=== PATIENT | male | born 1950 | race Caucasian/White ===

== ENCOUNTER → 2016-05-20 | Outpatient (CLI) | payer BC ==
[~2016-05-20] MED LIST: ASPI81TA28 PO; ATOR-22 PO; BTP80 PO; COEN10CA4; CYANPOW; DABI150C PO; FINA5TAB PO; FRS/40 PO; GLC/500 PO; GLIM1TAB PO; IMDSR30 PO; INSDGIPEN SC; INSHNI SQ; INSU100I2 SQ; INSUINJ SC; LSN40 PO; MAGN400T6 PO; NVLGIPEN SC; PRT/20 PO; lovaza PO
== END | disposition home or self-care (01) ==
LOC: C.LAB1850 09:56
PROVIDERS: ATTEND Urology
DX: N40.1 Benign prostatic hyperplasia with lower urinary tract symptoms (principal)

== ENCOUNTER → 2017-03-14 | Day surgery (SDC) | payer BC ==
[~2017-03-14] VITALS: Ht 175.3 cm; Wt 120.0 kg
[~2017-03-14] MED LIST changes: +ACETAMINOPHEN 325 MG TAB PO PRN; +ATROPINE SULFATE 0.1 MG/ML 5ML SYR IV PRN; +CARV25TA2 PO; +CHOL1000 PO; +COEN1CAP28 PO; +CYAN10004 PO; +DC ALL ANTICOAGULANTS PRN; +FENTANYL CITRATE INJ 50 MCG/1 ML 2 ML VIAL ONE; +IMDSR/30 PO; +INSU1.2I SQ; +METF-384 PO; +METH-1305 PO; +MIDAZOLAM HCL 1 MG/ML 2ML VIAL ONE; +NTRGSL/4 UT; +NVLGI/PEN SQ; +ONDANSETRON INJ 2 MG/ML 2 ML VIAL IV PRN; +PREG225C PO; +SODIUM CHLORIDE 0.9% 1000ML 1,000 ML IV SCH; +SODIUM CHLORIDE 0.9% 1000ML 250 ML IV PRN
[2017-03-14 07:12] VITALS: BP 149/77; PULSE 57; TEMP 36.6; O2SAT 94; Ht 175.3 cm; Wt 120.0 kg
--- NOTE | 2017-03-14 08:08 | History & Physical Bridge Note ---
H&P Re-Evaluation Bridge Note: I have examined the patient, reviewed the History & Physical and in the interval since the performance of the History & Physical I have noted the following changes of clinical significance: No changes noted
--- NOTE | 2017-03-14 09:36 | Cardiac Catheterization ---
Procedure Note Procedure Date Mar 14, 2017. Pre-Procedure Diagnosis Angina AUC Score 7 Post-Procedure Diagnosis Moderate CAD Procedure(s) Performed Coronary Angiography, Left Heart Cath [place] [employer] Dr. Corey Insole Filler(s) None Estimated Blood Loss None Medication(s) Versed, Lidocaine 1% Summary of Findings See dictated report Hemodynamics Rest Ao: 117/54 Final Ao: 120/55 LV: 118/17 Recommendations Medical therapy and/or Counseling Specimens None Radiation Exposure (mGy) 4505 Contrast (mls) 242 Fluids (cc crystalloids) 120 Disposition Respiratory Supervisor Holding/Recovery ACC Data Cardiac Status Clinical evaluation leading to the procedure CAD Presntation: Stable angina (this patient presented with atypical chest pain ) Anginal Classification: CCS II Heart Failure: No Cardiogenic Shock w/in 24Hrs: No Cardiac Arrest w/in 24Hrs: No Imaging studies past 6 months: Yes Stress studies past 6 months: No Coronary Anatomy Dominant: Right (see dictated report) Diagnostic Physician's Name: Rondey Corey, DO Status: Elective Closure Device Percutaneous Entry Location: Femoral Closure Device: Mynx
--- NOTE | 2017-03-14 09:48 | Procedure Note ---
Cardiac Cath Report Procedure: #1 left heart catheterization #2 coronary angiography History: This is a 66-year-old male patient followed by Dr. Onofre. He has been experiencing atypical chest pain. He's gained some weight recently. He has diabetic neuropathy of the lower extremities. He would not be a good candidate for a treadmill exercise study. Also, his imaging studies would be poor due to his body habitus. He would not be a good candidate for a dobutamine study due to history of atrial fibrillation. It was decided that the best option would be to proceed with cardiac catheterization considering that he has coronary artery disease with a previous stent placed at [facility] several years ago. Procedure summary: The patient was seen and evaluated in the holding area the Java [employer] Developer. After informed consent was obtained he was taken to the cardiac catheterization lab where he was prepped and draped in the usual manner. The patient has a history of a right carotid endarterectomy surgery and also had sluggish flow to the ulnar artery of the right hand so it was determined that he was not a candidate for right transradial approach. Utilizing a right transfemoral approach preformed diagnostic catheters were used for the coronary angiograms. 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 It took extra time and contrast dye to find disorder. The best catheter to cannulate this artery is an AL 1. Following coronary angiography. Pigtail catheter was utilized to measure left heart pressures. No LV gram was performed due to the amount of contrast dye utilized to find coronary anatomy. The patient had the arterial site closed with makes device and then was returned to the holding area the [employer] Developer in stable condition. Coronary angiography: Selective injections of the left coronary artery reveal diffuse mild disease throughout the left coronary tree. There is evidence of a previous stent in the first marginal from the left circumflex artery. The origin and proximal portion of the left circumflex is small in caliber most likely due to diffuse disease. The remainder of the left coronary tree has minor nonobstructive disease. The LAD system has moderate diffuse disease throughout its course. The LAD system gives off 2 diagonal branches which were medium to large in size. They have minor nonobstructive disease. Selective injections of the right coronary artery reveal it to be anomalous from the left coronary cusp. The right coronary artery is dominant. The right coronary artery has diffuse minor nonobstructive disease. Left ventriculogram was not performed. The LVEDP was 17. Summary: The patient has diffuse coronary artery disease which is nonobstructive. The previous coronary stent site in the marginal branch from the left circumflex artery is patent. The origin and proximal portion of the left circumflex artery are diffusely diseased and small in caliber. The remainder of the left circumflex artery as well as the remainder of the coronary anatomy is patent. 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 Recommendations: The patient will receive counseling and medical management for his coronary artery disease.
--- NOTE | 2017-03-14 09:50 | Pre Sedation Assessment ---
Pre Sedation Assessment General Date of Sedation: Mar 14, 2017. 8:34 AM Vital Signs Past 12 Hours Date Time Temp Pulse Resp B/P (MAP) Pulse Ox O2 Delivery O2 Flow Rate FiO2 03/14/17 09:23 54 16 126/81 (96) 97 Mask 3 03/14/17 07:12 36.6 57 16 149/77 (101) 94 Room Air Review Cardiovascular: regular rate, rhythm Lungs: lungs clear Pre-Sedation Airway Assessment Smoking Status: Former Smoker Hx of Sleep Apnea: Yes Hx of difficult intubation: No Short Thick Neck: Yes Thyro-mental Distance: < or =3 Finger Breadths Oral Cavity: Dentures Mallampati Classification: Class II ASA Classification: Class II NPO Status Date of Last Intake of Fluids: Mar 14, 2017 Time of Last Intake of Fluids: 0430 Date of Last Intake of Solids: Mar 13, 2017 Time of Last Intake of Solids: 183 Procedure Planning Contraindications for Sedation: None Current Medications Reviewed: Yes Notes The planned sedation has been discussed with the patient. Informed Consent was obtained. I have identified the patient, determined the appropriateness of sedation and have assessed the patient immediately prior to the procedure. All medicine(s) and interventions are by my order.
--- NOTE | 2017-03-14 09:51 | Post Sedation Assessment ---
Post Sedation Assessment General Date of Sedation Mar 14, 2017. 9:23 AM Vital Signs: Vital Signs Past 12 Hours Date Time Temp Pulse Resp B/P (MAP) Pulse Ox O2 Delivery O2 Flow Rate FiO2 03/14/17 09:23 54 16 126/81 (96) 97 Mask 3 03/14/17 07:12 36.6 57 16 149/77 (101) 94 Room Air Post Procedure Recovery Score Activity: (2) Moves 4 extremities * Respiration: (2) Deep breath/cough Circulation: (2) +/-20% PreAnes Value Consciousness: (2) Fully Awake Oxygen Saturation: (2) > 92% On Room Air Post Anesthesia Score: 10 Discharge Sedation Level of Care: Fast Track Phase II Post Sedation Plan On clinical assessment, the patient appears to have tolerated the sedation without complications. Patient is recovering as anticipated. Patient will continue to be monitored by nursing and may be discharged when sedation discharge criteria are met per below protocol. Upon Completions of procedure and additional 15 minutes continue every 5 minute vital signs and the P.A.R. score; then discharge to a Phase I or Fast Track to Phase II per the following guidelines: * Discharge Patient to appropriate Phase II area if PAR is 8 or greater or return to pre- procedure baseline. The post - procedure orders will be as directed. * If PAR score is less than 8 or not return to pre-procedure baseline then patient will follow Phase I monitoring till PAR is reached for Phase II. The Phase I may be done in procedure room or may call to secure a Phase I area. * If naloxone or flumazenil are used for reversal, hold in Phase I for an additional 60 -120 minutes before discharge to Phase II. Please call the Sedation Physician to re-evaluate and complete post-note for discharge to Phase II area. Do NOT discharge from procedure sedation or Phase 1 until post- sedation evaluation note is complete by procedure /sedation MD Sedation Discharge Instructions to be given to the patient at discharge to home.
--- NOTE | 2017-03-14 10:00 | Discharge Instructions ---
Discharge Instructions Procedure Procedure Date: Mar 14, 2017. Reason for Visit: Chest Pain *. Discharge Discharge Date: Mar 14, 2017. Discharge Diagnosis: Coronary artery disease Last Recorded Wt (Kilograms): 120 Anesthesia Post Anesthesia Instructions: If you have had General Anesthesia or IV Sedation: * Do not drive today. * Resume driving when surgeon permits. * Do not make important decisions or sign legal documents today. * Call surgeon for: 1. Temperature elevations greater than 101 degrees F. 2. Uncontrollable pain. 3. Excessive bleeding. 4. Persistent nausea and vomiting. 5. Medication intolerance (nausea, vomiting or rash). * For nausea and vomiting use only clear liquids such as: tea, soda, bouillon until nausea subsides, then gradually increase diet as tolerated. * If you have any concerns or questions, call your surgeon's office. If physician is unavailable and it is an emergency, call 911 or go to the nearest emergency room. Instructions Activity Recommendations: limitations Recommended Home Diet: resume previous diet Allergies: Coded Allergies: No Known Allergies (Unverified , 05/27/15) Provider Instructions ACTIVITY RECOMMENDATIONS: It is common to feel weak and fatigue for a few days. * Do not drive or operate any motorized equipment for the next three days. * Limit stair usage (2 or 3 trips a day only) for the next three days. * Do not lift anything heavier than 10 pounds for the next three days. * Do not engage in vigorous exercise or any sports for the next five days. * You may shower the day after your procedure, but do not immerse the area for three days. Cleanse the site gently with soap and water. SPECIAL CARE INSTRUCTIONS: * You may replace the pressure dressing or band-aid the morning after the procedure. * After your procedure, it is normal to have a small bruise or small lump at the site. Examine your site daily for any change in the bruise or lump, redness, swelling, drainage or numbness. Notify your doctor if any change. BLEEDING: * If there is a small amount of bleeding at the site, lie down and apply firm pressure with a clean cloth for ten minutes. When the bleeding stops, lie quietly keeping the procedure limb straight for six hours. Notify your doctor as soon as possible. * If the bleeding does not stop after ten minutes or if there is a large amount of bleeding or spurting, call 911 immediately. Continue to lie down and hold firm pressure until help arrives. SKIN IRRITATION: * You may experience some redness and/or swelling in the area where radiation was administered. If any skin irritation occurs, please contact your family physician. FOLLOW UP VISIT: Keep any scheduled doctor appointments. Follow Up Additional Instructions: Hold metformin for the next 2 days. Follow-up with: Follow-up with Dr. Schilling as previously scheduled. Ander Monet Recommendations: Call your doctor if: * Temperature above 101 degrees * Pain not relieved by pain medicine ordered * There is increased drainage or redness from any incision * You have any unanswered questions or concerns. Your Doctors Instructions noted above were prepared by provider Rodney Corey. Patient Signature Section: Patient Instructions Signature Page Po Rubio Patient (or Guardian) Signature/Date: I have read and understand the instructions given to me by my caregivers. Caregiver/RN/Doctor Signature/Date: The above-named patient and/or guardian has received patient instructions on this date. + Original Patient Signature Page (only) stays with chart. Please make copy for patient.
[2017-03-14 12:00] VITALS: BP 114/68; PULSE 65; O2SAT 96
== END | disposition home or self-care (01) ==
LOC: C.CATH 06:02
PROVIDERS: ATTEND Internal Medicine Interventional Cardiology
DX: I20.8 Other forms of angina pectoris (principal); I48.0 Paroxysmal atrial fibrillation; I25.10 Atherosclerotic heart disease of native coronary artery without angina pectoris; I10 Essential (primary) hypertension; R00.2 Palpitations; R00.1 Bradycardia, unspecified; Z82.49 Family history of ischemic heart disease and other diseases of the circulatory system; Z80.1 Family history of malignant neoplasm of trachea, bronchus and lung; Z79.82 Long term (current) use of aspirin; Z87.891 Personal history of nicotine dependence

== ENCOUNTER → 2017-03-16 | Outpatient (CLI) | payer BC ==
[~2017-03-16] MED LIST changes: -ACETAMINOPHEN 325 MG TAB PO PRN; -ATROPINE SULFATE 0.1 MG/ML 5ML SYR IV PRN; -BTP80 PO; -COEN10CA4; -CYANPOW; -DC ALL ANTICOAGULANTS PRN; -FENTANYL CITRATE INJ 50 MCG/1 ML 2 ML VIAL ONE; -GLC/500 PO; -GLIM1TAB PO; -IMDSR30 PO; -INSDGIPEN SC; -INSHNI SQ; -INSU100I2 SQ; -INSUINJ SC; -MIDAZOLAM HCL 1 MG/ML 2ML VIAL ONE; -NVLGIPEN SC; -ONDANSETRON INJ 2 MG/ML 2 ML VIAL IV PRN; -SODIUM CHLORIDE 0.9% 1000ML 1,000 ML IV SCH; -SODIUM CHLORIDE 0.9% 1000ML 250 ML IV PRN
[2017-03-16 10:23] LABS: BLOOD UREA NITROGEN 25 mg/dl (7-18); CARBON DIOXIDE 26 mmol/L (21-32); CREATININE 1.32 mg/dl (0.60-1.40); GLUCOSE 140 mg/dl (70-99); POTASSIUM 4.2 mmol/L (3.5-5.1); SODIUM 143 mmol/L (136-145)
== END | disposition home or self-care (01) ==
LOC: C.LAB1850 08:45
PROVIDERS: ATTEND Internal Medicine Interventional Cardiology
DX: I48.0 Paroxysmal atrial fibrillation (principal); I10 Essential (primary) hypertension; Z98.890 Other specified postprocedural states

== ENCOUNTER → 2017-05-04 | Outpatient (CLI) | payer BC | END | disposition home or self-care (01) | LOC: C.LAB1850 07:00 | PROVIDERS: ATTEND Urology | DX: R33.9 Retention of urine, unspecified (principal); N40.1 Benign prostatic hyperplasia with lower urinary tract symptoms; N31.9 Neuromuscular dysfunction of bladder, unspecified ==

== ENCOUNTER → 2017-08-11 | Outpatient (CLI) | payer BC, OTHER ==
[~2017-08-11] MED LIST changes: -CARV25TA2 PO; +CIPR-304 PO; +CRG125 PO; -FRS/40 PO; +HYDR-4715 PO; +LISI40TA3 PO; -LSN40 PO; +NVLG SC; +TORS10TA14 PO
[2017-08-11 09:43] LABS: BLOOD UREA NITROGEN 37 mg/dl (7-18); CALCIUM 8.8 mg/dl (8.5-10.1); CARBON DIOXIDE 21 mmol/L (21-32); CREATININE 1.83 mg/dl (0.60-1.40); GLUCOSE 219 mg/dl (70-99); POTASSIUM 4.5 mmol/L (3.5-5.1); SODIUM 143 mmol/L (136-145)
== END | disposition home or self-care (01) ==
LOC: C.LAB1850 08:23
PROVIDERS: ATTEND Physician Assistant
DX: N17.0 Acute kidney failure with tubular necrosis (principal)

== ENCOUNTER 2023-04-02 09:32 | Inpatient (IN) ==
--- OUTSIDE RECORDS SUMMARY | 2023-04-02 09:38 | External Medical Summary | Summary of Care ---
Author Name Unknown Organization [facility] Address [address] [place] [address] Phone [phone] Care Team Providers Care Circle Edger Name Role Phone Leonard Eisenberg MD Primary Care Provider [phone] Reason for Visit * Reason Comments NEW PATIENT Encounter Details Date Type Department Care Team (Late st Contact Info) Description 02/08/2023 8:00 AM EST Office Visit Urology, [place] [address], [place] [id number] Chivo Solis PA-C [address], [place] [id number] Neurogenic bladder*; BPH with obstruction/lower urinary tract symptoms Allergies Active Allergy Reactions Criticality Noted Date Comments Sulfamethoxazole-Trimet hoprim Other (Please comment) 09/20/2017 hyperkalmeia Lisinopril 09/15/2022 ?cough Trimethoprim High 11/23/2021 Other reaction(s): acute renal failure documented as of this encounter (statuses as of 02/08/2023) Medications Medication Sig Dispensed Refills Start Date End Date Status NOVOFINE 32G X 6 MM MISC 0 12/19/2014 Active Magnesium 500 MG Capsule Take 1 Tablet by mouth in the morning and 1 Tablet before bedtime. one in morning, one in evening. 0 Active Cyanocobalamin (VITAMIN B-12) 1000 MCG Tablet Take 1 Tablet by mouth in the morning. 0 Active Methenamine Hippurate 1 G TABS Take 1 Tablet by mouth in the morning and 1 Tablet before bedtime. 6 02/26/2016 Active LYRICA 225 MG Capsule Take 1 Capsule by mouth in the morning and 1 Capsule at noon and 1 Capsule in the evening and 1 Capsule before bedtime. 0 02/27/2017 Active Cholecalciferol (VITAMIN D3) 1000 units CAPS Take 1 Capsule by mouth in the morning. 0 Active DULoxetine HCl 60 MG Oral Capsule Delayed Release Particles (CYMBALTA) Take 1 Capsule by mouth in the morning and 1 Capsule before bedtime. 0 12/17/2019 Active Aspirin EC 81 MG Oral Tablet Delayed Release Take by mouth 1 Tablet in the morning. 90 Tablet 3 05/31/2021 Active CPAP every night at bedtime . 0 Active Nitroglycerin 0.4 MG Sublingual Tablet Sublingual (Nitrostat)Indicatio ns:Coronary artery disease involving [place] coronary artery of [place] heart without angina pectoris Place under the tongue 1 Tablet every 5 minutes as needed for Pain, Chest. up to 3 doses in 15 minutes 25 Tablet 1 10/20/2021 Active WePoppipod DASH PDM (Gen 4) Kit Use as directed . Use to control insulin pod 1 Kit 0 11/15/2021 Active WePoppipSensipass DASH Pods (Gen 4) Use as directed . Use 1 pod every 3 days 2 Each 0 01/18/2022 Active Isosorbide Mononitrate ER 60 MG Oral Tablet Extended Release 24 Hour (Imdur)Indications:H TN, goal below 130/80,Coronary artery disease involving [place] coronary artery of [place] heart without angina pectoris,S/P primary angioplasty with coronary stent Take 1 Tablet (60 mg) by mouth in the morning. 90 Tablet 3 01/17/2022 Active FreeStyle Indra 2 Sensor Use as directed . Use 1 sensor every 14 days 6 Each 3 01/21/2022 Active Atorvastatin Calcium 40 MG Oral Tablet (Lipitor)Indications :evening Take 1 Tablet by mouth in the morning. 1 tab daily. 90 Tablet 3 03/21/2022 Active Carvedilol 12.5 MG Oral Tablet (Coreg)Indications:C oronary artery disease involving [place] coronary artery of [place] heart without angina pectoris,Paroxysmal atrial fibrillation (HCC) Take 1 Tablet by mouth in the morning and 1 Tablet before bedtime. 180 Tablet 3 03/21/2022 Active Jppjc-2-kazw Ethyl Esters 1 GM Oral Capsule (Lovaza)Indications: Dyslipidemia Take 1 Capsule by mouth in the morning and 1 Capsule in the evening. 180 Capsule 3 04/19/2022 Active Apixaban 5 MG Oral Tablet (Eliquis)Indications :Paroxysmal atrial fibrillation (HCC) Take 1 Tablet by mouth in the morning and 1 Tablet before bedtime. 180 Tablet 3 07/12/2022 Active metFORMIN HCl 1000 MG Oral Tablet (Glucophage) Take 1 Tablet by mouth 2 times a day with morning and evening meals. 180 Tablet 3 07/14/2022 Active Albuterol Sulfate 108 (90 Base) MCG/ACT Inhalation Aerosol Powder Breath Activated Inhale 2 Puffs by mouth every 4 hours as needed for Cough, Shortness of Breath or Wheezing. 1 Each 5 07/18/2022 Active Pantoprazole Sodium 40 MG Oral Tablet Delayed Release (Protonix) 0 08/02/2022 Active Losartan Potassium 50 MG Oral Tablet (Cozaar) Take 0.5 Tablets by mouth in the morning. 45 Tablet 3 09/27/2022 Active B Complex Plus Oral Tablet Take by mouth. 0 Active Eye Health Oral Capsule Take by mouth. 0 Active Ipratropium [place] HFA 17 MCG/ACT Inhalation Aerosol Solution (Atrovent Hfa) Inhale 2 Puffs by mouth every 6 hours. 12.9 g 5 10/19/2022 Active Torsemide 10 MG Oral Tablet (Demadex)Indications :HTN, goal below 130/80 Take 1 Tablet by mouth in the morning and 1 Tablet before bedtime. 180 Tablet 3 10/25/2022 Active Fluticasone-Salmeter ol 500-50 MCG/ACT Inhalation Aerosol Powder Breath Activated Inhale 1 Puff by mouth in the morning and 1 Puff before bedtime. 180 Each 3 10/25/2022 Active Biotene Dry Mouth Mouth/Throat Lozenge Apply 1 Lozenge to the mouth or throat every evening. 90 Lozenge 3 10/25/2022 Active Omnipod DASH Pods (Gen 4) USE 1 POD EVERY 2 DAYS DIRECTED 5 Each 0 11/25/2022 Active Allopurinol 100 MG Oral Tablet (Zyloprim) Take 1 Tablet by mouth in the morning. 30 Tablet 11 12/12/2022 Active hydrALAZINE HCl 10 MG Oral Tablet (Apresoline) Take 1 Tablet by mouth in the morning. 90 Tablet 3 12/28/2022 Active Insulin Aspart 100 UNIT/ML Injection Solution (NovoLOG) Inject up to 100 units daily via insulin pump 90 mL 1 01/10/2023 Active Hospital, Clinic, or Other Facility Administered Medication Ordered Dose Route Frequency Start Date End Date Status Albuterol Sulfate (Proventil) (2.5 MG/3ML) 0.083% inhalation solution 2.5 mgIndications:KOVACS (dyspnea on exertion),Centrilobular emphysema (HCC),History of tobacco use,Morbid obesity (HCC) 2.5 mg NEBULIZER PRN 07/06/2022 Active documented as of this encounter (statuses as of 02/08/2023) Active Problems Problem Noted Date Diagnosed Date Angina pectoris 02/08/2023 ARF (acute renal failure) 02/08/2023 Jimenez's esophagus 02/08/2023 Carpal tunnel syndrome 02/08/2023 CPAP (continuous positive airway pressure) depen dence 02/08/2023 Diabetic peripheral neuropathy 02/08/2023 KOVACS (dyspnea on exertion) 02/08/2023 Esophageal reflux 02/08/2023 History of tobacco abuse 02/08/2023 Lower back pain 02/08/2023 Spinal stenosis of lumbar region 02/08/2023 Other specified cardiac arrhythmias 02/08/2023 TR (tricuspid regurgitation) 02/08/2023 Gouty arthropathy 12/12/2022 Carotid stenosis, non-symptomatic, bilateral 03/2022 Claudication in peripheral vascular disease 03/2022 BPH with obstruction/lower urinary tract symptom s 09/07/2022 Neurogenic bladder 09/07/2022 Centrilobular emphysema 09/06/2022 Impaired functional mobility and activity tolera nce 04/19/2022 S/P ablation of atrial fibrillation 04/19/2022 Type 2 diabetes mellitus wit h diabetic peripheral angiopathy without gangrene 12/11/2021 Morbid obesity 10/20/2021 Overview: Per Obesity protocol Type 2 diabetes mellitus wit h hemoglobin A1c goal of less than 8.0% 10/17/2021 JORGE A (obstructive sleep apnea) 10/17/2021 Stage 3a chronic kidney disease 10/17/2021 Dyslipidemia 10/16/2021 PAD (peripheral artery disease) 09/21/2020 S/P primary angioplasty with coronary stent 03/16 Paroxysmal atrial fibrillation 02/18/2015 Coronary artery disease invo lving mil[place] coronary artery of [place] heart without angina pectoris 02/18/2015 HTN, goal below 130/80 02/18/2015 S/P carotid endarterectomy 02/18/2015 Dysmetabolic syndrome X 11/18/2013 Postsurgical percutaneous tr ansluminal coronary angioplasty status 11/18/2013 documented as of this encounter (statuses as of 02/08/2023) Resolved Problems Problem Noted Date Diagnosed Date Resolved Date Body mass index (BMI) of 40. 0 to 44.9 in adult 07/25/2022 09/06/2022 Overview: Per Obesity protocol Obesity, Class II, BMI 35-39 .9, isolated (see actual BMI) 10/17/2021 10/25/2022 ASCVD (arteriosclerotic card iovascular disease) 06/05/2017 10/16/2021 Palpitations 02/28/2017 10/16/2021 Hyperlipidemia LDL goal <70 02/18/2015 10/16/2021 documented as of this encounter (statuses as of 02/08/2023) Immunizations Name Administration Dates Next Due COVID-19 mRNA, LNP-s, No Pre serve, 2-Dose Series (Kngine) 11/19/2020,04/24/2020,03/29/2020 Hepatitis B, 20+ yrs 12/07/2016,06/15/2016,03/16 Pneumococcal Conjugate Vacc, 13 Valent (Prevnar) 11/24/2014 Pneumococcal Polysaccharide PPV23 (Pneumovax) 01/13/2016,02/13/2007,12/23/2005 Seasonal Influenza, Quadriva lent Hd (Fluzone Hd) 10/25/2022,10/20/2021 Seasonal Influenza, Split, I IV3, With Preserve, Inj 11/24/2014,11/07/2013 Varicella Zoster Vaccine (Adult) 05/30/2018,02/2013 Zoster Vaccine Recombinant (Shingrix) 08/06/2018 ,05/30/2018 documented as of this encounter Social History Tobacco Use Types Packs/Day Years Used Date Smoking Tobacco: Former Cigarettes 2 35 Q uit: 02/13/2001 Smokeless Tobacco: Never Tobacco Cessation:Counseling Given: Not Answered Alcohol Use Standard Drinks/Week Comments Yes 0 (1 standard drink = 0.6 oz pur e alcohol) Beer occasionally. AUDIT-C Answer Date Recorded Q1: How often do you have a drink containing alc ohol? Never 09/11/2020 Q2: How many drinks containi ng alcohol do you have on a typical day when you are drinking? Not asked 09/11/2020 Q3: How often do you have six or more drinks on one occasion? Never 09/11/2020 PHQ-2 Answer Date Recorded PHQ Adult Total Score 0 01/18/2023 Hunger Vital Sign Answer Date Recorded Within the past 12 months, y ou worried that your food would run out before you got the money to buy more. Never true 01/18/20 Within the past 12 months, t he food you bought just didn't last and you didn't have money to get more. Never true 01/17/2022 Sex and Gender Information Value Date Recorded Sex Assigned at Male 01/17/2022 8:21 AM EST Gender Identity Male 01/17/2022 8:21 AM EST Sexual Orientation Straight 01/17/2022 8: 21 AM EST Job Start Date Occupation Industry Not on file Not on file Not on file documented as of this encounter Last Filed Vital Signs Vital Sign Reading Time Taken Comments Blood Pressure 98/60 02/08/2023 7:47 AM EST Pulse 67 02/08/2023 7:47 AM EST Temperature 36.1 C (97 F) 02/08/2023 7:47 AM EST Respiratory Rate - - Oxygen Saturation - - Inhaled Oxygen Concentration - - Weight - - Height - - Body Mass Index - - documented in this encounter Progress Notes * Chivo Solis PA-C - 02/08/2023 8:04 AM EST . PCP: LEONARD EISENBERG [address] [place] [address] [phone] HPI: Po Rubio MR# [id number] is a 72 year old male presents in self referral for evaluation of bladder issues. Patient reports he has been followed by Dr. Hahn, urologist at [facility] in [place] for many years. Patient is seeking 2nd opinion for care regarding suspected recurring UTIs. Patient has a longstanding history of neurogenic bladder which he has been performing self intermittent catheterization 3 times daily for the past 10 years--generally yielding approximately 1 L of urine with each catheterization. Patient reports no issues with catheterizations. He admits that his urine a lot of times as cloudy despite consuming 64 oz of water and some coffee daily. He denies any other urinary symptoms such as fever, chills, dysuria, gross hematuria, suprapubic pain/pressure,or flank pain/pressure, or urinary incontinence associated with his cloudy urine. Patient does not void between catheterizations. . He reports he has been treated with several antibiotics for his cloudy urine which generally urine clears while he is on the antibiotic but then cloudy urine returns after he is off antibiotics. He has been taking methenamine 1 g at bedtime for severalyears to help prevent infections. BMs are generally once daily and regular. Review of patient's allergies indicates: Allergen Reactions Trimethoprim Other reaction(s): acute renal failure Bactrim [Sulfamethoxazole-Trimethoprim] Other (Please comment) hyperkalmeia Lisinopril ?cough Current Outpatient Medications Medication Sig Dispense Refill NOVOFINE 32G X 6 MM MISC Magnesium 500 MG Capsule Take 1 Tablet by mouth in the morning and 1 Tablet before bedtime. one in morning, one in evening. Cyanocobalamin (VITAMIN B-12) 1000 MCG Tablet Take 1 Tablet by mouth in the morning. Methenamine Hippurate 1 G TABS Take 1 Tablet by mouth in the morning and 1 Tablet before bedtime. 6 LYRICA 225 MG Capsule Take 1 Capsule by mouth in the morning and 1 Capsule at noon and 1 Capsule inthe evening and 1 Capsule before bedtime. Cholecalciferol (VITAMIN D3) 1000 units CAPS Take 1 Capsule by mouth in the morning. DULoxetine HCl 60 MG Oral Capsule Delayed Release Particles (CYMBALTA) Take 1 Capsule by mouth in the morning and 1 Capsule before bedtime. Aspirin EC 81 MG Oral Tablet Delayed Release Take by mouth 1 Tablet in the morning. 90 Tablet 3 CPAP every night at bedtime . Nitroglycerin 0.4 MG Sublingual Tablet Sublingual (Nitrostat) Place under the tongue 1 Tablet every5 minutes as needed for Pain, Chest. up to 3 doses in 15 minutes 25 Tablet 1 Omnipod DASH PDM (Gen 4) Kit Use as directed . Use to control insulin pod 1 Kit 0 Omnipod DASH Pods (Gen 4) Use as directed . Use 1 pod every 3 days 2 Each 0 Isosorbide Mononitrate ER 60 MG Oral Tablet Extended Release 24 Hour (Imdur) Take 1 Tablet (60 mg) by mouth in the morning. 90 Tablet 3 FreeStyle Indra 2 Sensor Use as directed . Use 1 sensor every 14 days 6 Each 3 Atorvastatin Calcium 40 MG Oral Tablet (Lipitor) Take 1 Tablet by mouth in the morning. 1 tab daily. 90 Tablet 3 Carvedilol 12.5 MG Oral Tablet (Coreg) Take 1 Tablet by mouth in the morning and 1 Tablet before bedtime. 180 Tablet 3 Ogldm-2-dvri Ethyl Esters 1 GM Oral Capsule (Lovaza) Take 1 Capsule by mouth in the morning and 1 Capsule in the evening. 180 Capsule 3 Apixaban 5 MG Oral Tablet (Eliquis) Take 1 Tablet by mouth in the morning and 1 Tablet before bedtime. 180 Tablet 3 metFORMIN HCl 1000 MG Oral Tablet (Glucophage) Take 1 Tablet by mouth 2 times a day with morning and evening meals. 180 Tablet 3 Albuterol Sulfate 108 (90 Base) MCG/ACT Inhalation Aerosol Powder Breath Activated Inhale 2 Puffs by mouth every 4 hours as needed for Cough, Shortness of Breath or Wheezing. 1 Each 5 Pantoprazole Sodium 40 MG Oral Tablet Delayed Release (Protonix) Losartan Potassium 50 MG Oral Tablet (Cozaar) Take 0.5 Tablets by mouth in the morning. 45 Tablet 3 B Complex Plus Oral Tablet Take by mouth. Eye Health Oral Capsule Take by mouth. Ipratropium [place] HFA 17 MCG/ACT Inhalation Aerosol Solution (Atrovent Hfa) Inhale 2 Puffs by mouth every 6 hours. 12.9 g 5 Torsemide 10 MG Oral Tablet (Demadex) Take 1 Tablet by mouth in the morning and 1 Tablet before bedtime. 180 Tablet 3 Fluticasone-Salmeterol 500-50 MCG/ACT Inhalation Aerosol Powder Breath Activated Inhale 1 Puff by mouth in the morning and 1 Puff before bedtime. 180 Each 3 Biotene Dry Mouth Mouth/Throat Lozenge Apply 1 Lozenge to the mouth or throat every evening. 90 Lozenge 3 Omnipod DASH Pods (Gen 4) USE 1 POD EVERY 2 DAYS DIRECTED 5 Each 0 Allopurinol 100 MG Oral Tablet (Zyloprim) Take 1 Tablet by mouth in the morning. 30 Tablet 11 hydrALAZINE HCl 10 MG Oral Tablet (Apresoline) Take 1 Tablet by mouth in the morning. 90 Tablet 3 Insulin Aspart 100 UNIT/ML Injection Solution (NovoLOG) Inject up to 100 units daily via insulin pump 90 mL 1 Current Facility-Administered Medications Medication Dose Route Frequency Provider Last Rate Last Admin Albuterol Sulfate (Proventil) (2.5 MG/3ML) 0.083% inhalation solution 2.5 mg 2.5 mg Nebulizer Tata Martinez CRNP 2.5 mg at 07/15/22 0811 Patient Active Problem List Diagnosis Code Paroxysmal atrial fibrillation ([facility]) I48.0 Coronary artery disease involving [place] coronary artery of [place] heart without angina pectoris I25.10 HTN, goal below 130/80 I10 S/P carotid endarterectomy Z98.890 S/P primary angioplasty with coronary stent Z95.5 PAD (peripheral artery disease) ([facility]) I73.9 Dyslipidemia E78.5 Type 2 diabetes mellitus with hemoglobin A1c goal of less than 8.0% ([facility]) E11.9 JORGE A (obstructive sleep apnea) G47.33 Stage 3a chronic kidney disease ([facility]) N18.31 Morbid obesity ([facility]) E66.01 Type 2 diabetes mellitus with diabetic peripheral angiopathy without gangrene ([facility]) E11.51 Impaired functional mobility and activity tolerance Z74.09 S/P ablation of atrial fibrillation Z98.890, Z86.79 Centrilobular emphysema ([facility]) J43.2 BPH with obstruction/lower urinary tract symptoms N40.1, N13.8 Neurogenic bladder N31.9 Carotid stenosis, non-symptomatic, bilateral I65.23 Claudication in peripheral vascular disease ([facility]) I73.9 Gouty arthropathy M10.9 Angina pectoris ([facility]) I20.9 ARF (acute renal failure) ([facility]) N17.9 Jimenez's esophagus K22.70 Carpal tunnel syndrome G56.00 CPAP (continuous positive airway pressure) dependence Z99.89 Diabetic peripheral neuropathy ([facility]) E11.42 KOVACS (dyspnea on exertion) R06.09 Dysmetabolic syndrome X E88.810 Esophageal reflux K21.9 History of tobacco abuse Z87.891 Lower back pain M54.50 Spinal stenosis of lumbar region M48.061 Other specified cardiac arrhythmias I49.8 Postsurgical percutaneous transluminal coronary angioplasty status Z98.61 TR (tricuspid regurgitation) I07.1 Past Medical History: Diagnosis Date BPH with obstruction/lower urinary tract symptoms 09/07/2022 CAD in [place] artery Cypher 2.5 x 28 mm drug eluting stent to the obstuse marginal , [place] Carotid stenosis Centrilobular emphysema (HCC) 09/06/2022 DM2 (diabetes mellitus, type 2) ([facility]) Dyslipidemia, goal LDL below 100 HTN (hypertension) Impaired functional mobility and activity tolerance 04/19/2022 Morbid obesity due to excess calories ([facility]) 10/20/2021 Neurogenic bladder 09/07/2022 Obesity, Class II, BMI 35-39.9, isolated (see actual BMI) 10/17/2021 JORGE A (obstructive sleep apnea) 10/17/2021 Paroxysmal atrial fibrillation ([facility]) 02/18/2015 S/P ablation of atrial fibrillation 04/19/2022 Sleep apnea, obstructive Stage 3a chronic kidney disease ([facility]) 10/17/2021 Type 2 diabetes mellitus with hemoglobin A1c goal of less than 8.0% ([facility]) 10/17/2021 Past Surgical History: Procedure Laterality Date CARDIAC CATH-CARDIOLOGY ONLY 10/27/2008 drug eluting stent to the OM, [place] CARPAL TUNNEL SURGERY Left 06/18/2021 NEUROPLASTY MEDIAN NERVE AT CARPAL TUNNEL performed by Rodney Heaton DO at OR [facility] CARPAL TUNNEL SURGERY Right 07/16/2021 NEUROPLASTY MEDIAN NERVE AT CARPAL TUNNEL performed by Rodney Heaton DO at OR [facility] CORONARY ANGIOGRAPHY W/LEFT HEART CATH Right 04/01/2020 CORONARY ANGIOGRAPHY W/LEFT HEART CATH performed by Momo Gomez MD at [facility] LABS [facility] EGD, FLEXIBLE, DIAGNOSTIC 04/04/2016 inflammation on bx, repeat 5 yrs/ESOPHAGOGASTRODUODENOSCOPY (EGD), FLEXIBLE, TRANSORAL, DIAGNOSTIC performed by Bibi Hale MD at ENDOSCOPY [facility] ELECTROPHYSIOLOGY EVAL, ATRIAL FIB, PULMONARY VEIN ISOL 07/15/2015 ELECTROPHYSIOLOGY EVAL, ATRIAL FIB, PULMONARY VEIN ISOL performed by Dc Fleming MD at CARDIAC LABS [facility] FEM/POP ARTERY REVASC W/ANGIOPLASTY Right 09/21/2020 FEM/POP ARTERY REVASC W/ANGIOPLASTY performed by Gunner Serrano MD at OR [facility] IR ARTERIOGRAM EXTREMITY UNILATERAL Right 09/21/2020 IMAGING SUPERVISION & INTERPRETATION EXTREMITY UNILATERAL performed by Gunner Serrano MD at [facility] REMOVE CATARACT, INSERT LENS PROSTH Left 11/14/2019 LEFT EXTRACAPSULAR CATARACT REMOVAL WITH INTRAOCULAR LENS performed by Elmo Apodaca MD at [facility] REMOVE CATARACT, INSERT LENS PROSTH Right 11/28/2019 RIGHT EXTRACAPSULAR CATARACT REMOVAL WITH INTRAOCULAR LENS performed by Elmo Apodaca MD at OR [facility] SINUS SURGERY PROCEDURE NEC 09/2014 THROMBOENDARECTOMY W/PATCH,NECK INCISION Right 04/2014 Dr Vincenzo [place] TIBIAL/PERONEAL ART. REVASC W/ANGIO, FIRST 09/21/2020 TIBIAL/PERONEAL ART. 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 Drug use: Never Social Determinants of Health Food Insecurity: No Food Insecurity (01/17/2022) Hunger Vital Sign Worried About Running Out of Food in the Last Year: Never true Ran Out of Food in the Last Year: Never true Review of Systems: CONSTITUTIONAL: Denies fatigue, night sweats SKIN: Denies rash, erythema NEURO: Denies headache, dizziness, slurred speech, seizure, stroke EENT: Denies visual changes, epistaxis CARDIAC: Denies recent chest pain, palpitation, murmur, CHF RESPIRATORY: Denies SOB, Asthma, emphysema, wheezing, cough GI: Denies nausea, vomiting, diarrhea, constipation, hematochezia, melena : see hpi ENDOCRINE: Denies thyroid disease. MUSCULOSKELETAL: Denies muscle weakness, swelling HEMATOLOGIC: Denies prior h/o DVT, Anemia, spontaneous bruising PSYCHOLOGICAL: Denies h/o panic attacks, bipolar disorder ALL OTHER SYSTEMS NEGATIVE PHYSICAL EXAM: BP 98/60 (BP Site: Right Arm, BP Position: Sitting, BP Cuff Size: Large) | Pulse 67 | Temp 36.1 C(97 F) (Tympanic) General: alert, no distress,well developed,well nourished,cooperative HEENT: unremarkable, EOMI, mucus membranes moist, sclera anicteric, no hearing impairment, PERRLA Neck: no masses Heart: regular rate & rhythm, no murmur, and no gallops Lungs: chest symmetric with normal AP diameter, no chest deformities noted, no chest wall tenderness, lungs clear to auscultation ABDOMEN: Soft, non-tender. BS normal, No masses, organomegaly BACK: No costo-vertebral angle tenderness Extremities: trace edema bilateral ankles Neuro: alert & oriented x 3 with fluent speech, no focal motor/sensory deficits, gait slow and cautious and walks with a cane for ambulation assistance Impression: Po Rubio is a 72 year old male with: 1. Neurogenic bladder currently performing self-intermittent catheterization 3 times daily with high yield urine volumes with each catheterization Plan: 1. Recommend patient increase frequency of performing self-intermittent catheterization 4 times daily to reduce high yield urine volumes. Catheter supplies 1800-MEDICAL, 16 swedish straight tip hydrophilic coated--reorder number [id number] 2. Recommend increased oral hydration on a daily basis 3. Reduce methenamine 1 g to every other day 4. Needle obtain outside urology records--from [facility]--Dr. Hahn(Urologist) 5. RTC 3 months follow-up I spent a total of 30-39 minutes (exact time 35 mins) on the date of service in preparation, delivery, and documentation of the care provided to Po Rubio excluding any time spent in the performance of separately billed services. Chivo Solis PA-C 8:04 AM 02/08/2023 documented in this encounter Plan of Treatment Upcoming Encounters Date Type Department Care Team (Late st Contact Info) Description 02/15/2023 11:15 AM EST Office Visit Orthopaedics [address] [place] [address] Jamil Hills PA-C [address] [place] [address] 02/21/2023 9:30 AM EST Office Visit Pulmonary Medicine, [place] [address] [place] [address] Tata Walter CRNP [address] [place] [address] 03/02/2023 9:30 AM EST Office Visit Pharmacy, [facility] [address] [facility] [place] [address] [facility] [place] [address] 04/26/2023 7:40 AM EDT Office Visit Family Practice [facility] [address] [facility] [place] [address] eLonard Eisenberg MD [address] [place] [address] 05/01/2023 9:30 AM EDT Office Visit Urology, [place] [address], [place] [id number] Chivo Solis PA-C [address], [place] [id number] 11/02/2023 10:00 AM EDT Office Visit Sleep Disorders Ctr [facility] [address] [facility] [place] [phone] Nichol Caballero DO [address] [place] [address] 01/22/2024 8:00 AM EST Nurse Only Ancillary [facility] [address] [facility] [place] [address] [facility], Nurse Annual Wellness [facility] [address] [place] [address] Scheduled Procedures Name Priority Associated Diagnoses Date/Ti me ESOPHAGOGASTRODUODENOSCOPY ( EGD), FLEXIBLE, TRANSORAL, DIAGNOSTIC Recall Jimenez's esophagus Health Maintenance Due Date Last Done Comments Alpha-1 Antitrypsin 09/24/1967 Hepatitis C Screening 09/24/1967 DTaP,Tdap,and Td Vaccines (1 - Tdap) 1968 Cologuard 1994 Colonoscopy 1994 Colorectal Cancer Screening 1994 Fecal Occult Blood Test 1994 Sigmoidoscopy 1994 COVID-19 Vaccine ( season) 2022 11/19/2020, 04/24/2020, 03/29/2020 GFR 04/07/2023 10/05/2022, 080 05/2022, 06/07/2022, Additional history exists HbA1c 05/20/2023 11/18/2022, 03/0 08/2022, 10/20/2021, Additional history exists Diabetic Eye Exam 08/11/2023 08/10/2022, 12/22/2021 Albumin/Creatinine Ratio 09/17/2023 0804/2 023, 11/19/2018, 04/05/2017 CKD HGB USE SMARTSET 36461 10/20/202310/19, 10/19/2022, 09/16/2022, Additional history exists O2 ASSESSMENT COMPLETED IN PAST YEAR FOR COPD 10/29/2023 10/28/2022 CKD PHOS USE SMARTSET 02570 11/19/2023 10/0 07/2022, 11/12/2021, 04/01/2020 Diabetic Foot Exam 12/30/2023 12/29/2022 Depression Screening 01/19/2024 01/18/2023 Pneumococcal Vaccine: 65+ Years Completed 01/13/2016, 11/24/2014, 02/13/2007, Additional history exists Hepatitis B Completed 12/07/2016, 05/0 04/2016, 03/16/2016 Zoster Vaccines Completed 08/06/2018, 05/14, 05/30/2018, Additional history exists AAA Screening Completed 11/19/2019 Influenza Vaccine (FLU shot) Completed 01/2023, 10/20/2021, 11/24/2014, Additional history exists GARDASIL-HPV IMMUNIZATION SERIES Aged Out No longer eligible based on patient's age to complete this topic MENINGOCOCCAL (MENACTRA/MENVEO) Aged Out No longer eligible based on patient's age to complete this topic documented as of this encounter Medical Devices Implanted Type Area Cash Poster Device Identifier Shelf Expiration Date Model / Serial / Lot Lens Intraoc 16.5 - [id number] - [id number] Implanted:Qty: 1 on 11/14/2019 by Elmo Apodaca MD at OR [facility] Left: Eye [employer] 03/15/2024 [id number] / [id number] / [id number] Lens Intraoc 16.5 - [id number] - [id number] Implanted:Qty: 1 on 11/28/2019 by Elmo Apodaca MD at OR [facility] Right: Eye [employer] LOMB 04/12/2024 [id number] / [id number] / [id number] documented as of this encounter Visit Diagnoses Diagnosis Neurogenic bladder- Primary Neurogenic bladder, NOS BPH with obstruction/lower urinary tract symptoms Hypertrophy of prostate with urinary obstruction and other lower urinary tract symptoms (LUTS) documented in this encounter Advance Directives Latest Code Status on File Code Status Date Activated Date Inactivated Comments Full Code 07/15/2015 2:43 PM 07/16/2015 12:56 PM This o rder reflects the patients wishes and were consensually agreed upon. Care Teams Circle Edger Relationship Specialty Start Date End Date Leonard Eisenberg MD [address] [facility] [place] [address] PCP - General Family Medicine 10/20/21 documented as of this encounter"
--- OUTSIDE RECORDS SUMMARY | 2023-04-02 09:38 | External Medical Summary | Summary of Care ---
Author Name Unknown Organization [facility] Address [address] [facility] [place] [address] Phone [phone] Care Team Providers Care Skiver Blockers Name Role Phone Eliud Eisenberg MD Primary Care Provider [phone] Reason for Visit * Reason Comments Follow Up for knee pain 3 rd E uflexxa injection * Precert (Within 30 days (routine)) - Authorized Specialty Diagnoses / Procedures Referred By Contac t Referred To Contact Orthopedics Diagnoses Unilateral primary osteoarthritis, left knee Procedures EUFLEXXA, INTRA-ARTICULAR INJ, PER DOSE Jamil Hills PA-C [address] [place] [address] Jamil Hills PA-C [address] [place] [address] Referral ID Status Reason Start Date Expiration Date V isits Requested Visits Authorized [id number] Authorized Precert 01/12/2023 02/12/2099 [id number] Encounter Details Date Type Department Care Team (Latest Contact Info) Description 02/15/2023 11:15 AM EST Office Visit Orthopaedics [facility] [address] [place] [address] Jamil Hills PA-C [address] [place] [address] Primary osteoarthritis of left knee* Allergies Active Allergy Reactions Criticality Noted Date Comments Sulfamethoxazole-Trimet hoprim Other (Please comment) 09/20/2017 hyperkalmeia Lisinopril 09/15/2022 ?cough Trimethoprim High 11/23/2021 Other reaction(s): acute renal failure documented as of this encounter (statuses as of 02/15/2023) Medications Medication Sig Dispensed Refills Start Date [...] Tablet Sublingual (Nitrostat)Indicatio ns:Coronary artery disease involving salamatof coronary artery of salamatof heart without angina pectoris Place under the tongue 1 Tablet every 5 minutes as needed for Pain, Chest. up to 3 doses in 15 minutes 25 Tablet 1 10/20/2021 Active Omnipod DASH PDM (Gen 4) Kit Use as directed . Use to control insulin pod 1 Kit 0 11/15/2021 Active Omnipod DASH Pods (Gen 4) Use as directed . Use 1 pod every 3 days 2 Each 0 01/18/2022 Active Isosorbide Mononitrate ER 60 MG Oral Tablet Extended Release 24 Hour (Imdur)Indications:H TN, goal below 130/80,Coronary artery disease involving salamatof coronary artery of salamatof heart without angina pectoris,S/P primary angioplasty with [...] Oral Tablet (Coreg)Indications:C oronary artery disease involving salamatof coronary artery of salamatof heart without angina pectoris,Paroxysmal atrial fibrillation (HCC) Take 1 Tablet by mouth in the morning and 1 Tablet before bedtime. 180 Tablet 3 03/21/2022 Active Tfjth-3-ixop Ethyl Esters 1 GM Oral Capsule (Lovaza)Indications: [...] Capsule Take by mouth. 0 Active Ipratropium Cardwell HFA 17 MCG/ACT Inhalation Aerosol Solution (Atrovent [...] (HCC) 2.5 mg NEBULIZER PRN 07/06/2022 Active Sodium Hyaluronate (Viscosup) (Euflexxa/Hyalgan) 20 MG/2ML inj 20 mgIndications:Primary osteoarthritis of left knee 20 mg IX ONCE 02/15/2023 02/15/2023 Ended documented as of this encounter (statuses as of 02/15/2023) Active Problems Problem Noted Date Diagnosed Date [...] fibrillation 02/18/2015 Coronary artery disease invo lving salamatof coronary artery of salamatof heart without angina pectoris 02/18/2015 HTN, goal below 130/80 02/18/2015 S/P carotid endarterectomy 02/18/2015 Dysmetabolic syndrome X 11/18/2013 Postsurgical percutaneous tr ansluminal coronary angioplasty status 11/18/2013 documented as of this encounter (statuses as of 02/15/2023) Resolved Problems Problem Noted Date Diagnosed Date Resolved Date Body mass index (BMI) of 40. 0 to 44.9 in adult 07/25/2022 09/06/2022 Overview: Per Obesity protocol Obesity, Class II, BMI 35-39 .9, isolated (see actual BMI) 10/17/2021 10/25/2022 ASCVD (arteriosclerotic card iovascular disease) 06/05/2017 10/16/2021 Palpitations 02/28/2017 10/16/2021 Hyperlipidemia LDL goal <70 02/18/2015 10/16/2021 documented as of this encounter (statuses as of 02/15/2023) Immunizations Name Administration Dates Next Due COVID-19 mRNA, LNP-s, No Pre serve, 2-Dose Series (Excelera) 11/19/2020,04/24/2020,03/29/2020 Hepatitis B, 20+ yrs 12/07/2016,06/15/2016,03/16 Pneumococcal [...] 35 Q uit: 02/13/2001 Smokeless Tobacco: Never Alcohol Use Standard Drinks/Week Comments Yes 0 [...] money to buy more. Never true 01/18/20 22 Within the past 12 months, t he [...] on file documented as of this encounter Progress Notes * Jamil Hills PA-C - 02/15/2023 11:44 AM ESTAssociated Order(s): LG Joint Inj/Arthro: L knee Post-Procedure Diagnose(s): Primary osteoarthritis of left knee Here today for 3rd and final injection Euflexxa left knee. Continues to experience gradual relief. Certainly, nothing significant and no reported worsening symptoms. Pleased with results and care thus far. No other questions concerns. Complete review systems negative Exam unchanged, please see prior note Impression: Left knee osteoarthritis Plan: Today 's findings were discussed with the patient. They were educated regarding their diagnosis. Multiple treatment options discussed and agreed upon, including 3rd and final injection Euflexxatoday. Follow-up in 6 months for reconsideration of subsequent injection series. The patient has noother questions or concerns. Pleased with today 's care. Call sooner if needed. LG Joint Inj/Arthro: L knee on 02/15/2023 11:44 AM Indications: pain Details: 22 G needle, anterolateral approach Medications: (Euflexxa) Outcome: tolerated well, no immediate complications Procedure, treatment alternatives, risks and benefits explained, specific risks discussed. Consent was given by the patient. Immediately prior to procedure a time out was called to verify the correctpatient, procedure, equipment, it application support analyst and site/side marked as required. Patient was prepped and draped in the usual sterile fashion. This chart was completed in part utilizing [employer] Speech Voice Recognition Software. Grammatical errors, random word insertions, prounoun errors, and incomplete sentences are an occasional consequence of this system due to software limitations, ambient noise, and hardware issues. Any formal questions or concerns about the content, text, or information contain documented in this encounter Nursing Notes * Nguyen Jacques LPN - 02/15/2023 11:38 AM EST F/U for left knee pain with activity 3 rd Euflexxa injection Patient feels injections are help over all able to do ADL's with out issue. documented in this encounter Plan of Treatment Upcoming Encounters Date Type Department Care Team (Late st Contact Info) Description 02/21/2023 9:30 AM EST Office Visit Pulmonary Medicine, [place] [address] [place] [address] Tata Walter CRNP [address] [place] [address] 03/02/2023 9:30 AM EST Office Visit Pharmacy, [facility] [address] [facility] [place] [address] [facility] [place] [address] 04/26/2023 7:40 AM EDT Office Visit Family Practice [facility] [address] [facility] [place] [address] Eliud Eisenberg MD [address] [place] [address] 05/01/2023 9:30 AM EDT Office Visit Urology, [place] [address] [place] [address] Chivo oSlis PA-C [address] [place] [address] 08/23/2023 8:45 AM EDT Office Visit Orthopaedics [facility] [address] [facility] [place] [address] Jamil Hills PA-C [address] [place] [address] 11/02/2023 10:00 AM EDT Office Visit Sleep Disorders Ctr [facility] [address] [facility] [place] [phone] Nichol Caballero DO [address] [place] [address] 01/22/2024 8:00 AM EST Nurse Only Ancillary Denny Otero Trimble [address] [facility] [place] [address] [place], Nurse Annual Wellness [facility] [address] [place] [address] Scheduled Procedures Name Priority Associated Diagnoses Date/Ti me ESOPHAGOGASTRODUODENOSCOPY ( EGD), FLEXIBLE, TRANSORAL, DIAGNOSTIC Recall Jimenez's esophagus Health Maintenance Due Date Last Done Comments Alpha-1 Antitrypsin 09/24/1967 Hepatitis C Screening 09/24/1967 DTaP,Tdap,and Td Vaccines (1 - Tdap) 1968 Cologuard 1994 Colonoscopy 1994 Colorectal Cancer Screening 1994 Fecal Occult Blood Test 1994 Sigmoidoscopy 1994 Jimenez's Esophagus Surveilance 04/04/2019 04/04/2016, 04/04/2016 COVID-19 Vaccine ( season) 2022 11/19/2020, 04/24/2020, 03/29/2020 GFR 04/07/2023 10/05/2022, 080 05/2022, 06/07/2022, Additional history exists HbA1c 05/20/2023 11/18/2022, 03/0 08/2022, 10/20/2021, Additional history exists Diabetic Eye Exam 08/11/2023 08/10/2022, 12/22/2021 Albumin/Creatinine Ratio 09/17/2023 0804/2 023, 11/19/2018, 04/05/2017 CKD HGB USE SMARTSET 48932 10/20/202310/19, 10/19/2022, 09/16/2022, Additional history exists O2 ASSESSMENT COMPLETED IN PAST YEAR FOR COPD 10/29/2023 10/28/2022 CKD PHOS USE SMARTSET 11967 11/19/2023 10/0 07/2022, 11/12/2021, 04/01/2020 Diabetic Foot Exam 12/30/2023 12/29/2022 Depression Screening 01/19/2024 01/18/2023 Pneumococcal Vaccine: 65+ Years Completed 01/13/2016, 11/24/2014, 02/13/2007, Additional history exists Hepatitis B Completed 12/07/2016, 04/2016, 03/16/2016 Zoster Vaccines Completed 08/06/2018, 05/14, [...] this encounter Medical Devices Implanted Type Area Php Programmer Device Identifier Shelf Expiration Date Model / Serial / Lot Lens Intraoc 16.5 - [id number] - [id number] Implanted:Qty: 1 on 11/14/2019 by Elmo Apodaca MD at OR [facility] Left: Eye BA[employer]CH [employer] LOMB 03/15/2024 [id number] / [id number] / [id number] Lens Intraoc 16.5 - [id number] - [id number] Implanted:Qty: 1 on 11/28/2019 by Elmo Apodaca MD at OR [facility] Right: Eye BAUSCH & LOMB 04/12/2024 [id number] / [id number] / [id number] documented as of this encounter Procedures Procedure Name Priority Date/Time Associated Diagnosis Comments NC ARTHROCENTESIS ASPIR&/INJ MAJOR JT/BURSA W/O US Routine 02/15/2023 11:44 AM EST Primary osteoarthritis of left knee documented in this encounter Results * NC ARTHROCENTESIS ASPIR&/INJ MAJOR JT/BURSA W/O US (02/15/2023 11:44 AM EST) Narrative Jamil Hills PA-C - 02/15/2023 11:44 AM EST Jamil Hills PA-C 02/15/2023 11:56 AM LG Joint Inj/Arthro: L knee on 02/15/2023 11:44 AM Indications: pain Details: 22 G needle, anterolateral approach Medications: (Euflexxa) Outcome: tolerated well, no immediate complications Procedure, treatment alternatives, risks and benefits explained, specific risks discussed. Consent was given by the patient. Immediately prior to procedure a time out was called to verify the correct patient, procedure, equipment, it application support analyst and site/side marked as required. Patient was prepped and draped in the usual sterile fashion. Jamil Hills PA-C PROCDOC FORM documented in this encounter Visit Diagnoses Diagnosis Primary osteoarthritis of left knee- Primary Primary localized osteoarthrosis, lower leg documented in this encounter Administered Medications Inactive Administered Medications - up to 3 most recent administrations Medication Order MAR Action Action Date Dose Rate Site Sodium Hyaluronate (Viscosup) (Euflexxa/Hyalgan) 20 MG/2ML inj 20 mg 20 mg, Intra-Articular, ONCE, On Mon02/15/23 at 1215, For 1 dose Given 02/15/2023 12:14 PM EST 20 mg Knee Left documented in this encounter Advance Directives Latest Code Status on File Code Status Date Activated Date Inactivated Comments Full Code 07/15/2015 2:43 PM 07/16/2015 12:56 PM This o rder reflects the patients wishes and were consensually agreed upon. Care Teams Skiver Blockers Relationship Specialty Start Date End Date Eliud Eisenberg MD [address] [place] [address] PCP - General Family Medicine 10/20/21 documented as of this encounter
--- OUTSIDE RECORDS SUMMARY | 2023-04-02 09:38 | External Medical Summary | Summary of Care ---
Author Name Unknown Organization [facility] Address [address] [facility] [place] [address] Phone [phone] Care Team Providers Care School Childcare Attendant Name Role Phone Eliud Eisenberg MD Primary Care Provider [phone] Reason for Visit * Reason Comments Follow Up L knee * Precert (Within 30 days (routine)) - Authorized Specialty Diagnoses / Procedures Referred By Contac t Referred To Contact Orthopedics Diagnoses Unilateral primary osteoarthritis, left knee Procedures EUFLEXXA, INTRA-ARTICULAR INJ, PER DOSE Jamil Hills PA-C [address] [place] [address] Jamil Hills PA-C [address] [place] [address] Referral ID Status Reason Start Date Expiration Date V isits Requested Visits Authorized [id number] Authorized Precert 01/12/2023 02/12/2099 [id number] Encounter Details Date Type Department Care Team (Latest Contact Info) Description 02/01/2023 11:45 AM EST Office Visit Orthopaedics [facility] [address] [place] [address] Jamil Hills PA-C [address] [place] [address] Primary osteoarthritis of left knee* Allergies Active Allergy Reactions Criticality Noted Date Comments Sulfamethoxazole-Trimet hoprim Other (Please comment) 09/20/2017 hyperkalmeia Lisinopril 09/15/2022 ?cough Trimethoprim High 11/23/2021 Other reaction(s): acute renal failure documented as of this encounter (statuses as of 02/01/2023) Medications Medication Sig Dispensed Refills Start Date [...] Tablet Sublingual (Nitrostat)Indicatio ns:Coronary artery disease involving [place] coronary artery of [place] heart without angina pectoris Place under the [...] [place], goal below 130/80,Coronary artery disease involving [place] coronary artery of [place] heart without angina pectoris,S/P primary angioplasty with [...] Oral Tablet (Coreg)Indications:C oronary artery disease involving [place] coronary artery of [place] heart without angina pectoris,Paroxysmal atrial fibrillation (HCC) Take 1 Tablet by mouth in the morning and 1 Tablet before bedtime. 180 Tablet 3 03/21/2022 Active Wyquz-9-ntbu Ethyl Esters 1 GM Oral Capsule (Lovaza)Indications: [...] Capsule Take by mouth. 0 Active Ipratropium [place] HFA 17 MCG/ACT Inhalation Aerosol Solution (Atrovent [...] of left knee 20 mg IX ONCE 02/01/2023 02/01/2023 Ended documented as of this encounter (statuses as of 02/01/2023) Active Problems Problem Noted Date Diagnosed Date Gouty arthropathy 12/12/2022 Carotid stenosis, non-symptomatic, bilateral [...] fibrillation 02/18/2015 Coronary artery disease invo lving cow creek coronary artery of [place] creek heart without angina pectoris 02/18/2015 HTN, goal below 130/80 02/18/2015 S/P carotid endarterectomy 02/18/2015 documented as of this encounter (statuses as of 02/01/2023) Resolved Problems Problem Noted Date Diagnosed Date Resolved Date Body mass index (BMI) of 40. 0 to 44.9 in adult 07/25/2022 09/06/2022 Overview: Per Obesity protocol Obesity, Class II, BMI 35-39 .9, isolated (see actual BMI) 10/17/2021 10/25/2022 ASCVD (arteriosclerotic card iovascular disease) 06/05/2017 10/16/2021 Palpitations 02/28/2017 10/16/2021 Hyperlipidemia LDL goal <70 02/18/2015 10/16/2021 documented as of this encounter (statuses as of 02/01/2023) Immunizations Name Administration Dates Next Due COVID-19 mRNA, LNP-s, No Pre serve, 2-Dose Series (RhinoCyte) 11/19/2020,04/24/2020,03/29/2020 Hepatitis B, 20+ yrs 12/07/2016,06/15/2016,03/16 Pneumococcal [...] Progress Notes * Jamil Hills PA-C - 02/01/2023 11:36 AM ESTAssociated Order(s): LG Joint Inj/Arthro: L knee Post-Procedure Diagnose(s): Primary osteoarthritis of left knee Second injection Euflexxa left knee. Has experienced subtle relief. Certainly, nothing significant and no reported worsening symptoms. Pleased with results and care thus far. No other questions concerns. Complete review systems negative Exam unchanged, please see prior note Impression: Left knee osteoarthritis Plan: Today 's findings were discussed with the patient. They were educated regarding their diagnosis. Multiple treatment options discussed and agreed upon, including 2nd injection Euflexxa today. Follow-up in 1 week 3rd and final injection series. The patient has no other questions or concerns. Pleased with today 's care. Call sooner if needed. LG Joint Inj/Arthro: L knee on 02/01/2023 11:37 AM Indications: pain Details: 22 G needle, anteromedial approach Medications: (Euflexxa) Outcome: tolerated well, no immediate complications Procedure, treatment alternatives, risks and benefits explained, specific risks discussed. Consent was given by the patient. Immediately prior to procedure a time out was called to verify the correctpatient, procedure, equipment, technical support representative and site/side marked as required. Patient was prepped and draped in the usual sterile fashion. This chart was completed in part utilizing [employer] Voice Recognition Software. Grammatical errors, random word insertions, prounoun errors, and incomplete sentences are an occasional consequence of this system due to software limitations, ambient noise, and hardware issues. Any formal questions or concerns about the content, text, or information contained wit documented in this encounter Nursing Notes * Sherin Whaley ATC - 02/01/2023 11:23 AM EST Patient presents for second of 3 Euflexxa injections. No changes to note at this time. GARY Duff documented in this encounter Plan of Treatment Upcoming Encounters Date Type Department Care Team (Late st Contact Info) Description 02/08/2023 8:00 AM EST Office Visit Urology, [address] [address] Chivo Solis PA-C [facility] [place] [address] 02/15/2023 11:15 AM EST Office Visit Orthopaedics [facility] [address] [facility] [place] [address] Jamil Hills PA-C [address] [place] [address] 02/21/2023 9:30 AM EST Office Visit Pulmonary Medicine, [address] [address] Tata Walter CRNP [address] [place] [address] 03/02/2023 9:30 AM EST Office Visit Pharmacy, [facility] [address] [facility] [place] [address] [facility] [address] [place] [address] 04/26/2023 7:40 AM EDT Office Visit Family Practice [facility] [address] [facility] [place] [address] Eliud Eisenberg MD [address] [facility] [place] [address] 11/02/2023 10:00 AM EDT Office Visit [facility] [address] [facility] [phone] Nichol Caballero DO [address] [place] [address] 01/22/2024 8:00 AM EST Nurse Only Ancillary [address] [place] [address] [facility], Nurse Annual Wellness [address] [place] [address] Scheduled Procedures Name Priority Associated Diagnoses Date/Ti me ESOPHAGOGASTRODUODENOSCOPY ( EGD), FLEXIBLE, TRANSORAL, DIAGNOSTIC Recall Jimenez's esophagus Health Maintenance Due Date Last Done Comments Alpha-1 Antitrypsin 09/24/1967 Hepatitis C Screening 09/24/1967 DTaP,Tdap,and Td Vaccines (1 - Tdap) 1968 Cologuard 1994 Colonoscopy 1994 Colorectal Cancer Screening 1994 Fecal Occult Blood Test 1994 Sigmoidoscopy 1994 COVID-19 Vaccine (4 - 2023-24 season) 2022 11/19/2020, 04/24/2020, 03/29/2020 GFR 04/07/2023 10/05/2022, 080 05/2022, 06/07/2022, Additional history exists HbA1c 05/20/2023 11/18/2022, 03/0 08/2022, 10/20/2021, Additional history exists Diabetic Eye Exam 08/11/2023 08/10/2022, 12/22/2021 Albumin/Creatinine Ratio 09/17/2023 023, 11/19/2018, 04/05/2017 CKD HGB USE SMARTSET 74345 10/20/202310/19, 10/19/2022, 09/16/2022, Additional history exists O2 ASSESSMENT COMPLETED IN PAST YEAR FOR COPD 10/29/2023 10/28/2022 CKD PHOS USE SMARTSET 12863 11/19/2023 100 07/2022, 11/12/2021, 04/01/2020 Diabetic Foot Exam 12/30/2023 [...] this encounter Medical Devices Implanted Type Area Photography Manager Device Identifier Shelf Expiration Date Model / Serial / Lot Lens Intraoc 16.5 - [id number] - [id number] Implanted:Qty: 1 on 11/14/2019 by Elmo Apodaca MD at [facility] Left: Eye [employer] 03/15/2024 [id number] / [id number] / [id number] Lens Intraoc 16.5 - [id number] - [id number] Implanted:Qty: 1 on 11/28/2019 by Elmo Apodaca MD at OR [facility] Right: Eye [employer]OM[employer] 04/12/2024 [id number] / [id number] / [id number] documented as of this encounter Procedures Procedure Name Priority Date/Time Associated Diagnosis Comments MT ARTHROCENTESIS ASPIR&/INJ MAJOR JT/BURSA W/O US Routine 02/01/2023 11:37 AM EST Primary osteoarthritis of left knee documented in this encounter Results * MT ARTHROCENTESIS ASPIR&/INJ MAJOR JT/BURSA W/O US (02/01/2023 11:37 AM EST) Narrative Jamil Hills PA-C - 02/01/2023 11:37 AM EST Jamil Hills PA-C 02/01/2023 11:37 AM LG Joint Inj/Arthro: L knee on 02/01/2023 11:37 AM Indications: pain Details: 22 G needle, anteromedial approach Medications: (Euflexxa) Outcome: tolerated well, no immediate complications Procedure, treatment alternatives, risks and benefits explained, specific risks discussed. Consent was given by the patient. Immediately prior to procedure a time out was called to verify the correct patient, procedure, equipment, technical support representative and site/side marked as required. Patient was [...] 20 mg 20 mg, Intra-Articular, ONCE, On Mon02/01/23 at 1200, For 1 dose Given 02/01/2023 11:47 AM EST 20 mg Knee Left documented in this encounter Advance Directives Latest Code Status on File Code Status Date Activated Date Inactivated Comments Full Code 07/15/2015 2:43 PM 07/16/2015 12:56 PM This o rder reflects the patients wishes and were consensually agreed upon. Care Teams School Childcare Attendant Relationship Specialty Start Date End Date Eliud Eisenberg MD [address] [place] [address] PCP - General Family Medicine 10/20/21 documented as of this encounter
--- OUTSIDE RECORDS SUMMARY | 2023-04-02 09:38 | External Medical Summary | Summary of Care ---
Author Name Unknown Organization [facility] Address [address] [facility] [place] [address] Phone [phone] Care Team Providers Care Cooker Sulfate Name Role Phone Eliud Eisenberg MD Primary Care Provider [phone] Reason for Visit * Reason Onset Date Comments Medication Refill 03/14/2023 Encounter Details Date Type Department Care Team (Late st Contact Info) Description 03/14/2023 Refill Cardiology, [facility] [address] [place] [address] Aaron Schilling, [address] [place] [address] HTN, goal below 130/80; Coronary artery disease involving jackson coronary artery of jackson heart without angina pectoris; S/P primary angioplasty with coronary stent Allergies Active Allergy Reactions Criticality Noted Date Comments Sulfamethoxazole-Trimet hoprim Other (Please comment) 09/20/2017 hyperkalmeia Lisinopril 09/15/2022 ?cough Trimethoprim High 11/23/2021 Other reaction(s): acute renal failure documented as of this encounter (statuses as of 03/15/2023) Medications Medication Sig Dispensed Refills Start Date [...] Active Nitroglycerin 0.4 MG Sublingual Tablet Sublingual (Nitrostat)Indicat ions:Coronary artery disease involving jackson coronary artery of jackson heart without angina pectoris Place under the [...] 3 days 2 Each 0 01/18/2022 Active FreeStyle Indra 2 Sensor Use as directed . Use 1 sensor every 14 days 6 Each 3 01/21/2022 Active Atorvastatin Calcium 40 MG Oral Tablet (Lipitor)Indicatio ns:evening Take 1 Tablet by mouth in the morning. 1 tab daily. 90 Tablet 3 03/21/2022 Active Carvedilol 12.5 MG Oral Tablet (Coreg)Indications :Coronary artery disease involving jackson coronary artery of jackson heart without angina pectoris,Paroxysma l atrial fibrillation (HCC) Take 1 Tablet by mouth in the morning and 1 Tablet before bedtime. 180 Tablet 3 03/21/2022 Active Corlx-4-utpv Ethyl Esters 1 GM Oral Capsule (Lovaza)Indication s:Dyslipidemia Take 1 Capsule by mouth in the morning and 1 Capsule in the evening. 180 Capsule 3 04/19/2022 Active Apixaban 5 MG Oral Tablet (Eliquis)Indicatio ns:Paroxysmal atrial fibrillation (HCC) Take 1 Tablet by [...] Capsule Take by mouth. 0 Active Ipratropium [place] HFA 17 MCG/ACT Inhalation Aerosol Solution (Atrovent Hfa) Inhale 2 Puffs by mouth every 6 hours. 12.9 g 5 10/19/2022 Active Torsemide 10 MG Oral Tablet (Demadex)Indicatio ns:HTN, goal below 130/80 Take 1 Tablet by mouth in the morning and 1 Tablet before bedtime. 180 Tablet 3 10/25/2022 Active Fluticasone-Salmet isabelle 500-50 MCG/ACT Inhalation Aerosol Powder Breath Activated [...] insulin pump 90 mL 1 01/10/2023 Active Isosorbide Mononitrate ER 60 MG Oral Tablet Extended Release 24 Hour (Imdur)Indications :HTN, goal below 130/80,Coronary artery disease involving jackson coronary artery of jackson heart without angina pectoris,S/P primary angioplasty with coronary stent Take 1 Tablet by mouth in the morning. 90 Tablet 3 03/15/2023 Active Isosorbide Mononitrate ER 60 MG Oral Tablet Extended Release 24 Hour (Imdur)Indications :HTN, goal below 130/80,Coronary artery disease involving jackson coronary artery of jackson heart without angina pectoris,S/P primary angioplasty with coronary stent Take 1 Tablet (60 mg) by mouth in the morning. 90 Tablet 3 01/17/2022 Discontinue d(Refill) Hospital, Clinic, or Other Facility Administered Medication Ordered Dose Route Frequency Start Date End Date Status Albuterol Sulfate (Proventil) (2.5 MG/3ML) 0.083% inhalation solution 2.5 mgIndications:KOVACS (dyspnea on exertion),Centrilobular emphysema (HCC),History of tobacco use,Morbid obesity (HCC) 2.5 mg NEBULIZER PRN 07/06/2022 Active documented as of this encounter (statuses as of 03/15/2023) Active Problems Problem Noted Date Diagnosed Date [...] fibrillation 02/18/2015 Coronary artery disease invo lving jackson coronary artery of jackson heart without angina pectoris 02/18/2015 HTN, goal below 130/80 02/18/2015 S/P carotid endarterectomy 02/18/2015 Dysmetabolic syndrome X 11/18/2013 Postsurgical percutaneous tr ansluminal coronary angioplasty status 11/18/2013 documented as of this encounter (statuses as of 03/15/2023) Resolved Problems Problem Noted Date Diagnosed Date Resolved Date Body mass index (BMI) of 40. 0 to 44.9 in adult 07/25/2022 09/06/2022 Overview: Per Obesity protocol Obesity, Class II, BMI 35-39 .9, isolated (see actual BMI) 10/17/2021 10/25/2022 ASCVD (arteriosclerotic card iovascular disease) 06/05/2017 10/16/2021 Palpitations 02/28/2017 10/16/2021 Hyperlipidemia LDL goal <70 02/18/2015 10/16/2021 documented as of this encounter (statuses as of 03/15/2023) Immunizations Name Administration Dates Next Due COVID-19 mRNA, LNP-s, No Pre serve, 2-Dose Series ([email or web address]) 11/19/2020,04/24/2020,03/29/2020 Hepatitis B, 20+ yrs 12/07/2016,06/15/2016,03/16 Pneumococcal [...] on file documented as of this encounter Miscellaneous Notes * Telephone Encounter - Mark Mi CRNP - 03/15/2023 10:38 AM EST Signed Prescriptions: Disp Refills Isosorbide Mononitrate ER 60 MG Oral Table*90 Tab*3 Sig: Take 1 Tablet by mouth in the morning. Authorizing Provider: MARK MI * Telephone Encounter - Rocio Sanchez COT - 03/15/2023 10:32 AM ESTPending Prescriptions: Disp Refills Isosorbide Mononitrate ER 60 MG Oral Table*90 Tab*3 Sig: Take 1 Tablet by mouth in the morning. * Telephone Encounter - Ann Plata, dietitian teacher - 03/14/2023 5:07 PM EST Did you pend patient's preferred pharmacy and medication before forwarding?yes Pharmacy: [facility] [facility] [place] Pending Prescriptions: Disp Refills Isosorbide Mononitrate ER 60 MG Oral Tabl*90 Tab*3 Sig: Take 1 Tablet by mouth in the morning. Last Visit: 09/15/2022 (in office), Visit date not found (telemedicine) Next Visit: Visit date not found If no future appointments scheduled, and last appointment is greater than a year ago, please schedule patient for a follow-up appointment Last date the medication was ordered: 01/17/2022 Is this request for a controlled substance?No Urine Drug Screen:No results found for this or any previous visit. Patient Phone Numbers Labs: Lab Results Component Value Date/Time CREAT 1.3 (H) 10/05/2022 08:31 AM CREAT 1.33 (A) 06/07/2022 12:00 AM CREAT 1.5 (H) 02/17/2020 07:31 AM POTASSIUM 4.9 10/05/2022 08:31 AM POTASSIUM 4.8 06/07/2022 12:00 AM POTASSIUM 4.3 02/17/2020 07:31 AM LDLCALC 45 04/01/2020 08:29 AM LDLCALC 52 09/27/2019 12:00 AM LDLDIRECT 5.0 04/05/2017 12:00 AM ALT 20 10/20/2021 12:12 PM ALT 16 02/28/2017 09:24 AM HGBA1C 8.6 (H) 11/18/2022 07:52 AM HGBA1C 6.9 (A) 09/27/2019 12:00 AM documented in this encounter Plan of Treatment Upcoming Encounters Date Type Department Care Team (Late st Contact Info) Description 04/05/2023 8:30 AM EST Office Visit Pulmonary Medicine, [place] [address] [place] [address] Tata Walter CRNP [address] [place] [address] 04/26/2023 7:40 AM EDT Office Visit Family Practice [facility] [address] [place] [address] Eliud Eisenberg MD [address] [place] [address] 04/26/2023 8:30 AM EDT Pharmacy Pharmacy, [facility] [address] [facility] [place] [address] [facility] [address] [facility] [place] [address] 05/01/2023 9:30 AM EDT Office Visit Urology, [place] [address] [place] [address] Chivo Solis PA-C [address] [facility] [place] [address] 08/23/2023 8:45 AM EDT Office Visit Orthopaedics [facility] [address] [facility] [place] [address] Jamil Hills PA-C [address] [facility] [place] [address] 11/02/2023 10:00 AM EDT [facility] [address] [facility] [place] [phone] Nichol Caballero, [address] [place] [address] 01/22/2024 8:00 AM EST Nurse Only Ancillary [facility] [address] [facility] [place] [address] [facility], Nurse Annual Wellness [facility] [place] [address] Scheduled Procedures Name Priority Associated Diagnoses Date/Ti me ESOPHAGOGASTRODUODENOSCOPY ( EGD), FLEXIBLE, TRANSORAL, DIAGNOSTIC Recall Jimenez's esophagus Health Maintenance Due Date Last Done Comments Alpha-1 Antitrypsin 09/24/1968 Hepatitis C Screening 09/24/1967 DTaP,Tdap,and Td Vaccines (1 - Tdap) 1968 Cologuard 1994 Colonoscopy 1994 Colorectal Cancer Screening 1994 Fecal Occult Blood Test 1994 Sigmoidoscopy 1994 Jimenez's Esophagus Surveilance 04/04/2019 04/04/2016, 04/04/2016 COVID-19 Vaccine (2022- season) 2022 11/19/2020, 04/24/2020, 03/29/2020 GFR 04/07/2023 10/05/2022, 05/2022, 06/07/2022, Additional history exists HbA1c 05/20/2023 11/18/2022, 030 08/2022, 10/20/2021, Additional history exists Diabetic Eye Exam 08/11/2023 08/10/2022, 12/22/2021 Albumin/Creatinine Ratio 09/17/2023 023, 11/19/2018, 04/05/2017 CKD HGB USE SMARTSET 95379 10/20/202310/19, 10/19/2022, 09/16/2022, Additional history exists O2 ASSESSMENT COMPLETED IN PAST YEAR FOR COPD 10/29/2023 10/28/2022 CKD PHOS USE SMARTSET 92530 11/19/202307/2022, 11/12/2021, 04/01/2020 Diabetic Foot Exam 12/30/2023 12/29/2022 [...] this encounter Medical Devices Implanted Type Area Destination Specialist Device Identifier Shelf Expiration Date Model / Serial / Lot Lens Intraoc 16.5 - [id number] - [id number] Implanted:Qty: 1 on 11/14/2019 by Elmo Apodaca MD at OR [facility] Left: Eye [employer]OMB 03/15/2024 [id number] / [id number] / [id number] Lens Intraoc 16.5 - [id number] - [id number] Implanted:Qty: 1 on 11/28/2019 by Elmo Apodaca MD at OR [facility] Right: Eye [employer]CH [employer] LOMB 04/12/2024 [id number] / [id number] / [id number] documented as of this encounter Visit Diagnoses Diagnosis HTN, goal below 130/80 Unspecified essential hypertension Coronary artery disease involving jackson coronary artery of jackson heart without angina pectoris S/P primary angioplasty with coronary stent Postsurgical percutaneous transluminal coronary angioplasty status documented in this encounter Advance Directives Latest Code Status on File Code Status Date Activated Date Inactivated Comments Full Code 07/15/2015 2:43 PM 07/16/2015 12:56 PM This o rder reflects the patients wishes and were consensually agreed upon. Care Teams Cooker Sulfate Relationship Specialty Start Date End Date Eliud Eisenberg MD [address] [facility] [place] [address] PCP - General Family Medicine 10/20/21 documented as of this encounter
--- OUTSIDE RECORDS SUMMARY | 2023-04-02 09:38 | External Medical Summary | Summary of Care ---
Author Name Unknown Organization [facility] Address [address] [facility] [place] [address] Phone [phone] Care Team Providers Care Air Conditioning Equipment Mechanic Name Role Phone Eliud Eisenberg MD Primary Care Provider [phone] Reason for Visit * Reason Comments Follow Up L knee * Precert (Within 30 days (routine)) - Authorized Specialty Diagnoses / Procedures Referred By Contac t Referred To Contact Orthopedics Diagnoses Unilateral primary osteoarthritis, left knee Procedures EUFLEXXA, INTRA-ARTICULAR INJ, PER DOSE Jamil Hills PA-C [address] [place] [address] Jamil Hills PA-C [address] [place] [address] Referral ID Status Reason Start Date Expiration Date V isits Requested Visits Authorized [id number] Authorized Precert 01/12/2023 02/12/2099 [id number] Encounter Details Date Type Department Care Team (Latest Contact Info) Description 02/01/2023 11:45 AM EST Office Visit Orthopaedics [facility] [address] [place] [address] Jamil Hills PA-C [address] [place] [address] Primary osteoarthritis of left knee* Allergies Active [...] Tablet Sublingual (Nitrostat)Indicatio ns:Coronary artery disease involving [place] coronary artery of [place] heart without angina pectoris Place under the [...] [place], goal below 130/80,Coronary artery disease involving [place] coronary artery of [place] heart without angina pectoris,S/P primary angioplasty with [...] Oral Tablet (Coreg)Indications:C oronary artery disease involving [place] coronary artery of [place] heart without angina pectoris,Paroxysmal atrial fibrillation (HCC) Take 1 Tablet by mouth in the morning and 1 Tablet before bedtime. 180 Tablet 3 03/21/2022 Active Tlmjy-5-ebpd Ethyl Esters 1 GM Oral Capsule (Lovaza)Indications: [...] Capsule Take by mouth. 0 Active Ipratropium [place] HFA 17 MCG/ACT Inhalation Aerosol Solution (Atrovent [...] knee 20 mg IX ONCE 02/01/2023 02/01/2023 Active documented as of this encounter (statuses [...] fibrillation 02/18/2015 Coronary artery disease invo lving [place] coronary artery of [place] heart without angina pectoris 02/18/2015 HTN, goal [...] mRNA, LNP-s, No Pre serve, 2-Dose Series ([employer]) 11/19/2020,04/24/2020,03/29/2020 Hepatitis B, 20+ yrs 12/07/2016,06/15/2016,03/16 Pneumococcal [...] called to verify the correctpatient, procedure, equipment, legal support specialist and site/side marked as required. Patient was prepped and draped in the usual sterile fashion. This chart was completed in part utilizing [employer] Voice Recognition Software. Grammatical errors, random word [...] 02/08/2023 8:00 AM EST Office Visit Urology, [address] [address] Chivo Solis PA-C [facility] [place] [address] 02/15/2023 11:15 AM EST Office Visit Orthopaedics [facility] 132 [facility] [place] [address] Jamil Hills PA-C [address] [place] [address] 02/21/2023 9:30 AM EST Office Visit Pulmonary Medicine, [address] [address] Tata Walter CRNP [address] [place] [address] 03/02/2023 9:30 AM EST Office Visit Pharmacy, [facility] 132 [facility] [place] [address] [facility] [address] [facility] [place] [address] 04/26/2023 7:40 AM EDT Office Visit Family Practice [facility] [address] [facility] [place] [address] Eliud Eisenberg MD [address] [facility] [place] [address] 11/02/2023 10:00 AM EDT Office Visit [facility] [address] [facility] [phone] Nichol Caballero DO [address] [place] [address] 01/22/2024 8:00 AM EST Nurse Only Ancillary [address] [place] [address] [facility], Nurse Annual Wellness [address] [place] [address] Scheduled Procedures Name Priority Associated Diagnoses Date/Ti [...] 023, 11/19/2018, 04/05/2017 CKD HGB USE SMARTSET 10367 10/20/202310/19, 10/19/2022, 09/16/2022, Additional history exists O2 ASSESSMENT COMPLETED IN PAST YEAR FOR COPD 10/29/2023 10/28/2022 CKD PHOS USE SMARTSET 15984 11/19/2023 100 07/2022, 11/12/2021, 04/01/2020 Diabetic Foot [...] this encounter Medical Devices Implanted Type Area Aids Social Worker Device Identifier Shelf Expiration Date Model / Serial / Lot Lens Intraoc 16.5 - [id number] - [id number] Implanted:Qty: 1 on 11/14/2019 by Elmo Apodaca MD at OR [facility] Left: Eye BAUSCH & LOMB 03/15/2024 [id number] / [id number] / [id number] Lens Intraoc 16.5 - [id number] - [id number] Implanted:Qty: 1 on 11/28/2019 by Elmo Apodaca MD at OR [facility] Right: Eye BAUSCH & LOMB 04/12/2024 [id number] / [id number] / [id number] documented as of this encounter Procedures Procedure Name Priority Date/Time Associated Diagnosis Comments [place] ARTHROCENTESIS ASPIR&/INJ MAJOR JT/BURSA W/O US Routine 02/01/2023 11:37 AM EST Primary osteoarthritis of left knee documented in this encounter Results * [place] ARTHROCENTESIS ASPIR&/INJ MAJOR JT/BURSA W/O US (02/01/2023 [...] to verify the correct patient, procedure, equipment, legal support specialist and site/side marked as required. Patient was prepped and draped in the usual sterile fashion. Jamil Hills PA-C PROCDOC FORM documented in this encounter Visit Diagnoses Diagnosis Primary osteoarthritis of left knee- Primary Primary localized osteoarthrosis, lower leg documented in this encounter Advance Directives Latest Code Status on File Code Status Date Activated Date Inactivated Comments Full Code 07/15/2015 2:43 PM 07/16/2015 12:56 PM This o rder reflects the patients wishes and were consensually agreed upon. Care Teams Air Conditioning Equipment Mechanic Relationship Specialty Start Date End Date Eliud Eisenberg MD 132 [facility] [place] [address] PCP - General Family Medicine 10/20/21 documented as of this encounter
--- OUTSIDE RECORDS SUMMARY | 2023-04-02 09:38 | External Medical Summary | Summary of Care ---
Author Name Unknown Organization [facility] Address [address] [facility] [place] [address] Phone [phone] Care Team Providers Care Arcade Game Technician Name Role Phone Eliud Eisenberg MD Primary Care Provider [phone] Reason for Visit * Reason Comments Follow Up for knee pain 3 rd E uflexxa injection * Precert (Within 30 days (routine)) - Authorized Specialty Diagnoses / Procedures Referred By Contac t Referred To Contact Orthopedics Diagnoses Unilateral primary osteoarthritis, left knee Procedures EUFLEXXA, INTRA-ARTICULAR INJ, PER DOSE Jamil Hills PA-C [address] [place] [address] Jamil Hills PA-C [address] [place] [address] Referral ID Status Reason Start Date Expiration Date V isits Requested Visits Authorized [id number] Authorized Precert 01/12/2023 02/12/2099 [id number] Encounter Details Date Type Department Care Team (Latest Contact Info) Description 02/15/2023 11:15 AM EST Office Visit Orthopaedics [facility] [address] [place] [address] Jamil Hills PA-C [address] [place] [address] Primary osteoarthritis of left knee* Allergies Active [...] Tablet Sublingual (Nitrostat)Indicatio ns:Coronary artery disease involving [place] coronary artery of [place] heart without angina pectoris Place under the [...] [place], goal below 130/80,Coronary artery disease involving [place] coronary artery of [place] heart without angina pectoris,S/P primary angioplasty with [...] Oral Tablet (Coreg)Indications:C oronary artery disease involving [place] coronary artery of [place] heart without angina pectoris,Paroxysmal atrial fibrillation (HCC) Take 1 Tablet by mouth in the morning and 1 Tablet before bedtime. 180 Tablet 3 03/21/2022 Active Luaye-1-vwjs Ethyl Esters 1 GM Oral Capsule (Lovaza)Indications: [...] Capsule Take by mouth. 0 Active Ipratropium [place] HFA 17 MCG/ACT Inhalation Aerosol Solution (Atrovent [...] fibrillation 02/18/2015 Coronary artery disease invo lving [place] coronary artery of [place] heart without angina pectoris 02/18/2015 HTN, goal [...] mRNA, LNP-s, No Pre serve, 2-Dose Series ([employer]) 11/19/2020,04/24/2020,03/29/2020 Hepatitis B, 20+ yrs 12/07/2016,06/15/2016,03/16 Pneumococcal [...] called to verify the correctpatient, procedure, equipment, production support manager and site/side marked as required. Patient was prepped and draped in the usual sterile fashion. This chart was completed in part utilizing [employer] Voice Recognition Software. Grammatical errors, random [...] 9:30 AM EST Office Visit Pulmonary Medicine, [place] [address] [place] [address] Tata Walter CRNP [address] [place] [address] 03/02/2023 9:30 AM EST Office Visit Pharmacy, [facility] 132 [facility] [place] [address] [facility] [place] [address] 04/26/2023 7:40 AM EDT Office Visit Family Practice [facility] [address] [facility] [place] [address] Eliud Eisenberg MD [address] [place] [address] 05/01/2023 9:30 AM EDT Office Visit Urology, [place] [address] [place] [address] Chivo Solis PA-C [address] [place] [address] 08/23/2023 8:45 AM EDT Office Visit Orthopaedics [facility] [address] [facility] [place] [address] Jamil Hills PA-C [address] [place] [address] 11/02/2023 10:00 AM EDT Office Visit Sleep Disorders Ctr [facility] [address] [facility] [place] [phone] Nichol Caballero DO [address] [place] [address] 01/22/2024 8:00 AM EST Nurse Only Ancillary D[facility] 132 [facility] [place] [address] [place], Nurse Annual Wellness [facility] 132 [place] [address] Scheduled Procedures Name Priority Associated Diagnoses Date/Ti [...] 023, 11/19/2018, 04/05/2017 CKD HGB USE SMARTSET 21605 10/20/202310/19, 10/19/2022, 09/16/2022, Additional history exists O2 ASSESSMENT COMPLETED IN PAST YEAR FOR COPD 10/29/2023 10/28/2022 CKD PHOS USE SMARTSET 20062 11/19/2023 10/0 07/2022, 11/12/2021, 04/01/2020 Diabetic Foot [...] this encounter Medical Devices Implanted Type Area Tool Grinding Machine Operator Device Identifier Shelf Expiration Date Model / Serial / Lot Lens Intraoc 16.5 - [id number] - [id number] Implanted:Qty: 1 on 11/14/2019 by Elmo Apodaca MD at OR [facility] Left: Eye BAUSCH & LOMB 03/15/2024 [id number] / [id number] / [id number] Lens Intraoc 16.5 - [id number] - [id number] Implanted:Qty: 1 on 11/28/2019 by Elmo Apodaca MD at OR [facility] Right: Eye BAUSCH & LOMB 04/12/2024 [id number] / [id number] / [id number] documented as of this encounter Procedures Procedure Name Priority Date/Time Associated Diagnosis Comments CT ARTHROCENTESIS ASPIR&/INJ MAJOR JT/BURSA W/O US Routine 02/15/2023 11:44 AM EST Primary osteoarthritis of left knee documented in this encounter Results * CT ARTHROCENTESIS ASPIR&/INJ MAJOR JT/BURSA W/O US (02/15/2023 [...] to verify the correct patient, procedure, equipment, production support manager and site/side marked as required. Patient was [...] and were consensually agreed upon. Care Teams Arcade Game Technician Relationship Specialty Start Date End Date Eliud Eisenberg MD [address] [place] [address] PCP - General Family Medicine 10/20/21 documented as of this encounter
--- OUTSIDE RECORDS SUMMARY | 2023-04-02 09:38 | External Medical Summary | Summary of Care ---
Author Name Unknown Organization [facility] Address [address] [facility] [place] [address] Phone [phone] Care Team Providers Care Insurance Special Agent Name Role Phone Eliud Eisenberg MD Primary Care Provider [phone] Reason for Visit * Reason Comments Follow Up for knee pain 3 rd E uflexxa injection * Precert (Within 30 days (routine)) - Authorized Specialty Diagnoses / Procedures Referred By Contac t Referred To Contact Orthopedics Diagnoses Unilateral primary osteoarthritis, left knee Procedures EUFLEXXA, INTRA-ARTICULAR INJ, PER DOSE Jamil Hills PA-C [address] [place] [address] Jamil Hills PA-C [address] [place] [address] Referral ID Status Reason Start Date Expiration Date V isits Requested Visits Authorized [id number] Authorized Precert 01/12/2023 02/12/2099 [id number] Encounter Details Date Type Department Care Team (Latest Contact Info) Description 02/15/2023 11:15 AM EST Office Visit Orthopaedics [facility] [address] [place] [address] Jamil Hills PA-C [address] [place] [address] Primary osteoarthritis of left knee* Allergies Active [...] Tablet Sublingual (Nitrostat)Indicatio ns:Coronary artery disease involving [place] coronary artery of [place] heart without angina pectoris Place under the [...] [place], goal below 130/80,Coronary artery disease involving [place] coronary artery of [place] heart without angina pectoris,S/P primary angioplasty with [...] Oral Tablet (Coreg)Indications:C oronary artery disease involving [place] coronary artery of [place] heart without angina pectoris,Paroxysmal atrial fibrillation (HCC) Take 1 Tablet by mouth in the morning and 1 Tablet before bedtime. 180 Tablet 3 03/21/2022 Active Rajaz-9-jxns Ethyl Esters 1 GM Oral Capsule (Lovaza)Indications: [...] Capsule Take by mouth. 0 Active Ipratropium [place] HFA 17 MCG/ACT Inhalation Aerosol Solution (Atrovent [...] left knee 20 mg IX ONCE 02/15/2023 02/16/2023 Active documented as of this encounter (statuses [...] fibrillation 02/18/2015 Coronary artery disease invo lving [place] coronary artery of [place] heart without angina pectoris 02/18/2015 HTN, goal [...] mRNA, LNP-s, No Pre serve, 2-Dose Series ([employer]) 11/19/2020,04/24/2020,03/29/2020 Hepatitis B, 20+ yrs 12/07/2016,06/15/2016,03/16 Pneumococcal [...] called to verify the correctpatient, procedure, equipment, field support representative and site/side marked as required. Patient was prepped and draped in the usual sterile fashion. This chart was completed in part utilizing [employer] Voice Recognition Software. Grammatical errors, random [...] 9:30 AM EST Office Visit Pulmonary Medicine, [place] [address] [place] [address] Tata Walter CRNP [address] [place] [address] 03/02/2023 9:30 AM EST Office Visit Pharmacy, [facility] 132 [facility] [place] [address] [facility] [place] [address] 04/26/2023 7:40 AM EDT Office Visit Family Practice [facility] [place] [address] Eliud Eisenberg MD [address] [place] [address] 05/01/2023 9:30 AM EDT Office Visit Urology, [place] [address] [place] [address] Chivo Solis PA-C [address] [place] [address] 08/23/2023 8:45 AM EDT Office Visit Orthopaedics [facility] [place] [address] Jamil Hills PA-C [address] [place] [address] 11/02/2023 10:00 AM EDT Office Visit Sleep Disorders Ctr [facility] [place] [phone] Nichol Caballero DO [address] [place] [address] 01/22/2024 8:00 AM EST Nurse Only Ancillary Denny [facility] 132 [facility] [place] [address] [place], Nurse Annual Wellness [facility] 132 [place] [address] Scheduled Procedures Name Priority Associated Diagnoses Date/Ti [...] 023, 11/19/2018, 04/05/2017 CKD HGB USE SMARTSET 74419 10/20/202310/19, 10/19/2022, 09/16/2022, Additional history exists O2 ASSESSMENT COMPLETED IN PAST YEAR FOR COPD 10/29/2023 10/28/2022 CKD PHOS USE SMARTSET 06516 11/19/2023 10/0 07/2022, 11/12/2021, 04/01/2020 Diabetic Foot [...] this encounter Medical Devices Implanted Type Area Art Installer Device Identifier Shelf Expiration Date Model / Serial / Lot Lens Intraoc 16.5 - [id number] - [id number] Implanted:Qty: 1 on 11/14/2019 by Elmo Apodaca MD at OR [facility] Left: Eye BAUSCH & LOMB 03/15/2024 [id number] / [id number] / [id number] Lens Intraoc 16.5 - [id number] - [id number] Implanted:Qty: 1 on 11/28/2019 by Elmo Apodaca MD at OR [facility] Right: Eye BAUSCH & LOMB 04/12/2024 [id number] / [id number] / [id number] documented as of this encounter Procedures Procedure Name Priority Date/Time Associated Diagnosis Comments [place] ARTHROCENTESIS ASPIR&/INJ MAJOR JT/BURSA W/O US Routine 02/15/2023 11:44 AM EST Primary osteoarthritis of left knee documented in this encounter Results * [place] ARTHROCENTESIS ASPIR&/INJ MAJOR JT/BURSA W/O US (02/15/2023 [...] to verify the correct patient, procedure, equipment, field support representative and site/side marked as required. [...] and were consensually agreed upon. Care Teams Insurance Special Agent Relationship Specialty Start Date End Date Eliud Eisenberg MD 132 [facility] [place] [address] PCP - General Family Medicine 10/20/21 documented as of this encounter
--- OUTSIDE RECORDS SUMMARY | 2023-04-02 09:38 | External Medical Summary | Summary of Care ---
Author Name Unknown Organization [facility] Address [address] [facility] [place] [address] Phone [phone] Care Team Providers Care Home Appliance Washing Machine Mechanic Name Role Phone Eliud Eisenberg MD Primary Care Provider [phone] Reason for Visit * Reason Comments Follow Up L knee * Precert (Within 30 days (routine)) - Authorized Specialty Diagnoses / Procedures Referred By Contac t Referred To Contact Orthopedics Diagnoses Unilateral primary osteoarthritis, left knee Procedures EUFLEXXA, INTRA-ARTICULAR INJ, PER DOSE Jamil Hills PA-C [address] [place] [address] Jamil Hills PA-C [address] [place] [address] Referral ID Status Reason Start Date Expiration Date V isits Requested Visits Authorized [id number] Authorized Precert 01/12/2023 02/12/2099 [id number] Encounter Details Date Type Department Care Team (Latest Contact Info) Description 02/01/2023 11:45 AM EST Office Visit Orthopaedics [facility] [address] [place] [address] Jamil Hills PA-C [address] [place] [address] Primary osteoarthritis of left knee* Allergies Active [...] Tablet Sublingual (Nitrostat)Indicatio ns:Coronary artery disease involving [place] coronary artery of [place] heart without angina pectoris Place under the [...] [place], goal below 130/80,Coronary artery disease involving [place] coronary artery of [place] heart without angina pectoris,S/P primary angioplasty with [...] Oral Tablet (Coreg)Indications:C oronary artery disease involving [place] coronary artery of [place] heart without angina pectoris,Paroxysmal atrial fibrillation (HCC) Take 1 Tablet by mouth in the morning and 1 Tablet before bedtime. 180 Tablet 3 03/21/2022 Active Vnfif-1-rmvc Ethyl Esters 1 GM Oral Capsule (Lovaza)Indications: [...] Capsule Take by mouth. 0 Active Ipratropium [place] HFA 17 MCG/ACT Inhalation Aerosol Solution (Atrovent [...] fibrillation 02/18/2015 Coronary artery disease invo lving [place] coronary artery of [place] heart without angina pectoris 02/18/2015 HTN, goal [...] mRNA, LNP-s, No Pre serve, 2-Dose Series (National Institutes of Health (NIH)) 11/19/2020,04/24/2020,03/29/2020 Hepatitis B, 20+ yrs 12/07/2016,06/15/2016,03/16 Pneumococcal [...] called to verify the correctpatient, procedure, equipment, lab support tech and site/side marked as required. Patient was prepped and draped in the usual sterile fashion. This chart was completed in part utilizing [employer] Voice Recognition Software. Grammatical errors, random word [...] 02/08/2023 8:00 AM EST Office Visit Urology, [address] [address] Chivo Solis PA-C [facility] [place] [address] 02/15/2023 11:15 AM EST Office Visit Orthopaedics [facility] 132 [facility] [place] [address] Jamil Hills PA-C [address] [place] [address] 02/21/2023 9:30 AM EST Office Visit Pulmonary Medicine, [address] [address] Tata Walter CRNP [address] [place] [address] 03/02/2023 9:30 AM EST Office Visit Pharmacy, [facility] 132 [facility] [place] [address] [facility] [address] [place] [address] 04/26/2023 7:40 AM EDT Office Visit Family Practice [facility] [address] [facility] [place] [address] Eliud Eisenberg MD [address] [facility] [place] [address] 11/02/2023 10:00 AM EDT Office Visit Sleep Disorders Ctr [facility] [address] [facility] [phone] Nichol Caballero DO [address] [place] [address] 01/22/2024 8:00 AM EST Nurse Only Ancillary [address] [place] [address] [facility], Nurse Annual Wellness [address] [place] [address] Scheduled Procedures Name Priority Associated Diagnoses Date/Ti [...] 023, 11/19/2018, 04/05/2017 CKD HGB USE SMARTSET 98048 10/20/202310/19, 10/19/2022, 09/16/2022, Additional history exists O2 ASSESSMENT COMPLETED IN PAST YEAR FOR COPD 10/29/2023 10/28/2022 CKD PHOS USE SMARTSET 71901 11/19/2023 100 07/2022, 11/12/2021, 04/01/2020 Diabetic Foot [...] this encounter Medical Devices Implanted Type Area Baggage Porter Head Device Identifier Shelf Expiration Date Model / Serial / Lot Lens Intraoc 16.5 - [id number] - [id number] Implanted:Qty: 1 on 11/14/2019 by Elmo Apodaca MD at OR [facility] Left: Eye BAUSCH & LOMB 03/15/2024 [id number] / [id number] / [id number] Lens Intraoc 16.5 - [id number] - [id number] Implanted:Qty: 1 on 11/28/2019 by Elmo Apodaca MD at OR [facility] Right: Eye BAUSCH & LOMB 04/12/2024 [id number] / [id number] / [id number] documented as of this encounter Procedures Procedure Name Priority Date/Time Associated Diagnosis Comments [place] ARTHROCENTESIS ASPIR&/INJ MAJOR JT/BURSA W/O US Routine 02/01/2023 11:37 AM EST Primary osteoarthritis of left knee documented in this encounter Results * [place] ARTHROCENTESIS ASPIR&/INJ MAJOR JT/BURSA W/O US (02/01/2023 [...] to verify the correct patient, procedure, equipment, lab support tech and site/side marked as required. Patient was [...] and were consensually agreed upon. Care Teams Home Appliance Washing Machine Mechanic Relationship Specialty Start Date End Date Eliud Eisenberg MD [address] [place] [address] PCP - General Family Medicine 10/20/21 documented as of this encounter
--- OUTSIDE RECORDS SUMMARY | 2023-04-02 09:38 | External Medical Summary | Summary of Care ---
Author Name Unknown Organization [facility] Address [address] [address] Phone [phone] Care Team Providers Care Trade Promotion Analyst Name Role Phone Eliud Eisenberg MD Primary Care Provider [phone] Reason for Visit * Reason Comments Dosage Adjustment In Person (Anticoag Cl inic) Diabetes Follow-Up Encounter Details Date Type Department Care Team (Late st Contact Info) Description 03/02/2023 9:30 AM EST Office Visit Pharmacy, [facility] [address] [facility] [place] [address] [facility] [address] [facility] [place] [address] Type 2 diabetes mellitus with hemoglobin A1c goal of less than 8.0% ([facility])* Allergies Active Allergy Reactions Criticality Noted Date Comments Sulfamethoxazole-Trimet hoprim Other (Please comment) 09/20/2017 hyperkalmeia Lisinopril 09/15/2022 ?cough Trimethoprim High 11/23/2021 Other reaction(s): acute renal failure documented as of this encounter (statuses as of 03/02/2023) Medications Medication Sig Dispensed Refills Start Date [...] Tablet Sublingual (Nitrostat)Indicatio ns:Coronary artery disease involving craig coronary artery of craig heart without angina pectoris Place under the tongue 1 Tablet every 5 minutes as needed for Pain, Chest. up to 3 doses in 15 minutes 25 Tablet 1 10/20/2021 Active Codeshipipod DASH PDM (Gen 4) Kit Use as directed . Use to control insulin pod 1 Kit 0 11/15/2021 Active Omnipod DASH Pods (Gen 4) Use as directed . Use 1 pod every 3 days 2 Each 0 01/18/2022 Active Isosorbide Mononitrate ER 60 MG Oral Tablet Extended Release 24 Hour (Imdur)Indications:H [place], goal below 130/80,Coronary artery disease involving craig coronary artery of craig heart without angina pectoris,S/P primary angioplasty with [...] Oral Tablet (Coreg)Indications:C oronary artery disease involving craig coronary artery of craig heart without angina pectoris,Paroxysmal atrial fibrillation (HCC) Take 1 Tablet by mouth in the morning and 1 Tablet before bedtime. 180 Tablet 3 03/21/2022 Active Fcrvn-6-anmj Ethyl Esters 1 GM Oral Capsule (Lovaza)Indications: [...] Capsule Take by mouth. 0 Active Ipratropium [place] HFA 17 MCG/ACT Inhalation Aerosol Solution (Atrovent [...] as of this encounter (statuses as of 03/02/2023) Active Problems Problem Noted Date Diagnosed Date [...] fibrillation 02/18/2015 Coronary artery disease invo lving craig coronary artery of craig heart without angina pectoris 02/18/2015 HTN, goal below 130/80 02/18/2015 S/P carotid endarterectomy 02/18/2015 Dysmetabolic syndrome X 11/18/2013 Postsurgical percutaneous tr ansluminal coronary angioplasty status 11/18/2013 documented as of this encounter (statuses as of 03/02/2023) Resolved Problems Problem Noted Date Diagnosed Date Resolved Date Body mass index (BMI) of 40. 0 to 44.9 in adult 07/25/2022 09/06/2022 Overview: Per Obesity protocol Obesity, Class II, BMI 35-39 .9, isolated (see actual BMI) 10/17/2021 10/25/2022 ASCVD (arteriosclerotic card iovascular disease) 06/05/2017 10/16/2021 Palpitations 02/28/2017 10/16/2021 Hyperlipidemia LDL goal <70 02/18/2015 10/16/2021 documented as of this encounter (statuses as of 03/02/2023) Immunizations Name Administration Dates Next Due COVID-19 mRNA, LNP-s, No Pre serve, 2-Dose Series ([employer]) 11/19/2020,04/24/2020,03/29/2020 Hepatitis B, 20+ yrs 12/07/2016,06/15/2016,03/16 Pneumococcal [...] as of this encounter Progress Notes * Milady Bunch, [facility] - 03/02/2023 9:11 AM EST Images from the original note were not included. Medication Therapy Disease Management - CSII Follow-up Interval History: Po Rubio is an 72 year old year old male returning to the [facility] for a diabetes insulin pump follow-up visit. Blood glucose control since last visit: stable Medication intolerance: no Medication compliance: yes Hospitalization or ED Utilization since last visit: no Hypoglycemia requiring assistance since last visit: no Current Diabetes Medications: Omnipod Insulin Pump Insulin: Novolog INC: Basal Rate: 3.0 units/hour INC: Bolus: 65 carbs with meals Bolus Calculator: on and using ICR: 4 ISF: 15 Blood Glucose Goal Limits: 70-140 Bolus Calculator: Target B Correct above: 130 Minimum B Active Insulin Time: 3.5 hours Glooko Blood Glucose Review: s (mg/dL) Hypoglycemia Assessment: 1. Do you know what the symptoms of hypoglycemia are? Yes 2. How often can you tell by your symptoms if your blood sugar is low? Always 3. In a typical week, how many times will your blood sugar go below 70 mg/dL? Never Patient Active Problem List Diagnosis Code Paroxysmal atrial fibrillation ([facility]) I48.0 Coronary artery disease involving craig coronary artery of craig heart without angina pectoris I25.10 HTN, goal below 130/80 I10 S/P carotid endarterectomy Z98.890 S/P primary angioplasty with coronary stent Z95.5 PAD (peripheral artery disease) ([facility]) I73.9 Dyslipidemia E78.5 Type 2 diabetes mellitus with hemoglobin A1c goal of less than 8.0% ([facility]) E11.9 JORGE A (obstructive sleep apnea) G47.33 Stage 3a chronic kidney disease ([facility]) N18.31 Morbid obesity ([facility]) E66.01 Type 2 diabetes mellitus with diabetic peripheral angiopathy without gangrene ([facility]) E11.51 Impaired functional mobility and activity tolerance Z74.09 S/P ablation of atrial fibrillation Z98.890, Z86.79 Centrilobular emphysema ([facility]) J43.2 BPH with obstruction/lower urinary tract symptoms N40.1, N13.8 Neurogenic bladder N31.9 Carotid stenosis, non-symptomatic, bilateral I65.23 Claudication in peripheral vascular disease ([facility]) I73.9 Gouty arthropathy M10.9 Angina pectoris ([facility]) I20.9 ARF (acute renal failure) ([facility]) N17.9 Jimenez's esophagus K22.70 Carpal tunnel syndrome G56.00 CPAP (continuous positive airway pressure) dependence Z99.89 Diabetic peripheral neuropathy ([facility]) E11.42 KOVACS (dyspnea on exertion) R06.09 Dysmetabolic syndrome X E88.810 Esophageal reflux K21.9 History of tobacco abuse Z87.891 Lower back pain M54.50 Spinal stenosis of lumbar region M48.061 Other specified cardiac arrhythmias I49.8 Postsurgical percutaneous transluminal coronary angioplasty status Z98.61 TR (tricuspid regurgitation) I07.1 Review of patient's allergies indicates: Allergen Reactions [...] 1 Tablet before bedtime. 180 Tablet 3 Melwo-6-jljc Ethyl Esters 1 GM Oral Capsule (Lovaza) [...] Health Oral Capsule Take by mouth. Ipratropium [place] HFA 17 MCG/ACT Inhalation Aerosol Solution (Atrovent [...] Martinez CRNP 2.5 mg at 07/15/22 0811 Objective: The ASCVD Risk score (Meredith DK, et al., 2019) failed to calculate for the following reasons: The patient has a prior UT or stroke diagnosis Estimated body mass index is 43.08 kg/m as calculated from the following: Height as of 01/18/23: 1.74 m (5' 8.5"). Weight as of 01/18/23: 130.4 kg (287 lb 8 oz). BP Readings from Last 3 Encounters: 02/08/23 98/60 01/18/23 120/64 10/28/22 128/74 No components found for: "[id number]" Lab Results Component Value Date/Time MICROALBUMIN RATIO-OUTSIDE LAB 2.3 11/19/2018 12:00 AM MICROALBUMIN RATIO-OUTSIDE LAB 20.8 04/05/2017 12:00 AM Lab Results Component Value Date/Time LDL (CALCULATED)-OUTSIDE LAB 52 09/27/2019 12:00 AM LDL (DIRECT MEASURE)-OUTSIDE LAB 5.0 04/05/2017 12:00 AM LDL CHOLESTEROL (CALCULATED) - [facility] 45 04/01/2020 08:29 AM Lab Results Component Value Date/Time ALT - [facility] 20 10/20/2021 12:12 PM ALT - [facility] 16 02/28/2017 09:24 AM Assessment & Plan: Glycemic control is stable but not at goal Patient agreeable to adjust medications as noted below. Basal settings increased as glucose is rising overnight and between meals. ICR/fixed dose strengthened as glucose is rising postprandially. ISF continued as glucose is correcting to goal range. Patient to SMBG at least 4 times daily, before each meal and at bedtime. Patient aware to contact clinic if any hypoglycemia before next visit. Reviewed rule of 15s. Reviewed appropriate management of hyperglycemia as noted in pump start documentation. Diabetes Medications: Omnipod Insulin Pump Insulin: Novolog INC: Basal Rate: 3.25 units/hour INC: Bolus: 70 carbs with meals Bolus Calculator: on and using ICR: 4 ISF: 15 Blood Glucose Goal Limits: 70-140 Bolus Calculator: Target B Correct above: 130 Minimum B Active Insulin Time: 3 hours Diabetes Health Maintenance: up-to-date Return to Clinic: 8 week(s) 04/26/2023 Milady Bunch RPh Clinical Pharmacist Medication Therapy Disease Management 03/02/2023, 9:11 AM documented in this encounter Plan of Treatment Upcoming Encounters Date Type Department Care Team (Late st Contact Info) Description 04/05/2023 8:30 AM EST Office Visit Pulmonary Medicine, [place] [address] [place] [address] Tata Walter CRNP [address] [place] [address] 04/26/2023 7:40 AM EDT Office Visit Family Practice [facility] [address] [place] [address] Eliud Eisenberg MD [address] [place] [address] 04/26/2023 8:30 AM EDT Pharmacy Pharmacy, [facility] [address] [facility] [place] [address] [facility] [place] [address] 05/01/2023 9:30 AM EDT Office Visit Urology, [place] [address] [place] [address] Chivo Solis PA-C [address] [place], [place] [id number] 08/23/2023 8:45 AM EDT Office Visit Orthopaedics [facility] [address] [facility] [place] [address] Jamil Hills PA-C [address] [place] [address] 11/02/2023 10:00 AM EDT Office Visit Sleep Disorders Ctr [facility] [address] [facility] [address] [place] [phone] Nichol Caballero DO [address] [place] [address] 01/22/2024 8:00 AM EST Nurse Only Ancillary [facility] [address] [facility] [address] [place] [address] [place], Nurse [facility] [address] [facility] [place] [address] Scheduled Procedures Name Priority Associated Diagnoses Date/Ti [...] Eye Exam 08/11/2023 08/10/2022, 12/22/2021 Albumin/Creatinine Ratio 09/17/20232 023, 11/19/2018, 04/05/2017 CKD HGB USE SMARTSET 57528 10/20/202310/19, 10/19/2022, 09/16/2022, Additional history exists O2 ASSESSMENT COMPLETED IN PAST YEAR FOR COPD 10/29/2023 10/28/2022 CKD PHOS USE SMARTSET 51029 11/19/2023 100 07/2022, 11/12/2021, 04/01/2020 Diabetic Foot [...] this encounter Medical Devices Implanted Type Area Structural Welder Device Identifier Shelf Expiration Date Model / Serial / Lot Lens Intraoc 16.5 - [id number] - [id number] Implanted:Qty: 1 on 11/14/2019 by Elmo Apodaca MD at OR [facility] Left: Eye [employer]OM[employer] 03/15/2024 [id number] / [id number] / [id number] Lens Intraoc 16.5 - [id number] - [id number] Implanted:Qty: 1 on 11/28/2019 by Elmo Apodaca MD at OR [facility] Right: Eye [employer]OMB 04/12/2024 [id number] / [id number] / [id number] documented as of this encounter Visit Diagnoses Diagnosis Type 2 diabetes mellitus with hemoglobin A1c goal of less than 8.0% ([facility])- Primary documented in this encounter Advance Directives Latest Code Status on File Code Status Date Activated Date Inactivated Comments Full Code 07/15/2015 2:43 PM 07/16/2015 12:56 PM This o rder reflects the patients wishes and were consensually agreed upon. Care Teams Trade Promotion Analyst Relationship Specialty Start Date End Date Eliud Eisenberg MD [address] [facility] [place] [address] PCP - General Family Medicine 10/20/21 documented as of this encounter
--- OUTSIDE RECORDS SUMMARY | 2023-04-02 09:39 | External Medical Summary | Summary of Care ---
Author Name Unknown Organization [facility] Address [address] [address] Phone [phone] Care Team Providers Care Certified Athletic Trainer Name Role Phone Eliud Eisenberg MD Primary Care Provider [phone] Reason for Visit * Reason Onset Date Comments Pre Cert/Prior Auth 01/12/2023 Eulfexa Encounter Details Date Type Department Care Team (Late st Contact Info) Description 01/12/2023 Telephone Orthopaedics [facility] [address] [place] [address] [place] PA-C [address] [place] [address] Pre Cert/Prior Auth (Eulfexa ) Allergies Active Allergy Reactions Criticality Noted Date Comments Sulfamethoxazole-Trimet hoprim Other (Please comment) 09/20/2017 hyperkalmeia Lisinopril 09/15/2022 ?cough Trimethoprim High 11/23/2021 Other reaction(s): acute renal failure documented as of this encounter (statuses as of 01/12/2023) Medications Medication Sig Dispensed Refills Start Date [...] Tablet Sublingual (Nitrostat)Indicatio ns:Coronary artery disease involving [place] coronary artery of [place] heart without angina pectoris Place under the [...] TN, goal below 130/80,Coronary artery disease involving [place] coronary artery of [place] heart without angina pectoris,S/P primary angioplasty with [...] Oral Tablet (Coreg)Indications:C oronary artery disease involving [place] coronary artery of [place] heart without angina pectoris,Paroxysmal atrial fibrillation (HCC) Take 1 Tablet by mouth in the morning and 1 Tablet before bedtime. 180 Tablet 3 03/21/2022 Active Gztfb-8-nrlm Ethyl Esters 1 GM Oral Capsule (Lovaza)Indications: [...] Capsule Take by mouth. 0 Active Ipratropium [place] HFA 17 MCG/ACT Inhalation Aerosol Solution (Atrovent [...] DAYS DIRECTED 5 Each 0 11/25/2022 Active predniSONE 20 MG Oral Tablet (Deltasone) Take 4 tabs daily for 2 days, 3 tabs daily for 2 days, 2 tabs daily for 2 days, 1 tab daily for 2 days 20 Tablet 0 12/12/2022 Active Allopurinol 100 MG Oral Tablet (Zyloprim) [...] as of this encounter (statuses as of 01/12/2023) Active Problems Problem Noted Date Diagnosed Date [...] fibrillation 02/18/2015 Coronary artery disease invo lving [place] coronary artery of [place] heart without angina pectoris 02/18/2015 HTN, goal below 130/80 02/18/2015 S/P carotid endarterectomy 02/18/2015 documented as of this encounter (statuses as of 01/12/2023) Resolved Problems Problem Noted Date Diagnosed Date Resolved Date Body mass index (BMI) of 40. 0 to 44.9 in adult 07/25/2022 09/06/2022 Overview: Per Obesity protocol Obesity, Class II, BMI 35-39 .9, isolated (see actual BMI) 10/17/2021 10/25/2022 ASCVD (arteriosclerotic card iovascular disease) 06/05/2017 10/16/2021 Palpitations 02/28/2017 10/16/2021 Hyperlipidemia LDL goal <70 02/18/2015 10/16/2021 documented as of this encounter (statuses as of 01/12/2023) Immunizations Name Administration Dates Next Due COVID-19 mRNA, LNP-s, No Pre serve, 2-Dose Series ([employer]) 11/19/2020,04/24/2020,03/29/2020 Hepatitis B, 20+ yrs 12/07/2016,06/15/2016,03/16 Pneumococcal [...] Date Recorded PHQ Adult Total Score 0 01/17/2022 Hunger Vital Sign Answer Date Recorded Within [...] 8:21 AM EST Sexual Orientation Straight 01/17/2022 8 :21 AM EST Job Start Date Occupation Industry Not on file Not on file Not on file documented as of this encounter Miscellaneous Notes * Telephone Encounter - Mona Mcgill MED ASSIST - 01/12/2023 10:33 AM EST Orthopaedics Pre-Cert Request Medication/Disease State Information: Medication: Hyaluronate- Euflexxa (J7323): inject 20 mg (2 mL) once weekly for 3 weeks (total of 3 injections). Route to [id number] Is there radiological proof(x-ray, cat scan, mri of osteoarthritis? yesIf yes, date of scan: Has the patient tried physical therapy?yes Has the patient tried tylenol or NSAIDs?yes Has the patient failed corticosteroid injections of the knee?yes Has the patient tried weight loss?no Has the patient tried knee bracing?yes Has the patient tried a home exercise program?no Diagnosis (including ICD-10): Unilateral primary osteoarthritis, left knee- M17.12 Medication(s) Tried/Failed/Contraindicated: See corresponding visit note(s) for additional supporting clinical information. Office Information: Prescriber: [place] documented in this encounter Plan of Treatment Upcoming Encounters Date Type Department Care Team (Late st Contact Info) Description 01/18/2023 8:00 AM EST Nurse Only Ancillary Denny Otero [place] [address] [facility] [place] [address] [place], Nurse [facility] [address] [facility] [place] [address] 02/08/2023 8:00 AM EST Office Visit Urology, [place] [address] [place] [address] Chivo Solis PA-C [address] [place] [address] 02/21/2023 9:30 AM EST Office Visit Pulmonary Medicine, [place] [address] [place] [address] Tata Walter CRNP [address] [place] [address] 03/02/2023 9:30 AM EST Office Visit Pharmacy, [facility] [address] [facility] [place] [address] [facility] [address] [facility] [place] [address] 04/26/2023 7:40 AM EDT Office Visit Family Practice [facility] [address] [facility] [place] [address] Eliud Eisenberg MD [facility] [place] [address] 11/02/2023 10:00 AM EDT Office Visit Sleep Disorders Ctr [facility] [address] [facility] [place] [phone] Nichol Caballero DO [facility] [place] [address] Scheduled Procedures Name Priority Associated Diagnoses Date/Ti me ESOPHAGOGASTRODUODENOSCOPY ( EGD), FLEXIBLE, TRANSORAL, DIAGNOSTIC Recall Jimenez's esophagus Health Maintenance Due Date Last Done Comments Alpha-1 Antitrypsin 09/24/1968 COLONOSCOPY-EVERY 5 YRS AGES 18-100 09/24/1967 Hepatitis C Screening 09/24/1967 DTaP,Tdap,and Td Vaccines (1 - Tdap) 1968 COVID-19 Vaccine ( season) 2022 11/19/2020, 04/24/2020, 03/29/2020 Depression Screening 01/17/2023 01/17/2022 GFR 04/07/2023 10/05/2022, 080 05/2022, 06/07/2022, Additional history exists HbA1c 05/20/2023 11/18/2022, 030 08/2022, 10/20/2021, Additional history exists Diabetic Eye Exam 08/11/2023 08/10/2022, 12/22/2021 Albumin/Creatinine Ratio 09/17/2023 08 023, 11/19/2018, 04/05/2017 CKD HGB USE SMARTSET 76552 10/20/202310/19, 10/19/2022, 09/16/2022, Additional history exists O2 ASSESSMENT COMPLETED IN PAST YEAR FOR COPD 10/29/2023 10/28/2022 CKD PHOS USE SMARTSET 18018 11/19/[address] 07/2022, 11/12/2021, 04/01/2020 Diabetic Foot Exam 12/30/2023 12/29/2022 Pneumococcal Vaccine: 65+ Years Completed 01/13/2016, 11/24/2014, 02/13/2007, Additional history exists Hepatitis B Completed 12/07/2016, 050 04/2016, 03/16/2016 Zoster Vaccines Completed 08/06/2018, 05/14, [...] this encounter Medical Devices Implanted Type Area Hot Braider Device Identifier Shelf Expiration Date Model / Serial / Lot Lens Intraoc 16.5 - [id number] - [id number] Implanted:Qty: 1 on 11/14/2019 by Elmo Apodaca MD at OR [facility] Left: Eye [employer] 03/15/2024 [id number] / [id number] / [id number] Lens Intraoc 16.5 - [id number] - [id number] Implanted:Qty: 1 on 11/28/2019 by Elmo Apodaca MD at OR [facility] Right: Eye [employer]CH [employer]OMB 04/12/2024 [id number] / [id number] / [id number] documented as of this encounter Advance Directives Latest Code Status on File Code Status Date Activated Date Inactivated Comments Full Code 07/15/2015 2:43 PM 07/16/2015 12:56 PM This o rder reflects the patients wishes and were consensually agreed upon. Care Teams Certified Athletic Trainer Relationship Specialty Start Date End Date Eliud Eisenberg MD [address] [facility] [place] [address] PCP - General Family Medicine 10/20/21 documented as of this encounter
--- OUTSIDE RECORDS SUMMARY | 2023-04-02 09:39 | External Medical Summary | Summary of Care ---
Author Name Unknown Organization [facility] Address [address] [facility] [place] [address] Phone [phone] Care Team Providers Care Automotive Generator Repairer Name Role Phone Leonard Eisenberg MD Primary Care Provider [phone] Reason for Visit * Reason Onset Date Comments Medication Refill 01/09/2023 Encounter Details Date Type Department Care Team (Late st Contact Info) Description 01/09/2023 Refill [facility] [address] [place] [address] Leonard Eisenberg MD [address] [place] [address] Encounter for long-term (current) use of medications* Allergies Active Allergy Reactions Criticality Noted Date Comments Sulfamethoxazole-Trimet hoprim Other (Please comment) 09/20/2017 hyperkalmeia Lisinopril 09/15/2022 ?cough Trimethoprim High 11/23/2021 Other reaction(s): acute renal failure documented as of this encounter (statuses as of 01/10/2023) Medications Medication Sig Dispensed Refills Start Date [...] Tablet Sublingual (Nitrostat)Indicat ions:Coronary artery disease involving chitina coronary artery of chitina heart without angina pectoris Place under the tongue 1 Tablet every 5 minutes as needed for Pain, Chest. up to 3 doses in 15 minutes 25 Tablet 1 10/20/2021 Active HiPer TechnologyipBuyItRideIt DASH PDM (Gen 4) Kit Use as directed . Use to control insulin pod 1 Kit 0 11/15/2021 Active OmnipBuyItRideIt DASH Pods (Gen 4) Use as directed . Use 1 pod every 3 days 2 Each 0 01/18/2022 Active Isosorbide Mononitrate ER 60 MG Oral Tablet Extended Release 24 Hour (Imdur)Indications :HTN, goal below 130/80,Coronary artery disease involving chitina coronary artery of chitina heart without angina pectoris,S/P primary angioplasty with coronary stent Take 1 Tablet (60 mg) by mouth in the morning. 90 Tablet 3 01/17/2022 Active FreeStyle Indar 2 Sensor Use as directed . Use 1 sensor every 14 days 6 Each 3 01/21/2022 Active Atorvastatin Calcium 40 MG Oral Tablet (Lipitor)Indicatio ns:evening Take 1 Tablet by mouth in the morning. 1 tab daily. 90 Tablet 3 03/21/2022 Active Carvedilol 12.5 MG Oral Tablet (Coreg)Indications :Coronary artery disease involving chitina coronary artery of chitina heart without angina pectoris,Paroxysma l atrial fibrillation (HCC) Take 1 Tablet by mouth in the morning and 1 Tablet before bedtime. 180 Tablet 3 03/21/2022 Active Cmdla-7-[id number] Ethyl Esters 1 GM Oral Capsule (Lovaza)Indication [...] Capsule Take by mouth. 0 Active Ipratropium [place] HFA 17 MCG/ACT Inhalation Aerosol Solution (Atrovent [...] insulin pump 90 mL 1 01/10/2023 Active Insulin Aspart 100 UNIT/ML Injection Solution (NovoLOG) Inject up to 100 units daily via insulin pump 90 mL 3 11/22/2021 3 Discontinue d(Refill) Hospital, Clinic, or Other Facility Administered Medication Ordered Dose Route Frequency Start Date End Date Status Albuterol Sulfate (Proventil) (2.5 MG/3ML) 0.083% inhalation solution 2.5 mgIndications:KOVACS (dyspnea on exertion),Centrilobular emphysema (HCC),History of tobacco use,Morbid obesity (HCC) 2.5 mg NEBULIZER PRN 07/06/2022 Active documented as of this encounter (statuses as of 01/10/2023) Active Problems Problem Noted Date Diagnosed Date [...] fibrillation 02/18/2015 Coronary artery disease invo lving chitina coronary artery of chitina heart without angina pectoris 02/18/2015 HTN, goal below 130/80 02/18/2015 S/P carotid endarterectomy 02/18/2015 documented as of this encounter (statuses as of 01/10/2023) Resolved Problems Problem Noted Date Diagnosed Date Resolved Date Body mass index (BMI) of 40. 0 to 44.9 in adult 07/25/2022 09/06/2022 Overview: Per Obesity protocol Obesity, Class II, BMI 35-39 .9, isolated (see actual BMI) 10/17/2021 10/25/2022 ASCVD (arteriosclerotic card iovascular disease) 06/05/2017 10/16/2021 Palpitations 02/28/2017 10/16/2021 Hyperlipidemia LDL goal <70 02/18/2015 10/16/2021 documented as of this encounter (statuses as of 01/10/2023) Immunizations Name Administration Dates Next Due COVID-19 mRNA, LNP-s, No Pre serve, 2-Dose Series (Netlog) 11/19/2020,04/24/2020,03/29/2020 Hepatitis B, 20+ yrs 12/07/2016,06/15/2016,03/16 Pneumococcal [...] encounter Miscellaneous Notes * Telephone Encounter - Andrea Kirkpatrick [facility] - 01/10/2023 8:27 AM ESTSigned Prescriptions: Disp Refills Insulin Aspart 100 UNIT/ML Injection Solut*90 mL 1 Sig: Inject up to 100 units daily via insulin pumpAuthorizing Provider: LEONARD EISENBERG User: ANDREA KIRKPATRICK * Telephone Encounter - Andrea Kirkpatrick [facility] - 01/10/2023 8:26 AM EST Provided 90 days supply with 1 refill(s) until next routine labs will approximately be drawn. Per refill protocol patient should have Lipid panel on file within past year. Reviewed AMP report, Care Gaps/Health Maintenance, medications list, and for any routine labs typically ordered for this patient. Lab orders placed. Patient can complete labs with next routine lab work. Thank You, Andrea Kirkpatrick [facility] Clinical Pharmacist [facility] ([email or web address]) [phone] 01/10/2023, 8:26 AM * Telephone Encounter - Narcisa Jean CPhT - 01/09/2023 9:54 AM EST Did you pend patient's preferred pharmacy and medication before forwarding?yes Pharmacy: [facility] [facility] [place] Pending Prescriptions: Disp Refills Insulin Aspart 100 UNIT/ML Injection Solu*90 mL 3 Sig: Inject up to 100 units daily via insulin pump Last Visit: 10/25/2022 (in office), Visit date not found (telemedicine) Next Visit: 04/26/2023 If no future appointments scheduled, and last appointment is greater than a year ago, please schedule patient for a follow-up appointment Last date the medication was ordered: 11/22/2021 Is this request for a controlled substance?No [...] Team (Late st Contact Info) Description 01/12/2023 10:30 AM EST Office Visit Orthopaedics [facility] [address] [facility] [place] [address] Jamil Hills PA-C [address] [place] [address] 01/18/2023 8:00 AM EST Nurse Only Ancillary [facility] [address] [facility] [place] [address] [facility], Nurse Annual Wellness [facility] [address] [facility] [place] [address] 02/08/2023 8:00 AM EST Office Visit Urology, [place] [address] [place] [address] Chivo Solis PA-C [address] [place] [address] 02/21/2023 9:30 AM EST Office Visit Pulmonary Medicine, [place] [address] [place] [address] Tata Walter CRNP [address] [place] [address] 03/02/2023 9:30 AM EST Office Visit Pharmacy, [facility] [address] [facility] [place] [address] [place], [facility] [address] [facility] [place] [address] 04/26/2023 7:40 AM EDT Office Visit Family Practice [facility] [address] [facility] [place] [address] Leonard Eisenberg MD [address] [facility] [place] [address] 11/02/2023 10:00 AM EDT Office Visit [facility] Disorders [facility] [address] [place] [address] Nichol Caballero, [address] [place] [address] Scheduled Orders Name Type Priority Associated Diagnoses Orde r Schedule LIPID PANEL WITH DIRECT LDL IF TG IS HIGH Lab Routine Encounter for long-term (current) use of medications Expected: 01/10/2023 (Approximate), Expires: 01/11/2024 Scheduled Procedures Name Priority Associated Diagnoses Date/Ti me ESOPHAGOGASTRODUODENOSCOPY ( EGD), FLEXIBLE, TRANSORAL, DIAGNOSTIC Recall Jimenez's esophagus Health Maintenance Due Date Last Done Comments Alpha-1 Antitrypsin 09/24/1967 COLONOSCOPY-EVERY 5 YRS AGES 18-100 09/24/1967 Hepatitis C Screening 09/24/1967 DTaP,Tdap,and Td Vaccines (1 - Tdap) 1968 COVID-19 Vaccine (4 - 2022- season) 2022 11/19/2020, 04/24/2020, 03/29/2020 Depression Screening 01/17/2023 01/17/2022 GFR 04/07/2023 10/05/2022, 0805/2022, 06/07/2022, Additional history exists HbA1c 05/20/2023 11/18/2022, 03/0 08/2022, 10/20/2021, Additional history exists Diabetic Eye Exam 08/11/2023 08/10/2022, 12/22/2021 Albumin/Creatinine Ratio 09/17/2023 08042 023, 11/19/2018, 04/05/2017 CKD HGB USE SMARTSET 54285 10/20/202310/19, 10/19/2022, 09/16/2022, Additional history exists O2 ASSESSMENT COMPLETED IN PAST YEAR FOR COPD 10/29/2023 10/28/2022 CKD PHOS USE SMARTSET 08527 11/19/2023 10/0 07/2022, 11/12/2021, 04/01/2020 Diabetic Foot [...] this encounter Medical Devices Implanted Type Area Rn Imcu Device Identifier Shelf Expiration Date Model / Serial / Lot Lens Intraoc 16.5 - [id number] - [id number] Implanted:Qty: 1 on 11/14/2019 by Elmo Apodaca MD at OR [facility] Left: Eye [employer] 03/15/2024 [id number] / [id number] / [id number] Lens Intraoc 16.5 - [id number] - [id number] Implanted:Qty: 1 on 11/28/2019 by Elmo Apodaca MD at OR [facility] Right: Eye [employer] 04/12/2024 [id number] / [id number] / [id number] documented as of this encounter Visit Diagnoses Diagnosis Encounter for long-term (current) use of medications- Primary Encounter for long-term (current) use of other medications documented in this encounter Advance Directives Latest Code Status on File Code Status Date Activated Date Inactivated Comments Full Code 07/15/2015 2:43 PM 07/16/2015 12:56 PM This o rder reflects the patients wishes and were consensually agreed upon. Care Teams Automotive Generator Repairer Relationship Specialty Start Date End Date Leonard Eisenberg MD [address] [facility] [place] [address] PCP - General Family Medicine 10/20/21 documented as of this encounter
--- OUTSIDE RECORDS SUMMARY | 2023-04-02 09:39 | External Medical Summary | Summary of Care ---
Author Name Unknown Organization [facility] Address [address] [place] [address] Phone [phone] Care Team Providers Care Branch Manager Trainee Name Role Phone Eliud Eisenberg MD Primary Care Provider [phone] Reason for Visit * Reason Onset Date Comments Adult Annual Wellness Visit, Subsequent Visit Encounter Details Date Type Department Care Team (Late st Contact Info) Description 01/18/2023 8:00 AM EST Nurse Only [facility] [address] [id number] [address] [facility] [place] [address] Adult Annual Wellness Visit, Subsequent Visit Allergies Active Allergy Reactions Criticality Noted Date Comments Sulfamethoxazole-Trimet hoprim Other (Please comment) 09/20/2017 hyperkalmeia Lisinopril 09/15/2022 ?cough Trimethoprim High 11/23/2021 Other reaction(s): acute renal failure documented as of this encounter (statuses as of 01/18/2023) Medications Medication Sig Dispensed Refills Start Date [...] Tablet Sublingual (Nitrostat)Indicat ions:Coronary artery disease involving [place] coronary artery of [place] heart without angina pectoris Place under the tongue 1 Tablet every 5 minutes as needed for Pain, Chest. up to 3 doses in 15 minutes 25 Tablet 1 10/20/2021 Active Torax Medicalipod DASH PDM (Gen 4) Kit Use as directed . Use to control insulin pod 1 Kit 0 11/15/2021 Active Omnipod DASH Pods (Gen 4) Use as directed . Use 1 pod every 3 days 2 Each 0 01/18/2022 Active Isosorbide Mononitrate ER 60 MG Oral Tablet Extended Release 24 Hour (Imdur)Indications :HTN, goal below 130/80,Coronary artery disease involving [place] coronary artery of [place] heart without angina pectoris,S/P primary angioplasty with [...] Oral Tablet (Coreg)Indications :Coronary artery disease involving [place] coronary artery of [place] heart without angina pectoris,Paroxysma l atrial fibrillation (HCC) Take 1 Tablet by mouth in the morning and 1 Tablet before bedtime. 180 Tablet 3 03/21/2022 Active Apawx-0-zerl Ethyl Esters 1 GM Oral Capsule (Lovaza)Indication [...] Capsule Take by mouth. 0 Active Ipratropium Molino HFA 17 MCG/ACT Inhalation Aerosol Solution (Atrovent [...] insulin pump 90 mL 1 01/10/2023 Active predniSONE 20 MG Oral Tablet (Deltasone) Take 4 tabs daily for 2 days, 3 tabs daily for 2 days, 2 tabs daily for 2 days, 1 tab daily for 2 days 20 Tablet 0 12/12/2022 3 Discontinue d(Medicatio n List Clean Up) Hospital, Clinic, or Other Facility Administered Medication Ordered Dose Route Frequency Start Date End Date Status Albuterol Sulfate (Proventil) (2.5 MG/3ML) 0.083% inhalation solution 2.5 mgIndications:KOVACS (dyspnea on exertion),Centrilobular emphysema (HCC),History of tobacco use,Morbid obesity (HCC) 2.5 mg NEBULIZER PRN 07/06/2022 Active documented as of this encounter (statuses as of 01/18/2023) Active Problems Problem Noted Date Diagnosed Date [...] fibrillation 02/18/2015 Coronary artery disease invo lving chevak coronary artery of chev[place] heart without angina pectoris 02/18/2015 HTN, goal below 130/80 02/18/2015 S/P carotid endarterectomy 02/18/2015 documented as of this encounter (statuses as of 01/18/2023) Resolved Problems Problem Noted Date Diagnosed Date Resolved Date Body mass index (BMI) of 40. 0 to 44.9 in adult 07/25/2022 09/06/2022 Overview: Per Obesity protocol Obesity, Class II, BMI 35-39 .9, isolated (see actual BMI) 10/17/2021 10/25/2022 ASCVD (arteriosclerotic card iovascular disease) 06/05/2017 10/16/2021 Palpitations 02/28/2017 10/16/2021 Hyperlipidemia LDL goal <70 02/18/2015 10/16/2021 documented as of this encounter (statuses as of 01/18/2023) Immunizations Name Administration Dates Next Due COVID-19 mRNA, LNP-s, No Pre serve, 2-Dose Series (Novast) 11/19/2020,04/24/2020,03/29/2020 Hepatitis B, 20+ yrs 12/07/2016,06/15/2016,03/16 Pneumococcal [...] Sign Reading Time Taken Comments Blood Pressure 120/64 01/18/2023 8:07 AM EST Pulse 76 01/18/2023 8:07 AM EST Temperature 36.2 C (97.2 F) 01/18/2023 8:07 AM ES T Respiratory Rate - - Oxygen Saturation - - Inhaled Oxygen Concentration - - Weight 130.4 kg (287 lb 8 oz) 01/18/2023 8:07 AM EST Height 174 cm (5' 8.5") 01/18/2023 8:07 AM EST Body Mass Index 43.08 01/18/2023 8:07 AM EST documented in this encounter Patient Instructions * Patient Instructions* Emily Avendaño RN - 01/18/2023 8:01 AM EST Hi Mr. Rubio, As your primary care physician, I know that regular visits with my patients who have several chronic conditions can go a long way in helping you stay healthy. Many times, the clinic team and I are in touch with you and/or other care team members between office visits to adjust medications, discuss any changes in your health, and review our care plan to make sure it is still meeting your needs. I am dedicated to helping you take a more active role in your overall care. It is important that there are resources available to you, so I created a personalized plan of care with a Health Calendar for you, which is included on the next page of this letter. Below is a list that summarizes your electronic health record: Health Maintenance Due: Health Maintenance Due Topic Date Due COLONOSCOPY-EVERY 5 YRS AGES 18-100 Never done Alpha-1 Antitrypsin Never done Hepatitis C Screening Never done DTaP,Tdap,and Td Vaccines (1 - Tdap) Never done COVID-19 Vaccine (2022-24 season) 2022 Depression Screening 01/17/2023 Current Medication List: (as of Visit date not found (in office), Visit date not found (telemedicine) ) Current Outpatient Medications Medication Sig Dispense Refill NOVOFINE 32G X 6 MM MISC Magnesium 500 MG Capsule Take 1 Tablet by mouth in the morning and 1 Tablet before bedtime. onein morning, one in evening. Cyanocobalamin (VITAMIN B-12) [...] the evening and 1 Capsule before bedtime. Cholecalciferol [...] (Nitrostat) Place under the tongue 1 Tablet every [...] 1 Tablet before bedtime. 180 Tablet 3 Mbtvb-6-louc Ethyl Esters 1 GM Oral Capsule (Lovaza) Take 1 Capsule by mouth in the morning and1 Capsule in the evening. 180 Capsule 3 [...] Health Oral Capsule Take by mouth. Ipratropium Molino HFA 17 MCG/ACT Inhalation Aerosol Solution (Atrovent Hfa) Inhale 2 Puffs bymouth every 6 hours. 12.9 g 5 Torsemide 10 MG Oral Tablet (Demadex) Take 1 Tablet by mouth in the morning and 1 Tablet beforebedtime. 180 Tablet 3 Fluticasone-Salmeterol 500-50 MCG/ACT Inhalation Aerosol Powder Breath Activated Inhale 1 Puff by mouth in the morning and 1 Puff before bedtime. 180 Each 3 Biotene Dry Mouth Mouth/Throat Lozenge Apply 1 Lozenge to the mouth or throat every evening. 90Lozenge 3 Omnipod DASH Pods (Gen 4) USE 1 POD EVERY 2 DAYS DIRECTED 5 Each 0 predniSONE 20 MG Oral Tablet (Deltasone) Take 4 tabs daily for 2 days, 3 tabs daily for 2 days,2 tabs daily for 2 days, 1 tab daily for 2 days 20 Tablet 0 Allopurinol 100 MG Oral Tablet (Zyloprim) Take 1 Tablet by mouth in the morning. 30 Tablet 11 hydrALAZINE HCl 10 MG Oral Tablet (Apresoline) Take 1 Tablet by mouth in the morning. 90 Tablet3 Insulin Aspart 100 UNIT/ML Injection Solution (NovoLOG) Inject up to 100 units daily via insulin pump 90 mL 1 Current Facility-Administered Medications Medication Dose Route Frequency Provider Last Rate Last Admin Albuterol Sulfate (Proventil) (2.5 MG/3ML) 0.083% inhalation solution 2.5 mg 2.5 mg Nebulizer KATELYNN Tata Walter CRNP 2.5 mg at 07/15/22 0811 Current List of Allergies: (as of Visit date not found (in office), Visit date not found (telemedicine) ) Review of patient's allergies indicates: Allergen Reactions Trimethoprim Other reaction(s): acute renal failure Bactrim [Sulfamethoxazole-Trimethoprim] Other (Please comment) hyperkalmeia Lisinopril ?cough Most Recent Lab Results: Results for orders placed or performed in visit on 11/18/22 HEMOGLOBIN A1C Result Value Ref Range Hemoglobin A1C 8.6 (H) 4.0 - 5.6 % Estimated Average Glucose 200 (H) <126 mg/dL PHOSPHORUS Result Value Ref Range Phosphorus 3.6 2.5 - 4.8 mg/dL Sincerely, Eliud Eisenberg MD 01/18/2023 [email or web address] Calendar (as of Visit date not found (in office), Visit date not found (telemedicine) ) Care needs Care needs Last completed Due next Colonoscopy - every 5 years --- Never done Alpha-1 Antitrypsin --- Never done Hepatitis C screening --- Never done Diphtheria, tetanus & pertussis vaccines ( - Tdap) --- Never done COVID-19 Vaccine ( season) 2020 10/14/2022 Kidney Function Test 10/05/2022 04/07/2023 A1C blood sugar test 11/18/2022 05/20/2023 Diabetic Eye Exam 08/10/2022 08/11/2023 Urine albumin/creatinine test 09/16/2022 09/17/2023 Yearly COPD oxygen test 10/28/2022 10/29/2023 Diabetic Foot Exam 12/29/2022 12/30/2023 As you look over the recommended services, be sure to check with your insurance company to determine what's covered. [employer] is a great tool that helps you review your medical record online, including test results, doctor notes and your health summary. You can also schedule appointments with me and other members of your care team, request prescription refills and ask for advice related to your medical conditions at [email or web address]. Patient Instructions - Fall Prevention (This education is for all patients over 65 regardless of symptoms) Remember to take your current medications as prescribed. In order to prevent falls, you are encouraged to: Exercise Utilize assistive/adaptive devices Avoid multifocal lenses when walking Avoid hazards in home Maintain a regular toileting schedule Any questions please contact our office. Preventing Falls in the Home (This education is for all patients over 65 regardless of symptoms) As you get older, falls are more likely. Thats because your reaction time slows. Your muscles and joints may also get stiffer, making them less flexible. Illness, medications, and vision changes can also affect your balance. A fall could leave you unable to live on your own. To make your home safer, follow these tips: Floors Put nonskid pads under area rugs Remove throw rugs Replace worn floor coverings Tack carpets firmly to each step on carpeted stairs. Put nonskid strips on the edges of uncarpeted stairs Keep floors and stairs free of clutter and cords Arrange furniture so there are clear pathways Clean up any spills right away Bathrooms Install grab bars in the tub or shower Apply nonskid strips or put a nonskid rubber mat in the tub or shower Sit on a bath chair to bathe Use bathmats with nonskid backing Lighting Keep a flashlight in each room Put a nightlight along the pathway between the bedroom and the bathroom [employer] Patient Education Copyright 2008 - 2010 [employer] except where otherwise noted documented in this encounter Progress Notes * Emily Avendaño RN - 01/18/2023 8:01 AM EST Adult Annual Wellness Visit: Po Rubio is a 72 year old male who presents for an Adult Annual Wellness Visit. Depression Screening: Did the patient complete the screening questionnaire for Depression? Yes Is the patient's total score for Depression 15 or greater? No, no further intervention needed, unless requested by patient. Did the patient answer positively to the suicide question? No, no further intervention needed, unless requested by patient. In general, compared to other people your age, what would you say that your health is? Good Ht Readings from Last 1 Encounters: 01/18/23 1.74 m (5' 8.5") Wt Readings from Last 1 Encounters: 01/18/23 130.4 kg (287 lb 8 oz) Body Mass Index: BMI Greater than 30 Body mass index is 43.08 kg/m. BP Readings from Last 1 Encounters: 01/18/23 120/64 Medical/Surgical/Family History Reviewed: Yes Past Medical History: Diagnosis Date BPH with obstruction/lower urinary tract symptoms 09/07/2022 CAD in chev[place] artery [place] 2.5 x 28 mm drug eluting stent to the obstuse marginal , [place] Carotid stenosis Centrilobular emphysema (HCC) 09/06/2022 DM2 (diabetes mellitus, type 2) (HCC) Dyslipidemia, goal LDL below 100 HTN (hypertension) Impaired functional mobility and activity tolerance 04/19/2022 Morbid obesity due to excess calories (HCC) 10/20/2021 Neurogenic bladder 09/07/2022 Obesity, Class II, BMI 35-39.9, isolated (see actual BMI) 10/17/2021 JORGE A (obstructive sleep apnea) 10/17/2021 Paroxysmal atrial fibrillation (HCC) 02/18/2015 S/P ablation of atrial fibrillation 04/19/2022 Sleep apnea, obstructive Stage 3a chronic kidney disease (HCC) 10/17/2021 Type 2 diabetes mellitus with hemoglobin A1c goal of less than 8.0% ([facility]) 10/17/2021 Past Surgical History: Procedure Laterality Date CARDIAC CATH-CARDIOLOGY ONLY 10/27/2008 drug eluting stent to the OM, [place] CARPAL TUNNEL SURGERY Left 06/18/2021 NEUROPLASTY MEDIAN NERVE AT CARPAL TUNNEL performed by Rodney Heaton DO at OR [facility] CARPAL TUNNEL SURGERY Right 07/16/2021 NEUROPLASTY MEDIAN NERVE AT CARPAL TUNNEL performed by Rodney Heaton DO at OR [facility] CORONARY ANGIOGRAPHY W/LEFT HEART CATH Right 04/01/2020 CORONARY ANGIOGRAPHY W/LEFT HEART CATH performed by Momo Gomez MD at CARD[facility]AC LABS [facility] EGD, FLEXIBLE, DIAGNOSTIC 04/04/2016 inflammation on bx, repeat 5 yrs/ESOPHAGOGASTRODUODENOSCOPY (EGD), FLEXIBLE, TRANSORAL, DIAGNOSTIC performed by Bibi Hale MD at ENDOSCOPY [facility] ELECTROPHYSIOLOGY EVAL, ATRIAL FIB, PULMONARY VEIN ISOL 07/15/2015 ELECTROPHYSIOLOGY EVAL, ATRIAL FIB, PULMONARY VEIN ISOL performed by Dc Fleming MD at CARDIAC LABS [facility] FEM/POP ARTERY REVASC W/ANGIOPLASTY Right 09/21/2020 FEM/POP ARTERY REVASC W/ANGIOPLASTY performed by Gunner Serrano MD at OR [facility] IR ARTERIOGRAM EXTREMITY UNILATERAL Right 09/21/2020 IMAGING SUPERVISION & INTERPRETATION EXTREMITY UNILATERAL performed by Gunner Serrano MD at OR [facility] REMOVE CATARACT, INSERT LENS PROSTH Left 11/14/2019 LEFT EXTRACAPSULAR CATARACT REMOVAL WITH INTRAOCULAR LENS performed by Elmo Apodaca MD at OR [facility] REMOVE CATARACT, INSERT LENS PROSTH Right 11/28/2019 RIGHT EXTRACAPSULAR CATARACT REMOVAL WITH INTRAOCULAR LENS performed by Elmo Apodaca MD at [facility] SINUS SURGERY PROCEDURE NEC 09/2014 THROMBOENDARECTOMY W/PATCH,NECK INCISION Right 04/2014 Dr Vincenzo Latham TIBIAL/PERONEAL ART. REVASC W/ANGIO, FIRST 09/21/2020 TIBIAL/PERONEAL ART. REVASC W/ANGIO, FIRST performed by Gunner Serrano MD at OR [facility] Family History Problem Relation Age of Onset Cancer Mother of cancer at 72, details unknown, no heart disease Other (lung cancer) Father of lung carcinomia age 67 Stroke Brother stroke at age 63 Has patient ever had cancer? No Social History Tobacco Use Smoking status: Former Packs/day: 2.00 Years: 35.00 Additional pack years: 0.00 Total pack years: 70.00 Types: Cigarettes Quit date: 02/13/2001 Years since quittin.9 Smokeless tobacco: Never Substance Use Topics Alcohol use: Yes Comment: Beer occasionally. Vaping/E-Cigarette Use Vaping/E-Cigarette Use Never User Vaping/E-Cigarette Substances Vaping/E-Cigarette Devices Tobacco/Alcohol screening completed today? Yes Hospital Care: Admissions (within the last year): Not Applicable ER within 30 days: No Does the patient have an Advance Directives/Living Will? Yes Last Physical Exam: Last physical exam: 04/2022 Does patient see primary provider regularly? Yes Does patient see other providers? Yes, Specialist Patient Care Team updated? Yes Review of patient's allergies indicates: Allergen Reactions Trimethoprim Other reaction(s): acute renal failure Bactrim [Sulfamethoxazole-Trimethoprim] Other (Please comment) hyperkalmeia Lisinopril ?cough Immunization History Administered Date(s) Administered COVID-19 mRNA, LNP-s, No Preserve, 2-Dose Series (Novast) 03/29/2020, 04/24/2020, 11/19/2020 Hepatitis B, 20+ yrs 03/16/2016, 06/15/2016, 12/07/2016 Pneumococcal Conjugate Vacc, 13 Valent (Prevnar) 11/24/2014 Pneumococcal Polysaccharide PPV23 (Pneumovax) 12/23/2005, 02/13/2007, 01/13/2016 Seasonal Influenza, Quadrivalent Hd (Fluzone Hd) 10/20/2021, 10/25/2022 Seasonal Influenza, Split, IIV3, With Preserve, Inj 11/07/2013, 11/24/2014 Varicella Zoster Vaccine (Adult) 10/14/2013, 05/30/2018 Zoster Vaccine Recombinant (Shingrix) 05/30/2018, 08/06/2018 Current Outpatient Medications Medication Sig Dispense Refill Magnesium 500 MG Capsule Take 1 Tablet [...] Tablet in the morning. 90 Tablet 3 Nitroglycerin 0.4 MG Sublingual Tablet Sublingual (Nitrostat) Place under the tongue 1 Tablet every5 minutes as needed for Pain, Chest. up to 3 doses in 15 minutes 25 Tablet 1 Isosorbide Mononitrate ER 60 MG Oral Tablet Extended Release 24 Hour (Imdur) Take 1 Tablet (60 mg) by mouth in the morning. 90 Tablet 3 Atorvastatin Calcium 40 MG Oral Tablet (Lipitor) Take 1 Tablet by mouth in the morning. 1 tab daily. 90 Tablet 3 Carvedilol 12.5 MG Oral Tablet (Coreg) Take 1 Tablet by mouth in the morning and 1 Tablet before bedtime. 180 Tablet 3 Eiwoo-3-mmgd Ethyl Esters 1 GM Oral Capsule (Lovaza) [...] Health Oral Capsule Take by mouth. Ipratropium Molino HFA 17 MCG/ACT Inhalation Aerosol Solution (Atrovent [...] 1 Puff before bedtime. 180 Each 3 Allopurinol 100 MG Oral Tablet (Zyloprim) Take 1 Tablet by mouth in the morning. 30 Tablet 11 hydrALAZINE HCl 10 MG Oral Tablet (Apresoline) Take 1 Tablet by mouth in the morning. 90 Tablet 3 Insulin Aspart 100 UNIT/ML Injection Solution (NovoLOG) Inject up to 100 units daily via insulin pump 90 mL 1 NOVOFINE 32G X 6 MM MISC CPAP every night at bedtime . Omnipod DASH PDM (Gen 4) Kit Use as directed . Use to control insulin pod 1 Kit 0 Omnipod DASH Pods (Gen 4) Use as directed . Use 1 pod every 3 days 2 Each 0 FreeStyle Indra 2 Sensor Use as directed . Use 1 sensor every 14 days 6 Each 3 Biotene Dry Mouth Mouth/Throat Lozenge Apply 1 Lozenge to the mouth or throat every evening. 90 Lozenge 3 Omnipod DASH Pods (Gen 4) USE 1 POD EVERY 2 DAYS DIRECTED 5 Each 0 Current Facility-Administered Medications Medication Dose Route Frequency Provider Last Rate Last Admin Albuterol Sulfate (Proventil) (2.5 MG/3ML) 0.083% inhalation solution 2.5 mg 2.5 mg Nebulizer Tata Martinez CRNP 2.5 mg at 07/15/22 0811 Patient Active Problem List Diagnosis Code Paroxysmal atrial fibrillation ([facility]) I48.0 Coronary artery disease involving [place] coronary artery of [place] heart without angina pectoris I25.10 HTN, goal below 130/80 I10 S/P carotid endarterectomy Z98.890 S/P primary angioplasty with coronary stent Z95.5 PAD (peripheral artery disease) ([facility]) I73.9 Dyslipidemia E78.5 Type 2 diabetes mellitus with hemoglobin A1c goal of less than 8.0% ([facility]) E11.9 JORGE A (obstructive sleep apnea) G47.33 Stage 3a chronic kidney disease ([facility]) N18.31 Morbid obesity ([facility]) E66.01 Type 2 diabetes mellitus with diabetic peripheral angiopathy without gangrene ([facility]) E11.51 Impaired functional mobility and activity tolerance Z74.09 S/P ablation of atrial fibrillation Z98.890, Z86.79 Centrilobular emphysema ([facility]) J43.2 BPH with obstruction/lower urinary tract symptoms N40.1, N13.8 Neurogenic bladder N31.9 Carotid stenosis, non-symptomatic, bilateral I65.23 Claudication in peripheral vascular disease ([facility]) I73.9 Gouty arthropathy M10.9 Medication Compliance: Patient is able to obtain all of his medications? Yes Patient takes medications as prescribed? Yes Patient manages own medications: Yes Patient uses a pill box? Yes, refill(s) completed by self Dental Exam: Not Applicable Eye Screening: Yes: Every year Are you having trouble with hearing? No Do you use an assistive device to help your hearing? No Exercise Screening: daily excercise Nutrition Assessment: Eats a balanced diet and Eats three meals a day Pain Screening: Are you having any pain? No Sleep Screening Tool 'STOP': Do you snore? No Do you feel fatigued during the day? No Do you wake up feeling like you haven't slept? No Have you been told you stop breathing at night? No Do you gasp for air or choke while sleeping? No Have you been told you have Sleep Apnea? Yes Do you have high blood pressure or are on medication(s) to control high blood pressure? Yes SCORE: If you check YES to two or more questions, make a referral for Obstructive Sleep Apnea Pt has a dx of JORGE A and wears CPAP at night Patient and Caregiver Support System: Patient lives with a spouse Means of Transportation: Drives. Not a concern. Patient lives in Two Story - How many stairs: 10 to both the 2nd floor and basement with railings Community Resources: Not Applicable Functional Status and ADL Skills: Has patient ever had an amputation? No Functional Assessment: 90- Able to carry on normal activity, minor symptoms of disease Ambulation: Patient ambulates with assistive device. Cane Dressing: Gets clothes and dresses without any assistance: Independent Able to move freely in chair or bed including turning over: Independent Repositioning (bed or chair): Not applicable Transfers: Independent Toileting: Goes to bathroom, uses toilet, arranges clothes and returns without any assistance: Independent Toileting: continent of bowel and caths himself Feeding: Self Bathing: Self; walk in shower with grab bars and a seat Requires none assistance with ADLs. Instrumental ADL's: Shopping: Independent Housekeeping: Independent Handling Finances: Independent DME Vendor Name: Not Applicable Fall Risk Assessment: Can the patient demonstrate that he can stand from a sitting position? Yes Has the patient had a fall within the last 6 months? No Does the patient have a problem with his gait or balance? Yes Does the patient take 4 or more prescription medicines? Yes Does the patient use sedatives or narcotics? No Fall Risk Factors Present: Uses more than 4 medications Uses assistive devices Balance or gait disturbances Older than age 70 Jqk-Yo-ggc-Go Test: Time began at 0800. Patient stood from sitting position and walked approximately 10 feet, returned and sat down. Total time for gfv-qv-mfm-go test was 10 seconds. Fqc-Cq-wap-Go Test completed? Yes Gender Specific Preventative Plan: Health Maintenance Topic Date Due Alpha-1 Antitrypsin Never done Hepatitis C Screening Never done DTaP,Tdap,and Td Vaccines (1 - Tdap) Never done Colorectal Cancer Screening Never done COVID-19 Vaccine (4 - season) 2022 GFR 04/07/2023 HbA1c 05/20/2023 Diabetic Eye Exam 08/11/2023 Albumin/Creatinine Ratio 09/17/2023 CKD HGB USE SMARTSET 21530 10/20/2023 O2 ASSESSMENT COMPLETED IN PAST YEAR FOR COPD 10/29/2023 CKD PHOS USE SMARTSET 31721 11/19/2023 Diabetic Foot Exam 12/30/2023 Depression Screening 01/19/2024 Hepatitis B Completed Influenza Vaccine (FLU shot) Completed AAA Screening Completed Zoster Vaccines Completed Pneumococcal Vaccine: 65+ Years Completed MENINGOCOCCAL (MENACTRA/MENVEO) Aged Out GARDASIL-HPV IMMUNIZATION SERIES Aged Out Follow Up/ Referrals/Handouts: No further action needed Routine general medical examination at a health care facility (Primary) Risk and functional assessment AWV completed today Type 2 diabetes mellitus with hemoglobin A1c goal of less than 8.0% (HCC) - Med reconciliation completed and compliance discussed. - pt to continue present medications. Hemoglobin AIC Results: Lab Results Component Value Date/Time HEMOGLOBIN A1C - [facility] 8.6 (H) 11/18/2022 07:52 AM HEMOGLOBIN A1C - [facility] 7.7 (H) 04/19/2022 08:15 AM HEMOGLOBIN A1C - [facility] 7.6 (H) 10/20/2021 12:12 PM Stage 3a chronic kidney disease (HCC) - Med reconciliation completed and compliance discussed. - pt to continue present medications. Creatinine Results: Lab Results Component Value Date/Time CREATININE - [facility] 1.3 (H) 10/05/2022 08:31 AM CREATININE - [facility] 1.6 (H) 09/16/2022 08:28 AM CREATININE - [facility] 1.3 (H) 04/19/2022 08:15 AM CREATININE - [facility] 1.5 (H) 02/17/2020 07:31 AM CREATININE - [facility] 1.3 (H) 04/12/2017 08:08 AM CREATININE - [facility] 1.3 (H) 02/28/2017 09:24 AM CREATININE ISTAT 1.3 11/19/2019 07:47 AM CREATININE, RANDOM URINE - [facility] 186 09/16/2022 08:28 AM CREATININE-OUTSIDE LAB 1.33 (A) 06/07/2022 12:00 AM CREATININE-OUTSIDE LAB 1.4 (A) 11/19/2018 12:00 AM CREATININE-OUTSIDE LAB 1.5 (A) 04/05/2017 12:00 AM Paroxysmal atrial fibrillation (HCC) - Med reconciliation completed and compliance discussed. - pt to continue present medications. PAD (peripheral artery disease) (HCC) - Med reconciliation completed and compliance discussed. - pt to continue present medications. JORGE A (obstructive sleep apnea) -continue wearing cpap -continue following with sleep medicine Neurogenic bladder -continue CIC -continue following with Urology Morbid obesity (HCC) -continue working to eat healthy BMI Readings from Last 3 Encounters: 01/18/23 43.08 kg/m 10/28/22 40.46 kg/m 10/25/22 40.46 kg/m Impaired functional mobility and activity tolerance -continue using cane HTN, goal below 130/80 - Med reconciliation completed and compliance discussed. - pt to continue present medications. BP Readings from Last 3 Encounters: 01/18/23 120/64 10/28/22 128/74 10/25/22 122/62 Gouty arthropathy - Med reconciliation completed and compliance discussed. - pt to continue present medications. Dyslipidemia - Med reconciliation completed and compliance discussed. - pt to continue present medications. Lipid Panel Results: Results for orders placed or performed during the hospital encounter of 04/01/20 LIPID PANEL WITH DIRECT LDL IF TG IS HIGH Result Value Ref Range Triglycerides 96 <=174 mg/dL Cholesterol 94 <200 mg/dL HDL Cholesterol 30 (L) >39 mg/dL Non-HDL Cholesterol 64 <=159 mg/dL LDL Cholesterol 45 <=129 mg/dL Coronary artery disease involving che[place] coronary artery of che[place] heart without angina pectoris - Med reconciliation completed and compliance discussed. - pt to continue present medications. Claudication in peripheral vascular disease (HCC) - Med reconciliation completed and compliance discussed. - pt to continue present medications. Centrilobular emphysema (HCC) - Med reconciliation completed and compliance discussed. - pt to continue present medications. BPH with obstruction/lower urinary tract symptoms - Med reconciliation completed and compliance discussed. - pt to continue present medications. Follow Up: Return in 1 year (on 01/19/2024) for 12 month Subsequent Adult Wellness Visit. | For: 12 month Subsequent Adult Wellness Visit | Check-out note: 12 month Subsequent Adult Wellness Visit Would patient like to schedule next AWV visit? Yes Emily Avendaño RN AD8 Dementia Screening Interview Person answering questions: patient Remember, "Yes, a change" indicates that there has been a change in the last several years caused by cognitive (thinking and memory) problems 1. Problems with judgement (eg: problems making decisions, bad financial decisions, problems with thinking). No (0) 2. Less interest in hobbies/activities. No (0) 3. Repeats the same things over and over (questions, stories, or statements). No (0) 4. Trouble learning how to use a tool, appliance, or gadget (eg: VCR, computer, microwave, remote control). No (0) 5. Forgets correct month or year. No (0) 6. Trouble handling complicated financial affairs (eg: balancing checkbook, income taxes, paying bills). No (0) 7. Trouble remembering appointments. No (0) 8. Daily problems with thinking and/or memory. No (0) TOTAL AD8: 0 - AD8 Dementia Screening Score The final score is a sum of the number items marked "Yes, A Change". 0 - 1: Normal cognition; 2 or greater: Cognitive impairments is likely to be present - further testing required documented in this encounter Miscellaneous Notes * Pt Handout (on AVS) - Emily Avendaño RN - 01/18/2023 8:22 AM EST 10289 Preventing Falls: How to Prepare and What to Do Falling is not something you want to think about. But it can make a big difference to plan ahead. If you're prepared, you'll know how to get help. And you'll be less likely to panic if you fall. Thismeans you'll be able to do what's needed to get help right away. How to prepare Have someone check on you daily, either in person or by phone. Keep a list of emergency numbers near the phone. Always have a way to call for help. Keep a cell phone with you at all times. Or talk with your healthcare provider about how to set up a home monitoring service. This involves wearing a small device around your neck or wrist. If you fall, you can press the button on the device. This alerts emergency responders. Talk with your healthcare provider about an exercise program that's right for you. Regular exercise may reduce the risk of falling and the risk for injury related to a fall. Have good lighting in your home. Don't use throw rugs, because they can raise your risk of tripping and falling. Add grab bars in the bathroom to help reduce the risk of falling. Small changes canmake your home safer. Talk with your healthcare provider about making your home safer. What to do if you fall Above all, try to stay calm: If you start to fall, try to relax your body. This will reduce the impact of the fall. After you fall, press your monitor button, or use your phone to call for help. Don't velazquez to get up. First, make sure you're not hurt. Roll onto your side, then crawl to a chair. Pull yourself up onto the chair slowly. Get checked if you struck your head, lost consciousness, were confused afterward, or have any other concerns for injury. Tell your healthcare provider that you fell. They can check you for injuries as needed, try to determine what made you fall, and help prevent you from falling again. A note to family and friends If you're with a loved one when they start to fall, don't try to stop the fall. Ease the person to the floor carefully, so neither of you gets hurt. Don't leave the person alone. And don't try to move them, especially if they may have hurt their head or neck. Check for injuries. If help is needed right away, call 911. Last Reviewed Date: 01/13/202219992661-3528 [employer]. All rights reserved. This information is not intended as a substitute for professional medical care. Always follow your healthcare professional's instructions. * Pt Handout (on AVS) - Emily Avendaño RN - 01/18/2023 8:21 AM EST Images from the original note were not included. 94116 Exercises to Prevent Falls Certain types of exercises may help make you less likely to fall. Try the ones below or do other exercises that your healthcare provider suggests. Depending on your health, you may need to start slowly. Don't let that stop you. Even small amountsof exercise can help you. Talk with your healthcare provider before starting any exercise program. Improve balance Many types of exercise can help improve balance. Yara chi and yoga are good examples. Here's anotherone to try. You can do it anytime and almost anywhere. Stand next to a counter or solid support. Push yourself up onto your tiptoes. Hold for 5 seconds. If you start to lose your balance, hold on to the counter. Rest and repeat 5 times. Work up to holding for 20 to 30 seconds, if you can. Increase flexibility Being more flexible makes it easier for you to move around safely. Try exercises like the seatedhamstring stretch. o Sit in a chair and put one foot on a stool. o Straighten your leg and reach with both hands down either side of your leg. Reach as far down your leg as you can. o Hold for about 20 seconds. o Go back to the starting position. Then repeat 5 times. Switch legs. o o Build strength o Resistance exercises help build strength. You can do them without equipment. Or you can use weights, elastic bands, or special machines. One such exercise is called the biceps curl. You can hold a 1-pound weight or even a can of soup. Do this exercise at least 3 times a week. Strive for every day. Sit up straight in a chair. Keep your elbow close to your body and your wrist straight. Bend your arm, moving your hand up to your shoulder. Then slowly lower your arm. Repeat 5 times. Switch to the other arm. Build your staying power Aerobic exercises make your heart and lungs stronger so you can keep moving longer. Walking and swimming are 2 of the best types of exercises you can do. Using a stationary bike is great, too. Find an aerobic exercise that you enjoy. Start slowly and build up. Even 5 minutes is helpful. Aim for a goal of 30 minutes, at least 3 times a week. You don't have to do 30 minutes in 1 session. Break it up and walk a little throughout the day. Starting out safely and slowly Start easy. Slowly work up to doing more. Talk with your healthcare provider about the best exercises for you. Call senior centers or health clubs about exercise programs. If needed, have a family member watch you walk every so often to check your stability. Exercise with a friend. Choose an activity you both enjoy. Be sure to gently warm up and cool down. Drink fluids, such as water, to stay hydrated. If your provider recommended that you limit fluids, ask them how much is OK to drink while exercising. Consider yara chi or yoga to strengthen your balance. Try exercises that you can do anytime, anywhere. Here are 2 examples. Have someone with you whenyou first try these: o Practice walking by placing one foot right in front of the other. o Stand up and sit down 10 times. Repeat this throughout the day. Last Reviewed Date: 12/14/202119997797-8465 [employer]. All rights reserved. This information is not intended as a substitute for professional medical care. Always follow your healthcare professional's instructions. documented in this encounter Plan of Treatment Upcoming Encounters Date Type Department Care Team (Late st Contact Info) Description 01/25/2023 1:30 PM EST Office Visit Orthopaedics [facility] [address] [address] Jamil Hills PA-C [address] [address] 02/01/2023 11:45 AM EST Office Visit Orthopaedics [facility] [address] [address] Jamil Hills PA-C [address] [address] 02/08/2023 8:00 AM EST Office Visit Urology, [place] [address] [place] [address] Chivo Solis PA-C [address] [place] [address] 02/15/2023 11:15 AM EST Office Visit Orthopaedics [facility] [address] [place] [address] Jamil Hills PA-C [address] [place] [address] 02/21/2023 9:30 AM EST Office Visit Pulmonary Medicine, [place] [address] [place] [address] Tata Walter CRNP [address] [place] [address] 03/02/2023 9:30 AM EST Office Visit Pharmacy, [facility] [address] [place] [address] [facility] [address] [place] [address] 04/26/2023 7:40 AM EDT Office Visit Family Practice [facility] [address] [place] [address] Eliud Eisenberg MD [address] [place] [address] 11/02/2023 10:00 AM EDT Office Visit Sleep Disorders Ctr [facility] [address] [place] [phone] Nichol Caballero DO [address] [place] [address] 01/22/2024 8:00 AM EST Nurse Only Ancillary [facility] [address] [place] [address] Branden, Nurse Annual Wellness [facility] [address] [address] Scheduled Procedures Name Priority Associated Diagnoses Date/Ti [...] Eye Exam 08/11/2023 08/10/2022, 12/22/2021 Albumin/Creatinine Ratio 09/17/202309/16/2 023, 11/19/2018, 04/05/2017 CKD HGB USE SMARTSET 23698 10/20/202310/19, 10/19/2022, 09/16/2022, Additional history exists O2 ASSESSMENT COMPLETED IN PAST YEAR FOR COPD 10/29/2023 10/28/2022 CKD PHOS USE SMARTSET 68082 11/19/2023 100 07/2022, 11/12/2021, 04/01/2020 Diabetic Foot [...] this encounter Medical Devices Implanted Type Area Office Communication Professor Device Identifier Shelf Expiration Date Model / Serial / Lot Lens Intraoc 16.5 - [id number] - [id number] Implanted:Qty: 1 on 11/14/2019 by Elmo Apodaca MD at OR [facility] Left: Eye [employer] 03/15/2024 [id number] / [id number] / [id number] Lens Intraoc 16.5 - [id number] - [id number] Implanted:Qty: 1 on 11/28/2019 by Elmo Apodaca MD at OR [facility] Right: Eye [employer] 04/12/2024 [id number] / [id number] / [id number] documented as of this encounter Visit Diagnoses Diagnosis Routine general medical examination at a health care facility- Primary Risk and functional assessment Screening for unspecified condition Type 2 diabetes mellitus with hemoglobin A1c goal of less than 8.0% (HCC) Stage 3a chronic kidney disease (HCC) Paroxysmal atrial fibrillation (HCC) Atrial fibrillation PAD (peripheral artery disease) (HCC) Peripheral vascular disease, unspecified JORGE A (obstructive sleep apnea) Obstructive sleep apnea (adult) (pediatric) Neurogenic bladder Neurogenic bladder, NOS Morbid obesity (HCC) Morbid obesity Impaired functional mobility and activity tolerance HTN, goal below 130/80 Unspecified essential hypertension Gouty arthropathy Gouty arthropathy, unspecified Dyslipidemia Other and unspecified hyperlipidemia Coronary artery disease involving [place] coronary artery of [place] heart without angina pectoris Claudication in peripheral vascular disease (HCC) Peripheral vascular disease, unspecified Centrilobular emphysema (HCC) Other emphysema BPH with obstruction/lower urinary tract symptoms Hypertrophy of prostate with urinary obstruction and other lower urinary tract symptoms (LUTS) documented in this encounter Advance Directives Latest Code Status on File Code Status Date Activated Date Inactivated Comments Full Code 07/15/2015 2:43 PM 07/16/2015 12:56 PM This o rder reflects the patients wishes and were consensually agreed upon. Care Teams Branch Manager Trainee Relationship Specialty Start Date End Date Eliud Eisenberg MD [address] [address] PCP - General Family Medicine 10/20/21 documented as of this encounter
--- OUTSIDE RECORDS SUMMARY | 2023-04-02 09:39 | External Medical Summary | Summary of Care ---
Author Name Unknown Organization [facility] Address [address] [address] Phone [phone] Care Team Providers Care Bar Examiner Name Role Phone Eliud Eisenberg MD Primary Care Provider [phone] Reason for Visit * Reason Comments Dosage Adjustment In Person (Anticoag Cl inic) Diabetes Follow-Up Encounter Details Date Type Department Care Team (Late st Contact Info) Description 12/29/2022 9:40 AM EST Office Visit Pharmacy, [facility] 132 [facility] [place] [address] [facility] [address] 132 [facility] [place] [address] Type 2 diabetes mellitus with hemoglobin A1c goal of less than 8.0% ([facility])*; Type 2 diabetes mellitus with hemoglobin A1c goal of less than 7.0% (HCC) Allergies Active Allergy Reactions Criticality Noted Date Comments Sulfamethoxazole-Trimet hoprim Other (Please comment) 09/20/2017 hyperkalmeia Lisinopril 09/15/2022 ?cough Trimethoprim High 11/23/2021 Other reaction(s): acute renal failure documented as of this encounter (statuses as of 12/29/2022) Medications Medication Sig Dispensed Refills Start Date [...] Tablet Sublingual (Nitrostat)Indicatio ns:Coronary artery disease involving ey[place] coronary artery of eyak heart without angina pectoris Place under the tongue 1 Tablet every 5 minutes as needed for Pain, Chest. up to 3 doses in 15 minutes 25 Tablet 1 10/20/2021 Active Omnipod DASH PDM (Gen 4) Kit Use as directed . Use to control insulin pod 1 Kit 0 11/15/2021 Active Insulin Aspart 100 UNIT/ML Injection Solution (NovoLOG) Inject up to 100 units daily via insulin pump 90 mL 3 11/22/2021 Active Omnipod DASH Pods (Gen 4) Use as directed . Use 1 pod every 3 days 2 Each 0 01/18/2022 Active Isosorbide Mononitrate ER 60 MG Oral Tablet Extended Release 24 Hour (Imdur)Indications:H [place], goal below 130/80,Coronary artery disease involving [place] coronary artery of eyak heart without angina pectoris,S/P primary angioplasty with [...] Oral Tablet (Coreg)Indications:C oronary artery disease involving [place] coronary artery of eyak heart without angina pectoris,Paroxysmal atrial fibrillation (HCC) Take 1 Tablet by mouth in the morning and 1 Tablet before bedtime. 180 Tablet 3 03/21/2022 Active Zdrkn-4-ooow Ethyl Esters 1 GM Oral Capsule (Lovaza)Indications: [...] Capsule Take by mouth. 0 Active Ipratropium [place] HFA 17 MCG/ACT Inhalation Aerosol Solution (Atrovent [...] the morning. 90 Tablet 3 12/28/2022 Active Hospital, Clinic, or Other Facility Administered Medication Ordered Dose Route Frequency Start Date End Date Status Albuterol Sulfate (Proventil) (2.5 MG/3ML) 0.083% inhalation solution 2.5 mgIndications:KOVACS (dyspnea on exertion),Centrilobular emphysema (HCC),History of tobacco use,Morbid obesity (HCC) 2.5 mg NEBULIZER PRN 07/06/2022 Active documented as of this encounter (statuses as of 12/29/2022) Active Problems Problem Noted Date Diagnosed Date [...] fibrillation 02/18/2015 Coronary artery disease invo lving eyak coronary artery of eyak heart without angina pectoris 02/18/2015 HTN, goal below 130/80 02/18/2015 S/P carotid endarterectomy 02/18/2015 documented as of this encounter (statuses as of 12/29/2022) Resolved Problems Problem Noted Date Diagnosed Date Resolved Date Body mass index (BMI) of 40. 0 to 44.9 in adult 07/25/2022 09/06/2022 Overview: Per Obesity protocol Obesity, Class II, BMI 35-39 .9, isolated (see actual BMI) 10/17/2021 10/25/2022 ASCVD (arteriosclerotic card iovascular disease) 06/05/2017 10/16/2021 Palpitations 02/28/2017 10/16/2021 Hyperlipidemia LDL goal <70 02/18/2015 10/16/2021 documented as of this encounter (statuses as of 12/29/2022) Immunizations Name Administration Dates Next Due COVID-19 mRNA, LNP-s, No Pre serve, 2-Dose Series (Crowdvance) 11/19/2020,04/24/2020,03/29/2020 Hepatitis B, 20+ yrs 12/07/2016,06/15/2016,03/16 Pneumococcal [...] this encounter Progress Notes * Milady Bunch, [facility] - 12/29/2022 8:50 AM EST Images from the original note [...] Insulin Pump Insulin: Novolog INC: Basal Rate: 2.6 units/hour INC: Bolus: 60 carbs with meals Bolus Calculator: on and [...] symptoms if your blood sugar is low? Never 3. In a typical week, how many times will your blood sugar go below 70 mg/dL? Never Patient Active Problem List Diagnosis Code Paroxysmal atrial fibrillation (HCC) I48.0 Coronary artery disease involving ey[place] coronary artery of eyak heart without angina pectoris I25.10 HTN, goal below 130/80 I10 S/P carotid endarterectomy Z98.890 S/P primary angioplasty with coronary stent Z95.5 PAD (peripheral artery disease) ([facility]) I73.9 Dyslipidemia E78.5 Type 2 diabetes mellitus with hemoglobin A1c goal of less than 8.0% ([facility]) E11.9 JORGE A (obstructive sleep apnea) G47.33 Stage 3a chronic kidney disease ([facility]) N18.31 Morbid obesity ([facility]) E66.01 Type 2 diabetes mellitus with diabetic peripheral angiopathy without gangrene ([facility]) E11.51 Impaired functional mobility and activity tolerance Z74.09 S/P ablation of atrial fibrillation Z98.890, Z86.79 Centrilobular emphysema ([facility]) J43.2 BPH with obstruction/lower urinary tract symptoms N40.1, N13.8 Neurogenic bladder N31.9 Carotid stenosis, non-symptomatic, bilateral I65.23 Claudication in peripheral vascular disease ([facility]) I73.9 Gouty arthropathy M10.9 Review of patient's allergies indicates: Allergen Reactions [...] doses in 15 minutes 25 Tablet 1 TutorDudesipod DASH PDM (Gen 4) Kit Use as directed . Use to control insulin pod 1 Kit 0 Insulin Aspart 100 UNIT/ML Injection Solution (NovoLOG) Inject up to 100 units daily via insulin pump 90 mL 3 Omnipod DASH Pods (Gen 4) Use as [...] 1 Tablet before bedtime. 180 Tablet 3 Vdvgy-3-pnfx Ethyl Esters 1 GM Oral Capsule (Lovaza) [...] Health Oral Capsule Take by mouth. Ipratropium [place] HFA 17 MCG/ACT Inhalation Aerosol Solution (Atrovent [...] mouth in the morning. 90 Tablet 3 Current Facility-Administered Medications Medication Dose Route Frequency Provider Last Rate Last Admin Albuterol Sulfate (Proventil) (2.5 MG/3ML) 0.083% inhalation solution 2.5 mg 2.5 mg Nebulizer PRN Tata Walter CRNP 2.5 mg at 07/15/22 0811 Objective: The ASCVD Risk score (Meredith ALBRECHT, et al., 2019) failed to calculate for the following reasons: The patient has a prior ME or stroke diagnosis Estimated body mass index is 40.46 kg/m as calculated from the following: Height as of 10/28/22: 1.74 m (5' 8.5"). Weight as of 10/28/22: 122.5 kg (270 lb). BP Readings from Last 3 Encounters: 10/28/22 128/74 10/25/22 122/62 10/19/22 142/67 No components found for: "[id number]" Lab Results Component Value Date/Time MICROALBUMIN RATIO-OUTSIDE [...] below. Basal settings increased as glucose is stable overnight and between meals. ICR/fixed dose strengthened [...] Minimum B Active Insulin Time: 3.5 hours Diabetes Health Maintenance: up-to-date Return to Clinic: 8 week(s) 03/02/2023 Milady Bunch RP Clinical Pharmacist Medication Therapy Disease Management 12/29/2022, 8:50 AM Socks and Shoes Removed for Annual Diabetic Foot Screening RIGHT FOOT: No Reddened, Cracking, Or Open Areas Noted. RIGHT Dorsalis Pedis Pulse: Palpable RIGHT Posterior Tibial Pulse: Palpable RIGHT Monofilament:Patient reports feeling monofilament pressure on plantar surface of foot LEFT FOOT: No Reddened, Cracking or Open Areas Noted. LEFT Dorsalis Pedis Pulse: Palpable LEFT Posterior Tibial Pulse: Palpable LEFT Monofilament:Patient reports difficulty feeling monofilament at Great toe- plantar surface Do you need diabetic shoes: No documented in this encounter Plan of Treatment Upcoming Encounters Date Type Department Care Team (Late st Contact Info) Description 01/12/2023 10:30 AM EST Office [facility] [place] [address] [place]il [place] PA-C [address] [place] [address] 01/18/2023 8:00 AM EST Nurse Only Ancillary [facility] 132 [facility] [place] [address] [facility], Nurse Annual Wellness [facility] 132 [facility] [place] [address] 02/21/2023 9:30 AM EST Office Visit Pulmonary Medicine, [place] [address] [place] [address] Tata Walter [facility] [address] [place] [address] 03/02/2023 9:30 AM EST Office Visit Pharmacy, [facility] 132 [facility] [place] [address] [facility] 132 [facility] [place] [address] 04/26/2023 7:40 AM EDT Office Visit Family Practice [facility] 132 [facility] [place] [address] Eliud Eisenberg MD [address] [place] [address] 11/02/2023 10:00 AM EDT Office Visit [facility] Disorders C[facility] [place] [phone] Nichol Caballero DO [address] [place] [address] Scheduled Procedures Name Priority Associated Diagnoses Date/Ti [...] 023, 11/19/2018, 04/05/2017 CKD HGB USE SMARTSET 34932 10/20/202310/19, 10/19/2022, 09/16/2022, Additional history exists O2 ASSESSMENT COMPLETED IN PAST YEAR FOR COPD 10/29/2023 10/28/2022 CKD PHOS USE SMARTSET 09312 11/19/2023 100 07/2022, 11/12/2021, 04/01/2020 Diabetic Foot [...] this encounter Medical Devices Implanted Type Area Can Slider Device Identifier Shelf Expiration Date Model / Serial / Lot Lens Intraoc 16.5 - [id number] - [id number] Implanted:Qty: 1 on 11/14/2019 by Elmo Apodaca MD at OR [facility] Left: Eye BAUSCH [employer] LOMB 03/15/2024 [id number] / [id number] / [id number] Lens Intraoc 16.5 - [id number] - [id number] Implanted:Qty: 1 on 11/28/2019 by Elmo Apodaca MD at OR [facility] Right: Eye BAUSCH & LOMB 04/12/2024 [id number] / [id number] / [id number] documented as of this encounter Visit Diagnoses Diagnosis Type 2 diabetes mellitus with hemoglobin A1c goal of less than 8.0% (HCC)- Primary Type 2 diabetes mellitus with hemoglobin A1c goal of less than 7.0% (HCC) documented in this encounter Advance Directives Latest Code Status on File Code Status Date Activated Date Inactivated Comments Full Code 07/15/2015 2:43 PM 07/16/2015 12:56 PM This o rder reflects the patients wishes and were consensually agreed upon. Care Teams Bar Examiner Relationship Specialty Start Date End Date Eliud Eisenberg MD [address] [place] [address] PCP - General Family Medicine 10/20/21 documented as of this encounter
--- OUTSIDE RECORDS SUMMARY | 2023-04-02 09:39 | External Medical Summary | Summary of Care ---
Author Name Unknown Organization [facility] Address [address] [address] Phone [phone] Care Team Providers Care Energy Conservation Specialist Name Role Phone Eliud Eisenberg MD Primary Care Provider [phone] Reason for Visit * Reason Onset Date Comments Precert Not Needed 01/12/2023 Eulfexxa Encounter Details Date Type Department Care Team (Late st Contact Info) Description 01/12/2023 Telephone Orthopaedics [facility] [address] [place] [address] [place] PA-C [address] [place] [address] Precert Not Needed (Eulfexxa ) Allergies Active Allergy Reactions Criticality Noted [...] Tablet Sublingual (Nitrostat)Indicatio ns:Coronary artery disease involving [place] coronary artery of [place] heart without angina pectoris Place under the [...] [place], goal below 130/80,Coronary artery disease involving [place] coronary artery of [place] heart without angina pectoris,S/P primary angioplasty with [...] Oral Tablet (Coreg)Indications:C oronary artery disease involving [place] coronary artery of [place] heart without angina pectoris,Paroxysmal atrial fibrillation (HCC) Take 1 Tablet by mouth in the morning and 1 Tablet before bedtime. 180 Tablet 3 03/21/2022 Active Rnpjh-5-uptx Ethyl Esters 1 GM Oral Capsule (Lovaza)Indications: [...] Capsule Take by mouth. 0 Active Ipratropium [place] HFA 17 MCG/ACT Inhalation Aerosol Solution (Atrovent [...] fibrillation 02/18/2015 Coronary artery disease invo lving [place] coronary artery of [place] heart without angina pectoris 02/18/2015 HTN, goal [...] mRNA, LNP-s, No Pre serve, 2-Dose Series (Azaleos) 11/19/2020,04/24/2020,03/29/2020 Hepatitis B, 20+ yrs 12/07/2016,06/15/2016,03/16 Pneumococcal [...] encounter Miscellaneous Notes * Telephone Encounter - Leanne Willett OSA - 01/12/2023 11:23 AM EST SEE REFERRAL MESSAGE * Telephone Encounter - Mona Mcgill MED ASSIST - 01/12/2023 10:33 AM EST Orthopaedics Pre-Cert Request Medication/Disease State Information: Medication: Hyaluronate- Euflexxa (J7323): inject 20 mg (2 mL) once weekly for 3 weeks (total of 3 injections). Route to [id number] Is there radiological proof(x-ray, cat scan, mri [...] 01/18/2023 8:00 AM EST Nurse Only Ancillary [facility] [address] [place] [address] [facility], [facility] Wellness [facility] [address] [place] [address] 02/08/2023 8:00 AM EST Office Visit Urology, [place] [address] [place] [address] Chivo Solis PA-C [address] [place] [address] 02/21/2023 9:30 AM EST Office Visit Pulmonary Medicine, [place] [address] [place], [place] [phone] Tata Walter CRNP [address] [place] [address] 03/02/2023 9:30 AM EST Office Visit Pharmacy, [facility] [address] [place] [address] [facility] [place] [address] 04/26/2023 7:40 AM EDT Office Visit Family Practice [facility] [address] [place] [address] Eliud Eisenberg MD [address] [place] [address] 11/02/2023 10:00 AM EDT Office Visit Sleep Disorders Ctr [facility] [address] [place] [phone] Nichol Caballero DO [address] [place] [address] Scheduled Procedures Name Priority Associated Diagnoses Date/Ti [...] 023, 11/19/2018, 04/05/2017 CKD HGB USE SMARTSET 59663 10/20/202310/19, 10/19/2022, 09/16/2022, Additional history exists O2 ASSESSMENT COMPLETED IN PAST YEAR FOR COPD 10/29/2023 10/28/2022 CKD PHOS USE SMARTSET 98007 11/19/2023 100 07/2022, 11/12/2021, 04/01/2020 Diabetic Foot [...] this encounter Medical Devices Implanted Type Area Tetryl Boiling Tub Operator Device Identifier Shelf Expiration Date Model / Serial / Lot Lens Intraoc 16.5 - [id number] - [id number] Implanted:Qty: 1 on 11/14/2019 by Elmo Apodaca MD at OR [facility] Left: Eye [employer]USCH [employer]OMB 03/15/2024 [id number] / [id number] / [id number] Lens Intraoc 16.5 - [id number] - [id number] Implanted:Qty: 1 on 11/28/2019 by Elmo Apodaca MD at OR [facility] Right: Eye BAUSCH [employer] LOMB 04/12/2024 [id number] / [id number] / [id number] documented as of this encounter Advance Directives Latest Code Status on File Code Status Date Activated Date Inactivated Comments Full Code 07/15/2015 2:43 PM 07/16/2015 12:56 PM This o rder reflects the patients wishes and were consensually agreed upon. Care Teams Energy Conservation Specialist Relationship Specialty Start Date End Date Eliud Eisenberg MD [address] [place] [address] PCP - General Family Medicine 10/20/21 documented as of this encounter
--- OUTSIDE RECORDS SUMMARY | 2023-04-02 09:39 | External Medical Summary | Summary of Care ---
Author Name Unknown Organization [facility] Address [address] [address] Phone [phone] Care Team Providers Care Rat Poisoner Name Role Phone Eliud Eisenberg MD Primary Care Provider [phone] Reason for Visit * Reason Onset Date Comments Pre Cert/Prior Auth 01/12/2023 Eulfexxa Encounter Details Date Type Department Care Team (Late st Contact Info) Description 01/12/2023 Telephone Orthopaedics [facility] [address] [place] [address] Jamil [place] PA-C [address] [place] [address] Pre Cert/Prior Auth (Eulfexxa ) Allergies Active Allergy Reactions Criticality [...] Tablet Sublingual (Nitrostat)Indicatio ns:Coronary artery disease involving [place] coronary artery of [place] heart without angina pectoris Place under the [...] [place], goal below 130/80,Coronary artery disease involving [place] coronary artery of [place] heart without angina pectoris,S/P primary angioplasty with [...] Oral Tablet (Coreg)Indications:C oronary artery disease involving [place] coronary artery of [place] heart without angina pectoris,Paroxysmal atrial fibrillation (HCC) Take 1 Tablet by mouth in the morning and 1 Tablet before bedtime. 180 Tablet 3 03/21/2022 Active Fmdaz-2-ibqb Ethyl Esters 1 GM Oral Capsule (Lovaza)Indications: [...] Capsule Take by mouth. 0 Active Ipratropium [place] HFA 17 MCG/ACT Inhalation Aerosol Solution (Atrovent [...] fibrillation 02/18/2015 Coronary artery disease invo lving [place] coronary artery of [place] heart without angina pectoris 02/18/2015 HTN, goal [...] mRNA, LNP-s, No Pre serve, 2-Dose Series (Content Ramen) 11/19/2020,04/24/2020,03/29/2020 Hepatitis B, 20+ yrs 12/07/2016,06/15/2016,03/16 Pneumococcal [...] weeks (total of 3 injections). Route to [id number] Is there radiological proof(x-ray, cat scan, mri [...] additional supporting clinical information. Office Information: Prescriber: jamil hills documented in this encounter Plan of Treatment Upcoming Encounters Date Type Department Care Team (Late st Contact Info) Description 01/18/2023 8:00 AM EST Nurse Only Ancillary Denny Otero [place] 132 [facility] [place] [address] [place], Nurse [facility] Wellness [facility] 132 [facility] [place] [address] 02/08/2023 8:00 AM EST Office Visit Urology, [place] [address] [place] [address] Chivo Solis PA-C [address] [place] [address] 02/21/2023 9:30 AM EST Office Visit Pulmonary Medicine, [place] [address] [place] [address] Tata Walter, [place] [address] [place] [address] 03/02/2023 9:30 AM EST Office Visit Pharmacy, [facility] [place] [address] [facility] [place] [address] 04/26/2023 7:40 AM EDT Office Visit Family Practice [facility] [place] [address] Eliud Eisenberg MD [address] [facility] [place] [address] 11/02/2023 10:00 AM EDT Office Visit Sleep Disorders Ctr [facility] 132 [facility] [place] [phone] Nichol Caballero DO [address] [place] [address] Scheduled Procedures Name Priority Associated Diagnoses Date/Ti [...] 023, 11/19/2018, 04/05/2017 CKD HGB USE SMARTSET 78053 10/20/202310/19, 10/19/2022, 09/16/2022, Additional history exists O2 ASSESSMENT COMPLETED IN PAST YEAR FOR COPD 10/29/2023 10/28/2022 CKD PHOS USE SMARTSET 69333 11/19/2023 100 07/2022, 11/12/2021, 04/01/2020 Diabetic Foot [...] this encounter Medical Devices Implanted Type Area Firer Kiln Device Identifier Shelf Expiration Date Model / Serial / Lot Lens Intraoc 16.5 - [id number] - [id number] Implanted:Qty: 1 on 11/14/2019 by Elmo Apodaca MD at OR [facility] Left: Eye [employer]CH [employer] LOMB 03/15/2024 [id number] / [id number] / [id number] Lens Intraoc 16.5 - [id number] - [id number] Implanted:Qty: 1 on 11/28/2019 by Elmo Apodaca MD at OR [facility] Right: Eye BAUSCH [employer] LOMB 04/12/2024 [id number] / [id number] / [id number] documented as of this encounter Advance Directives Latest Code Status on File Code Status Date Activated Date Inactivated Comments Full Code 07/15/2015 2:43 PM 07/16/2015 12:56 PM This o rder reflects the patients wishes and were consensually agreed upon. Care Teams Rat Poisoner Relationship Specialty Start Date End Date Eliud Eisenberg MD 132 [facility] [place] [address] PCP - General Family Medicine 10/20/21 documented as of this encounter
--- OUTSIDE RECORDS SUMMARY | 2023-04-02 09:39 | External Medical Summary | Summary of Care ---
Author Name Unknown Organization [facility] Address [address] [facility] [place] [address] Phone [phone] Care Team Providers Care Flue Cleaner Name Role Phone Eliud Eisenberg MD Primary Care Provider [phone] Reason for Referral * Evaluate & Treat - Unlimited Visits (Within 10 days (routine)) - Pending Review Specialty Diagnoses / Procedures Referred By Contsonia diamond Referred To Contact Physical Therapy / Physical Medicine And Rehab Diagnoses Primary osteoarthritis of left knee Jamil Hills PA-C [address] [place] [address] Referral ID Status Reason Start Date Expiration Date Visits Requested Visits Authorized [id number] Pending Review Specialty Services Required 3 [phone] Question Answer Referral Priority Within 10 days (routine) Where should this appointment be scheduled? [facility] Encounter Details Date Type Department Care Team (Latest Contact Info) Description 01/12/2023 10:30 AM EST Office Visit Orthopaedics [facility] [address] [place] [address] Jamil Hills PA-C [address] [place] [address] Primary osteoarthritis of left knee* Allergies Active [...] Tablet Sublingual (Nitrostat)Indicatio ns:Coronary artery disease involving lime coronary artery of lime heart without angina pectoris Place under the [...] [place], goal below 130/80,Coronary artery disease involving lime coronary artery of lime heart without angina pectoris,S/P primary angioplasty with [...] Oral Tablet (Coreg)Indications:C oronary artery disease involving lime coronary artery of lime heart without angina pectoris,Paroxysmal atrial fibrillation (HCC) Take 1 Tablet by mouth in the morning and 1 Tablet before bedtime. 180 Tablet 3 03/21/2022 Active Lqvlt-9-dnfi Ethyl Esters 1 GM Oral Capsule (Lovaza)Indications: [...] Capsule Take by mouth. 0 Active Ipratropium [place] HFA 17 MCG/ACT Inhalation Aerosol Solution (Atrovent [...] fibrillation 02/18/2015 Coronary artery disease invo lving lime coronary artery of lime heart without angina pectoris 02/18/2015 HTN, goal [...] mRNA, LNP-s, No Pre serve, 2-Dose Series ([employer]) 11/19/2020,04/24/2020,03/29/2020 Hepatitis B, 20+ yrs 12/07/2016,06/15/2016,03/16 Pneumococcal [...] Progress Notes * Jamil Hills PA-C - 01/12/2023 10:20 AM EST Subjective Po Rubio is a 72 year old male. No chief complaint on file. HPI: Established patient presents today with a new complaint of left knee pain that is chronic in nature. Denies any injury or fall. Points towards the medial joint line. He is a cane to walk. He does have a history of right knee arthritis that responds well to MIRANDA injections and failed steroid in the past. The patient is unable to utilize steroid injections at this point as his diabetes and A1c ar e currently at 8.6. Has pain with lengthy weight-bearing activity and intermittently rest. Denies any mechanical symptoms or instability. No swelling or redness. Will get x-rays today of the left knee. PMH: Patient Active Problem List Diagnosis Code Paroxysmal atrial fibrillation (HCC) I48.0 Coronary artery disease involving lime coronary artery of lime heart without angina pectoris I25.10 HTN, goal below 130/80 I10 S/P carotid endarterectomy Z98.890 S/P primary angioplasty with coronary stent Z95.5 PAD (peripheral artery disease) ([facility]) I73.9 Dyslipidemia E78.5 Type 2 diabetes mellitus with hemoglobin A1c goal of less than 8.0% ([facility]) E11.9 JORGE A (obstructive sleep apnea) G47.33 Stage 3a chronic kidney disease ([facility]) N18.31 Morbid obesity ([facility]) E66.01 Type 2 diabetes mellitus with diabetic peripheral angiopathy without gangrene ([facility]) E11.51 Impaired functional mobility and activity tolerance Z74.09 S/P ablation of atrial fibrillation Z98.890, Z86.79 Centrilobular emphysema ([facility]) J43.2 BPH with obstruction/lower urinary tract symptoms N40.1, N13.8 Neurogenic bladder N31.9 Carotid stenosis, non-symptomatic, bilateral I65.23 Claudication in peripheral vascular disease ([facility]) I73.9 Gouty arthropathy M10.9 Current Outpatient Medications Medication Sig Dispense Refill [...] doses in 15 minutes 25 Tablet 1 Am[employer] DASH PDM (Gen 4) Kit Use as [...] 1 Tablet before bedtime. 180 Tablet 3 Mteuz-0-pupg Ethyl Esters 1 GM Oral Capsule (Lovaza) [...] Health Oral Capsule Take by mouth. Ipratropium [place] HFA 17 MCG/ACT Inhalation Aerosol Solution (Atrovent [...] Martinez CRNP 2.5 mg at 07/15/22 0811 Past Medical History: Diagnosis Date BPH with obstruction/lower urinary tract symptoms 09/07/2022 CAD in lime artery Cypher 2.5 x 28 mm drug eluting stent to the obstuse marginal , [place] Carotid stenosis Centrilobular emphysema (HCC) 09/06/2022 DM2 (diabetes mellitus, type 2) ([facility]) Dyslipidemia, goal LDL below 100 HTN (hypertension) Impaired functional mobility and activity tolerance 04/19/2022 Morbid obesity due to excess calories ([facility]) 10/20/2021 Neurogenic bladder 09/07/2022 Obesity, Class II, BMI 35-39.9, isolated (see actual BMI) 10/17/2021 JORGE A (obstructive sleep apnea) 10/17/2021 Paroxysmal atrial fibrillation (HCC) 02/18/2015 S/P ablation of atrial fibrillation 04/19/2022 Sleep apnea, obstructive Stage 3a chronic kidney disease (HCC) 10/17/2021 Type 2 diabetes mellitus with hemoglobin A1c goal of less than 8.0% ([facility]) 10/17/2021 Past Surgical History: Procedure Laterality Date CARDIAC CATH-CARDIOLOGY ONLY 10/27/2008 drug eluting stent to the OM, [place] CARPAL TUNNEL SURGERY Left 06/18/2021 NEUROPLASTY MEDIAN NERVE AT CARPAL TUNNEL performed by Rodney Heaton DO at OR [facility] CARPAL TUNNEL SURGERY Right 07/16/2021 NEUROPLASTY MEDIAN NERVE AT CARPAL TUNNEL performed by Rodney Heaton DO at OR [facility] CORONARY ANGIOGRAPHY W/LEFT HEART CATH Right 04/01/2020 CORONARY ANGIOGRAPHY W/LEFT HEART CATH performed by Momo Gomez MD at CARDIAC LABS [facility] EGD, FLEXIBLE, DIAGNOSTIC 04/04/2016 inflammation on bx, repeat 5 yrs/ESOPHAGOGASTRODUODENOSCOPY (EGD), FLEXIBLE, TRANSORAL, DIAGNOSTIC performed by Bibi Hale MD at ENDOSCOPY [facility] ELECTROPHYSIOLOGY EVAL, ATRIAL FIB, PULMONARY VEIN ISOL 07/15/2015 ELECTROPHYSIOLOGY EVAL, ATRIAL FIB, PULMONARY VEIN ISOL performed by Dc Fleming MD at CARDIAC LABS [facility] FEM/POP ARTERY REVASC W/ANGIOPLASTY Right 09/21/2020 FEM/POP ARTERY REVASC W/ANGIOPLASTY performed by Gunner Serrano MD at OR [facility] IR ARTERIOGRAM EXTREMITY UNILATERAL Right 09/21/2020 IMAGING SUPERVISION & INTERPRETATION EXTREMITY UNILATERAL performed by Gunner Serrano MD at OR [facility] REMOVE CATARACT, INSERT LENS PROSTH Left 11/14/2019 LEFT EXTRACAPSULAR CATARACT REMOVAL WITH INTRAOCULAR LENS performed by Elmo Apodaca MD at OR [facility] REMOVE CATARACT, INSERT LENS PROSTH Right 11/28/2019 RIGHT EXTRACAPSULAR CATARACT REMOVAL WITH INTRAOCULAR LENS performed by Elmo Aopdaca MD at OR [facility] SINUS SURGERY PROCEDURE NEC 09/2014 THROMBOENDARECTOMY W/PATCH,NECK INCISION Right 04/2014 Dr Vincenzo Latham TIBIAL/PERONEAL ART. REVASC W/ANGIO, FIRST 09/21/2020 TIBIAL/PERONEAL ART. REVASC W/ANGIO, FIRST performed by Gunner Serrano MD at OR [facility] Review of patient's allergies indicates: Allergen Reactions Trimethoprim Other reaction(s): acute renal failure Bactrim [Sulfamethoxazole-Trimethoprim] Other (Please comment) hyperkalmeia Lisinopril ?cough Family History Problem Relation Age of Onset Cancer Mother of cancer at 72, details unknown, no heart disease Other (lung cancer) Father of lung carcinomia age 67 Stroke Brother stroke at age 63 Family Status Relation Status Mo Fa Bro (Not Specified) Social History Socioeconomic History Marital status: Spouse name: Not on file Number of children: Not on file Years of education: Not on file Highest education level: Not on file Occupational History 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 Drug use: Never Sexual activity: Not on file Other Topics Concern Not on file Social History Narrative Not on file Social Determinants of Health Financial Resource Strain: Not on file Food Insecurity: No Food Insecurity (01/17/2022) Hunger Vital Sign Worried About Running Out of Food in the Last Year: Never true Ran Out of Food in the Last Year: Never true Transportation Needs: Not on file Physical Activity: Not on file Stress: Not on file Social Connections: Not on file Intimate Partner Violence: Not on file Housing Stability: Not on file Objective There were no vitals taken for this visit. complete review of systems negative General: alert and oriented x3 male, no acute distress, appears currently stated age, pleasant, well nourished Skin: Left knee does not reveal any erythema, effusion, ecchymosis, abrasion, laceration, skin breakdown otherwise Neurovascular: Left lower extremity is neurovascularly intact with good sensation strength throughout, calf supple nontender, toes were mobile, +5 strength dorsi and plantar flexion of the foot Musculoskeletal: Left knee ROM 0-120, jointline tenderness, advanced crepitation noted in PFJ, femoral condyles are tender as well. Ligamentously stable regarding cruciate and collateral ligaments. Extensor mechanism intact. No obvious cystic change or masses the popliteal fossa. Pes anserine bursaand patellar tendon nontender. Hip and ankle atraumatic X-rays of the left knee reveal iiht-rp-cfeuruvr degenerative changes most prominent along medial joint line. There is blunting of joint space edges and throughout the patellofemoral joint indicative of osteoarthritis. Correlates clinically. Certainly not end-stage but I do appreciate it. No acute findings such as fracture dislocation or subluxation. Unable to identify any type of obvious cystic changes or masses in the bone. Official radiology report to follow accordingly and we listed in the patient's chart under imaging. Personal interpretation and documentation regarding today's plain film radiographs performed by myself. ASSESSMENT/PLAN: Left knee pain (Primary) - XR KNEE 4 OR MORE VIEWS Primary osteoarthritis of left knee Impression: Left knee osteoarthritis Plan: Today 's findings were discussed with the patient. They were educated regarding their diagnosis. Multiple treatment options discussed and agreed upon, including treating the patient for early osteoarthritis left knee. Ideally, I would typically proceed with physical therapy, bracing and discuss topical agents and even an intra-articular steroid injection. Unfortunately, the patient is unable to utilize steroids due to his increased diabetic A1c level at 8.6. A prior authorization was attempted today to begin an MIRANDA injection series. Unfortunately, we are unable to reach the patient's insurance company to determine if this can be approved to begin today. We will reschedule 3 injection for left knee when prior authorization is obtained. Patient is understandable and willing to proceed accordingly. In the meantime, the patient can use thermal modalities, topical agents such as Voltaren gel, bracing, behavior modification and rest. Also physical therapy beneficial and order placed. The patient has no other questions or concerns. They will follow up in . Pleased with today 's care. Call sooner if needed. This chart was completed in part utilizing [employer] Speech Voice Recognition Software. Grammatical errors, random word insertions, prounoun errors, and incomplete sentences are an occasional consequence of this system due to software limitations, ambient noise, and hardware issues. Any formal questions or concerns about the content, text, or information contained within the body of this dictation should be directly addressed to the provider for clarification. Jamil Hills PA-C documented in this encounter Nursing Notes * Tiffany Barr ATC - 01/12/2023 10:05 AM EST Left knee pain. States that pain is 7/10. Reports that he had injections in 2019 and they were helpful. Would like an injection today if possible. States that PT was not helpful for treatment of pain. documented in this encounter Plan of Treatment Upcoming Encounters Date Type Department Care Team (Late st Contact Info) Description 01/18/2023 8:00 AM EST Nurse Only Ancillary [address] [place] [address] Branden, Nurse [facility] [address] [place] [address] 02/08/2023 8:00 AM EST Office Visit Urology, [place] [address] [place] [address] Chivo Solis PA-C [address], [place] [id number] 02/21/2023 9:30 AM EST Office Visit Pulmonary Medicine, [place] [address], [place] [id number] Tata Walter CRNP [address], [place] [id number] 03/02/2023 9:30 AM EST Office Visit Pharmacy, [facility] [address] [place] [address] [facility] [place] [address] 04/26/2023 7:40 AM EDT Office Visit Family Practice [facility] [address] [place] [address] Eliud Eisenberg MD [address] [facility] [place] [address] 11/02/2023 10:00 AM EDT Office Visit Sleep Disorders Ctr [facility] [address] [place] [phone] Nichol Caballero DO [address] [place] [address] Pending Results Name Type Priority Associated Diagnoses Date /Time XR KNEE 4 OR MORE VIEWS Medical Imaging Routine 01/12/2023 10:12 AM EST Scheduled Procedures Name Priority Associated Diagnoses Date/Ti me ESOPHAGOGASTRODUODENOSCOPY ( EGD), FLEXIBLE, TRANSORAL, DIAGNOSTIC Recall Jimenez's esophagus Scheduled Referrals Name Type Priority Associated Diagnoses Orde r Schedule PHYSICAL THERAPY REFERRAL OP Referral Within 10 days (routine) Primary osteoarthritis of left knee Ordered: 01/12/2023 Health Maintenance Due Date Last Done Comments Alpha-1 Antitrypsin 09/24/1968 COLONOSCOPY-EVERY 5 YRS AGES 18-100 09[birth year]24/1968 Hepatitis C Screening 09/24/1968 DTaP,Tdap,and Td Vaccines (1 - Tdap) 1968 COVID-19 Vaccine (4 - 2022- season) 2022 11/19/2020, 04/24/2020, 03/29/2020 Depression Screening 01/17/2023 01/17/2022 GFR 04/07/2023 10/05/2022, 05/2022, 06/07/2022, Additional history exists HbA1c 05/20/2023 11/18/2022, 030 08/2022, 10/20/2021, Additional history exists Diabetic Eye Exam 08/11/2023 08/10/2022, 12/22/2021 Albumin/Creatinine Ratio 09/17/2023 0804/2 023, 11/19/2018, 04/05/2017 CKD HGB USE SMARTSET 58268 10/20/202310/19, 10/19/2022, 09/16/2022, Additional history exists O2 ASSESSMENT COMPLETED IN PAST YEAR FOR COPD 10/29/2023 10/28/2022 CKD PHOS USE SMARTSET 70047 11/19/2023 100 07/2022, 11/12/2021, 04/01/2020 Diabetic Foot [...] this encounter Medical Devices Implanted Type Area Operations Manager Station Device Identifier Shelf Expiration Date Model / Serial / Lot Lens Intraoc 16.5 - [id number] - [id number] Implanted:Qty: 1 on 11/14/2019 by Elmo Apodaca MD at OR [facility] Left: Eye BAUSCH & LOMB 03/15/2024 [id number] / [id number] / [id number] Lens Intraoc 16.5 - [id number] - [id number] Implanted:Qty: 1 on 11/28/2019 by Elmo Apodaca MD at OR [facility] Right: Eye BAUSCH & LOMB 04/12/2024 [id number] / [id number] / [id number] documented as of this encounter Visit Diagnoses Diagnosis Primary osteoarthritis of left knee- Primary Primary localized osteoarthrosis, lower leg documented in this encounter Advance Directives Latest Code Status on File Code Status Date Activated Date Inactivated Comments Full Code 07/15/2015 2:43 PM 07/16/2015 12:56 PM This order reflects the patients wishes and were consensually agreed upon. Care Teams Flue Cleaner Relationship Specialty Start Date End Date Eliud Eisenberg MD [address] [facility] [place] [address] PCP - General Family Medicine 10/20/21 documented as of this encounter
--- OUTSIDE RECORDS SUMMARY | 2023-04-02 09:39 | External Medical Summary | Summary of Care ---
Author Name Unknown Organization [facility] Address [address] [place] [address] Phone [phone] Care Team Providers Care Compliance Advisor Name Role Phone Eliud Eisenberg MD Primary Care Provider [phone] Reason for Visit * Reason Onset Date Comments Pre Cert/Prior Auth 01/12/2023 Eulfexa Encounter Details Date Type Department Care Team (Late st Contact Info) Description 01/12/2023 Telephone Orthopaedics [facility] [address] [place] [address] [place] PA-C [address] [place] [address] Pre Cert/Prior Auth (Eulfexa ) Allergies Active [...] Tablet Sublingual (Nitrostat)Indicatio ns:Coronary artery disease involving point lay ira coronary artery of point [place] ir[place] heart without angina pectoris Place under the [...] [place], goal below 130/80,Coronary artery disease involving point lay ira coronary artery of point [place] heart without angina pectoris,S/P primary angioplasty with [...] Oral Tablet (Coreg)Indications:C oronary artery disease involving point lay ira coronary artery of point [place] heart without angina pectoris,Paroxysmal atrial fibrillation (HCC) Take 1 Tablet by mouth in the morning and 1 Tablet before bedtime. 180 Tablet 3 03/21/2022 Active Lehdn-8-yadf Ethyl Esters 1 GM Oral Capsule (Lovaza)Indications: [...] Capsule Take by mouth. 0 Active Ipratropium [place] HFA 17 MCG/ACT Inhalation Aerosol Solution (Atrovent [...] fibrillation 02/18/2015 Coronary artery disease invo lving point lay ir[place] coronary artery of point lay ir[place] heart without angina pectoris 02/18/2015 HTN, goal [...] mRNA, LNP-s, No Pre serve, 2-Dose Series ([employer]) 11/19/2020,04/24/2020,03/29/2020 Hepatitis B, 20+ yrs 12/07/2016,06/15/2016,03/16 Pneumococcal [...] weeks (total of 3 injections). Route to [id number] Is there radiological proof(x-ray, cat scan, mri [...] AM EST Nurse Only Ancillary Denny Otero [place] [address] [facility] [place] [address] Otero, Nurse [facility] Wellness [facility] [address] [facility] [place] [address] 02/08/2023 8:00 AM EST Office Visit Urology, [place] [address] [place] [address] Chivo Solis PA-C [address] [place] [address] 02/21/2023 9:30 AM EST Office Visit Pulmonary Medicine, [place] [address] [place] [address] Tata Walter CRNP [address] [place] [address] 03/02/2023 9:30 AM EST Office Visit Pharmacy, [facility] [address] [facility] [place] [address] [facility] [address] [facility] [place] [address] 04/26/2023 7:40 AM EDT Office Visit Family Practice [facility] [address] [facility] [place] [address] Eliud Eisenberg MD [facility] [place] [address] 11/02/2023 10:00 AM EDT Office Visit Sleep Disorders Ctr [facility] [address] [facility] [place] [phone] Nichol Caballero DO [facility] [place] [address] Scheduled Procedures Name Priority Associated Diagnoses Date/Ti [...] 023, 11/19/2018, 04/05/2017 CKD HGB USE SMARTSET 62900 10/20/202310/19, 10/19/2022, 09/16/2022, Additional history exists O2 ASSESSMENT COMPLETED IN PAST YEAR FOR COPD 10/29/2023 10/28/2022 CKD PHOS USE SMARTSET 60035 11/19/20230 07/2022, 11/12/2021, 04/01/2020 Diabetic Foot Exam [...] this encounter Medical Devices Implanted Type Area Director Of Retail Device Identifier Shelf Expiration Date Model / Serial / Lot Lens Intraoc 16.5 - [id number] - [id number] Implanted:Qty: 1 on 11/14/2019 by Elmo Apodaca MD at OR [facility] Left: Eye BAUSCH [employer] LOMB 03/15/2024 [id number] / [id number] / [id number] Lens Intraoc 16.5 - [id number] - [id number] Implanted:Qty: 1 on 11/28/2019 by Elmo Apodaca MD at OR [facility] Right: Eye BAUSCH & LOMB 04/12/2024 [id number] / [id number] / [id number] documented as of this encounter Advance Directives Latest Code Status on File Code Status Date Activated Date Inactivated Comments Full Code 07/15/2015 2:43 PM 07/16/2015 12:56 PM This o rder reflects the patients wishes and were consensually agreed upon. Care Teams Compliance Advisor Relationship Specialty Start Date End Date Eliud Eisenberg MD [address] [facility] [place] [address] PCP - General Family Medicine 10/20/21 documented as of this encounter
--- OUTSIDE RECORDS SUMMARY | 2023-04-02 09:39 | External Medical Summary | Summary of Care ---
Author Name Unknown Organization [facility] Address [address] [facility] [place] [address] Phone [phone] Care Team Providers Care Lead Customer Service Representative Name Role Phone Eliud Eisenberg MD Primary Care Provider [phone] Reason for Visit * Reason Comments Follow Up Left knee * Precert (Within 30 days (routine)) - Authorized Specialty Diagnoses / Procedures Referred By Contac t Referred To Contact Orthopedics Diagnoses Unilateral primary osteoarthritis, left knee Procedures EUFLEXXA, INTRA-ARTICULAR INJ, PER DOSE Jamil Hills PA-C [address] [place] [address] Jamil Hills PA-C [address] [place] [address] Referral ID Status Reason Start Date Expiration Date V isits Requested Visits Authorized [id number] Authorized Precert 01/12/2023 02/12/2099 [id number] Encounter Details Date Type Department Care Team (Latest Contact Info) Description 01/26/2023 1:30 PM EST Office Visit Orthopaedics [facility] [address] [place] [address] Jamil Hills PA-C [address] [place] [address] Primary osteoarthritis of left knee* Allergies Active Allergy Reactions Criticality Noted Date Comments Sulfamethoxazole-Trimet hoprim Other (Please comment) 09/20/2017 hyperkalmeia Lisinopril 09/15/2022 ?cough Trimethoprim High 11/23/2021 Other reaction(s): acute renal failure documented as of this encounter (statuses as of 01/26/2023) Medications Medication Sig Dispensed Refills Start Date [...] Tablet Sublingual (Nitrostat)Indicatio ns:Coronary artery disease involving [place] coronary artery of [place] heart without angina pectoris Place under the [...] [place], goal below 130/80,Coronary artery disease involving [place] coronary artery of [place] heart without angina pectoris,S/P primary angioplasty with [...] Oral Tablet (Coreg)Indications:C oronary artery disease involving [place] coronary artery of [place] heart without angina pectoris,Paroxysmal atrial fibrillation (HCC) Take 1 Tablet by mouth in the morning and 1 Tablet before bedtime. 180 Tablet 3 03/21/2022 Active Wxcnq-7-snfw Ethyl Esters 1 GM Oral Capsule (Lovaza)Indications: [...] Capsule Take by mouth. 0 Active Ipratropium [place] HFA 17 MCG/ACT Inhalation Aerosol Solution (Atrovent [...] of left knee 20 mg IX ONCE 01/26/2023 01/26/2023 Ended documented as of this encounter (statuses as of 01/26/2023) Active Problems Problem Noted Date Diagnosed Date [...] fibrillation 02/18/2015 Coronary artery disease invo lving [place] coronary artery of [place] heart without angina pectoris 02/18/2015 HTN, goal below 130/80 02/18/2015 S/P carotid endarterectomy 02/18/2015 documented as of this encounter (statuses as of 01/26/2023) Resolved Problems Problem Noted Date Diagnosed Date Resolved Date Body mass index (BMI) of 40. 0 to 44.9 in adult 07/25/2022 09/06/2022 Overview: Per Obesity protocol Obesity, Class II, BMI 35-39 .9, isolated (see actual BMI) 10/17/2021 10/25/2022 ASCVD (arteriosclerotic card iovascular disease) 06/05/2017 10/16/2021 Palpitations 02/28/2017 10/16/2021 Hyperlipidemia LDL goal <70 02/18/2015 10/16/2021 documented as of this encounter (statuses as of 01/26/2023) Immunizations Name Administration Dates Next Due COVID-19 mRNA, LNP-s, No Pre serve, 2-Dose Series ([employer]) 11/19/2020,04/24/2020,03/29/2020 Hepatitis B, 20+ yrs 12/07/2016,06/15/2016,03/16 Pneumococcal [...] Progress Notes * Jamil Hills PA-C - 01/26/2023 1:32 PM ESTAssociated Order(s): LG Joint Inj/Arthro: L knee Post-Procedure Diagnose(s): Primary osteoarthritis of left knee Established patient presents today with a new complaint of left knee pain that is chronic in nature. Denies any injury or fall. Points towards the medial joint line. He uses a cane to walk. He does have a history of right knee arthritis that responds well to MIRANDA injections and failed steroid in thepast. The patient is unable to utilize steroid injections at this point as his diabetes and A1c arecurrently at 8.6. Has pain with lengthy weight-bearing activity and intermittently rest. Denies anymechanical symptoms or instability. No swelling or redness. Updated of the left knee. Objective There were no vitals taken for [...] atraumatic X-rays of the left knee reveal tpli-jn-qjquubqn degenerative changes most prominent along medial joint [...] today's plain film radiographs performed by myself. Impression: Left knee osteoarthritis Plan: Today 's findings were discussed with the patient. They were educated regarding their diagnosis. Multiple treatment options discussed and agreed upon, including beginning a new MIRANDA injection series Euflexxa for the left knee. Patient is in agreement and updated consent time-out performed. Prior authorization obtained. Will follow up in 1 week for 2nd injection of the series. Continued physical therapy and Voltaren gel as well as thermal modalities. The patient has no other questions or concerns. Pleased with today 's care. Call sooner if needed. LG Joint Inj/Arthro: L knee on 01/26/2023 1:35 PM Indications: pain Details: 22 G needle, anterolateral approach Medications: (Euflexxa) Outcome: tolerated well, no immediate complications Procedure, treatment alternatives, risks and benefits explained, specific risks discussed. Consent was given by the patient. Immediately prior to procedure a time out was called to verify the correctpatient, procedure, equipment, support services specialist and site/side marked as required. Patient was prepped and draped in the usual sterile fashion. This chart was completed in part utilizing [employer] Speech Voice Recognition Software. Grammatical errors, random word insertions, prounoun errors, and incomplete sentences are an occasional consequence of this system due to software limitations, ambient noise, and hardware issues. Any formal questions or concerns about the content, text, or information contained within the body of this dictation should be directly addressed to the provider for clarification. documented in this encounter Nursing Notes * Mona Mcgill MED ASSIST - 01/26/2023 1:22 PM EST Patient presents today for left knee 1st Euflexxa documented in this encounter Plan of Treatment Upcoming Encounters Date Type Department Care Team (Late st Contact Info) Description 02/01/2023 11:45 AM EST Office Visit Orthopaedics [facility] [address] [place] [address] Jamil Hills PA-C [address] [place] [address] 02/08/2023 8:00 AM EST Office Visit Urology, [address] [address] Chivo Solis PA-C [facility] [place] [address] 02/15/2023 11:15 AM EST Office Visit Orthopaedics [facility] [address] [place] [address] Jamil Hills PA-C [address] [place] [address] 02/21/2023 9:30 AM EST Office Visit Pulmonary Medicine, [address] [address] Tata Walter CRNP [address] [place] [address] 03/02/2023 9:30 AM EST Office Visit Pharmacy, [facility] [address] [facility] [place] [address] [facility] [address] [facility] [place] [address] 04/26/2023 7:40 AM EDT Office Visit Family Practice [facility] [address] [facility] [place] [address] Eliud Eisenberg MD [address] [facility] [place] [address] 11/02/2023 10:00 AM EDT Office Visit Sleep Disorders Ctr [facility] [address] [facility] [place] [phone] Nichol Caballero DO [address] [place] [address] 01/22/2024 8:00 AM EST Nurse Only Ancillary [facility] [address] [facility] [place] [address] [facility], Nurse Annual Wellness [facility] [address] [facility] [address] Scheduled Procedures Name Priority Associated Diagnoses Date/Ti [...] 023, 11/19/2018, 04/05/2017 CKD HGB USE SMARTSET 90575 10/20/202310/19, 10/19/2022, 09/16/2022, Additional history exists O2 ASSESSMENT COMPLETED IN PAST YEAR FOR COPD 10/29/2023 10/28/2022 CKD PHOS USE SMARTSET 01675 11/19/2023 100 07/2022, 11/12/2021, 04/01/2020 Diabetic Foot [...] this encounter Medical Devices Implanted Type Area Wine Pasteurizer Device Identifier Shelf Expiration Date Model / Serial / Lot Lens Intraoc 16.5 - [id number] - [id number] Implanted:Qty: 1 on 11/14/2019 by Elmo Apodaca MD at [facility] Left: Eye [employer]OM[employer] 03/15/2024 [id number] / [id number] / [id number] Lens Intraoc 16.5 - [id number] - [id number] Implanted:Qty: 1 on 11/28/2019 by Elmo Apodaca MD at OR [facility] Right: Eye BA[employer]CH [employer] LOMB 04/12/2024 [id number] / [id number] / [id number] documented as of this encounter Procedures Procedure Name Priority Date/Time Associated Diagnosis Comments FL ARTHROCENTESIS ASPIR&/INJ MAJOR JT/BURSA W/O US Routine 01/26/2023 1:35 PM EST Primary osteoarthritis of left knee documented in this encounter Results * FL ARTHROCENTESIS ASPIR&/INJ MAJOR JT/BURSA W/O US (01/26/2023 1:35 PM EST) Narrative Jamil Hills PA-C - 01/26/2023 1:35 PM EST Jamil Hills PA-C 01/26/2023 1:35 PM LG Joint Inj/Arthro: L knee on 01/26/2023 1:35 PM Indications: pain Details: 22 G needle, anterolateral approach Medications: (Euflexxa) Outcome: tolerated well, no immediate complications Procedure, treatment alternatives, risks and benefits explained, specific risks discussed. Consent was given by the patient. Immediately prior to procedure a time out was called to verify the correct patient, procedure, equipment, support services specialist and site/side marked as required. Patient [...] 20 mg 20 mg, Intra-Articular, ONCE, On [place] 01/26/23 at 1415, For 1 dose Given 01/26/2023 1:44 PM EST 20 mg Knee Left documented in this encounter Advance Directives Latest Code Status on File Code Status Date Activated Date Inactivated Comments Full Code 07/15/2015 2:43 PM 07/16/2015 12:56 PM This o rder reflects the patients wishes and were consensually agreed upon. Care Teams Lead Customer Service Representative Relationship Specialty Start Date End Date Eliud Eisenberg MD [address] [place] [address] PCP - General Family Medicine 10/20/21 documented as of this encounter
--- OUTSIDE RECORDS SUMMARY | 2023-04-02 09:39 | External Medical Summary | Summary of Care ---
Author Name Unknown Organization [facility] Address [address] [facility] [place] [address] Phone [phone] Care Team Providers Care Trashman Name Role Phone Eliud Eisenberg MD Primary Care Provider [phone] Reason for Visit * Reason Comments Follow Up Left knee * Precert (Within 30 days (routine)) - Authorized Specialty Diagnoses / Procedures Referred By Contac t Referred To Contact Orthopedics Diagnoses Unilateral primary osteoarthritis, left knee Procedures EUFLEXXA, INTRA-ARTICULAR INJ, PER DOSE Jamil Hills PA-C [address] [place] [address] Jamil Hills PA-C [address] [place] [address] Referral ID Status Reason Start Date Expiration Date V isits Requested Visits Authorized [id number] Authorized Precert 01/12/2023 02/12/2099 [id number] Encounter Details Date Type Department Care Team (Latest Contact Info) Description 01/26/2023 1:30 PM EST Office Visit Orthopaedics [facility] [address] [place] [address] Jamil Hills PA-C [address] [place] [address] Primary osteoarthritis of left knee* Allergies Active [...] Sublingual (Nitrostat)Indicatio ns:Coronary artery disease involving [place] coronary artery of [place] heart without angina pectoris Place under the [...] goal below 130/80,Coronary artery disease involving [place] coronary artery of [place] heart without angina pectoris,S/P primary angioplasty with [...] Tablet (Coreg)Indications:C oronary artery disease involving [place] coronary artery of [place] heart without angina pectoris,Paroxysmal atrial fibrillation (HCC) Take 1 Tablet by mouth in the morning and 1 Tablet before bedtime. 180 Tablet 3 03/21/2022 Active Fuaqj-5-sqbj Ethyl Esters 1 GM Oral Capsule (Lovaza)Indications: [...] Capsule Take by mouth. 0 Active Ipratropium [place] HFA 17 MCG/ACT Inhalation Aerosol Solution (Atrovent [...] 02/18/2015 Coronary artery disease invo lving [place] coronary artery of [place] heart without angina pectoris 02/18/2015 HTN, goal [...] mRNA, LNP-s, No Pre serve, 2-Dose Series ([employer]) 11/19/2020,04/24/2020,03/29/2020 Hepatitis B, 20+ yrs 12/07/2016,06/15/2016,03/16 Pneumococcal [...] this point as his diabetes and A1c are currently at 8.6. Has pain with lengthy [...] atraumatic X-rays of the left knee reveal vzsm-ze-nnptttyy degenerative changes most prominent along medial joint [...] called to verify the correctpatient, procedure, equipment, program support clerk and site/side marked as required. Patient was prepped and draped in the usual sterile fashion. This chart was completed in part utilizing [employer] Speech Voice Recognition Software. Grammatical errors, random [...] 02/01/2023 11:45 AM EST Office Visit Orthopaedics [facility] [address] [facility] [address] Jamil Hills PA-C [address] [facility] [place] [address] 02/08/2023 8:00 AM EST Office Visit Urology, [address] [address] Chivo Solis PA-C [facility] [place] [address] 02/15/2023 11:15 AM EST Office Visit Orthopaedics [facility] [address] [facility] [place] [place] [address] Jamil Hills PA-C [address] [facility] [place] [address] 02/21/2023 9:30 AM EST Office Visit Pulmonary Medicine, [address] [address] Tata Walter CRNP [address] [place] [address] 03/02/2023 9:30 AM EST Office Visit Pharmacy, [facility] [address] [facility] [place] [place] [address] [facility] [address] [facility] [place] [address] 04/26/2023 7:40 AM EDT Office Visit Family Practice [facility] [address] [facility] [place] [place] [address] Eliud Eisenberg MD [address] [facility] [place] [address] 11/02/2023 10:00 AM EDT Office Visit Sleep Disorders Ctr [facility] [address] [facility] [place] [phone] iNchol Caballero DO [address] [place] [address] 01/22/2024 8:00 AM EST Nurse Only Ancillary [facility] 132 [facility] [place] [address] [facility], Nurse Annual Wellness [facility] 132 [facility] [place] [address] Scheduled Procedures Name Priority Associated Diagnoses Date/Ti [...] 023, 11/19/2018, 04/05/2017 CKD HGB USE SMARTSET 55232 10/20/202310/19, 10/19/2022, 09/16/2022, Additional history exists O2 ASSESSMENT COMPLETED IN PAST YEAR FOR COPD 10/29/2023 10/28/2022 CKD PHOS USE SMARTSET 33966 11/19/20230 07/2022, 11/12/2021, 04/01/2020 Diabetic Foot Exam [...] this encounter Medical Devices Implanted Type Area Medical Physics Teacher Device Identifier Shelf Expiration Date Model / Serial / Lot Lens Intraoc 16.5 - [id number] - [id number] Implanted:Qty: 1 on 11/14/2019 by Elmo Apodaca MD at OR [facility] Left: Eye [employer] 03/15/2024 [id number] / [id number] / [id number] Lens Intraoc 16.5 - [id number] - [id number] Implanted:Qty: 1 on 11/28/2019 by Elmo Apodaca MD at [facility] Right: Eye [employer]OMB 04/12/2024 [id number] / [id number] / [id number] documented as of this encounter Procedures Procedure Name Priority Date/Time Associated Diagnosis Comments CT ARTHROCENTESIS ASPIR&/INJ MAJOR JT/BURSA W/O US Routine 01/26/2023 1:35 PM EST Primary osteoarthritis of left knee documented in this encounter Results * CT ARTHROCENTESIS ASPIR&/INJ MAJOR JT/BURSA W/O US (01/26/2023 [...] to verify the correct patient, procedure, equipment, program support clerk and site/side marked as required. Patient was [...] and were consensually agreed upon. Care Teams Trashman Relationship Specialty Start Date End Date Eliud Eisenberg MD [address] [place] [address] PCP - General Family Medicine 10/20/21 documented as of this encounter
--- NOTE | 2023-04-02 10:18 | Emergency Department Note ---
Impression & Plan Hypoxia, COPD exacerbation, SOB (shortness of breath), COVID-19, Hypomagnesemia ED Provider Note NAME: TIFFANIE OROZCO AGE: 72 SEX: M : 1950 ARRIVES VIA: Walk-In INFORMANT: [Patient] ED PROVIDER(S): [Isidro Damon MD] CHIEF COMPLAINT: Short of breath HISTORY OF PRESENT ILLNESS: The patient is a 72-year-old male with some COPD. He has a history of A-fib and is on Eliquis. He has had 2 days of bodyaches, stuffy nose and some shortness of breath. He took an at home COVID test and it was positive. The patient felt even more short of breath this morning, he presents for evaluation. He does have inhalers and a nebulizer machine at home but has not used either. There has been no vomiting, no diarrhea. No chest pain. PMHx/PSHx/Social Hx: See Below PHYSICAL EXAM: GENERAL: Patient is in no acute distress. HEENT: No acute trauma, normocephalic atraumatic, mucous membranes moist, no nasal congestion. NECK: No stridor, no adenopathy, no meningismus, trachea is midline. LUNGS: Breath sounds are diminished bilaterally with some occasional crackles at the left base. There is no wheezing or respiratory distress. HEART: Without murmurs gallops or rubs, regular rate and rhythm. Heart tones are distant. ABDOMEN: Soft, nontender, no peritonitis. EXTREMITIES: No cyanosis, full range of motion of all the joints without pain or difficulty. Very mild bilateral pedal edema. NEUROLOGIC: Oriented x 3, no acute motor or sensory deficits, no focal weakness. SKIN: No jaundice, no diaphoresis. DIFFERENTIAL DIAGNOSIS: COVID-19, bronchitis, pneumonia, CHF, anemia, cardiac ischemia, COPD flare, among others. EMERGENCY DEPARTMENT PROCEDURES: MEDICAL DECISION MAKING: There is no leukocytosis or concerning anemia. There is a normal platelet count. No coagulopathy. Creatinine is somewhat elevated although, this is baseline looking back at previous testing. Magnesium is low at 1.4. No concerning liver enzyme elevation. ECG shows a sinus rhythm, no obvious acute ischemia. Cardiac enzyme testing x 1 is not consistent with acute cardiac injury. COVID test was positive, influenza and RSV test were negative. Chest x-ray did not show pneumonia or CHF. On exam, the patient did have diminished breath sounds. The patient complained of being dyspneic. The patient was given a DuoNeb, a second DuoNeb was administered and he was given IV magnesium and IV Solu-Medrol. The patient was noted to be hypoxic here in the ED, he required nasal cannula O2. Given his history of COPD, given the COVID-19 infection, given his hypoxia and dyspnea, I do think a hospital stay is warranted. I spoke with the patient and case management, the on-call hospitalist was consulted. Prior/Outside records/notes reviewed: None. ECG per my interpretation: Indication was shortness of breath. The ECG shows a sinus rhythm with a first-degree AV block. The rate is 68. There is a potential old inferior infarct and some poor R wave progression. There is no ST elevation, no PVCs. The QTc is 395. Continuous Cardiac Monitoring per my interpretation: An order was placed for continuous cardiac monitoring. The monitor shows a rate of 72 with sinus rhythm with a first-degree block. Imaging/x-ray results per my interpretation: Chest x-ray does not show mediastinal widening, pneumonia or pneumothorax. Chronic Medical/Social conditions affecting care: Advanced age, history of COPD. Care/Management discussed with: Advanced age, history of COPD Level of care consideration(s): After review of the information above and other included data: --I believe the patient requires escalation of care to admission Critical Care Note: I have personally spent 39 minutes of critical care time in the direct management of this patient. This includes bedside care, interpretation of diagnostic studies, and testing, discussion with consultants, patient, and family members, and other required patient management activities. This 39 minutes is in excess of all separately billable procedures. DISPOSITION: Admission Past Med/Surg History Medical History CAD (coronary artery disease) "2009 - MAR to obtuse marginal " T2DM (type 2 diabetes mellitus) Benign localized hyperplasia of prostate with urinary obstruction Dyslipidemia HTN (hypertension) Paroxysmal a-fib Chronic anticoagulation therapy with Eliquis Spinal stenosis of lumbar region Lumbar facet joint syndrome Surgical History S/P sinus surgery S/P colonoscopy S/P cardiac catheterization S/P coronary artery stent placement Family History Mother Hypertension Diabetes Cancer Father Hypertension Cancer Social History Smoking Status: Former smoker Hx Alcohol Use: No Hx Substance Use: No Preferred Language: Lebanese Visual Impairment: No Limitations Hearing Ability: Normal Beliefs That Will Affect Care: None marital status: Current Living Situation: Spouse current occupational status: retired Feels Safe at Home: Yes Allergies Allergies Allergy/AdvReac Type Severity Reaction Status Date / Time Bactrim AdvReac Severe acute Unverified 08/09/17 12:18 renal failure sulfamethoxazole [Bactrim] AdvReac Severe acute Verified 04/02/23 13:21 renal failure trimethoprim [Bactrim] AdvReac Severe acute Verified 04/02/23 13:21 renal failure Home Meds Home Medications Medication Instructions Recorded Confirmed atorvastatin 20 mg tablet 40 mg PO QPM 09/26/18 04/02/23 carvedilol 12.5 mg tablet 12.5 mg PO BID 09/26/18 04/02/23 cholecalciferol (vitamin D3) 25 1,000 units PO DAILY 09/26/18 04/02/23 mcg (1,000 unit) capsule cyanocobalamin (vitamin B-12) 1,000 mcg PO DAILY 09/26/18 04/02/23 1,000 mcg tablet magnesium oxide 500 mg PO BID 09/26/18 04/02/23 metformin 1,000 mg tablet 1,000 mg PO BID 09/26/18 04/02/23 nitroglycerin 0.4 mg sublingual 0.4 mg sublingual Q5M 09/26/18 04/02/23 tablet omega-3 acid ethyl esters 1 gram 1 cap PO BID 09/26/18 04/02/23 capsule torsemide 10 mg tablet 10 mg PO DAILY 09/26/18 04/02/23 pantoprazole 40 mg tablet,delayed 40 mg PO DAILY 10/05/18 04/02/23 release (Protonix) hydralazine 10 mg tablet 10 mg PO BID 12/20/18 04/02/23 isosorbide mononitrate 60 mg 60 mg PO DAILY 02/25/20 04/02/23 tablet,extended release 24 hr aspirin 81 mg tablet,delayed 81 mg PO DAILY 06/22/21 04/02/23 release lisinopril 20 mg tablet 20 mg PO DAILY 01/04/22 04/02/23 insulin aspart U-100 100 unit/mL 1 sliding scale dose subcut 03/24/22 04/02/23 subcutaneous cartridge (Novolog USEASDIRECTD PenFill U-100 Insulin aspart) insulin pump cart,cont inf,BT #5 ea 05/25/22 07/28/22 (Omnipod Dash Pods (Gen 4) subcutaneous cartridge) allopurinol 100 mg tablet 100 mg PO QAM 04/02/23 04/02/23 apixaban 5 mg tablet (Eliquis) 5 mg PO BID 04/02/23 04/02/23 Previous Rx's Medication Instructions Recorded methenamine hippurate 1 gram tablet 1 g PO DAILY #90 tabs 08/17/22 pregabalin 225 mg capsule (Lyrica) 225 mg PO QID 90 days #360 caps 11/22/22 duloxetine 60 mg capsule,delayed 60 mg PO BID 90 days #180 caps 02/22/23 release Results & Data (ED) Vital Signs Vital Signs - 24 hr 04/02/23 09:36 04/02/23 10:46 04/02/23 10:48 Temperature 36.4 C L Temperature Source Temporal Artery Scan Pulse Rate 72 65 64 Pulse Rate from SpO2 Sensor 65 Respiratory Rate 19 13 13 Blood Pressure 115/61 Blood Pressure Mean 79 Pulse Oximetry 94 97 97 Oxygen Delivery Method Room Air Room Air Oxygen Flow Rate Sepsis Recent Fever Within 48 Hours No Sepsis New/Unexplained Change in Mental Status N/A Sepsis Action Taken by Nursing No Action Required Oxygen Flow Rate - Titration Pulse Oximetry Post Tiitration 04/02/23 11:00 04/02/23 11:08 04/02/23 11:30 Temperature Temperature Source Pulse Rate 66 Pulse Rate from SpO2 Sensor 67 68 Respiratory Rate 21 Blood Pressure Blood Pressure Mean Pulse Oximetry 87 L 87 L 95 Oxygen Delivery Method Nasal Cannula Nasal Cannula Oxygen Flow Rate 2 Sepsis Recent Fever Within 48 Hours Sepsis New/Unexplained Change in Mental Status Sepsis Action Taken by Nursing Oxygen Flow Rate - Titration 4 Pulse Oximetry Post Tiitration 91 04/02/23 12:00 04/02/23 12:03 04/02/23 12:30 Temperature Temperature Source Pulse Rate 78 68 68 Pulse Rate from SpO2 Sensor 68 Respiratory Rate 19 16 Blood Pressure Blood Pressure Mean Pulse Oximetry 92 Oxygen Delivery Method Oxygen Flow Rate Sepsis Recent Fever Within 48 Hours Sepsis New/Unexplained Change in Mental Status Sepsis Action Taken by Nursing Oxygen Flow Rate - Titration Pulse Oximetry Post Tiitration 04/02/23 13:00 04/02/23 13:30 04/02/23 14:00 Temperature Temperature Source Pulse Rate 69 73 67 Pulse Rate from SpO2 Sensor 70 71 67 Respiratory Rate 18 16 21 Blood Pressure Blood Pressure Mean Pulse Oximetry 90 90 91 Oxygen Delivery Method Oxygen Flow Rate Sepsis Recent Fever Within 48 Hours Sepsis New/Unexplained Change in Mental Status Sepsis Action Taken by Nursing Oxygen Flow Rate - Titration Pulse Oximetry Post Tiitration 04/02/23 14:30 Temperature Temperature Source Pulse Rate 67 Pulse Rate from SpO2 Sensor 67 Respiratory Rate 15 Blood Pressure Blood Pressure Mean Pulse Oximetry 94 Oxygen Delivery Method Nasal Cannula Oxygen Flow Rate 4 Sepsis Recent Fever Within 48 Hours Sepsis New/Unexplained Change in Mental Status Sepsis Action Taken by Nursing Oxygen Flow Rate - Titration Pulse Oximetry Post Tiitration Home Medications Current Medication List: was personally reviewed by me Laboratory Data Attestation: I reviewed the patient's lab results. 04/02/23 10:38 04/02/23 10:38 Lab Results 04/02/23 04/02/23 Range/Units 10:38 12:15 WBC 5.42 (4.8-10.8) K/ul RBC 4.92 (4.70-6.10) M/uL Hgb 14.2 (14.0-18.0) g/dl Hct 43.4 (42.0-52.0) % MCV 88.2 (80.0-100.0) fL MCH 28.9 (25.0-34.0) pg MCHC 32.7 (32.0-36.0) g/dL RDW Std Deviation 48.1 H (36.4-46.3) fL RDW Coeff of Angelita 15.0 H (11.5-14.5) % Plt Count 190 (130-400) K/uL MPV 11.2 (9.4-12.4) fL Immature Gran % (Auto) 0.2 % Neut % (Auto) 62.1 % Lymph % (Auto) 22.7 % [place] % (Auto) 12.9 % Eos % (Auto) 1.5 % Baso % (Auto) 0.6 % Neut # (Auto) 3.37 (1.40-6.50) K/uL Lymph # (Auto) 1.23 (1.20-3.40) K/uL [place] # (Auto) 0.70 H (0.11-0.59) K/uL Eos # (Auto) 0.08 (0.00-0.50) K/uL Baso # (Auto) 0.03 (0.00-0.20) K/uL Immature Gran # (Auto) 0.01 (0.01-0.20) K/uL PT 11.6 (9.0-12.0) Seconds INR 1.1 (0.9-1.1) APTT 32 H (21-31) Seconds PTT Ratio 1.1 Sodium 138 (136-145) mmol/L Potassium 4.2 (3.5-5.1) mmol/L Chloride 103 (98-107) mmol/L Carbon Dioxide 27 (21-32) mmol/L Anion Gap 8 (3-11) BUN 21 (6-23) mg/dl Creatinine 1.53 H (0.6-1.4) mg/dl Est Cr Clr Drug Dosing 55.4 ml/min Est GFR ( Amer) 51.5 ml/min Est GFR (Non-Af Amer) 44.5 ml/min BUN/Creatinine Ratio 13.7 (10-20) Glucose 281 H (70-99(Fasting)) mg/dl Calcium 9.1 (8.6-10.3) mg/dl Magnesium 1.4 L (1.7-2.4) mg/dl Total Bilirubin 0.8 (0.2-1.0) mg/dl AST 66 H (13-39) U/L ALT 52 (7-52) U/L Alkaline Phosphatase 65 (34-104) U/L Troponin I High Sens 5.2 (0-20) pg/ml Total Protein 6.9 (6.0-8.3) gm/dl Albumin 4.0 (3.4-5.0) gm/dl Globulin 2.9 (2.5-4.0) gm/dl Albumin/Globulin Ratio 1.4 (0.9-2) SARS-CoV-2 (PCR) POSITIVE (Negative) Influenza Type A (PCR) Negative (Neg) Influenza Type B (PCR) Negative (Neg) RSV (RT-PCR) Negative (Neg) Administered Medications Discontinued Medications Albuterol (Albut/Ipratrop 3mg/0.5mg Neb 3 Ml Vial) 3 ml NEB NOW STA; Protocol Stop: 04/02/23 10:12 Last Admin: 04/02/23 10:40 Dose: 3 ml Documented By: CRISTIAN Albuterol (Albut/Ipratrop 3mg/0.5mg Neb 3 Ml Vial) 3 ml NEB NOW STA; Protocol Stop: 04/02/23 12:14 Last Admin: 04/02/23 12:44 Dose: 3 ml Documented By: AM Magnesium Sulfate/Dextrose (Magnesium Sulfate / D5w) 1 gm in 100 mls @ 100 mls/hr IV Q1H OSCAR Stop: 04/02/23 13:29 Last Infusion: 04/02/23 13:45 Dose: Infused Documented By: Admin: 04/02/23 12:43 Dose: 100 mls/hr Documented By: Infusion: 04/02/23 12:43 Dose: Infused Documented By: Admin: 04/02/23 11:43 Dose: 100 mls/hr Documented By: LISA Methylprednisolone (Methylprednisolone 125 Mg/2 Ml Vial) 60 mg IV NOW STA Stop: 04/02/23 10:12 Last Admin: 04/02/23 10:41 Dose: 60 mg Documented By: CRISTIAN Imaging Data Radiologist's Impression: Chest X-Ray 04/02/23 10:11 XR chest 1V portable CLINICAL HISTORY: Dyspnea. COMPARISON STUDY: Chest radiograph August 07, 2017. FINDINGS: Lung volumes are normal. Lungs are clear. Right apical density similar to CTA of August 30, 2018. This favors scarring. There is no pneumothorax or pleural effusion. Cardiac size is normal. Mediastinal contours are normal. There is no evidence for pulmonary edema. IMPRESSION: No acute cardiopulmonary findings. ACT 112: Negative or not required by law. Electronically signed by: Jas Jernigan M.D. 04/02/2023 11:12 AM Discharge Plan Visit Data Chief Complaint: Illness Stated Complaint: COVID POSITIVE, TROUBLE BREATHING ED Provider: Isidro Damon Discharge Problem: Hypoxia, COPD exacerbation, SOB (shortness of breath), COVID-19, Hypomagnesemia Patient Disposition: Admitted As Inpatient Condition: Fair Prescriptions Prescriptions: No Action aspirin 81 mg tablet,delayed release (DR/EC) 81 mg PO DAILY lisinopril 20 mg tablet 20 mg PO DAILY insulin aspart U-100 [Novolog PenFill U-100 Insulin] 100 unit/mL cartridge 1 sliding scale dose subcut USEASDIRECTD Rx Instructions: Pt is on the POD only uses this if something is wrong with POD or unable to get refill methenamine hippurate 1 gram tablet 1 g PO DAILY Qty: 90 1RF pregabalin [Lyrica] 225 mg capsule 225 mg PO QID 90 Days Qty: 360 1RF duloxetine 60 mg capsule,delayed release(DR/EC) 60 mg PO BID 90 Days Qty: 180 6RF atorvastatin 20 mg tablet 40 mg PO QPM carvedilol 12.5 mg tablet 12.5 mg PO BID cholecalciferol (vitamin D3) 1,000 unit capsule 1,000 units PO DAILY cyanocobalamin (vitamin B-12) 1,000 mcg tablet 1,000 mcg PO DAILY magnesium oxide 500 mg tablet 500 mg PO BID metformin 1,000 mg tablet 1,000 mg PO BID nitroglycerin 0.4 mg tablet, sublingual 0.4 mg SL Q5M torsemide 10 mg tablet 10 mg PO DAILY omega-3 acid ethyl esters 1 gram capsule 1 cap PO BID pantoprazole [Protonix] 40 mg tablet,delayed release (DR/EC) 40 mg PO DAILY hydralazine 10 mg tablet 10 mg PO BID isosorbide mononitrate 60 mg tablet extended release 24 hr 60 mg PO DAILY (DME) Omnipod Dash Pods (Gen 4) Cartridge See Rx Instructions .ROUTE .MEDSUPPLY Qty: 5 Rx Instructions: As directed allopurinol 100 mg tablet 100 mg PO QAM Eliquis 5 mg tablet 5 mg PO BID
[2023-04-02] MEDS: ALBUT/IPRATROP 3MG/0.5MG NEB 3 ML VIAL NEB STA ×2 (10:40→12:44)
[2023-04-02] MEDS: methylPREDNISolone 125 MG/2 ML VIAL IV STA (10:41)
[2023-04-02 10:56] LABS: Basophils # (auto) 0.03 K/uL (0.00-0.20); Basophils % (auto) 0.6 %; Eosinophils # (auto) 0.08 K/uL (0.00-0.50); Eosinophils % (auto) 1.5 %; Hematocrit (blood only) 43.4 % (42.0-52.0); Hemoglobin 14.2 g/dl (14.0-18.0); Immature Granulocytes # (auto) 0.01 K/uL (0.01-0.20); Immature Granulocytes % (auto) 0.2 %; Lymphocytes # (auto) 1.23 K/uL (1.20-3.40); Lymphocytes % (auto) 22.7 %; Mean Corpuscular Hemoglobin 28.9 pg (25.0-34.0); Mean Corpuscular Hgb Conc 32.7 g/dL (32.0-36.0); Mean Corpuscular Volume 88.2 fL (80.0-100.0); Mean Platelet Volume 11.2 fL (9.4-12.4); Monocytes % (auto) 12.9 %; Neutrophils # (auto) 3.37 K/uL (1.40-6.50); Neutrophils % (auto) 62.1 %; Platelet Count 190 K/uL (130-400); RDW Standard Deviation 48.1 fL (36.4-46.3); Red Blood Count 4.92 M/uL (4.70-6.10); White Blood Count 5.42 K/ul (4.8-10.8)
--- NOTE | 2023-04-02 11:14 | XRay Report ---
XR chest 1V portable CLINICAL HISTORY: Dyspnea. COMPARISON STUDY: Chest radiograph August 07, 2017. FINDINGS: Lung volumes are normal. Lungs are clear. Right apical density similar to CTA of August 30 019. This favors scarring. There is no pneumothorax or pleural effusion. Cardiac size is normal. Medi astinal contours are normal. There is no evidence for pulmonary edema. IMPRESSION: No acute cardiopulmonary findings. ACT 112: Negative or not required by law. Electronically signed by: Jas Jernigan M.D. 04/02/2023 11:12 AM
[2023-04-02 11:17] LABS: Albumin Globulin Ratio 1.4 (0.9-2); BUN Creatinine Ratio 13.7 (10-20); Bilirubin,Total 0.8 mg/dl (0.2-1.0); Calcium 9.1 mg/dl (8.6-10.3); Creatinine Clr Calc Pharmacy 55.4 ml/min; Est GFR (African American) 51.5 ml/min; Est GFR (Non-African American) 44.5 ml/min; Globulin 2.9 gm/dl (2.5-4.0); Magnesium 1.4 mg/dl (1.7-2.4); Potassium 4.2 mmol/L (3.5-5.1); Total Protein 6.9 gm/dl (6.0-8.3)
[2023-04-02 11:24] LABS: Troponin I High Sensitivity 5.2 pg/ml (0-20)
[2023-04-02 11:26] LABS: INR 1.1 (0.9-1.1); Partial Thromboplastin Ratio 1.1; Partial Thromboplastin Time 32 Seconds (21-31); Prothrombin Time 11.6 Seconds (9.0-12.0)
[2023-04-02] MEDS: MAGNESIUM SULFATE / D5W 1 GM/100 ML BAG IV SCH (11:43)
[2023-04-02 13:04] LABS: Influenza A virus by PCR Negative (Neg); Influenza B virus by PCR Negative (Neg); RSV by PCR Negative (Neg); SARS CoV2 RNA(COVID-19) Ceph POSITIVE (Negative)
--- NOTE | 2023-04-02 14:32 | History & Physical Report ---
Date of Service April 02, 2023 Assessment & Plan (1) Hypoxia: (2) COPD exacerbation: (3) SARS-CoV-2 positive: (4) Hypomagnesemia: (5) CAD (coronary artery disease): (6) T2DM (type 2 diabetes mellitus): Plan This is a 72-year-old male who has a significant past medical history of T2DM, diabetic peripheral neuropathy, COPD, JORGE A on CPAP, PAF, CAD, HTN, CKD stage III, BPH, gouty arthropathy, history of tobacco abuse who presents to ED secondary to shortness of breath x 2 days. Hypoxia COPD exacerbation SARS-CoV-2 admit to med tele Continue supplemental oxygen to keep O2 saturations greater than 90%, at baseline he is not on home oxygen IV Solu-Medrol 40 mg every 8 hours Pulmonary toilet with incentive spirometry, nebulizer DuoNeb 4 times daily At this time will not administer remdesivir Continue CPAP at bedtime Levaquin 500mg x 7 days Hypomagnesemia Replace to keep greater than 2 in setting of history of A-fib Insulin-dependent T2DM Last A1c 8.6 on 11/18/2022, repeat in a.m. Hold metformin Lantus/NovoLog per protocol Patient utilizes insulin pump at home but did not bring it with him. Encouraged him to have bring it in so we understand his baseline insulin requirements. Consult was made pharmacy for assistance in setting of IV Solu-Medrol CKD-3 baseline cr 1.5 avoid nephrotoxic agents monitor CAD hx of MAR/HTN: Chronic, stable, continue aspirin, statin, carvedilol, hydralazine, Imdur, lisinopril, torsemide PAF: Rate and rhythm controlled on Coreg. On Eliquis for anticoagulation JORGE A: Cpap at HS BPH/Hx of uti: continue methenamine DVT ppx: Eliquis FULL CODE PCP: Faina Dispo: admit to med tele Pt was seen and examined in collaboration with Dr. Carr, please see addendum A total of 76 minutes was spent coordinating, documenting, and providing care for this patient excluding time spent in the performance of separately billed services. This included personally viewing all current laboratories and imaging studies, medication reconciliation, outpatient chart review, and discussion with specialists. History of Present Illness Chief Complaint: SOB x 2 days. Primary Care Provider: Eliud Eisenberg MD This is a 72-year-old male who has a significant past medical history of T2DM, diabetic peripheral neuropathy, COPD, JORGE A on CPAP, PAF, CAD, HTN, CKD stage III, BPH, gouty arthropathy, history of tobacco abuse who presents to ED secondary to shortness of breath x 2 days. He was diagnosed with COVID-19 in the outpatient setting 2 days ago. His who was at home also was symptomatic but recovering. He complains of sinus congestion, cough, fatigue and increasing shortness of breath over the last 2 days. His shortness of breath worsened this morning which prompted him to present to the ED. In ED he was found to be hypoxic requiring supplemental oxygen via nasal cannula. He also received IV Solu-Medrol and hour-long nebulizer treatment. This did improve his shortness of breath significantly. He has prior history of tobacco use and longstanding history of COPD. He denies taking any inhalers on a regular basis. He is compliant with CPAP at bedtime. He has been compliant with medications. In ED he remained hemodynamically stable. His lab work was significant for CKD with creatinine 1.53 and stable, hyperglycemia with glucose of 281, low magnesium at 1.4 and his SARS-CoV-2 was positive. His chest x-ray was negative for any acute cardiopulmonary abnormality. Allergies Allergy/AdvReac Type Severity Reaction Status Date / Time Bactrim AdvReac Severe acute Unverified 08/09/17 12:18 renal failure sulfamethoxazole [Bactrim] AdvReac Severe acute Verified 04/02/23 13:21 renal failure trimethoprim [Bactrim] AdvReac Severe acute Verified 04/02/23 13:21 renal failure Home Medications Medication Instructions Recorded Confirmed Type atorvastatin 20 mg tablet 40 mg PO QPM 09/26/18 04/02/23 History carvedilol 12.5 mg tablet 12.5 mg PO BID 09/26/18 04/02/23 History cholecalciferol (vitamin D3) 25 1,000 units PO DAILY 09/26/18 04/02/23 History mcg (1,000 unit) capsule cyanocobalamin (vitamin B-12) 1,000 mcg PO DAILY 09/26/18 04/02/23 History 1,000 mcg tablet magnesium oxide 500 mg PO BID 09/26/18 04/02/23 History metformin 1,000 mg tablet 1,000 mg PO BID 09/26/18 04/02/23 History nitroglycerin 0.4 mg sublingual 0.4 mg sublingual Q5M 09/26/18 04/02/23 History tablet omega-3 acid ethyl esters 1 gram 1 cap PO BID 09/26/18 04/02/23 History capsule torsemide 10 mg tablet 10 mg PO DAILY 09/26/18 04/02/23 History pantoprazole 40 mg tablet,delayed 40 mg PO DAILY 10/05/18 04/02/23 History release (Protonix) hydralazine 10 mg tablet 10 mg PO BID 12/20/18 04/02/23 History isosorbide mononitrate 60 mg 60 mg PO DAILY 02/25/20 04/02/23 History tablet,extended release 24 hr aspirin 81 mg tablet,delayed 81 mg PO DAILY 06/22/21 04/02/23 History release lisinopril 20 mg tablet 20 mg PO DAILY 01/04/22 04/02/23 History insulin aspart U-100 100 unit/mL 1 sliding scale dose subcut 03/24/22 04/02/23 History subcutaneous cartridge (Novolog USEASDIRECTD PenFill U-100 Insulin aspart) insulin pump cart,cont inf,BT #5 ea 05/25/22 07/28/22 History (Omnipod Dash Pods (Gen 4) subcutaneous cartridge) methenamine hippurate 1 gram tablet 1 g PO DAILY #90 tabs 08/17/22 04/02/23 Rx pregabalin 225 mg capsule (Lyrica) 225 mg PO QID 90 days #360 caps 11/22/22 04/02/23 Rx duloxetine 60 mg capsule,delayed 60 mg PO BID 90 days #180 caps 02/22/23 04/02/23 Rx release allopurinol 100 mg tablet 100 mg PO QAM 04/02/23 04/02/23 History apixaban 5 mg tablet (Eliquis) 5 mg PO BID 04/02/23 04/02/23 History Past Med/Surg History Medical History CAD (coronary artery disease) "2008 - MAR to obtuse marginal " T2DM (type 2 diabetes mellitus) Benign localized hyperplasia of prostate with urinary obstruction Dyslipidemia HTN (hypertension) Paroxysmal a-fib Chronic anticoagulation therapy with Eliquis Spinal stenosis of lumbar region Lumbar facet joint syndrome Surgical History S/P sinus surgery S/P colonoscopy S/P cardiac catheterization S/P coronary artery stent placement Family History Mother Hypertension Diabetes Cancer Father Hypertension Cancer Social History Smoking Status: Former smoker Hx Alcohol Use: No Hx Substance Use: No Preferred Language: Kinyarwanda Visual Impairment: No Limitations Hearing Ability: Normal Beliefs That Will Affect Care: None marital status: Current Living Situation: Spouse current occupational status: retired Feels Safe at Home: Yes Review of Systems Review of Systems: All systems reviewed & are unremarkable except as noted in HPI & below Physical Exam Physical Exam: Constitutional: WD/WN, M, vitals as above, NAD, sitting up at bedside, pleasant, conversing easily Head: Normocephalic, Atraumatic Eyes: PERRL, conjunctivae normal, anicteric sclerae ENMT: external ear and nose normal, oropharynx normal Neck: trachea midline, no thyromegaly normal visual inspection Respiratory: normal respiratory effort, lungs clear to auscultation, with decreased BS at bases, no wheeze, rales, rhonchi. Normal insp/exp effort, no accessory muscle use Cardiovascular: RRR, no murmur, trace lower ext edema Vessels: no JVD or carotid bruit Chest: normal inspection of chest Abdomen: normal bowel sounds, soft, nontender, no hepatosplenomegaly Musculoskeletal: no cyanosis or clubbing, extremities motor strength 5/5 Skin: no rashes, warm and dry normal turgor Neurologic: PERRL, EOMI, accommodation nl, no face palsy, no dysarthria CN's II-XI intact bilaterally and moves all extremities Psychiatric: A+Ox3, euthymic affect Lymphatic: no cervical or axillary lymphadenopathy : deferred Results & Data Results & Data Vital Signs (Past 12 Hours) Vital Signs Temp Pulse Resp BP Pulse Ox O2 Del Method O2 Flow Rate 04/02/23 12:03 68 04/02/23 11:30 95 Nasal Cannula 2 04/02/23 11:08 87 L Nasal Cannula 04/02/23 11:00 66 21 87 L 04/02/23 10:48 64 13 97 Room Air 04/02/23 10:46 65 13 97 04/02/23 09:36 36.4 C L 72 19 115/61 94 Room Air Diagnostic Findings Chest X-Ray 04/02/23 10:11 XR chest 1V portable CLINICAL HISTORY: Dyspnea. COMPARISON STUDY: Chest radiograph August 07, 2017. FINDINGS: Lung volumes are normal. Lungs are clear. Right apical density similar to CTA of August 30, 2018. This favors scarring. There is no pneumothorax or pleural effusion. Cardiac size is normal. Mediastinal contours are normal. There is no evidence for pulmonary edema. IMPRESSION: No acute cardiopulmonary findings. ACT 112: Negative or not required by law. Electronically signed by: Jas Jernigan M.D. 04/02/2023 11:12 AM Medications Administered Medication List Discontinued Medications Albuterol (Albut/Ipratrop 3mg/0.5mg Neb 3 Ml Vial) 3 ml NEB NOW STA; Protocol Stop: 04/02/23 10:12 Last Admin: 04/02/23 10:40 Dose: 3 ml Documented By: CRISTIAN Albuterol (Albut/Ipratrop 3mg/0.5mg Neb 3 Ml Vial) 3 ml NEB NOW STA; Protocol Stop: 04/02/23 12:14 Last Admin: 04/02/23 12:44 Dose: 3 ml Documented By: AM Magnesium Sulfate/Dextrose (Magnesium Sulfate / D5w) 1 gm in 100 mls @ 100 mls/hr IV Q1H [facility] Stop: 04/02/23 13:29 Last Infusion: 04/02/23 13:45 Dose: Infused Documented By: Admin: 04/02/23 12:43 Dose: 100 mls/hr Documented By: Infusion: 04/02/23 12:43 Dose: Infused Documented By: Admin: 04/02/23 11:43 Dose: 100 mls/hr Documented By: AM Methylprednisolone (Methylprednisolone 125 Mg/2 Ml Vial) 60 mg IV NOW STA Stop: 04/02/23 10:12 Last Admin: 04/02/23 10:41 Dose: 60 mg Documented By: CRISTIAN ECG Rate (beats per minute): 68 Additional Comments: SR, 1 degree AV block, qtc 395ms COVID-19 Results Results COVID-19 Adm Lab Results: RBC 4.92 M/uL (4.70-6.10) 04/02/23 WBC 5.42 K/ul (4.8-10.8) 04/02/23 Hgb 14.2 g/dl (14.0-18.0) 04/02/23 Hct 43.4 % (42.0-52.0) 04/02/23 Plt Count 190 K/uL (130-400) 04/02/23 Neutrophils (%) (Auto) 62.1 % 04/02/23 Lymphocytes (%) (Auto) 22.7 % 04/02/23 Monocytes # (Auto) 0.70 K/uL (0.11-0.59) H 04/02/23 Eosinophils # (Auto) 0.08 K/uL (0.00-0.50) 04/02/23 Immature Granulocyte % (Auto) 0.2 % 04/02/23 Neutrophils # (Auto) 3.37 K/uL (1.40-6.50) 04/02/23 Lymphocytes # (Auto) 1.23 K/uL (1.20-3.40) 04/02/23 Monocytes # (Auto) 0.70 K/uL (0.11-0.59) H 04/02/23 Eosinophils # (Auto) 0.08 K/uL (0.00-0.50) 04/02/23 Basophils # (Auto) 0.03 K/uL (0.00-0.20) 04/02/23 Immature Granulocyte # (Auto) 0.01 K/uL (0.01-0.20) 4 Na 138 mmol/L (136-145) 04/02/23 K 4.2 mmol/L (3.5-5.1) 04/02/23 Cl 103 mmol/L (98-107) 04/02/23 CO2 27 mmol/L (21-32) 04/02/23 Anion Gap 8 (3-11) 04/02/23 BUN 21 mg/dl (6-23) 04/02/23 Creatinine 1.53 mg/dl (0.6-1.4) H 04/02/23 BUN/Creatinine Ratio 13.7 (10-20) 04/02/23 Glucose Level 281 mg/dl (70-99(Fasting)) H 04/02/23 Ca 9.1 mg/dl (8.6-10.3) 04/02/23 Total Bilirubin 0.8 mg/dl (0.2-1.0) 04/02/23 AST/SGOT 66 U/L (13-39) H 04/02/23 ALT/SGPT 52 U/L (7-52) 04/02/23 Alkaline Phosphatase 65 U/L (34-104) 04/02/23 Total Protein 6.9 gm/dl (6.0-8.3) 04/02/23 Albumin 4.0 gm/dl (3.4-5.0) 04/02/23 Globulin 2.9 gm/dl (2.5-4.0) 04/02/23 Albumin/Globulin Ratio 1.4 (0.9-2) 04/02/23 PTT 32 Seconds (21-31) H 04/02/23 INR 1.1 (0.9-1.1) 04/02/23 COVID-19 PCR POSITIVE (Negative) 04/02/23 Influenza Virus Type A (PCR) Negative (Neg) 04/02/23 Influenza Virus Type B (PCR) Negative (Neg) 04/02/23 Chest X-Ray 04/02/23 Code Status & VTE Plan Code Status FULL CODE VTE Prophylaxis Plan VTE Prophylaxis will be ordered: Yes Supervising Physician Co-Signing Physician Notes I have seen and examined the patient and have discussed the case with the provider above. I have reviewed the advanced practitioner's documentation, and I agree with, and take responsibility for that plan of care. 72-year-old man whose was recently infected with COVID came down with influenza-like symptoms testing positive for novel coronavirus on a home test Monday. In the last two days, he reports worsening shortness of breath and coughing this morning and presented with hypoxia. He reports feeling much better after init ial treatment in the ER including the breathing treatment. He has been started on steroids. Glucose is elevated and he was administered intravenous insulin with plans to continue basal bolus insulin while he is admitted. He otherwise denies any chest pain fevers chills or other GI symptoms. is at bedside and assist with history. On exam he is obese and in no acute distress. He is oxygenating 94% on 4 L/min via nasal cannula. He has no increased work of breathing. Lungs are clear to auscultation throughout and posterior and anterior lung ott. CV exam reveals S1-S2 heard with regular rate and rhythm and no evidence of murmurs. He has no peripheral edema. Abdomen is soft nontender nondistended. He is able to sit up independently and has no gross focal neuromuscular deficits. Workup today includes a chest x-ray with no acute cardiopulmonary findings. He has a normal CBC and BMP within normal limits with a creatinine of 1.53 which is his baseline. Magnesium is 1.4 and replacement was given in the ER. AST mildly elevated at 66 with an ALT of 52 and a normal total bilirubin of 0.8. Highly sensitive troponin was negative. Nasal swab ruled out influenza or RSV as coinfection's. Continue plan as noted above for COPD exacerbation in the setting of COVID-19 infection with hypoxia. DO Bruno
[2023-04-02] MEDS ORDERED: INSULIN HUMAN REGULAR PER UNIT 5 UNITS in SYRINGE 0 ML IV STA (16:04)
[2023-04-02] MEDS ORDERED: MAGNESIUM HYDROXIDE SUSP 30 ML UDC PO PRN (16:05)
[2023-04-02] MEDS ORDERED: ONDANSETRON INJ 2 MG/ML 2 ML VIAL IV PRN (16:05)
[2023-04-02] MEDS ORDERED: DEXTROSE 50% 50 ML SYRINGE IV PRN (16:05)
[2023-04-02] MEDS ORDERED: GLUCAGON FOR INJ 1 MG VIAL SQ PRN (16:05)
[2023-04-02] MEDS ORDERED: GLUCOSE 10 TAB/TUBE PO PRN (16:05)
[2023-04-02] MEDS ORDERED: POLYETHYLENE (MIRALAX) 17 GM PACK PO PRN (16:05)
[2023-04-02] MEDS ORDERED: PHARMACY GLYCEMIC MGMT CONSULT PRN (16:05)
[2023-04-02] MEDS ORDERED: CARBOHYDRATES FOR HYPOGLYCEMIA PO PRN (16:05)
[2023-04-02] MEDS ORDERED: ACETAMINOPHEN 325 MG TAB PO PRN (16:05)
[2023-04-02] MEDS ORDERED: GLUCOSE 40% GEL 15 GM TUBE PO PRN (16:05)
[2023-04-02] MEDS ORDERED: ALUMINUM/MAGNESIUM SUSP 30 ML UDC PO PRN (16:05)
[2023-04-02] MEDS: PREGABALIN 75 MG CAP PO SCH (17:52)
[2023-04-02] MEDS: levoFLOXacin 750 MG TAB PO SCH (17:53)
[2023-04-02] MEDS: carvediloL 12.5 MG TAB PO SCH (17:53)
[2023-04-02] MEDS: methylPREDNISolone 40 MG in SYRINGE 0 ML IV SCH (17:54)
[2023-04-02] MEDS: NovoLIN-N (NPH) PER UNIT CHARGE SQ ONE (17:55)
[2023-04-02] MEDS: ALBUT/IPRATROP 3MG/0.5MG NEB 3 ML VIAL NEB SCH (17:58)
[2023-04-02] MEDS: MAGNESIUM SULFATE / D5W 1 GM/100 ML BAG IV ONE (18:33)
[2023-04-02] MEDS: INSULIN ASPART PER UNIT CHARGE SC SCH (19:36)
[2023-04-02] MEDS: hydrALAZINE 10 MG TAB PO SCH (20:58)
[2023-04-02] MEDS: MAGNESIUM OXIDE 400 MG TAB PO SCH (20:58)
[2023-04-02] MEDS: APIXABAN 5 MG TABLET PO SCH (20:59)
[2023-04-02] MEDS: DULoxetine HCL 60 MG CAP PO SCH (20:59)
[2023-04-02] MEDS: ATORVASTATIN 40 MG TAB PO SCH (20:59)
[2023-04-02] MEDS ORDERED: LANTUS PER UNIT CHARGE SQ ONE (21:00)
[2023-04-03] MEDS: INSULIN ASPART PER UNIT CHARGE SC SCH (00:21)
[2023-04-03 04:41] LABS: Hemoglobin 14.3 g/dl (14.0-18.0); Immature Granulocytes # (auto) 0.02 K/uL (0.01-0.20); Immature Granulocytes % (auto) 0.3 %; Lymphocytes # (auto) 0.85 K/uL (1.20-3.40); Lymphocytes % (auto) 11.4 %; Mean Corpuscular Hemoglobin 29.4 pg (25.0-34.0); Mean Corpuscular Volume 86.2 fL (80.0-100.0); Monocytes # (auto) 0.35 K/uL (0.11-0.59); Monocytes % (auto) 4.7 %; Neutrophils # (auto) 6.24 K/uL (1.40-6.50); Neutrophils % (auto) 83.6 %; Platelet Count 180 K/uL (130-400); RDW Coefficient of Variation 14.6 % (11.5-14.5); RDW Standard Deviation 46.2 fL (36.4-46.3); Red Blood Count 4.87 M/uL (4.70-6.10); White Blood Count 7.46 K/ul (4.8-10.8)
[2023-04-03 05:37] LABS: Albumin Globulin Ratio 1.4 (0.9-2); BUN Creatinine Ratio 16.7 (10-20); Bilirubin,Total 0.5 mg/dl (0.2-1.0); Creatinine Clr Calc Pharmacy 45.6 ml/min; Est GFR (African American) 40.7 ml/min; Est GFR (Non-African American) 35.1 ml/min; Globulin 2.9 gm/dl (2.5-4.0); Magnesium 2.4 mg/dl (1.7-2.4); Potassium 4.8 mmol/L (3.5-5.1); Total Protein 6.9 gm/dl (6.0-8.3)
--- NOTE | 2023-04-03 06:54 | Electrocardiogram Report ---
Test Reason : Blood Pressure : / mmHG Vent. Rate : 068 BPM Atrial Rate : 068 BPM P-R Int : 228 ms QRS Dur : 082 ms QT Int : 372 ms P-R-T Axes : 071 -27 029 degrees QTc Int : 395 ms Sinus rhythm with 1st degree A-V block Inferior infarct , age undetermined Abnormal ECG When compared with ECG of 07-AUG-2017 11:46, Premature ventricular complexes are no longer Present Premature atrial complexes are no longer Present VA interval has increased QRS axis Shifted left Inferior infarct is now Present Nonspecific T wave abnormality no longer evident in Inferior leads Confirmed by Jas Duarte ([id number]) on 04/03/2023 6:54:01 AM Referred By: Confirmed By:Jas Duarte
[2023-04-03] MEDS ORDERED: LANTUS PER UNIT CHARGE SC ONE (07:30)
[2023-04-03] MEDS: allopurinoL 100 MG TAB PO SCH (08:00)
[2023-04-03] MEDS: CYANOCOBALAMIN (B-12) 500 MCG TABLET PO SCH (08:00)
[2023-04-03] MEDS: lisinopril 20 MG TAB PO SCH (08:02)
[2023-04-03] MEDS: ISOSORBIDE MONO EXTENDED REL 60 MG TABCR PO SCH (08:02)
[2023-04-03] MEDS: TORSEMIDE 10 MG TAB PO SCH (08:03)
[2023-04-03] MEDS: PANTOprazole 40 MG TAB PO SCH (08:03)
[2023-04-03 08:24] LABS: Estimated Average Glucose 220 mg/dl; Hemoglobin A1C 9.3 % (4.5-5.6)
--- NOTE | 2023-04-03 11:07 | Pharmacy Report ---
Pharmacy Glycemic Short Note 2 - Date of Service April 03, 2023 - Glycemic Short BSG Results (Last 24 hours): 04/02/23 04/02/23 04/02/23 10:38 17:57 19:26 Glucose 281 H POC Glucose 503 H* 466 H* 04/03/23 04/03/23 04/03/23 00:06 04:13 04:25 Glucose 325 H* POC Glucose 370 H* 301 H* 04/03/23 04/03/23 04:26 07:31 Glucose POC Glucose 313 H* 294 H OUTPATIENT ANTIDIABETIC REGIMEN: * Omnipod insulin pump, metformin * Follows [facility] clinic for DM management - last visit 03/02/23 - basal rate had been increased to 3.25 units/hr (~78 units/day), CR 4, CF 15 ASSESSMENT: * 72 year old admitted with COPD exacerbation, started on steroids. Type 2 diabetic managed on insulin omnipod at home. Patient does not have omnipod with him to review settings. * Patient received only 68 units of insulin yesterday, of which 35 units were NPH - insulin home requirements were not able to be assessed on admission therefore weight based dosing utilized. * RN discussed with patient today and he confirms basal rate of pump as confirmed with outpatient records. Insulin given late this AM as patient moving rooms, will increase basal to closer to home dose and tighten CF/CR with lunch time check. * AM insulin not given until ~1100 this AM, BSG checked 1 hour after was high ~400 as patient recently eating/insulin just given. Had nurse recheck closer to 2 hours after last insulin dose and still elevated 373 mg/dL - entered in IV insulin bolus x 1 * Will have nurse recheck BSG in another 2 hours to ensure trending down. May need to start insulin drip if still elevated with next check PLAN FOR INPATIENT GLYCEMIC CONTROL: * Hold outpatient oral diabetes medications * Basal insulin * Lantus 50 + 35 units this AM (85 units total) * Bolus insulin * NovoLog per scale ACHS or Q6hrs while NPO * Goal Range: Low 110 mg/dL - High 140 mg/dL * Correction Factor: 10 mg/dL/unit * Nutritional / Prandial insulin per carb ratio of 1 unit per 3 grams CHO consumed
[2023-04-03] MEDS: LANTUS PER UNIT CHARGE SC SCH (11:12)
[2023-04-03] MEDS: ASPIRIN 81 MG ECTAB PO SCH (11:52)
[2023-04-03] MEDS: CHOLECALCIFEROL 25 MCG (1000 UNITS) TAB PO SCH (11:53)
[2023-04-03] MEDS: AZITHROMYCIN 250 MG TAB PO SCH (11:53)
[2023-04-03] MEDS: METHENAMINE HIPPURATE 1 GM TAB PO SCH (11:53)
[2023-04-03] MEDS: LANTUS PER UNIT CHARGE SC ONE (13:56)
[2023-04-03] MEDS: NovoLIN-R INSULIN PER UNIT CHARGE IV ONE (13:56)
--- NOTE | 2023-04-03 15:17 | Hospitalist Progress Note ---
Date of Service April 03, 2023 Assessment & Plan (1) Hypoxia: (2) COPD exacerbation: (3) SARS-CoV-2 positive: (4) Hypomagnesemia: (5) CAD (coronary artery disease): (6) T2DM (type 2 diabetes mellitus): Plan 72-year-old male who has a significant past medical history of T2DM, diabetic peripheral neuropathy, COPD, JORGE A on CPAP, PAF, CAD, HTN, CKD stage III, BPH, gouty arthropathy, history of tobacco abuse who presents to ED secondary to shortness of breath x 2 days. Hypoxia COPD exacerbation SARS-CoV-2 Currently on room air Clinically improved Continue nebs Changed IV solumedrol to po prednisone Change antibiotics to azithromycin Hypomagnesemia Mg was 1.4 on admission Repleted. 2.4 today Insulin-dependent T2DM Last A1c 8.6 on 11/18/2022, repeat in a.m. Hold metformin Lantus/NovoLog per protocol Patient utilizes insulin pump at home but did not bring it with him. Discussed with glycemic Pharm regarding adjustments to optimize glycemic control CKD-3 Cr trends 1.3 to 1.6 Cr is 1.86 (was 1.53) MISTI on CKD3 Will give some IVF today and monitor CAD hx of MAR/HTN: Chronic, stable, continue aspirin, statin, carvedilol, hydralazine, Imdur, lisinopril, torsemide PAF: Rate and rhythm controlled on Coreg. On Eliquis for anticoagulation JORGE A: Cpap at HS BPH/Hx of uti: continue methenamine DVT ppx: Eliquis FULL CODE PCP: Faina Edwards spent a total of 50 minutes coordinating, documenting and providing care for this patient excluding time spent in performance of separately billed services Admission and Anticipated Discharge Date Admission Date: April 02, 2023 Subjective Patient seen and examined. Reports mild cough. Reports shortness of breath significantly improved. Denies chest pain. Reports upper respiratory symptoms as improved. Denies nausea, vomiting, abdominal pain, diarrhea chills, dysuria, frequency or Physical Exam Constitutional: + well hydrated and + obese; no acute di stress Eyes: PERRL, conjunctivae normal, anicteric sclerae ENMT: external ear and nose normal, oropharynx normal Respiratory: normal respiratory effort; no respiratory distress Auscultation: lungs clear to auscultation bilaterally Cardiovascular: Rate/Rhythm: regular rate and regular rhythm S1-S2 Gastrointestinal (Abdomen): normal bowel sounds, soft, nontender, no hepatosplenomegaly Musculoskeletal: no cyanosis or clubbing, extremities motor strength 5/5 Neurologic: PERRL, EOMI, accommodation nl, no face palsy, no dysarthria Psychiatric: A+Ox3, euthymic affect Results & Data Results & Data Vital Signs (Past 12 Hours) Vital Signs Temp Pulse Pulse Resp BP Pulse Ox O2 Del Method 04/03/23 12:07 54 L 13 94 Room Air 04/03/23 10:52 66 18 142/70 H 91 Room Air 04/03/23 08:00 36.8 C 67 22 138/69 92 Room Air 04/03/23 07:26 72 04/03/23 07:04 15 93 Room Air 04/03/23 04:10 61 19 95 O2 Flow Rate 04/03/23 12:07 04/03/23 10:52 04/03/23 08:00 04/03/23 07:26 04/03/23 07:04 04/03/23 04:10 4 Laboratory Results Abnormal lab results 04/02/23 04/02/23 04/03/23 Range/Units 17:57 19:26 00:06 RDW Coeff of Angelita (11.5-14.5) % Lymph # (Auto) (1.20-3.40) K/uL BUN (6-23) mg/dl Creatinine (0.6-1.4) mg/dl Glucose (70-99(Fasting)) mg/dl POC Glucose 503 H* 466 H* 370 H* (70-99) mg/dl Hemoglobin A1c (4.5-5.6) % 04/03/23 04/03/23 04/03/23 Range/Units 04:13 04:25 04:26 RDW Coeff of Angelita 14.6 H (11.5-14.5) % Lymph # (Auto) 0.85 L (1.20-3.40) K/uL BUN 31 H (6-23) mg/dl Creatinine 1.86 H D (0.6-1.4) mg/dl Glucose 325 H* (70-99(Fasting)) mg/dl POC Glucose 301 H* 313 H* (70-99) mg/dl Hemoglobin A1c 9.3 H (4.5-5.6) % 04/03/23 04/03/23 04/03/23 Range/Units 07:31 11:57 12:51 RDW Coeff of Angelita (11.5-14.5) % Lymph # (Auto) (1.20-3.40) K/uL BUN (6-23) mg/dl Creatinine (0.6-1.4) mg/dl Glucose (70-99(Fasting)) mg/dl POC Glucose 294 H 404 H* 373 H* (70-99) mg/dl Hemoglobin A1c (4.5-5.6) % 04/03/23 Range/Units 15:26 RDW Coeff of Angelita (11.5-14.5) % Lymph # (Auto) (1.20-3.40) K/uL BUN (6-23) mg/dl Creatinine (0.6-1.4) mg/dl Glucose (70-99(Fasting)) mg/dl POC Glucose 317 H* (70-99) mg/dl Hemoglobin A1c (4.5-5.6) %
[2023-04-03] MEDS: SODIUM CHLORIDE 0.9% 1,000 ML IV SCH (17:36)
[2023-04-04] MEDS: INSULIN ASPART PER UNIT CHARGE SC SCH (00:21)
[2023-04-04 04:01] LABS: Hematocrit (blood only) 42.4 % (42.0-52.0); Mean Corpuscular Hemoglobin 28.8 pg (25.0-34.0); Mean Corpuscular Volume 87.2 fL (80.0-100.0); Mean Platelet Volume 11.2 fL (9.4-12.4); Platelet Count 197 K/uL (130-400); RDW Coefficient of Variation 14.7 % (11.5-14.5); Red Blood Count 4.86 M/uL (4.70-6.10); White Blood Count 12.73 K/ul (4.8-10.8)
[2023-04-04 04:39] LABS: BUN Creatinine Ratio 25.5 (10-20); Calcium 8.6 mg/dl (8.6-10.3); Creatinine Clr Calc Pharmacy 51.4 ml/min; Est GFR (Non-African American) 40.6 ml/min; Magnesium 2.2 mg/dl (1.7-2.4); Phosphorus 3.4 mg/dl (2.5-4.9); Potassium 4.4 mmol/L (3.5-5.1)
[2023-04-04] MEDS ORDERED: LANTUS PER UNIT CHARGE SC SCH (07:30)
[2023-04-04] MEDS: NovoLIN-N (NPH) PER UNIT CHARGE SQ SCH (10:03)
[2023-04-04] MEDS: LANTUS PER UNIT CHARGE SC SCH (10:03)
[2023-04-04] MEDS ORDERED: ALBUT/IPRATROP 3MG/0.5MG NEB 3 ML VIAL NEB PRN (10:06)
[2023-04-04] MEDS: predniSONE 20 MG TAB PO SCH (10:06)
--- NOTE | 2023-04-04 13:21 | Discharge Summary ---
Date of Service April 04, 2023 Admission HPI Per Admitting Provider This is a 72-year-old male who has a significant past medical history of T2DM, diabetic peripheral neuropathy, COPD, JORGE A on CPAP, PAF, CAD, HTN, CKD stage III, BPH, gouty arthropathy, history of tobacco abuse who presents to ED secondary to shortness of breath x 2 days. He was diagnosed with COVID-19 in the outpatient setting 2 days ago. His who was at home also was symptomatic but recovering. He complains of sinus congestion, cough, fatigue and increasing shortness of breath over the last 2 days. His shortness of breath worsened this morning which prompted him to present to the ED. In ED he was found to be hypoxic requiring supplemental oxygen via nasal cannula. He also received IV Solu-Medrol and hour-long nebulizer treatment. This did improve his shortness of breath significantly. He has prior history of tobacco use and longstanding history of COPD. He denies taking any inhalers on a regular basis. He is compliant with CPAP at bedtime. He has been compliant with medications. In ED he remained hemodynamically stable. His lab work was significant for CKD with creatinine 1.53 and stable, hyperglycemia with glucose of 281, low magnesium at 1.4 and his SARS-CoV-2 was positive. His chest x-ray was negative for any acute cardiopulmonary abnormality. Admission Exam Per Admitting Provider Constitutional: WD/WN, M, vitals as above, NAD, sitting up at bedside, pleasant, conversing easily Head: Normocephalic, Atraumatic Eyes: PERRL, conjunctivae normal, anicteric sclerae ENMT: external ear and nose normal, oropharynx normal Neck: trachea midline, no thyromegaly normal visual inspection Respiratory: normal respiratory effort, lungs clear to auscultation, with decreased BS at bases, no wheeze, rales, rhonchi. Normal insp/exp effort, no accessory muscle use Cardiovascular: RRR, no murmur, trace lower ext edema Vessels: no JVD or carotid bruit Chest: normal inspection of chest Abdomen: normal bowel sounds, soft, nontender, no hepatosplenomegaly Musculoskeletal: no cyanosis or clubbing, extremities motor strength 5/5 Skin: no rashes, warm and dry normal turgor Neurologic: PERRL, EOMI, accommodation nl, no face palsy, no dysarthria CN's II-XI intact bilaterally and moves all extremities Psychiatric: A+Ox3, euthymic affect Lymphatic: no cervical or axillary lymphadenopathy : deferred Principal Diagnosis COPD exacerbation COVID 19 infection Discharge Exam Constitutional + well hydrated and + obese; no acute distress Eyes PERRL, conjunctivae normal, anicteric sclerae ENMT external ear and nose normal, oropharynx normal Respiratory normal respiratory effort; no respiratory distress Auscultation: lungs clear to auscultation bilaterally Cardiovascular Rate/Rhythm: regular rate and regular rhythm S1 S2 Gastrointestinal (Abdomen) normal bowel sounds, soft, nontender, no hepatosplenomegaly Musculoskeletal no cyanosis or clubbing, extremities motor strength 5/5 Neurologic PERRL, EOMI, accommodation nl, no face palsy, no dysarthria Psychiatric A+Ox3, euthymic affect Discharge Data Allergies Allergy/AdvReac Type Severity Reaction Status Date / Time Bactrim AdvReac Severe acute Unverified 08/09/17 12:18 renal failure sulfamethoxazole [Bactrim] AdvReac Severe acute Verified 04/02/23 13:21 renal failure trimethoprim [Bactrim] AdvReac Severe acute Verified 04/02/23 13:21 renal failure Consultations 04/02/23 12:41 ED Decision to Admit Stat Diabetes Follow up Diabetes Follow-up Needed for HgbA1c >9% Hospital Course (1) Hypoxia: (2) COPD exacerbation: (3) SARS-CoV-2 positive: (4) Hypomagnesemia: (5) CAD (coronary artery disease): (6) T2DM (type 2 diabetes mellitus): Plan 72-year-old male who has a significant past medical history of T2DM, diabetic peripheral neuropathy, COPD, JORGE A on CPAP, PAF, CAD, HTN, CKD stage III, BPH, gouty arthropathy, history of tobacco abuse who presents to ED secondary to shortness of breath x 2 days. Hypoxia COPD exacerbation COVID 19 infection Oxygen sats was noted to be 87% on admission and required oxygen only briefly Has been on room air since CXR did not show any acute abnormalities Was managed with nebs and steroids Shortness of breath has resolved Discharged on po prednisone for 2 more days to complete treatment Hypomagnesemia Mg was 1.4 on admission Repleted and normalized Insulin-dependent T2DM HbA1c 9.3 Was managed with insulin while inpatient Discussed with glycemic pharm Patient advised to increased basal rate from 3.25 to 3.5 while on prednisone and back to his usual dose after completion of prednisone CKD-3 Cr trends 1.3 to 1.6 Cr trended up to 1.86 yesterday MISTI on CKD3 Got some IVF Cr is down to 1.65 today CAD hx of MAR/HTN: Chronic, stable, continue aspirin, statin, carvedilol, hydralazine, Imdur, lisinopril, torsemide PAF: Rate and rhythm controlled on Coreg. On Eliquis for anticoagulation JORGE A: Cpap at HS BPH/Hx of uti: continue methenamine Total Time Total Time Spent Total Time Spent (In Minutes): 35 Total Time Includes: Examination of the Patient, Discharge Planning and Medication Reconciliation Discharge Plan Discharge Items Patient Disposition: Home - Self-Care Reason For Visit: COPD EXAC Discharge Diagnosis: COPD exacerbation COVID 19 infection Condition on Discharge: Fair Activity: Resume your previous activity Non-emergency contact: Primary Care Provider Call non-emergency contact if: you have any medication questions and your symptoms worsen Follow-up/Referrals: Eliud Eisenberg MD [Primary Care Provider] - (Date & Time 04/07/2023 11:00 AM Provider Eliud Eisenberg MD Department Family Practice [facility] ) Tata Walter, C.R.N.P. [Outside Practitioners] - (Date & Time 04/11/2023 10:00 AM Provider [facility] Diet: Carb Consistent or DM2 and Heart Healthy Addtl Attending Provider Instructions: Mr Rubio You came to the hospital with shortness of breath. You were evaluated and found to have COPD exacerbation due to COVID 19 infection. You were managed and symptoms improved. Please take prednisone 20mg daily for next 2 days. Please use an increased basal rate of 3.5 on your insulin pod starting tonight while on prednisone as we discussed. You can reduce back to your usual 3.25 once you complete prednisone Please ensure follow up with your Primary Doctor and [facility]. It was a pleasure taking care of you. Pending Studies at Discharge: No Stand-Alone Forms: My appssavvy, Smoking Cessation Medications and DC Order Prescriptions: New prednisone 20 mg Tablet 20 mg PO DAILY Qty: 2 0RF Continued aspirin 81 mg tablet,delayed release (DR/EC) 81 mg PO DAILY lisinopril 20 mg tablet 20 mg PO DAILY insulin aspart U-100 [Novolog PenFill U-100 Insulin] 100 unit/mL cartridge 1 sliding scale dose subcut USEASDIRECTD Rx Instructions: Pt is on the POD only uses this if something is wrong with POD or unable to get refill methenamine hippurate 1 gram tablet 1 g PO DAILY Qty: 90 1RF pregabalin [Lyrica] 225 mg capsule 225 mg PO QID 90 Days Qty: 360 1RF duloxetine 60 mg capsule,delayed release(DR/EC) 60 mg PO BID 90 Days Qty: 180 6RF atorvastatin 20 mg tablet 40 mg PO QPM carvedilol 12.5 mg tablet 12.5 mg PO BID cholecalciferol (vitamin D3) 1,000 unit capsule 1,000 units PO DAILY cyanocobalamin (vitamin B-12) 1,000 mcg tablet 1,000 mcg PO DAILY magnesium oxide 500 mg tablet 500 mg PO BID metformin 1,000 mg tablet 1,000 mg PO BID nitroglycerin 0.4 mg tablet, sublingual 0.4 mg SL Q5M torsemide 10 mg tablet 10 mg PO DAILY omega-3 acid ethyl esters 1 gram capsule 1 cap PO BID pantoprazole [Protonix] 40 mg tablet,delayed release (DR/EC) 40 mg PO DAILY hydralazine 10 mg tablet 10 mg PO BID isosorbide mononitrate 60 mg tablet extended release 24 hr 60 mg PO DAILY (DME) Omnipod Dash Pods (Gen 4) Cartridge See Rx Instructions .ROUTE .MEDSUPPLY Qty: 5 Rx Instructions: As directed allopurinol 100 mg tablet 100 mg PO QAM Eliquis 5 mg tablet 5 mg PO BID Discharge Orders: Discharge Order (Routine); Ordered 04/04/23 Ordered By: Ana Rosa Bautista/Other Patient Handouts: High Blood Sugar (Hyperglycemia), Managing Type 2 Diabetes, Hypomagnesemia Dc Admission Data Admit Date/Time: 04/02/23 13:52 Attending Provider: Ana Rosa Olivas I. Admit Provider: Angeline Carr Primary Care Provider: Eliud Eisenberg Other Providers: Angeline Carr Other Interventions: Discharge Summary Assessment (RN) Last Done: 04/04/23 14:14
== END 2023-04-04 14:26 | disposition home or self-care (01) | DRG 178 ==
LOC: ED 09:32 → EDINP 13:52 → SUATTDRO 13:52 → EDINP 16:05
DX: E11.42 Type 2 diabetes mellitus with diabetic polyneuropathy; Z88.2 Allergy status to sulfonamides; N18.30 Chronic kidney disease, stage 3 unspecified; E83.42 Hypomagnesemia; J44.1 Chronic obstructive pulmonary disease with (acute) exacerbation; Z79.4 Long term (current) use of insulin; Z87.891 Personal history of nicotine dependence; Z79.84 Long term (current) use of oral hypoglycemic drugs; Z79.82 Long term (current) use of aspirin; N17.9 Acute kidney failure, unspecified; U07.1 COVID-19

== ENCOUNTER 2023-05-10 08:50 | Inpatient (IN) ==
--- NOTE | 2023-05-10 09:13 | Emergency Department Note ---
Impression & Plan Sepsis, Lightheadedness, Syncope and collapse, Acute kidney injury superimposed on chronic kidney disease, Transaminitis, Elevated lactic acid level, Leukocytosis, Non-ST elevation [place] (NSTEMI) ED Provider Note HISTORY OF PRESENT ILLNESS: Patient is a 72-year-old male presenting with lightheadedness and a syncopal episode. Patient reports he was standing at the counter at around 8 AM when he suddenly felt lightheaded and fell backwards, passing out and striking the back of his head on the ground. witnessed the incident and states that the patient came to immediately after hitting the ground. He reportedly felt lightheaded yesterday when he was getting up out of his recliner and had to sit back down. He has been feeling generally unwell for the last few days. He is on Eliquis for history of A-fib. Not wear any supplemental oxygen at baseline. She is resting comfortably in the bed on examination and reports that she feels his normal self at this time. He denies any headache or changes in vision. Denies any numbness or tingling or weakness in extremities. He denies any chest pain or shortness of breath prior to the syncopal episode. He denies any recent fevers. Denies any recent vomiting or diarrhea. ROS: as above PHYSICAL EXAM: Constitutional: Patient appears in no acute distress. HENT: Head: Normocephalic and atraumatic. Eyes: EOMI, PERRL Mouth/Throat: Mucous membranes moist. Neck: Trachea midline. Neck supple. Cardiovascular: RRR, No murmurs, rubs or gallops. Intact distal pulses. Pulmonary/Chest: No respiratory distress. Breath sounds clear and equal bilaterally. No wheezes or rales. Abdominal: Abdomen soft, no tenderness, rebound or guarding. Musculoskeletal: No edema, tenderness or deformity noted. Skin: Warm and dry. No rash, erythema, pallor or cyanosis Psychiatric: Appropriate mood and affect for situation. Neurological: Alert and keenly responsive. Facies symmetric. Able to raise eyebrows, close eyes, smile, puff mouth, stick out tongue, move tongue left and right and raise palate symmetrically. Able to shrug shoulders. PERRLA. SILT to forehead below eye and at jawline. Can hear soft noise bilaterally. Strength 5/5 in bilateral upper and lower extremities. SILT throughout bilateral upper and lower extremities. MDM: - Vitals signs showed hypotension and hypoxia. - History obtained via patient. History as above. - Chronic conditions affecting care: CAD (s/p PCI); DM-2; HTN; HLD; AFib - Differential diagnoses include, but are not limited to: ACS; dysrhythmia; electrolyte abnormality; UTI; pneumonia; sepsis; PE; intracranial hemorrhage; CVA - Order placed for continuous cardiac monitoring. At this time, monitor showed rate of 60 bpm with normal sinus rhythm, per my interpretation. - External medical records reviewed. Discharge summary dated 04/04/2023 was reviewed. Patient was admitted at that time for a COPD exacerbation secondary to COVID-19 infection. - EKG interpreted by myself showed normal sinus rhythm. Rate 69 bpm. QT 382. No acute ischemic changes. - Laboratory workup interpreted by myself showed leukocytosis (WBC 14.00) with left shift; stable electrolytes; MISTI on CKD (Cr 2.37); elevated lactate (2.6); transaminitis (AST 51; ALT 56); elevated troponin (52.9); normal procalcitonin; normal TSH - CXR negative for pneumonia, per my interpretation - CT head wo contrast negative for acute intracranial pathology - CT cervical spine negative for acute pathology. - VBG within normal limits - COVID/flu/RSV negative - Blood cultures obtained. - Patient given 3L NS with improvement in BPs. Sepsis fluid volume based on ideal body weight 2181.6 mL. Empirically started on IV zosyn. - UA ordered, but not yet obtained prior to antibiotic dosing. - Patient's syncopal episode likely secondary to his profound hypotension. - Patient meets sepsis criteria. - Discussion was had with bilingual case manager about patient's case and need for admission - Hospitalist consulted for admission - Patient admitted to [facility] for further evaluation and management. ASSESSMENT AND PLAN: Diagnosis: MISTI on CKD; hypotension; lightheadedness; NSTEMI; elevated lactic acid level; transaminitis; leukocytosis; syncope and collapse Plan: admit Past Med/Surg History Medical History (Updated 05/10/23 @ 11:52 by Floresita Hahn MD) T2DM (type 2 diabetes mellitus) HTN (hypertension) CAD (coronary artery disease) "2008 - MAR to obtuse marginal " Benign localized hyperplasia of prostate with urinary obstruction Dyslipidemia Paroxysmal a-fib Chronic anticoagulation therapy with Eliquis Spinal stenosis of lumbar region Lumbar facet joint syndrome Surgical History (Updated 05/05/23 @ 00:10 by Aubrie Hernandez) S/P sinus surgery S/P colonoscopy S/P cardiac catheterization S/P coronary artery stent placement Family History Mother Hypertension Diabetes Cancer Father Hypertension Cancer Social History Smoking Status: Never smoker Hx Alcohol Use: No Hx Substance Use: No Preferred Language: Bruneian Communication Ability: Effective Visual Impairment: No Limitations Hearing Ability: Normal Employee Benefits Attorney Required: No Beliefs That Will Affect Care: None marital status: Current Living Situation: Spouse current occupational status: retired Feels Safe at Home: Yes Assistive Devices: Glasses Allergies Allergies Allergy/AdvReac Type Severity Reaction Status Date / Time Bactrim AdvReac Severe acute Unverified 08/09/17 12:18 renal failure sulfamethoxazole [Bactrim] AdvReac Severe acute Verified 04/02/23 13:21 renal failure trimethoprim [Bactrim] AdvReac Severe acute Verified 04/02/23 13:21 renal failure Home Meds Home Medications Medication Instructions Recorded Confirmed atorvastatin 20 mg tablet 40 mg PO QPM 09/26/18 05/10/23 carvedilol 12.5 mg tablet 12.5 mg PO BID 09/26/18 05/10/23 cholecalciferol (vitamin D3) 25 1,000 units PO DAILY 09/26/18 05/10/23 mcg (1,000 unit) capsule cyanocobalamin (vitamin B-12) 1,000 mcg PO DAILY 09/26/18 05/10/23 1,000 mcg tablet magnesium oxide 500 mg PO BID 09/26/18 05/10/23 metformin 1,000 mg tablet 1,000 mg PO BID 09/26/18 05/10/23 nitroglycerin 0.4 mg sublingual 0.4 mg sublingual Q5M 09/26/18 05/10/23 tablet omega-3 acid ethyl esters 1 gram 1 cap PO BID 09/26/18 05/10/23 capsule torsemide 10 mg tablet 10 mg PO DAILY 09/26/18 05/10/23 pantoprazole 40 mg tablet,delayed 40 mg PO DAILY 10/05/18 05/10/23 release (Protonix) hydralazine 10 mg tablet 10 mg PO BID 12/20/18 05/10/23 isosorbide mononitrate 60 mg 60 mg PO DAILY 02/25/20 05/10/23 tablet,extended release 24 hr aspirin 81 mg tablet,delayed 81 mg PO DAILY 06/22/21 05/10/23 release lisinopril 20 mg tablet 20 mg PO DAILY 01/04/22 05/10/23 insulin aspart U-100 100 unit/mL 1 sliding scale dose subcut 03/24/22 05/10/23 subcutaneous cartridge (Novolog USEASDIRECTD PenFill U-100 Insulin aspart) insulin pump cart,cont inf,BT #5 ea 05/25/22 07/28/22 (Omnipod Dash Pods (Gen 4) subcutaneous cartridge) allopurinol 100 mg tablet 100 mg PO QAM 04/02/23 05/10/23 apixaban 5 mg tablet (Eliquis) 5 mg PO BID 04/02/23 05/10/23 clarithromycin 500 mg tablet 500 mg PO BID 05/10/23 05/10/23 prednisone 20 mg tablet 20 mg PO UD 05/10/23 05/10/23 Previous Rx's Medication Instructions Recorded methenamine hippurate 1 gram tablet 1 g PO DAILY #90 tabs 08/17/22 pregabalin 225 mg capsule (Lyrica) 225 mg PO QID 90 days #360 caps 11/22/22 duloxetine 60 mg capsule,delayed 60 mg PO BID 90 days #180 caps 02/22/23 release Results & Data (ED) Vital Signs Vital Signs - 24 hr 05/10/23 08:51 05/10/23 08:53 05/10/23 09:10 Temperature 36.9 C Temperature Source Temporal Artery Scan Pulse Rate 76 Pulse Rate [Right Finger] 65 Pulse Rate from SpO2 Sensor Pulse Rhythm Pulse Rhythm [Right Finger] Regular Respiratory Rate 20 20 Respiratory Effort / Characteristics Non-Labored Non-Labored Spontaneous Respiratory Depth Normal Normal Respiratory Pattern Regular Blood Pressure 67/47 L Blood Pressure [Left Arm] 86/55 L Blood Pressure Mean 53 Blood Pressure Mean [Left Arm] 65 Blood Pressure Position [Left Arm] Semi-fowlers Pulse Oximetry 89 L 89 L 92 Oxygen Delivery Method Nasal Cannula Room Air Nasal Cannula Oxygen Flow Rate 2 2 Sepsis Recent Fever Within 48 Hours No Sepsis New/Unexplained Change in Mental Status No Sepsis Action Taken by Nursing No Action Required Oxygen Flow Rate - Titration 2 Pulse Oximetry Post Tiitration 94 05/10/23 09:15 05/10/23 09:17 05/10/23 09:27 Temperature Temperature Source Pulse Rate 67 64 65 Pulse Rate [Right Finger] Pulse Rate from SpO2 Sensor Pulse Rhythm Regular Pulse Rhythm [Right Finger] Respiratory Rate 20 20 Respiratory Effort / Characteristics Respiratory Depth Respiratory Pattern Blood Pressure 86/55 L Blood Pressure [Left Arm] Blood Pressure Mean 65 Blood Pressure Mean [Left Arm] Blood Pressure Position [Left Arm] Pulse Oximetry 92 92 Oxygen Delivery Method Nasal Cannula Nasal Cannula Oxygen Flow Rate 2 2 Sepsis Recent Fever Within 48 Hours Sepsis New/Unexplained Change in Mental Status Sepsis Action Taken by Nursing Oxygen Flow Rate - Titration Pulse Oximetry Post Tiitration 05/10/23 09:41 05/10/23 09:45 05/10/23 09:55 Temperature Temperature Source Pulse Rate 61 62 Pulse Rate [Right Finger] 57 L Pulse Rate from SpO2 Sensor Pulse Rhythm Pulse Rhythm [Right Finger] Respiratory Rate 19 18 16 Respiratory Effort / Characteristics Non-Labored Spontaneous Respiratory Depth Normal Respiratory Pattern Regular Blood Pressure 77/51 L 78/55 L Blood Pressure [Left Arm] 78/55 L Blood Pressure Mean 59 62 Blood Pressure Mean [Left Arm] 62 Blood Pressure Position [Left Arm] Semi-fowlers Pulse Oximetry 94 93 94 Oxygen Delivery Method Nasal Cannula Nasal Cannula Nasal Cannula Oxygen Flow Rate 2 2 2 Sepsis Recent Fever Within 48 Hours Sepsis New/Unexplained Change in Mental Status Sepsis Action Taken by Nursing Oxygen Flow Rate - Titration Pulse Oximetry Post Tiitration 05/10/23 10:00 05/10/23 10:15 05/10/23 10:30 Temperature Temperature Source Pulse Rate 55 L 54 L Pulse Rate [Right Finger] 58 L Pulse Rate from SpO2 Sensor Pulse Rhythm Pulse Rhythm [Right Finger] Respiratory Rate 19 17 14 Respiratory Effort / Characteristics Non-Labored Spontaneous Respiratory Depth Normal Respiratory Pattern Regular Blood Pressure 105/55 L 114/61 Blood Pressure [Left Arm] 99/55 L Blood Pressure Mean 71 78 Blood Pressure Mean [Left Arm] 69 Blood Pressure Position [Left Arm] Semi-fowlers Pulse Oximetry 94 95 97 Oxygen Delivery Method Nasal Cannula Nasal Cannula Nasal Cannula Oxygen Flow Rate 2 2 2 Sepsis Recent Fever Within 48 Hours Sepsis New/Unexplained Change in Mental Status Sepsis Action Taken by Nursing Oxygen Flow Rate - Titration Pulse Oximetry Post Tiitration 05/10/23 10:45 05/10/23 10:45 05/10/23 11:00 Temperature Temperature Source Pulse Rate 53 L 54 L 53 L Pulse Rate [Right Finger] Pulse Rate from SpO2 Sensor Pulse Rhythm Pulse Rhythm [Right Finger] Respiratory Rate 19 10 L 17 Respiratory Effort / Characteristics Respiratory Depth Respiratory Pattern Blood Pressure 126/62 118/80 113/65 Blood Pressure [Left Arm] Blood Pressure Mean 93 92 81 Blood Pressure Mean [Left Arm] Blood Pressure Position [Left Arm] Pulse Oximetry 96 96 95 Oxygen Delivery Method Nasal Cannula Nasal Cannula Nasal Cannula Oxygen Flow Rate 2 2 2 Sepsis Recent Fever Within 48 Hours Sepsis New/Unexplained Change in Mental Status Sepsis Action Taken by Nursing Oxygen Flow Rate - Titration Pulse Oximetry Post Tiitration 05/10/23 11:10 05/10/23 11:15 05/10/23 11:30 Temperature Temperature Source Pulse Rate 53 L 54 L 59 L Pulse Rate [Right Finger] Pulse Rate from SpO2 Sensor 53 L Pulse Rhythm Pulse Rhythm [Right Finger] Respiratory Rate 16 17 20 Respiratory Effort / Characteristics Respiratory Depth Respiratory Pattern Blood Pressure 116/62 87/43 L Blood Pressure [Left Arm] Blood Pressure Mean 80 57 Blood Pressure Mean [Left Arm] Blood Pressure Position [Left Arm] Pulse Oximetry 95 91 90 Oxygen Delivery Method Nasal Cannula Nasal Cannula Oxygen Flow Rate 2 2 Sepsis Recent Fever Within 48 Hours Sepsis New/Unexplained Change in Mental Status Sepsis Action Taken by Nursing Oxygen Flow Rate - Titration Pulse Oximetry Post Tiitration Laboratory Data 05/10/23 09:05 05/10/23 09:05 Lab Results 05/10/23 05/10/23 05/10/23 Range/Units 09:05 09:13 11:18 WBC 14.00 H (4.8-10.8) K/ul RBC 5.30 (4.70-6.10) M/uL Hgb 15.6 (14.0-18.0) g/dl Hct 45.3 (42.0-52.0) % MCV 85.5 (80.0-100.0) fL MCH 29.4 (25.0-34.0) pg MCHC 34.4 (32.0-36.0) g/dL RDW Std Deviation 45.9 (36.4-46.3) fL RDW Coeff of Angelita 14.9 H (11.5-14.5) % Plt Count 249 (130-400) K/uL MPV 11.3 (9.4-12.4) fL Immature Gran % (Auto) 1.3 % Neut % (Auto) 77.4 % Lymph % (Auto) 14.2 % [place] % (Auto) 6.3 % Eos % (Auto) 0.6 % Baso % (Auto) 0.2 % Neut # (Auto) 10.84 H (1.40-6.50) K/uL Lymph # (Auto) 1.99 (1.20-3.40) K/uL [place] # (Auto) 0.88 H (0.11-0.59) K/uL Eos # (Auto) 0.08 (0.00-0.50) K/uL Baso # (Auto) 0.03 (0.00-0.20) K/uL Immature Gran # (Auto) 0.18 (0.01-0.20) K/uL PT 11.7 (9.0-12.0) Seconds INR 1.1 (0.9-1.1) VBG pH 7.40 (7.36-7.41) VBG pCO2 48 (38-50) mmHg VBG pO2 52 mmHg VBG HCO3 30 mmol/L VBG O2 Saturation 80.8 % VBG Base Excess 3.9 mEq/L Sodium 137 (136-145) mmol/L Potassium 3.9 (3.5-5.1) mmol/L Chloride 99 (98-107) mmol/L Carbon Dioxide 30 (21-32) mmol/L Anion Gap 8 (3-11) BUN 62 H (6-23) mg/dl Creatinine 2.37 H (0.6-1.4) mg/dl Est Cr Clr Drug Dosing 36.5 ml/min Est GFR ( Amer) 30.4 ml/min Est GFR (Non-Af Amer) 26.2 ml/min BUN/Creatinine Ratio 26.2 H (10-20) Glucose 197 H (70-99(Fasting)) mg/dl Lactate 2.6 H* 1.5 (0.4-2.0) mmol/L Calcium 9.2 (8.6-10.3) mg/dl Magnesium 1.9 (1.7-2.4) mg/dl Total Bilirubin 1.1 H (0.2-1.0) mg/dl AST 51 H (13-39) U/L ALT 56 H (7-52) U/L Alkaline Phosphatase 58 (34-104) U/L Troponin I High Sens 52.9 H* (0-20) pg/ml Total Protein 6.3 (6.0-8.3) gm/dl Albumin 3.6 (3.4-5.0) gm/dl Globulin 2.7 (2.5-4.0) gm/dl Albumin/Globulin Ratio 1.3 (0.9-2) Lipase 68 (11-82) U/L Procalcitonin 0.26 (0-0.5) ng/ml TSH 2.903 (0.300-4.500) uIu/ml SARS-CoV-2 (PCR) NEGATIVE (Negative) Influenza Type A (PCR) Negative (Neg) Influenza Type B (PCR) Negative (Neg) RSV (RT-PCR) Negative (Neg) Administered Medications Discontinued Medications Sodium Chloride (Nss) 1,000 mls @ 999 mls/hr IV .Q1H1M OSCAR Stop: 05/10/23 11:15 Last Infusion: 05/10/23 11:32 Dose: Infused Documented By: Admin: 05/10/23 10:21 Dose: 999 mls/hr Documented By: Infusion: 05/10/23 10:19 Dose: Infused Documented By: Infusion: 05/10/23 09:28 Dose: 999 mls/hr Documented By: Admin: 05/10/23 09:18 Dose: 999 mls/hr Documented By: CHARY Piperacillin Sod/Tazobactam Sod (Zosyn) 4.5 gm in 100 mls @ 200 mls/hr IV NOW ONE Stop: 05/10/23 09:58 Last Infusion: 05/10/23 10:32 Dose: Infused Documented By: Admin: 05/10/23 09:57 Dose: 200 mls/hr Documented By: DANNY Sodium Chloride (Nss) 1,000 mls @ 999 mls/hr IV .Q1H1M ONE Stop: 05/10/23 10:56 Last Admin: 05/10/23 10:49 Dose: 999 mls/hr Documented By: [facility] Imaging Data Radiologist's Impression: Chest X-Ray 05/10/23 08:56 XR chest 1V portable CLINICAL HISTORY: Syncope. COMPARISON STUDY: Chest radiograph April 02, 2023. FINDINGS: Lung volumes are normal. Lungs are clear. There is no pneumothorax or pleural effusion. Cardiac size is normal. Mediastinal contours are normal. There is no evidence for pulmonary edema. IMPRESSION: No acute cardiopulmonary findings. ACT 112: Negative or not required by law. Electronically signed by: Jas Jernigan M.D. 05/10/2023 10:[address] 05/10/23 09:10 CT OF THE CERVICAL SPINE WITHOUT CONTRAST CLINICAL HISTORY: syncope; struck head; on eliquis COMPARISON STUDY: CTA of the neck August 30, 2018. TECHNIQUE: Helical axial images of the cervical spine were obtained without IV contrast. Sagittal and coronal reconstructions were viewed. Automated exposure control was utilized for the study. A dose lowering technique was utilized adhering to the principles of ALARA. FINDINGS: Alignment of the cervical spine is anatomic. Vertebral body heights are maintained. No acute cervical spine fracture or subluxation is present. There is no prevertebral edema. Facet joints are intact. There is mild multilevel disc space narrowing and osteophytosis. There is moderate multilevel facet arthrosis. Trace fluid within the bilateral mastoid air cells. Sphenoid sinus mucosal thickening is incidentally noted. IMPRESSION: No acute cervical spine fracture or subluxation. ACT 112: Negative or not required by law. Electronically signed by: Jas Jernigan M.D. 05/10/2023 9:[address] 05/10/23 09:10 CT SCAN OF THE BRAIN WITHOUT IV CONTRAST CLINICAL HISTORY: Syncope COMPARISON STUDY: CT of the brain dated 08/30/2018. TECHNIQUE: Unenhanced axial CT scan of the brain is performed from the vertex to the skull base. A dose lowering technique was utilized adhering to the principles of ALARA. FINDINGS: Brain parenchyma: A focus of right parietal encephalomalacia is consistent with a remote insult. There is age-related involutional change noting mild subcortical and periventricular microangiopathic disease. There is no hemorrhage, mass effect, or evidence of acute territorial ischemia by CT criteria. Ramsey-white matter differentiation is preserved. No extra-axial fluid collection is seen. Ventricles, sulci, cisterns: Prominent secondary to involutional change. Intracranial vasculature: There is atherosclerotic calcification of the cavernous carotid and vertebral arteries. Calvarium: Unremarkable. Sinuses and mastoids: There is evidence of previous paranasal sinus surgery. There is trace because of thickening within the maxillary antra. A 1.9 cm retention cyst is seen on the right. Moderate mucosal thickening is seen in the sphenoid sinuses. There is mild mucosal thickening in the ethmoid resection cavity. There are trace mastoid effusions. Orbits: The bony orbits are grossly intact. There are bilateral ocular lens implants. IMPRESSION: There is no hemorrhage, mass effect, or evidence of acute territorial ischemia by CT criteria. ACT 112: Negative or not required by law. Electronically signed by: Isidro Stuart M.D. 05/10/2023 9:50 AM Discharge Plan Visit Data Chief Complaint: Syncope Stated Complaint: PASSING OUT ON AND OFF ED Provider: Floresita Hahn Discharge Problem: Sepsis, Lightheadedness, Syncope and collapse, Acute kidney injury superimposed on chronic kidney disease, Transaminitis, Elevated lactic acid level, Leukocytosis, Non-ST elevation [place] (NSTEMI) Forms Stand Alone Forms: My [facility] TV2 Holding Prescriptions Prescriptions: No Action aspirin 81 mg tablet,delayed release (DR/EC) 81 mg PO DAILY lisinopril 20 mg tablet 20 mg PO DAILY insulin aspart U-100 [Novolog PenFill U-100 Insulin] 100 unit/mL cartridge 1 sliding scale dose subcut USEASDIRECTD Rx Instructions: Pt is on the POD only uses this if something is wrong with POD or unable to get refill methenamine hippurate 1 gram tablet 1 g PO DAILY Qty: 90 1RF pregabalin [Lyrica] 225 mg capsule 225 mg PO QID 90 Days Qty: 360 1RF duloxetine 60 mg capsule,delayed release(DR/EC) 60 mg PO BID 90 Days Qty: 180 6RF atorvastatin 20 mg tablet 40 mg PO QPM carvedilol 12.5 mg tablet 12.5 mg PO BID cholecalciferol (vitamin D3) 1,000 unit capsule 1,000 units PO DAILY cyanocobalamin (vitamin B-12) 1,000 mcg tablet 1,000 mcg PO DAILY magnesium oxide 500 mg tablet 500 mg PO BID metformin 1,000 mg tablet 1,000 mg PO BID nitroglycerin 0.4 mg tablet, sublingual 0.4 mg SL Q5M torsemide 10 mg tablet 10 mg PO DAILY omega-3 acid ethyl esters 1 gram capsule 1 cap PO BID pantoprazole [Protonix] 40 mg tablet,delayed release (DR/EC) 40 mg PO DAILY hydralazine 10 mg tablet 10 mg PO BID isosorbide mononitrate 60 mg tablet extended release 24 hr 60 mg PO DAILY (DME) Omnipod Dash Pods (Gen 4) Cartridge See Rx Instructions .ROUTE .MEDSUPPLY Qty: 5 Rx Instructions: As directed allopurinol 100 mg tablet 100 mg PO QAM Eliquis 5 mg tablet 5 mg PO BID clarithromycin 500 mg tablet 500 mg PO BID prednisone 20 mg tablet 20 mg PO UD Rx Instructions: Take 4 tabs daily for 2 days, 3 tabs daily for 2 days, 2 tabs daily for 2 days, 1 tab daily for 2 days Referrals Referrals: Eliud Eisenberg MD [Primary Care Provider] -
[2023-05-10] MEDS: SODIUM CHLORIDE 0.9% 1,000 ML IV SCH ×3 (09:18→20:48)
[2023-05-10 09:25] LABS: Base Excess VBG 3.9 mEq/L; HCO3 VBG 30 mmol/L; Oxygen Saturation VBG 80.8 %; PCO2 VBG 48 mmHg (38-50); PO2 VBG 52 mmHg
[2023-05-10 09:26] LABS: Basophils # (auto) 0.03 K/uL (0.00-0.20); Basophils % (auto) 0.2 %; Eosinophils # (auto) 0.08 K/uL (0.00-0.50); Eosinophils % (auto) 0.6 %; Hematocrit (blood only) 45.3 % (42.0-52.0); Hemoglobin 15.6 g/dl (14.0-18.0); Immature Granulocytes # (auto) 0.18 K/uL (0.01-0.20); Immature Granulocytes % (auto) 1.3 %; Lymphocytes # (auto) 1.99 K/uL (1.20-3.40); Lymphocytes % (auto) 14.2 %; Mean Corpuscular Hemoglobin 29.4 pg (25.0-34.0); Mean Corpuscular Hgb Conc 34.4 g/dL (32.0-36.0); Mean Corpuscular Volume 85.5 fL (80.0-100.0); Mean Platelet Volume 11.3 fL (9.4-12.4); Monocytes # (auto) 0.88 K/uL (0.11-0.59); Monocytes % (auto) 6.3 %; Neutrophils # (auto) 10.84 K/uL (1.40-6.50); Neutrophils % (auto) 77.4 %; Platelet Count 249 K/uL (130-400); RDW Coefficient of Variation 14.9 % (11.5-14.5); RDW Standard Deviation 45.9 fL (36.4-46.3)
[2023-05-10 09:42] LABS: Albumin Globulin Ratio 1.3 (0.9-2); Albumin Level 3.6 gm/dl (3.4-5.0); BUN Creatinine Ratio 26.2 (10-20); Bilirubin,Total 1.1 mg/dl (0.2-1.0); Calcium 9.2 mg/dl (8.6-10.3); Creatinine Clr Calc Pharmacy 36.5 ml/min; Est GFR (African American) 30.4 ml/min; Est GFR (Non-African American) 26.2 ml/min; Globulin 2.7 gm/dl (2.5-4.0); Magnesium 1.9 mg/dl (1.7-2.4); Potassium 3.9 mmol/L (3.5-5.1); Total Protein 6.3 gm/dl (6.0-8.3)
--- NOTE | 2023-05-10 09:48 | CT Scan Report ---
CT OF THE CERVICAL SPINE WITHOUT CONTRAST CLINICAL HISTORY: syncope; struck head; on eliquis COMPARISON STUDY: CTA of the neck August 30, 2018. TECHNIQUE: Helical axial images of the cervical spine were obtained without IV contrast. Sagittal a nd coronal reconstructions were viewed. Automated exposure control was utilized for the study. A do se lowering technique was utilized adhering to the principles of ALARA. FINDINGS: Alignment of the cervical spine is anatomic. Vertebral body heights are maintained. No acut e cervical spine fracture or subluxation is present. There is no prevertebral edema. Facet joints are intact. There is mild multilevel disc space narrowing and osteophytosis. There is moderate multilev el facet arthrosis. Trace fluid within the bilateral mastoid air cells. Sphenoid sinus mucosal thicke saad is incidentally noted. IMPRESSION: No acute cervical spine fracture or subluxation. ACT 112: Negative or not required by law. Electronically signed by: Jas Jernigan M.D. 05/10/2023 9:47 AM
[2023-05-10 09:51] LABS: INR 1.1 (0.9-1.1); Prothrombin Time 11.7 Seconds (9.0-12.0)
--- NOTE | 2023-05-10 09:52 | CT Scan Report ---
CT SCAN OF THE BRAIN WITHOUT IV CONTRAST CLINICAL HISTORY: Syncope COMPARISON STUDY: CT of the brain dated 08/30/2018. TECHNIQUE: Unenhanced axial CT scan of the brain is performed from the vertex to the skull base. A do se lowering technique was utilized adhering to the principles of ALARA. FINDINGS: Brain parenchyma: A focus of right parietal encephalomalacia is consistent with a remote insult. Ther e is age-related involutional change noting mild subcortical and periventricular microangiopathic dis ease. There is no hemorrhage, mass effect, or evidence of acute territorial ischemia by CT criteria. Ramsey-white matter differentiation is preserved. No extra-axial fluid collection is seen. Ventricles, sulci, cisterns: Prominent secondary to involutional change. Intracranial vasculature: There is atherosclerotic calcification of the cavernous carotid and vertebr al arteries. Calvarium: Unremarkable. Sinuses and mastoids: There is evidence of previous paranasal sinus surgery. There is trace because o f thickening within the maxillary antra. A 1.9 cm retention cyst is seen on the right. Moderate mucos al thickening is seen in the sphenoid sinuses. There is mild mucosal thickening in the ethmoid resect ion cavity. There are trace mastoid effusions. Orbits: The bony orbits are grossly intact. There are bilateral ocular lens implants. IMPRESSION: There is no hemorrhage, mass effect, or evidence of acute territorial ischemia by CT zackary garcia. ACT 112: Negative or not required by law. Electronically signed by: Isidro Stuart M.D. 05/10/2023 9:50 AM
[2023-05-10 09:57] LABS: Thyroid Stimulating Hormone 2.903 uIu/ml (0.300-4.500)
[2023-05-10] MEDS: PIPERACILLIN/TAZOBACTAM 4.5 GM/100 ML BAG IV ONE (09:57)
[2023-05-10 10:03] LABS: Troponin I High Sensitivity 52.9 pg/ml (0-20)
--- NOTE | 2023-05-10 10:06 | XRay Report ---
XR chest 1V portable CLINICAL HISTORY: Syncope. COMPARISON STUDY: Chest radiograph April 02, 2023. FINDINGS: Lung volumes are normal. Lungs are clear. There is no pneumothorax or pleural effusion. Car diac size is normal. Mediastinal contours are normal. There is no evidence for pulmonary edema. IMPRESSION: No acute cardiopulmonary findings. ACT 112: Negative or not required by law. Electronically signed by: Jas Jernigan M.D. 05/10/2023 10:05 AM
[2023-05-10] MEDS: SODIUM CHLORIDE 0.9% 1,000 ML IV ONE (10:49)
--- NOTE | 2023-05-10 11:22 | History & Physical Report ---
Date of Service May 10, 2023 Assessment & Plan (1) Syncope: (2) Hypoxia: (3) Paroxysmal a-fib: (4) Dyslipidemia: (5) CAD (coronary artery disease): (6) T2DM (type 2 diabetes mellitus): (7) Sepsis: Plan: Syncopal Episode CAD hx of MAR/HTN Sepsis with MISTI, hypotension, concern for UTI -Admit to tele - Troponin bumped at 52.9, EKG reviewed showing NSR, previous inferior infarct. Will obtain a complete echo today - Chronic, stable, continue aspirin, statin - Holding BP meds for now including carvedilol, hydralazine, Imdur, lisinopril, torsemide - S/p 3 L NSS with bp 60/40 113/65, will monitor and possibly need ICU for p ressor support if not able to maintain MAP of 65 - CXR is negative, will check CT chest w/o contrast - Bar catheter with MISTI and no urine sample obtained yet --patient reports that he straight caths 4 times per day and has for many years with history of enlarged prostate, denies history of neurogenic bladder, states that he thinks he may have a urinary tract infection due to seeing cloudy urine recently - Follow blood cultures x 2, started on Zosyn IV empirically, continue for now - Check MRSA nasal swab with recent hospitalization update persistent hypotension despite 3.5 L in, will check random cortisol and give solucortef 100 mg IV now after discussion with ICU. Appears his last admission was treated with steroids and prednisone, last dose may be on 04/07/23? Pt may require ICU if unable to maintain pressure. Gait disturbance Garbled speech -CT of the head reveals a small chronic infarct which may be contributing to his garbled speech and gait. There is no acute bleed noted (on eliquis) -Check MRI brain - PT/OT evals PAF Rate and rhythm controlled on Coreg. On Eliquis for anticoagulation Hypoxia COPD exacerbation COVID 19 infection - O2 sats was noted to be 89% on admission and required oxygen 2 L which is new, does not need at baseline -- he is 94% on RA during my eval -CXR did not show any acute abnormalities -CT chest as above DM II, Insulin-dependent -HbA1c 9.3 -ISS with accuchecks achs -Home regimen of: MISTI on CKD-3 -Baseline Cr trends 1.3 to 1.6, today elevated at 2.37 -IVF s/p 3 L -Hold nephrotoxins and renally reduce medications JORGE A -Cpap at HS BPH/Hx of uti -continue methenamine - As above DVT ppx: teds, scds Lines: 2 PIV FEN/GI: HH/DM diet CODE: Full code Dispo: From home, likely to remain in the hospital x 1-2 days A total of 80 minutes were spent with greater than 50% of that time face to face with the patient, personally reviewing all current laboratories, imaging studies, past medication reconciliation, outpatient chart review, and discussion with specialists to collaborate care for the patient with attending. Please see attending documentation for corrections and/or additions. History of Present Illness Chief Complaint: Syncopal episode Primary Care Provider: Eliud Eisenberg MD 72-year-old male who has a significant past medical history of T2DM, diabetic peripheral neuropathy, COPD, JORGE A on CPAP, PAF, CAD, HTN, CKD stage III, BPH, gouty arthropathy, history of tobacco abuse who presents to ED secondary to syncopal episode. Patient states that he has not been feeling quite himself for the past month. It has worsened where he feels lightheaded and dizzy in the past 2 to 3 days, significantly more so today. He had a near syncopal event yesterday whenever he went from sitting to standing position. Today he was in his normal state of health, had a cup of coffee and took his morning medications including his blood pressure meds, and was standing at his kitchen sink when he became lightheaded dizzy and fell backwards hitting his head. His witnessed this event and is present at bedside and supports the history. He denies any headache, no changes in vision, no focal neurological deficits that he can say. Patient does note that he feels like his speech is somewhat garbled since the last 3 weeks, and that his gait is not exactly as it was prior to having COVID. He feels sometimes like he has brain fog. Pt denies any acute focal neurological deficits other than these mentioned. He overall says he feels ok, denies any acute illness like symptoms. He is concerned that his urine has been cloudier than normal the last few days with his history of straight cathing 4 times daily. Patient has been straight cathing for many years due to enlarged prostate. He has 1 UTI previously which was Pt with recent hospitalization about one month ago, from 04/02 to 04/04 for COVID infection, COPD and hypoxia. Social Hx: Patient admits to drinking 3-5 beers 2 nights per week, last evening he had 2 beers with dinner. Denies any tobacco use, no marijuana no illicit drug use. Allergies Allergy/AdvReac Type Severity Reaction Status Date / Time Bactrim AdvReac Severe acute Unverified 08/09/17 12:18 renal failure sulfamethoxazole [Bactrim] AdvReac Severe acute Verified 04/02/23 13:21 renal failure trimethoprim [Bactrim] AdvReac Severe acute Verified 04/02/23 13:21 renal failure Home Medications Medication Instructions Recorded Confirmed Type atorvastatin 20 mg tablet 40 mg PO QPM 09/26/18 05/10/23 History carvedilol 12.5 mg tablet 12.5 mg PO BID 09/26/18 05/10/23 History cholecalciferol (vitamin D3) 25 1,000 units PO DAILY 09/26/18 05/10/23 History mcg (1,000 unit) capsule cyanocobalamin (vitamin B-12) 1,000 mcg PO DAILY 09/26/18 05/10/23 History 1,000 mcg tablet magnesium oxide 500 mg PO BID 09/26/18 05/10/23 History metformin 1,000 mg tablet 1,000 mg PO BID 09/26/18 05/10/23 History nitroglycerin 0.4 mg sublingual 0.4 mg sublingual Q5M 09/26/18 05/10/23 History tablet omega-3 acid ethyl esters 1 gram 1 cap PO BID 09/26/18 05/10/23 History capsule torsemide 10 mg tablet 10 mg PO DAILY 09/26/18 05/10/23 History pantoprazole 40 mg tablet,delayed 40 mg PO DAILY 10/05/18 05/10/23 History release (Protonix) hydralazine 10 mg tablet 10 mg PO BID 12/20/18 05/10/23 History isosorbide mononitrate 60 mg 60 mg PO DAILY 02/25/20 05/10/23 History tablet,extended release 24 hr aspirin 81 mg tablet,delayed 81 mg PO DAILY 06/22/21 05/10/23 History release lisinopril 20 mg tablet 20 mg PO DAILY 01/04/22 05/10/23 History insulin aspart U-100 100 unit/mL 1 sliding scale dose subcut 03/24/22 05/10/23 History subcutaneous cartridge (Novolog USEASDIRECTD PenFill U-100 Insulin aspart) insulin pump cart,cont inf,BT #5 ea 05/25/22 07/28/22 History (Omnipod Dash Pods (Gen 4) subcutaneous cartridge) methenamine hippurate 1 gram tablet 1 g PO DAILY #90 tabs 08/17/22 05/10/23 Rx pregabalin 225 mg capsule (Lyrica) 225 mg PO QID 90 days #360 caps 11/22/22 05/10/23 Rx duloxetine 60 mg capsule,delayed 60 mg PO BID 90 days #180 caps 02/22/23 05/10/23 Rx release allopurinol 100 mg tablet 100 mg PO QAM 04/02/23 05/10/23 History apixaban 5 mg tablet (Eliquis) 5 mg PO BID 04/02/23 05/10/23 History clarithromycin 500 mg tablet 500 mg PO BID 05/10/23 05/10/23 History prednisone 20 mg tablet 20 mg PO UD 05/10/23 05/10/23 History Past Med/Surg History Medical History (Updated 05/10/23 @ 11:52 by Floresita Hahn MD) T2DM (type 2 diabetes mellitus) HTN (hypertension) CAD (coronary artery disease) "2008 - MAR to obtuse marginal " Benign localized hyperplasia of prostate with urinary obstruction Dyslipidemia Paroxysmal a-fib Chronic anticoagulation therapy with Eliquis Spinal stenosis of lumbar region Lumbar facet joint syndrome Surgical History (Updated 05/05/23 @ 00:10 by Background David) S/P sinus surgery S/P colonoscopy S/P cardiac catheterization S/P coronary artery stent placement Family History Mother Hypertension Diabetes Cancer Father Hypertension Cancer Social History Smoking Status: Never smoker Hx Alcohol Use: No Hx Substance Use: No Preferred Language: Monegasque Communication Ability: Effective Visual Impairment: No Limitations Hearing Ability: Normal 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: No Beliefs That Will Affect Care: None marital status: Current Living Situation: Spouse current occupational status: retired Other Information That Helps Us Care for You: No Feels Safe at Home: Yes Safety Concerns: Feels Safe At This Time Assistive Devices: Denture - Upper, Denture - Lower and Glasses Review of Systems Review of Systems: Constitutional: No fever, sweats or chills, + lightheadedness and dizziness Eyes: No diplopia, no worsening or blurred vision ENT: normal hearing, no trouble swallowing Respiratory: No cough, sputum, dyspnea at rest or on exertion Cardiovascular: No chest pain, tightness or palpitations Abdomen: No pain, nausea, vomiting, diarrhea or constipation Musculoskeletal: No joint pain, calf pain, swelling Neurologic: No weakness, numbness/tingling, + balance problems with gait and sometimes with garbled speech Psychiatric: No anxiety or depression Skin: No rash or itch Physical Exam Physical Exam: General: awake, alert, no apparent distress, obese white male with BMI of 41.2 Head: Normocephalic, atraumatic ENT: PERRL, EOMI, no pharyngeal exudate, mucous membranes moist Chest: Clear to auscultation, on room air with O2 sats at 94% during my eval, no adventitious breath sounds Cardiac: Regular rate and rhythm, no murmur, no JVD, normal peripheral pulses, good capillary refill Abdominal: NABS x 4 quadrants, soft, + protuberant, nondistended, nontender to palpation, no rebound or guarding Extremities: Normal inspection, no peripheral edema or erythema, calfs nontender to palpation Psych: Normal mood and affect Neuro: AAO x 3, strength intact bilaterally and rated 5/5, no motor deficits, speech is somewhat garbled, no slurring, gait is not assessed due to lightheadedness, low blood pressure, he has difficulty completed rapid alternating movements very quickly, patient strength testing is equal bilaterally without any discrepancies, he is able to follow all commands, can perform [id number] testing, no peripheral sensory deficits Results & Data Results & Data Vital Signs (Past 12 Hours) Vital Signs Temp Pulse Pulse Resp BP BP Pulse Ox 05/10/23 10:45 53 L 19 126/62 96 05/10/23 10:30 54 L 14 114/61 97 05/10/23 10:15 55 L 17 105/55 L 95 05/10/23 10:00 58 L 19 99/55 L 94 05/10/23 09:55 57 L 16 78/55 L 94 05/10/23 09:45 62 18 78/55 L 93 05/10/23 09:41 61 19 77/51 L 94 05/10/23 09:27 65 20 92 05/10/23 09:17 64 20 86/55 L 92 05/10/23 09:15 67 05/10/23 09:10 65 20 86/55 L 92 05/10/23 08:53 36.9 C 76 20 67/47 L 89 L 05/10/23 08:51 89 L O2 Del Method O2 Flow Rate 05/10/23 10:45 Nasal Cannula 2 05/10/23 10:30 Nasal Cannula 2 05/10/23 10:15 Nasal Cannula 2 05/10/23 10:00 Nasal Cannula 2 05/10/23 09:55 Nasal Cannula 2 05/10/23 09:45 Nasal Cannula 2 05/10/23 09:41 Nasal Cannula 2 05/10/23 09:27 Nasal Cannula 2 05/10/23 09:17 Nasal Cannula 2 05/10/23 09:15 05/10/23 09:10 Nasal Cannula 2 05/10/23 08:53 Room Air 05/10/23 08:51 Nasal Cannula 2 Laboratory Results 05/10/23 09:13 Aerobic Blood Culture - Pending Blood Anaerobic Blood Culture - Pending 05/10/23 09:05 Aerobic Blood Culture - Pending Blood Anaerobic Blood Culture - Pending 05/10/23 05/10/23 05/10/23 11:18 09:13 09:05 WBC 14.00 H RBC 5.30 Hgb 15.6 Hct 45.3 MCV 85.5 MCH 29.4 MCHC 34.4 RDW Std Deviation 45.9 RDW Coeff of Angelita 14.9 H Plt Count 249 MPV 11.3 Immature Gran % (Auto) 1.3 Neut % (Auto) 77.4 Lymph % (Auto) 14.2 [place] % (Auto) 6.3 Eos % (Auto) 0.6 Baso % (Auto) 0.2 Neut # (Auto) 10.84 H Lymph # (Auto) 1.99 [place] # (Auto) 0.88 H Eos # (Auto) 0.08 Baso # (Auto) 0.03 Immature Gran # (Auto) 0.18 PT 11.7 INR 1.1 VBG pH 7.40 VBG pCO2 48 VBG pO2 52 VBG HCO3 30 VBG O2 Saturation 80.8 VBG Base Excess 3.9 Sodium 137 Potassium 3.9 Chloride 99 Carbon Dioxide 30 Anion Gap 8 BUN 62 H Creatinine 2.37 H Est Cr Clr Drug Dosing 36.5 Est GFR ( Amer) 30.4 Est GFR (Non-Af Amer) 26.2 BUN/Creatinine Ratio 26.2 H Glucose 197 H Lactate 1.5 2.6 H* Calcium 9.2 Magnesium 1.9 Total Bilirubin 1.1 H AST 51 H ALT 56 H Alkaline Phosphatase 58 Troponin I High Sens 55.2 H* 52.9 H* Total Protein 6.3 Albumin 3.6 Globulin 2.7 Albumin/Globulin Ratio 1.3 Lipase 68 Procalcitonin 0.26 TSH 2.903 SARS-CoV-2 (PCR) NEGATIVE Influenza Type A (PCR) Negative Influenza Type B (PCR) Negative RSV (RT-PCR) Negative Diagnostic Findings Chest X-Ray 05/10/23 08:56 XR chest 1V portable CLINICAL HISTORY: Syncope. COMPARISON STUDY: Chest radiograph April 02, 2023. FINDINGS: Lung volumes are normal. Lungs are clear. There is no pneumothorax or pleural effusion. Cardiac size is normal. Mediastinal contours are normal. There is no evidence for pulmonary edema. IMPRESSION: No acute cardiopulmonary findings. ACT 112: Negative or not required by law. Electronically signed by: Jas Jernigan M.D. 05/10/2023 10:[address] 05/10/23 09:10 CT OF THE CERVICAL SPINE WITHOUT CONTRAST CLINICAL HISTORY: syncope; struck head; on eliquis COMPARISON STUDY: CTA of the neck August 30, 2018. TECHNIQUE: Helical axial images of the cervical spine were obtained without IV contrast. Sagittal and coronal reconstructions were viewed. Automated exposure control was utilized for the study. A dose lowering technique was utilized adhering to the principles of ALARA. FINDINGS: Alignment of the cervical spine is anatomic. Vertebral body heights are maintained. No acute cervical spine fracture or subluxation is present. There is no prevertebral edema. Facet joints are intact. There is mild multilevel disc space narrowing and osteophytosis. There is moderate multilevel facet arthrosis. Trace fluid within the bilateral mastoid air cells. Sphenoid sinus mucosal thickening is incidentally noted. IMPRESSION: No acute cervical spine fracture or subluxation. ACT 112: Negative or not required by law. Electronically signed by: Jas Jernigan M.D. 05/10/2023 9:[address] 05/10/23 09:10 CT SCAN OF THE BRAIN WITHOUT IV CONTRAST CLINICAL HISTORY: Syncope COMPARISON STUDY: CT of the brain dated 08/30/2018. TECHNIQUE: Unenhanced axial CT scan of the brain is performed from the vertex to the skull base. A dose lowering technique was utilized adhering to the principles of ALARA. FINDINGS: Brain parenchyma: A focus of right parietal encephalomalacia is consistent with a remote insult. There is age-related involutional change noting mild subcortical and periventricular microangiopathic disease. There is no hemorrhage, mass effect, or evidence of acute territorial ischemia by CT criteria. Ramsey-white matter differentiation is preserved. No extra-axial fluid collection is seen. Ventricles, sulci, cisterns: Prominent secondary to involutional change. Intracranial vasculature: There is atherosclerotic calcification of the cavernous carotid and vertebral arteries. Calvarium: Unremarkable. Sinuses and mastoids: There is evidence of previous paranasal sinus surgery. There is trace because of thickening within the maxillary antra. A 1.9 cm retention cyst is seen on the right. Moderate mucosal thickening is seen in the sphenoid sinuses. There is mild mucosal thickening in the ethmoid resection cavity. There are trace mastoid effusions. Orbits: The bony orbits are grossly intact. There are bilateral ocular lens implants. IMPRESSION: There is no hemorrhage, mass effect, or evidence of acute territorial ischemia by CT criteria. ACT 112: Negative or not required by law. Electronically signed by: Isidro Stuart M.D. 05/10/2023 9:50 AM ECG Additional Comments: Reviewed showing NSR Code Status & VTE Plan Code Status Full code-discussed with the patient at bedside Supervising Physician Co-Signing Physician Notes Pt was seen and examined by myself, Essie Yanez MD on the day of service. Care was coordinated with Shirley Hernández PA-C. 72yoM with PMHx significant for DMII, neurogenic bladder requiring self catheterization, PAF who presents after a syncopal episode at home. On exam, multiple times, pt in no acute distress. RRR, breath sounds decreased bilaterally. No noted swelling in extremities. Severe sepsis: Pt with hypotension, leukocytosis, elevated lactate on admission, source likely urinary. Infectious workup with [facility] (no covid currently), UA, chest XR/CT chest, consider stool studies and CT abd/pelvis. Blood Cx x [address] noting chronic severe sinusitis. No known skin wounds per pt. 3.5L of fluids given by bolus in the ED, BP with systolic of 112. BP does respond to fluids and maintains temporarily. Discussed with nurse after CARA while this provider physically present in room. Pt stable. Advised use of continuous fluids before initiating Solumedrol in setting of uncontrolled diabetic, pt received 1 dose of solumedrol before steroids placed on hold. Continue with IV Zosyn, run fluids continuously at 125 at this time. Echo reviewed, no concerns for CHF. In setting of hypotension, hold home antihypert ensives that pt took this AM, hold home lasix at this time. Resume as able. Syncope: Likely in setting of above, Head CT with no acute bleed, pt on Eliquis. Echo. Acute on chronic kidney injury- cr elevated at 2.37 above baseline of 1.6-1.8. Likely acute injury pre-renal. Continuous IV hydration as above. Possible UTI- UA suggestive of infection, pt self caths at home, urine Cx pending. In terms of the urine culture, important to note that a dose of abx was given to the pt in the ED before the urine sample was obtained on admission. Reportedly blood cultures were obtained before abx initiation. Continue with IV Zosyn at this time. Elevated liver enzymes- US liver ordered and pending. Demand Ischemia, bradycardia- Trop elevation likely in setting of demand ischemia from septic picture, Pt with noted bradycardia. Did take all his cardiac meds this AM (holding). Echo noting no systolic or diastolic dysfunction, continue with IV hydration above. Monitor on tele Hx of stroke- appears pt unaware. Nonurgent MRI for followup, PT/OT/speech eval for residual effects DMII- diabetes currently uncontrolled/above goal. Last hgba1c from 04/08 with noted hgba1c of 9.3. Glucose currently 197. Basal/bolus regimen while hosp italized. Consider glycemic consult if persistently elevated, please note pt did receive IV Steroid dose in this setting. PAF- Home coreg held in setting of hypotension with severe sepsis, please resume as soon as able/BP maintaining. On Eliquis for anticoagulation. JORGE A- on cpap qhs DVT prophylaxis- Home Eliquis. Otherwise as above. I spent a total [id number] coordinating, documenting, and providing care for this patient excluding time spent in the performance of separately billed services
[2023-05-10 11:24] LABS: Influenza A virus by PCR Negative (Neg); Influenza B virus by PCR Negative (Neg); RSV by PCR Negative (Neg); SARS CoV2 RNA(COVID-19) Ceph NEGATIVE (Negative)
[2023-05-10] MEDS: DEXTROSE 50% 50 ML SYRINGE IV ONE (12:40)
[2023-05-10] MEDS: SODIUM CHLORIDE 0.9% 500 ML IV ONE (13:00)
[2023-05-10] MEDS: HYDROCORTISONE SOD SUCCINATE 100 MG/2 ML VIAL IV STA (13:11)
[2023-05-10 13:23] LABS: Appearance Urine Cloudy (Clear); Bacteria Urine Automated Negative (Negative); Bilirubin Urine Negative (Negative); Blood Urine 1+ (Negative); Color Urine Dark Yellow; Epithelial Cell Urine Auto 20-30 /lpf (0-5); Glucose Urine UA Negative (Negative); Ketones Urine Negative (Negative); Leukocyte Esterase Urine 2+ (Negative); Nitrite Urine Negative (Negative); Protein Urine Negative (Negative); Specific Gravity Urine 1.013 (1.000-1.030); Urobilinogen Urine Negative (Negative); WBC Urine Automated >30 /hpf (0-5)
--- NOTE | 2023-05-10 15:03 | CT Scan Report ---
CT chest diagnostic wo con CLINICAL HISTORY: new O2 requirement TECHNIQUE: Multidetector row helical CT of the chest was performed. Coronal and sagittal reformations were obtained. Automated dose lowering techniques and/or adjustment according to patient size were u tilized for this exam. CT DOSE: 955.93 mGy.cm Comparison: Comparison is made to chest radiograph 05/10/2023 FINDINGS: Lungs and pleura: Emphysema is seen. Dependent atelectasis is seen. No suspicious pulmonary nodules. Heart and pericardium: Heart size is normal. No pericardial effusion. Vessels: Pulmonary trunk measures 34 mm in diameter. Severe atherosclerotic disease is seen. Mediastinum and avtar: Subcentimeter lymph nodes are seen. Chest wall and lower neck: Unremarkable. Abdomen: Hepatic steatosis is noted. Bones: Degenerative changes in the thoracic spine. IMPRESSION: No evidence of pneumonia or aspiration. Atelectasis and emphysema are seen with possible scarring. ACT 112: Negative or not required by law. Electronically signed by: Octavio Reddy M.D. 05/10/2023 3:00 PM
--- NOTE | 2023-05-10 16:13 | Electrocardiogram Report ---
Test Reason : Blood Pressure : / mmHG Vent. Rate : 069 BPM Atrial Rate : 069 BPM P-R Int : 186 ms QRS Dur : 082 ms QT Int : 382 ms P-R-T Axes : 093 -22 025 degrees QTc Int : 409 ms Normal sinus rhythm Nonspecific T wave abnormality Abnormal ECG When compared with ECG of 02-APR-2023 10:23, CA interval has decreased Confirmed by Romel Rajan ([id number]) on 05/10/2023 4:12:57 PM Referred By: Eliud Eisenberg Confirmed By:Romel Rajan
[2023-05-10] MEDS ORDERED: GLUCOSE 40% GEL 15 GM TUBE PO PRN (16:25)
[2023-05-10] MEDS ORDERED: GLUCAGON FOR INJ 1 MG VIAL SQ PRN (16:25)
[2023-05-10] MEDS ORDERED: GLUCOSE 10 TAB/TUBE PO PRN (16:25)
[2023-05-10] MEDS ORDERED: ACETAMINOPHEN 325 MG TAB PO PRN (16:25)
[2023-05-10] MEDS ORDERED: CARBOHYDRATES FOR HYPOGLYCEMIA PO PRN (16:25)
[2023-05-10] MEDS ORDERED: DEXTROSE 50% 50 ML SYRINGE IV PRN (16:25)
[2023-05-10] MEDS ORDERED: ONDANSETRON INJ 2 MG/ML 2 ML VIAL IV PRN (16:25)
[2023-05-10] MEDS: PIPERACILLIN/TAZOBACTAM 4.5 GM in DEXTROSE 5% MINI-B 100 ML IV SCH (17:16)
[2023-05-10] MEDS: INSULIN ASPART PER UNIT CHARGE SC SCH (17:22)
[2023-05-10] MEDS: PREGABALIN 100 MG CAP PO SCH (17:22)
[2023-05-10] MEDS ORDERED: HYDROCORTISONE SOD 50 MG in SYRINGE 0 ML IV SCH (18:00)
--- OUTSIDE RECORDS SUMMARY | 2023-05-10 18:22 | External Medical Summary | Summary of Care ---
Author Name Unknown Organization [facility] Address [address] [facility] [place] [address] Phone [phone] Care Team Providers Care Water Rights Specialist Name Role Phone Eliud Eisenberg MD Primary Care Provider [phone] Reason for Visit * Reason Comments Sore Throat Short of Breath Cold Symptoms Encounter Details Date Type Department Care Team (Late st Contact Info) Description 05/03/2023 12:40 PM EDT Office Visit Family Practice [facility] [address] [place] [id number] Eliud Eisenberg MD [address] [place] [id number] Subacute pansinusitis* Allergies Active Allergy Reactions Criticality Noted Date Comments Sulfamethoxazole-Trimet hoprim Other (Please comment) 09/20/2017 hyperkalmeia Lisinopril 09/15/2022 ?cough Trimethoprim High 11/23/2021 Other reaction(s): acute renal failure documented as of this encounter (statuses as of 05/05/2023) Medications Medication Sig Dispensed Refills Start Date [...] Active Nitroglycerin 0.4 MG Sublingual Tablet Sublingual (Nitrostat)Indicati ons:Coronary artery disease involving curyung coronary artery of curyung heart without angina pectoris Place under the tongue 1 Tablet every 5 minutes as needed for Pain, Chest. up to 3 doses in 15 minutes 25 Tablet 1 10/20/2021 Active Omnipod DASH PDM (Gen 4) Kit Use as directed . Use to control insulin pod 1 Kit 0 11/15/2021 Active FreeStyle Indra 2 Sensor Use as directed . Use 1 sensor every 14 days 6 Each 3 01/21/2022 Active Yoxkl-9-kjfr Ethyl Esters 1 GM Oral Capsule (Lovaza)Indications :Dyslipidemia Take 1 Capsule by mouth in the morning and 1 Capsule in the evening. 180 Capsule 3 04/19/2022 Active Apixaban 5 MG Oral Tablet (Eliquis)Indication s:Paroxysmal atrial fibrillation (HCC) Take 1 Tablet by [...] Capsule Take by mouth. 0 Active Ipratropium [place] HFA 17 MCG/ACT Inhalation Aerosol Solution (Atrovent Hfa) Inhale 2 Puffs by mouth every 6 hours. 12.9 g 5 10/19/2022 Active Torsemide 10 MG Oral Tablet (Demadex)Indication s:HTN, goal below 130/80 Take 1 Tablet by mouth in the morning and 1 Tablet before bedtime. 180 Tablet 3 10/25/2022 Active Biotene Dry Mouth Mouth/Throat [...] MG Oral Tablet Extended Release 24 Hour (Imdur)Indications: HTN, goal below 130/80,Coronary artery disease involving curyung coronary artery of curyung heart without angina pectoris,S/P primary angioplasty with coronary stent Take 1 Tablet by mouth in the morning. 90 Tablet 3 03/15/2023 Active Fluticasone-Salmete rol 500-50 MCG/ACT Inhalation Aerosol Powder Breath Activated (Advair Diskus) Inhale 1 Puff by mouth in the morning and 1 Puff before bedtime. 180 Each 3 04/11/2023 Active Carvedilol 12.5 MG Oral Tablet (Coreg)Indications: Coronary artery disease involving curyung coronary artery of curyung heart without angina pectoris,Paroxysmal atrial fibrillation (HCC) Take 1 Tablet by mouth in the morning and 1 Tablet before bedtime. 180 Tablet 3 04/13/2023 Active Omnipod DASH Pods (Gen 4) Use as directed. Use 1 pod every 2 days 30 Each 1 04/24/2023 Active Atorvastatin Calcium 40 MG Oral Tablet (Lipitor)Indication s:evening Take 1 Tablet by mouth in the morning. 90 Tablet 3 04/24/2023 Active Clarithromycin 500 MG Oral Tablet (Biaxin) Take 1 Tablet by mouth in the morning and 1 Tablet before bedtime. Do all this for 10 days. 20 Tablet 0 05/03/2023 05/13/2023 Active predniSONE 20 MG Oral Tablet (Deltasone) Take 4 tabs daily for 2 days, 3 tabs daily for 2 days, 2 tabs daily for 2 days, 1 tab daily for 2 days 20 Tablet 0 05/03/2023 Active Hospital, Clinic, or Other Facility Administered Medication Ordered Dose Route Frequency Start Date End Date Status Albuterol Sulfate (Proventil) (2.5 MG/3ML) 0.083% inhalation solution 2.5 mgIndications:KOVACS (dyspnea on exertion),Centrilobular emphysema (HCC),History of tobacco use,Morbid obesity (HCC) 2.5 mg NEBULIZER PRN 07/06/2022 Active documented as of this encounter (statuses as of 05/05/2023) Active Problems Problem Noted Date Diagnosed Date Jimenez's esophagus 02/08/2023 Diabetic peripheral neuropathy 02/08/2023 Spinal stenosis of lumbar region 02/08/2023 TR (tricuspid regurgitation) 02/08/2023 Gouty arthropathy [...] fibrillation 02/18/2015 Coronary artery disease invo lving curyung coronary artery of curyung heart without angina pectoris 02/18/2015 HTN, goal below 130/80 02/18/2015 S/P carotid endarterectomy 02/18/2015 documented as of this encounter (statuses as of 05/05/2023) Resolved Problems Problem Noted Date Diagnosed Date Resolved Date Angina pectoris 02/08/2023 04/06/2023 ARF (acute renal failure) 02/08/2023 Carpal tunnel syndrome 02/08/202304/07 CPAP (continuous positive ai rway pressure) dependence 02/08/2023 04/06/2023 KOVACS (dyspnea on exertion) 02/08/2023 Esophageal reflux 02/08/2023 04/06/2023 History of tobacco abuse 02/08/2023 Lower back pain 02/08/2023 04/07/2023 Other specified cardiac arrhythmias 02/08/2023 04/06/2023 Body mass index (BMI) of 40. 0 to 44.9 in adult 07/25/2022 09/06/2022 Overview: Per Obesity protocol Obesity, Class II, BMI 35-39 .9, isolated (see actual BMI) 10/17/2021 10/25/2022 ASCVD (arteriosclerotic card iovascular disease) 06/05/2017 10/16/2021 Palpitations 02/28/2017 10/16/2021 Hyperlipidemia LDL goal <70 02/18/2015 10/16/2021 Dysmetabolic syndrome X 11/18/201303/17 Postsurgical percutaneous tr ansluminal coronary angioplasty status 11/18/2013 04/07/2023 documented as of this encounter (statuses as of 05/05/2023) Immunizations Name Administration Dates Next Due COVID-19 mRNA, LNP-s, No Pre serve, 2-Dose Series ([email or web address]) 11/19/2020,04/24/2020,03/29/2020 Hepatitis B, 20+ yrs 12/07/2016,06/15/2016,03/16 Pneumococcal Conjugate Vacc, 13 Valent (Prevnar) 11/24/2014 Pneumococcal Polysaccharide PPV23 (Pneumovax) 01/13/2016,02/13/2007,12/23/2005 RSV Vac., Bivalent, Perfusio n F, Pf,0.5 Ml (Abrysvo) 04/26/2023 Seasonal Influenza, Quadriva lent Hd (Fluzone Hd) 10/25/2022,10/20/2021 Seasonal Influenza, Split, I IV3, With Preserve, Inj 11/24/2014,11/07/2013 Varicella Zoster Vaccine (Adult) 05/30/2018,02/2013 Zoster Vaccine Recombinant (Shingrix) 08/06/2018 ,05/30/2018 documented as of this encounter Social History Tobacco Use Types Packs/Day Years Used Date Smoking Tobacco: Former Cigarettes 2 35 0 02/13/1966 - 02/13/2001 Smokeless Tobacco: Never Alcohol Use Standard [...] Sign Reading Time Taken Comments Blood Pressure 118/52 05/03/2023 12:32 PM EDT Pulse 66 05/03/2023 12:32 PM EDT Temperature 36.6 C (97.8 F) 05/03/2023 12:32 PM E DT Respiratory Rate 18 05/03/2023 12:32 PM EDT Oxygen Saturation 93% 05/03/2023 12:32 PM EDT Inhaled Oxygen Concentration - - Weight - - Height - - Body Mass Index - - documented in this encounter Progress Notes * Eliud Eisenberg MD - 05/05/2023 8:21 AM EDT SUBJECTIVE: Po Rubio is a 72 year old male. Chief Complaint Patient presents with Sore Throat Short of Breath Cold Symptoms HPI: Sore throat for a few days. He says he is "gun shy" about not coming in when feeling this way due to his recent hospitalization. He denies fevers/chills/night sweats. Patient Active Problem List Diagnosis Code Paroxysmal atrial fibrillation ([facility]) I48.0 Coronary artery disease involving curyung coronary artery of curyung heart without angina pectoris I25.10 HTN, goal below 130/80 I10 S/P carotid endarterectomy Z98.890 S/P primary angioplasty with coronary stent Z95.5 PAD (peripheral artery disease) ([facility]) I73.9 Dyslipidemia E78.5 Type 2 diabetes mellitus with hemoglobin A1c goal of less than 8.0% ([facility]) E11.9 JORGE A (obstructive sleep apnea) G47.33 Stage 3a chronic kidney disease ([facility]) N18.31 Morbid obesity ([facility]) E66.01 Type 2 diabetes mellitus with diabetic peripheral angiopathy without gangrene ([facility]) E11.51 Impaired functional mobility and activity tolerance Z74.09 S/P ablation of atrial fibrillation Z98.890, Z86.79 Centrilobular emphysema ([facility]) J43.2 BPH with obstruction/lower urinary tract symptoms N40.1, N13.8 Neurogenic bladder N31.9 Carotid stenosis, non-symptomatic, bilateral I65.23 Claudication in peripheral vascular disease ([facility]) I73.9 Gouty arthropathy M10.9 Jimenez's esophagus K22.70 Diabetic peripheral neuropathy ([facility]) E11.42 Spinal stenosis of lumbar region M48.061 TR (tricuspid regurgitation) I07.1 Current Outpatient Medications Medication Sig Dispense Refill Clarithromycin 500 MG Oral Tablet (Biaxin) Take 1 Tablet by mouth in the morning and 1 Tablet before bedtime. Do all this for 10 days. 20 Tablet 0 predniSONE 20 MG Oral Tablet (Deltasone) Take 4 tabs daily for 2 days, 3 tabs daily for 2 days, 2 tabs daily for 2 days, 1 tab daily for 2 days 20 Tablet 0 NOVOFINE 32G X 6 MM MISC Magnesium [...] to control insulin pod 1 Kit 0 FreeStyle Indra 2 Sensor Use as directed . Use 1 sensor every 14 days 6 Each 3 Evymz-1-zwlc Ethyl Esters 1 GM Oral Capsule (Lovaza) [...] Health Oral Capsule Take by mouth. Ipratropium [place] HFA 17 MCG/ACT Inhalation Aerosol Solution (Atrovent Hfa) Inhale 2 Puffs by mouth every 6 hours. 12.9 g 5 Torsemide 10 MG Oral Tablet (Demadex) Take 1 Tablet by mouth in the morning and 1 Tablet before bedtime. 180 Tablet 3 Biotene Dry Mouth Mouth/Throat Lozenge Apply [...] daily via insulin pump 90 mL 1 Isosorbide Mononitrate ER 60 MG Oral Tablet Extended Release 24 Hour (Imdur) Take 1 Tablet by mouthin the morning. 90 Tablet 3 Fluticasone-Salmeterol 500-50 MCG/ACT Inhalation Aerosol Powder Breath Activated (Advair Diskus) Inhale 1 Puff by mouth in the morning and 1 Puff before bedtime. 180 Each 3 Carvedilol 12.5 MG Oral Tablet (Coreg) Take 1 Tablet by mouth in the morning and 1 Tablet before bedtime. 180 Tablet 3 Omnipod DASH Pods (Gen 4) Use as directed. Use 1 pod every 2 days 30 Each 1 Atorvastatin Calcium 40 MG Oral Tablet (Lipitor) Take 1 Tablet by mouth in the morning. 90 Tablet 3 Current Facility-Administered Medications Medication Dose Route Frequency Provider Last Rate Last Admin Albuterol Sulfate (Proventil) (2.5 MG/3ML) 0.083% inhalation solution 2.5 mg 2.5 mg Nebulizer PRN Tata Walter CRNP 2.5 mg at 07/15/22 0811 Allergy: Review of patient's allergies indicates: Allergen Reactions Trimethoprim Other reaction(s): acute renal failure Bactrim [Sulfamethoxazole-Trimethoprim] Other (Please comment) hyperkalmeia Lisinopril ?cough OBJECTIVE: BP 118/52 | Pulse 66 | Temp 36.6 C (97.8 F) (Tympanic) | Resp 18 | SpO2 93% Gen: obese, nad Throat: injected Lungs: ctab Heart: rrr, no mrg Lymph: no adenopathy ASSESSMENT AND PLAN: (J01.40) Subacute pansinusitis (primary encounter diagnosis) Plan: due to multiple comorbidities will treat more aggressively with biaxin and steroid taper Follow up as needed. No other complaints were offered at this time. Eliud Eisenberg MD documented in this encounter Nursing Notes * Sushila Briscoe LPN - 05/03/2023 12:32 PM EDT The patient has been properly identified by confirmation of name and date of . Chief Complaint Patient presents with Sore Throat Short of Breath Cold Symptoms documented in this encounter Plan of Treatment Upcoming Encounters Date Type Department Care Team (Late st Contact Info) Description 05/29/2023 9:30 AM EDT Office Visit Urology, [place] [address] [place] [address] Chivo Solis PA-C [address] [place] [address] 06/28/2023 8:30 AM EDT Office Visit Pharmacy, [facility] [address] [facility] [place] [address] [facility] [place] [address] 08/23/2023 8:45 AM EDT Office Visit Orthopaedics [facility] [address] [facility] [place] [address] Jamil Hills PA-C [address] [facility] [place] [address] 11/02/2023 10:00 AM EDT Office Visit Sleep Disorders Ctr [facility] [address] [facility] [place] [phone] Nichol Caballero, [address] [facility] [place] [address] 01/22/2024 8:00 AM EST Nurse Only Ancillary [facility] [address] [facility] [place] [address] [facility], Nurse Annual Wellness [facility] [address] [facility] [place] [address] Scheduled Procedures Name Priority Associated Diagnoses Date/Ti [...] Vaccine ( season) 2022 11/19/2020, 04/24/2020, 03/29/2020 HbA1c 05/20/2023 11/18/2022, 03/0 08/2022, 10/20/2021, Additional history exists Diabetic Eye Exam 08/11/2023 08/10/2022, 12/22/2021 Albumin/Creatinine Ratio 09/17/2023 023, 11/19/2018, 04/05/2017 CKD HGB USE SMARTSET 11092 10/20/202310/19, 10/19/2022, 09/16/2022, Additional history exists GFR 10/27/2023 04/26/2023, 09/14, 09/16/2022, Additional history exists CKD PHOS USE SMARTSET 00057 11/19/202307/2022, 11/12/2021, 04/01/2020 Diabetic Foot Exam 12/30/2023 12/29/2022 Depression Screening 01/19/2024 01/18/2023 O2 ASSESSMENT COMPLETED IN PAST YEAR FOR COPD 05/02/2024 05/03/2023 Pneumococcal Vaccine: 65+ Years Completed 01/13/2016, 11/24/2014, [...] this encounter Medical Devices Implanted Type Area Mill Recorder Device Identifier Shelf Expiration Date Model / Serial / Lot Lens Intraoc 16.5 - [id number] - [id number] Implanted:Qty: 1 on 11/14/2019 by Elmo Apodaca MD at OR [facility] Left: Eye BAUSCH & LOMB 03/15/2024 [id number] / [id number] / [id number] Lens Intraoc 16.5 - [id number] - [id number] Implanted:Qty: 1 on 11/28/2019 by Elmo Apodaca MD at OR [facility] Right: Eye BAUSCH & LOMB 04/12/2024 [id number] / [id number] / [id number] documented as of this encounter Visit Diagnoses Diagnosis Subacute pansinusitis- Primary documented in this encounter Advance Directives Latest Code Status on File Code Status Date Activated Date Inactivated Comments Full Code 07/15/2015 2:43 PM 07/16/2015 12:56 PM This o rder reflects the patients wishes and were consensually agreed upon. Care Teams Water Rights Specialist Relationship Specialty Start Date End Date Eliud Eisenberg MD [address] [place] [address] PCP - General Family Medicine 10/20/21 documented as of this encounter
--- OUTSIDE RECORDS SUMMARY | 2023-05-10 18:22 | External Medical Summary | Summary of Care ---
Author Name Unknown Organization [facility] Address [address] [place] [address] Phone [phone] Care Team Providers Care Interactive Media Marketing Director Name Role Phone Eliud Eisenberg MD Primary Care Provider [phone] Reason for Visit * Reason Onset Date Comments Appointment 05/03/2023 Encounter Details Date Type Department Care Team (Late st Contact Info) Description 05/03/2023 Telephone Family Practice [facility] [address] [place] [address] Eliud Eisenberg MD [address] [place] [address] Appointment Allergies Active Allergy Reactions Criticality Noted Date Comments Sulfamethoxazole-Trimet hoprim Other (Please comment) 09/20/2017 hyperkalmeia Lisinopril 09/15/2022 ?cough Trimethoprim High 11/23/2021 Other reaction(s): acute renal failure documented as of this encounter (statuses as of 05/08/2023) Medications Medication Sig Dispensed Refills Start Date [...] Tablet Sublingual (Nitrostat)Indicati ons:Coronary artery disease involving [place] coronary artery of [place] heart without angina pectoris Place under the [...] 14 days 6 Each 3 01/21/2022 Active Hrfzb-5-dlmn Ethyl Esters 1 GM Oral Capsule (Lovaza)Indications [...] Capsule Take by mouth. 0 Active Ipratropium [place] HFA 17 MCG/ACT Inhalation Aerosol Solution (Atrovent [...] HTN, goal below 130/80,Coronary artery disease involving [place] coronary artery of [place] heart without angina pectoris,S/P primary angioplasty with coronary stent Take 1 Tablet by mouth in the morning. 90 Tablet 3 03/15/2023 Active Fluticasone-Salmete rol 500-50 MCG/ACT Inhalation Aerosol Powder Breath Activated (Advair Diskus) Inhale 1 Puff by mouth in the morning and 1 Puff before bedtime. 180 Each 3 04/11/2023 Active Carvedilol 12.5 MG Oral Tablet (Coreg)Indications: Coronary artery disease involving [place] coronary artery of [place] heart without angina pectoris,Paroxysmal atrial fibrillation (HCC) [...] as of this encounter (statuses as of 05/08/2023) Active Problems Problem Noted Date Diagnosed Date [...] fibrillation 02/18/2015 Coronary artery disease invo lving [place] coronary artery of [place] heart without angina pectoris 02/18/2015 HTN, goal below 130/80 02/18/2015 S/P carotid endarterectomy 02/18/2015 documented as of this encounter (statuses as of 05/08/2023) Resolved Problems Problem Noted Date Diagnosed Date [...] as of this encounter (statuses as of 05/08/2023) Immunizations Name Administration Dates Next Due COVID-19 mRNA, LNP-s, No Pre serve, 2-Dose Series ([email or web address]) 11/19/2020,04/24/2020,03/29/2020 Hepatitis B, 20+ yrs 12/07/2016,06/15/2016,03/16 Pneumococcal [...] encounter Miscellaneous Notes * Telephone Encounter - Laura Huff OSA - 05/08/2023 12:30 PM EDT Can pt follow up with Dr. Bucio? * Telephone Encounter - Rosina Hillman OSA - 05/03/2023 1:26 PM EDT Pt is seeing urology in [place] and they want to switch to Angel Bucio. They are willingto keep the already scheduled appt but they want to get a future appt with Dr Bucio. documented in this encounter Plan of Treatment Upcoming Encounters Date Type Department Care Team (Late st Contact Info) Description 05/29/2023 9:30 AM EDT Office Visit Urology, [place] [address] [place] [address] Chivo Solis PA-C [address] [place] [address] 06/28/2023 8:30 AM EDT Office Visit Pharmacy, [facility] [address] [place] [address] [facility] [address] [place] [address] 08/23/2023 8:45 AM EDT Office Visit Orthopaedics [facility] [address] [place] [address] Jamil Hills PA-C [address] [place] [address] 11/02/2023 10:00 AM EDT Office Visit Sleep Disorders Ctr [facility] [address] [place] [phone] Nichol Caballero DO [address] [place] [address] 01/22/2024 8:00 AM EST Nurse Only Ancillary [facility] [address] [place] [address] [facility], Nurse Annual Wellness [facility] [address] [place] [address] Scheduled Procedures Name Priority Associated Diagnoses Date/Ti [...] 2022 11/19/2020, 04/24/2020, 03/29/2020 HbA1c 05/20/2023 11/18/2022, 030 08/2022, 10/20/2021, Additional history exists Diabetic Eye Exam 08/11/2023 08/10/2022, 12/22/2021 Albumin/Creatinine Ratio 09/17/2023 023, 11/19/2018, 04/05/2017 CKD HGB USE SMARTSET 93907 10/20/202310/19, 10/19/2022, 09/16/2022, Additional history exists GFR 10/27/2023 04/26/2023, 09/14, 09/16/2022, Additional history exists CKD PHOS USE SMARTSET 82995 11/19/2023 10/0 07/2022, 11/12/2021, 04/01/2020 Diabetic Foot [...] this encounter Medical Devices Implanted Type Area Russet Repairer Device Identifier Shelf Expiration Date Model / Serial / Lot Lens Intraoc 16.5 - [id number] - [id number] Implanted:Qty: 1 on 11/14/2019 by Elmo Apodaca MD at OR [facility] Left: Eye BAUSCH & LOMB 03/15/2024 [id number] / [id number] / [id number] Lens Intraoc 16.5 - [id number] - [id number] Implanted:Qty: 1 on 11/28/2019 by Elmo Apodaca MD at OR [facility] Right: Eye BAUSCH & LOMB 04/12/2024 [id number] / [id number] / [id number] documented as of this encounter Advance Directives Latest Code Status on File Code Status Date Activated Date Inactivated Comments Full Code 07/15/2015 2:43 PM 07/16/2015 12:56 PM This o rder reflects the patients wishes and were consensually agreed upon. Care Teams Interactive Media Marketing Director Relationship Specialty Start Date End Date Eliud Eisenberg MD [address] [place] [address] PCP - General Family Medicine 10/20/21 documented as of this encounter
--- OUTSIDE RECORDS SUMMARY | 2023-05-10 18:22 | External Medical Summary | Summary of Care ---
Author Name Unknown Organization [facility] Address [address] [address] Phone [phone] Care Team Providers Care Bow Maker Name Role Phone Eliud Eisenberg MD Primary Care Provider [phone] Reason for Visit * Reason Onset Date Comments Appointment 05/03/2023 Encounter Details Date Type Department Care Team (Late st Contact Info) Description 05/03/[address] [facility] [address] [place] [address] Eliud Eisenberg MD [address] [place] [address] [address] Appointment Allergies Active Allergy [...] Tablet Sublingual (Nitrostat)Indicati ons:Coronary artery disease involving [place] coronary artery of [place] heart without angina pectoris Place under the [...] 14 days 6 Each 3 01/21/2022 Active Sfjue-8-gukj Ethyl Esters 1 GM Oral Capsule (Lovaza)Indications [...] Capsule Take by mouth. 0 Active Ipratropium [place] HFA 17 MCG/ACT Inhalation Aerosol Solution (Atrovent [...] HTN, goal below 130/80,Coronary artery disease involving [place] coronary artery of [place] heart without angina pectoris,S/P primary angioplasty with coronary stent Take 1 Tablet by mouth in the morning. 90 Tablet 3 03/15/2023 Active Fluticasone-Salmete rol 500-50 MCG/ACT Inhalation Aerosol Powder Breath Activated (Advair Diskus) Inhale 1 Puff by mouth in the morning and 1 Puff before bedtime. 180 Each 3 04/11/2023 Active Carvedilol 12.5 MG Oral Tablet (Coreg)Indications: Coronary artery disease involving [place] coronary artery of [place] heart without angina pectoris,Paroxysmal atrial fibrillation (HCC) [...] fibrillation 02/18/2015 Coronary artery disease invo lving [place] coronary artery of [place] heart without angina pectoris 02/18/2015 HTN, goal [...] mRNA, LNP-s, No Pre serve, 2-Dose Series ([employer]) 11/19/2020,04/24/2020,03/29/2020 Hepatitis B, 20+ yrs 12/07/2016,06/15/2016,03/16 Pneumococcal [...] encounter Miscellaneous Notes * Telephone Encounter - Soraida Cole LPN - 05/08/2023 12:41 PM EDT Patient should schedule next appointment with Angel ruelas after current [place] appointment for appropriate follow up timing. * Telephone Encounter - Laura Huff OSA - 05/08/2023 12:30 PM EDT Can pt follow up with Dr. Bucio? * Telephone Encounter - Rosina Hillman OSA - 05/03/2023 1:26 PM EDT Pt is seeing urology in [place] and they want to switch to [facility] Mac[facility] Dr Bucio. They are willingto keep the already scheduled appt but they want to get a future appt with Dr Bucio. documented in this encounter Plan of Treatment Upcoming Encounters Date Type Department Care Team (Late st Contact Info) Description 05/29/2023 9:30 AM EDT Office Visit Urology, [place] [address] [place] [address] Chivo Solis PA-C [address] [place] [address] 06/28/2023 8:30 AM EDT Office Visit Pharmacy, [facility] [address] [address] [facility] [address] [place] [address] 08/23/2023 8:45 AM EDT Office Visit Orthopaedics [facility] [address] [place] [address] Jamil Hills PA-C [address] [place] [address] 11/02/2023 10:00 AM EDT Office Visit Sleep Disorders Ctr [facility] [address] [place] [address] Caball[place] Nichol Al, DO [address] [place] [address] 01/22/2024 8:00 AM EST Nurse Only [facility]illary [facility] [address] [place] [address] [facility], Nurse Annual Wellness [facility] [address] [place] [address] Scheduled Procedures Name Priority Associated Diagnoses Date/Ti [...] 023, 11/19/2018, 04/05/2017 CKD HGB USE SMARTSET 94383 10/20/202310/19, 10/19/2022, 09/16/2022, Additional history exists GFR 10/27/2023 04/26/2023, 09/14, 09/16/2022, Additional history exists CKD PHOS USE SMARTSET 27409 11/19/2023 100 07/2022, 11/12/2021, 04/01/2020 Diabetic Foot [...] this encounter Medical Devices Implanted Type Area Collection Agent Device Identifier Shelf Expiration Date Model / Serial / Lot Lens Intraoc 16.5 - [id number] - [id number] Implanted:Qty: 1 on 11/14/2019 by Elmo Apodaca MD at OR [facility] Left: Eye BAUSCH & LOMB 03/15/2024 [id number] / [id number] / [id number] Lens Intraoc 16.5 - [id number] - [id number] Implanted:Qty: 1 on 11/28/2019 by Elmo Apodaca MD at OR [facility] Right: Eye BAUSCH & LOMB 04/12/2024 [id number] / [id number] / [id number] documented as of this encounter Advance Directives Latest Code Status on File Code Status Date Activated Date Inactivated Comments Full Code 07/15/2015 2:43 PM 07/16/2015 12:56 PM This o rder reflects the patients wishes and were consensually agreed upon. Care Teams Bow Maker Relationship Specialty Start Date End Date Eliud Eisenberg MD [address] [address] PCP - General Family Medicine 9/7/22 documented as of this encounter
--- OUTSIDE RECORDS SUMMARY | 2023-05-10 18:22 | External Medical Summary | Summary of Care ---
Author Name Unknown Organization [facility] Address [address] [address] Phone [phone] Care Team Providers Care Digital Controls Technical Officer Name Role Phone Eliud Eisenberg MD Primary Care Provider [phone] Reason for Visit * Reason Onset Date Comments Appointment 05/03/2023 Encounter Details Date Type Department Care Team (Late st Contact Info) Description 05/03/2023 Telephone Family Practice [facility] [address] [place] [address] Eliud Eisenberg MD [address] [place] [address] Appointment Allergies Active Allergy [...] Tablet Sublingual (Nitrostat)Indicati ons:Coronary artery disease involving navajo coronary artery of navajo heart without angina pectoris Place under the [...] 14 days 6 Each 3 01/21/2022 Active Mcpva-8-crhu Ethyl Esters 1 GM Oral Capsule (Lovaza)Indications [...] Capsule Take by mouth. 0 Active Ipratropium [place] HFA 17 MCG/ACT Inhalation Aerosol Solution (Atrovent [...] HTN, goal below 130/80,Coronary artery disease involving navajo coronary artery of navajo heart without angina pectoris,S/P primary angioplasty with coronary stent Take 1 Tablet by mouth in the morning. 90 Tablet 3 03/15/2023 Active Fluticasone-Salmete rol 500-50 MCG/ACT Inhalation Aerosol Powder Breath Activated (Advair Diskus) Inhale 1 Puff by mouth in the morning and 1 Puff before bedtime. 180 Each 3 04/11/2023 Active Carvedilol 12.5 MG Oral Tablet (Coreg)Indications: Coronary artery disease involving navajo coronary artery of navajo heart without angina pectoris,Paroxysmal atrial fibrillation (HCC) [...] fibrillation 02/18/2015 Coronary artery disease invo lving navajo coronary artery of navajo heart without angina pectoris 02/18/2015 HTN, goal [...] mRNA, LNP-s, No Pre serve, 2-Dose Series ([employer]) 11/19/2020,04/24/2020,03/29/2020 Hepatitis B, 20+ yrs 12/07/2016,06/15/2016,03/16 Pneumococcal [...] encounter Miscellaneous Notes * Telephone Encounter - Rosina Hillman, JORGE A - 05/03/2023 1:26 PM EDT Pt is seeing urology in [place] and they want to switch to Angel Bucio. They are willingto keep the already scheduled appt but they want to get a future appt with Dr Bucio. documented in this encounter Plan of Treatment Upcoming Encounters Date Type Department Care Team (Late st Contact Info) Description 05/29/2023 9:30 AM EDT Office Visit Urology, [place] [address] [place] [address] Chivo Solis PA-C [address] [place] [address] 06/28/2023 8:30 AM EDT Office Visit Pharmacy, [facility] [address] [place] [address] [facility] [address] [place] [address] 08/23/2023 8:45 AM EDT Office Visit [facility] [address] [place] [address] Jamil Hills PA-C [address] [place] [address] 11/02/2023 10:00 AM EDT Office Visit Sleep Disorders Ctr [facility] [address] [place] [phone] Nichol Caballero DO [address] [place] [address] 01/22/2024 8:00 AM EST Nurse Only Ancillary [facility] [address] [place] [address] [place], Nurse Annual Wellness [facility] [address] [place] [address] Scheduled Procedures Name Priority Associated Diagnoses Date/Ti [...] 2022 11/19/2020, 04/24/2020, 03/29/2020 HbA1c 05/20/2023 11/18/2022, 08/2022, 10/20/2021, Additional history exists Diabetic Eye Exam 08/11/2023 08/10/2022, 12/22/2021 Albumin/Creatinine Ratio 09/17/2023 023, 11/19/2018, 04/05/2017 CKD HGB USE SMARTSET 44445 10/20/202310/19, 10/19/2022, 09/16/2022, Additional history exists GFR 10/27/2023 04/26/2023, 09/14, 09/16/2022, Additional history exists CKD PHOS USE SMARTSET 96161 11/19/202307/2022, 11/12/2021, 04/01/2020 Diabetic Foot Exam 12/30/2023 [...] this encounter Medical Devices Implanted Type Area Roll Mill Operator Device Identifier Shelf Expiration Date Model / Serial / Lot Lens Intraoc 16.5 - [id number] - [id number] Implanted:Qty: 1 on 11/14/2019 by Elmo Apodaca MD at OR [facility] Left: Eye [employer]CH [employer] LOMB 03/15/2024 [id number] / [id number] / [id number] Lens Intraoc 16.5 - [id number] - [id number] Implanted:Qty: 1 on 11/28/2019 by Elmo Apodaca MD at OR [facility] Right: Eye BAUSCH [employer] LOMB 04/12/2024 [id number] / [id number] / [id number] documented as of this encounter Advance Directives Latest Code Status on File Code Status Date Activated Date Inactivated Comments Full Code 07/15/2015 2:43 PM 07/16/2015 12:56 PM This o rder reflects the patients wishes and were consensually agreed upon. Care Teams Digital Controls Technical Officer Relationship Specialty Start Date End Date Eliud Eisenberg MD [address] [place] [address] PCP - General Family Medicine 10/20/21 documented as of this encounter
--- OUTSIDE RECORDS SUMMARY | 2023-05-10 18:22 | External Medical Summary | Summary of Care ---
Author Name Unknown Organization [facility] Address [address] [address] Phone [phone] Care Team Providers Care Vending Service Technician Name Role Phone Eliud Eisenberg MD Primary Care Provider [phone] Reason for Visit * Reason Onset Date Comments Appointment 05/03/2023 Encounter Details Date Type Department Care Team (Late st Contact Info) Description 05/03/2023 Telephone Family Practice [facility] [address] [place] [address] Eliud Eisenberg MD [address] [place] [address] Appointment Allergies Active Allergy [...] Tablet Sublingual (Nitrostat)Indicati ons:Coronary artery disease involving inupiat coronary artery of inupiat heart without angina pectoris Place under the [...] 14 days 6 Each 3 01/21/2022 Active Mjzea-6-phne Ethyl Esters 1 GM Oral Capsule (Lovaza)Indications [...] Capsule Take by mouth. 0 Active Ipratropium [place] HFA 17 MCG/ACT Inhalation Aerosol Solution (Atrovent [...] HTN, goal below 130/80,Coronary artery disease involving inupiat coronary artery of inupiat heart without angina pectoris,S/P primary angioplasty with coronary stent Take 1 Tablet by mouth in the morning. 90 Tablet 3 03/15/2023 Active Fluticasone-Salmete rol 500-50 MCG/ACT Inhalation Aerosol Powder Breath Activated (Advair Diskus) Inhale 1 Puff by mouth in the morning and 1 Puff before bedtime. 180 Each 3 04/11/2023 Active Carvedilol 12.5 MG Oral Tablet (Coreg)Indications: Coronary artery disease involving inupiat coronary artery of inupiat heart without angina pectoris,Paroxysmal atrial fibrillation (HCC) [...] fibrillation 02/18/2015 Coronary artery disease invo lving inupiat coronary artery of inupiat heart without angina pectoris 02/18/2015 HTN, goal [...] mRNA, LNP-s, No Pre serve, 2-Dose Series ([employer]) 11/19/2020,04/24/2020,03/29/2020 Hepatitis B, 20+ yrs 12/07/2016,06/15/2016,03/16 Pneumococcal [...] next appointment with Angel ruelas after current [place] appointment for appropriate follow up timing. * Telephone Encounter - Laura Huff OSA - 05/08/2023 12:30 PM EDT Can pt follow up with Dr. Bucio? * Telephone Encounter - Rosina Hillman OSA - 05/03/2023 1:26 PM EDT Pt is seeing urology in [place] and they want to switch to [facility] Mac[facility] Dr Bucio. They are willingto keep the already scheduled appt but they want to get a future appt with Dr Bucio. documented in this encounter Plan of Treatment Upcoming Encounters Date Type Department Care Team (Late st Contact Info) Description 05/29/2023 9:30 AM EDT Office Visit Urology, [place] [address] [place] [address] Chivo Solis PA-C [address] [place] [address] 06/28/2023 8:30 AM EDT Office Visit Pharmacy, [facility] [address] [place] [address] [facility] [address] [place] [address] 08/23/2023 8:45 AM EDT Office Visit Orthopaedics [facility] [address] [place] [address] Jamil Hills PA-C [address] [place] [address] 11/02/2023 10:00 AM EDT Office Visit Sleep Disorders Ctr [facility] [address] [place] [address] Caballero Nichol Al, DO [address] [place] [address] 01/22/2024 8:00 AM EST [facility] [address] [place] [address] [facility], Nurse Annual Wellness [facility] [address] [place] [address] Scheduled Procedures Name Priority Associated Diagnoses Date/Ti [...] 023, 11/19/2018, 04/05/2017 CKD HGB USE SMARTSET 58319 10/20/202310/19, 10/19/2022, 09/16/2022, Additional history exists GFR 10/27/2023 04/26/2023, 09/14, 09/16/2022, Additional history exists CKD PHOS USE SMARTSET 76182 11/19/2023 100 07/2022, 11/12/2021, 04/01/2020 Diabetic Foot [...] this encounter Medical Devices Implanted Type Area Communications Engineering Technician Device Identifier Shelf Expiration Date Model / Serial / Lot Lens Intraoc 16.5 - [id number] - [id number] Implanted:Qty: 1 on 11/14/2019 by Elmo Apodaca MD at OR [facility] Left: Eye [employer]OM[employer] 03/15/2024 [id number] / [id number] / [id number] Lens Intraoc 16.5 - [id number] - [id number] Implanted:Qty: 1 on 11/28/2019 by Elmo Apodaca MD at OR [facility] Right: Eye BAUSCH [employer] LOMB 04/12/2024 [id number] / [id number] / [id number] documented as of this encounter Advance Directives Latest Code Status on File Code Status Date Activated Date Inactivated Comments Full Code 07/15/2015 2:43 PM 07/16/2015 12:56 PM This o rder reflects the patients wishes and were consensually agreed upon. Care Teams Vending Service Technician Relationship Specialty Start Date End Date Eliud Eisenberg MD [address] [address] PCP - General Family Medicine 9/7/22 documented as of this encounter
--- OUTSIDE RECORDS SUMMARY | 2023-05-10 18:22 | External Medical Summary | Summary of Care ---
Author Name Unknown Organization [facility] Address [address] [address] Phone [phone] Care Team Providers Care Outside Production Inspector Name Role Phone Eliud Eisenberg MD Primary Care Provider [phone] Reason for Visit * Reason Onset Date Comments Appointment 05/03/2023 Encounter Details Date Type Department Care Team (Late st Contact Info) Description 05/03/[address] [facility] [address] [place] [address] Eliud Eisenberg MD [address] [place] [address] Appointment Allergies Active Allergy [...] Tablet Sublingual (Nitrostat)Indicati ons:Coronary artery disease involving little shell tribe coronary artery of little shell tribe heart without angina pectoris Place under [...] 14 days 6 Each 3 01/21/2022 Active Pqbws-2-urby Ethyl Esters 1 GM Oral Capsule (Lovaza)Indications [...] Capsule Take by mouth. 0 Active Ipratropium [place] HFA 17 MCG/ACT Inhalation Aerosol Solution (Atrovent [...] HTN, goal below 130/80,Coronary artery disease involving [place] coronary artery of little shell tribe heart without angina pectoris,S/P primary angioplasty with coronary stent Take 1 Tablet by mouth in the morning. 90 Tablet 3 03/15/2023 Active Fluticasone-Salmete rol 500-50 MCG/ACT Inhalation Aerosol Powder Breath Activated (Advair Diskus) Inhale 1 Puff by mouth in the morning and 1 Puff before bedtime. 180 Each 3 04/11/2023 Active Carvedilol 12.5 MG Oral Tablet (Coreg)Indications: Coronary artery disease involving [place] coronary artery of [place] heart without angina pectoris,Paroxysmal atrial fibrillation [...] fibrillation 02/18/2015 Coronary artery disease invo lving [place] coronary artery of little shell tribe heart without angina pectoris 02/18/2015 HTN, [...] mRNA, LNP-s, No Pre serve, 2-Dose Series ([employer]) 11/19/2020,04/24/2020,03/29/2020 Hepatitis B, 20+ yrs 12/07/2016,06/15/2016,03/16 Pneumococcal [...] PM EDT Pt is seeing urology in [place] and they want to switch to Angel Bucio. They are willingto keep the already scheduled appt but they want to get a future appt with Dr Bucio. documented in this encounter Plan of Treatment Upcoming Encounters Date Type Department Care Team (Late st Contact Info) Description 05/29/2023 9:30 AM EDT Office Visit Urology, [place] [address] [place] [address] Chivo Solis PA-C [address] [place] [address] 06/28/2023 8:30 AM EDT Office Visit Pharmacy, [facility] [address] [place] [address] [facility] Clinic [facility] [address] [place] [address] 08/23/2023 8:45 AM EDT [facility] [address] [place] [address] Jamil Hills PA-C [address] [place] [address] 11/02/2023 10:00 AM EDT Office Visit Sleep Disorders Ctr [facility] [address] [place] [phone] Nichol Caballero DO [address] [place] [address] 01/22/2024 8:00 AM EST Nurse Only Ancillary [facility] [address] [place] [address] [place], Nurse Annual Wellness [facility] [address] [place] [address] Scheduled Procedures Name Priority Associated Diagnoses Date/Ti [...] 023, 11/19/2018, 04/05/2017 CKD HGB USE SMARTSET 56200 10/20/202310/19, 10/19/2022, 09/16/2022, Additional history exists GFR 10/27/2023 04/26/2023, 09/14, 09/16/2022, Additional history exists CKD PHOS USE SMARTSET 50256 11/19/202307/2022, 11/12/2021, 04/01/2020 Diabetic Foot Exam 12/30/2023 [...] this encounter Medical Devices Implanted Type Area Sweater Operator Device Identifier Shelf Expiration Date Model / Serial / Lot Lens Intraoc 16.5 - [id number] - [id number] Implanted:Qty: 1 on 11/14/2019 by Elmo Apodaca MD at OR [facility] Left: Eye [employer]CH [employer] LOM[employer] 03/15/2024 [id number] / [id number] / [id number] Lens Intraoc 16.5 - [id number] - [id number] Implanted:Qty: 1 on 11/28/2019 by Elmo Apodaca MD at OR [facility] Right: Eye BA[employer]CH [employer]OM[employer] 04/12/2024 [id number] / [id number] / [id number] documented as of this encounter Advance Directives Latest Code Status on File Code Status Date Activated Date Inactivated Comments Full Code 07/15/2015 2:43 PM 07/16/2015 12:56 PM This o rder reflects the patients wishes and were consensually agreed upon. Care Teams Outside Production Inspector Relationship Specialty Start Date End Date Eliud Eisenberg MD [address] [place] [address] PCP - General Family Medicine 10/20/21 documented as of this encounter
--- OUTSIDE RECORDS SUMMARY | 2023-05-10 18:22 | External Medical Summary | Summary of Care ---
Author Name Unknown Organization [facility] Address [address] [address] Phone [phone] Care Team Providers Care Director Meetings Name Role Phone Eliud Eisenberg MD Primary Care Provider [phone] Reason for Visit * Reason Onset Date Comments Appointment 05/03/2023 Encounter Details Date Type Department Care Team (Late st Contact Info) Description 05/03/2023 Telephone Family Practice [facility] [address] [place] [address] Eliud Eisenberg MD [address] [place] [address] Appointment Allergies Active Allergy Reactions Criticality Noted Date Comments Sulfamethoxazole-Trimet hoprim Other (Please comment) 09/20/2017 hyperkalmeia Lisinopril 09/15/2022 ?cough Trimethoprim High 11/23/2021 Other reaction(s): acute renal failure documented as of this encounter (statuses as of 05/03/2023) Medications Medication Sig Dispensed Refills Start Date [...] Tablet Sublingual (Nitrostat)Indicati ons:Coronary artery disease involving penobscot coronary artery of penobscot heart without angina pectoris Place under the [...] 14 days 6 Each 3 01/21/2022 Active Unjio-4-mcqy Ethyl Esters 1 GM Oral Capsule (Lovaza)Indications [...] Capsule Take by mouth. 0 Active Ipratropium Wallace HFA 17 MCG/ACT Inhalation Aerosol Solution (Atrovent [...] HTN, goal below 130/80,Coronary artery disease involving penobscot coronary artery of penobscot heart without angina pectoris,S/P primary angioplasty with coronary stent Take 1 Tablet by mouth in the morning. 90 Tablet 3 03/15/2023 Active Fluticasone-Salmete rol 500-50 MCG/ACT Inhalation Aerosol Powder Breath Activated (Advair Diskus) Inhale 1 Puff by mouth in the morning and 1 Puff before bedtime. 180 Each 3 04/11/2023 Active Carvedilol 12.5 MG Oral Tablet (Coreg)Indications: Coronary artery disease involving penobscot coronary artery of penobscot heart without angina pectoris,Paroxysmal atrial fibrillation (HCC) [...] as of this encounter (statuses as of 05/03/2023) Active Problems Problem Noted Date Diagnosed Date [...] fibrillation 02/18/2015 Coronary artery disease invo lving penobscot coronary artery of penobscot heart without angina pectoris 02/18/2015 HTN, goal below 130/80 02/18/2015 S/P carotid endarterectomy 02/18/2015 documented as of this encounter (statuses as of 05/03/2023) Resolved Problems Problem Noted Date Diagnosed Date [...] as of this encounter (statuses as of 05/03/2023) Immunizations Name Administration Dates Next Due COVID-19 mRNA, LNP-s, No Pre serve, 2-Dose Series ([employer]) 11/19/2020,04/24/2020,03/29/2020 Hepatitis B, 20+ yrs 12/07/2016,06/15/2016,03/16 Pneumococcal [...] PM EDT Pt is seeing urology in [place] and they want to switch to Angel Bucio. They are willingto keep the already scheduled appt but they want to get a future appt with Dr Bucio. documented in this encounter Plan of Treatment Upcoming Encounters Date Type Department Care Team (Late st Contact Info) Description 05/29/2023 9:30 AM EDT Office Visit Urology, [place] [address] [place] [address] Chivo Solis PA-C [address] [place] [address] 06/28/2023 8:30 AM EDT Office Visit Pharmacy, [facility] [address] [place] [address] [address] [facility] [address] [place] [address] 08/23/2023 8:45 AM EDT Office Visit [facility]opaed[facility] [address] [place] [address] Jamil Hills PA-C [address] [place] [address] 11/02/2023 10:00 AM EDT Office Visit [facility] Disorders [facility] [address] [place] [id number] Nichol Caballero DO [address] [place] [address] 01/22/2024 8:00 AM EST Nurse Only Ancillary [facility] [address] [place] [address] Branden, Nurse Annual Wellness [facility] [address] [place] [address] Scheduled Procedures Name Priority Associated Diagnoses Date/Ti [...] 023, 11/19/2018, 04/05/2017 CKD HGB USE SMARTSET 65601 10/20/202310/19, 10/19/2022, 09/16/2022, Additional history exists GFR 10/27/2023 04/26/2023, 09/14, 09/16/2022, Additional history exists CKD PHOS USE SMARTSET 87156 11/19/202307/2022, 11/12/2021, 04/01/2020 Diabetic Foot Exam 12/30/2023 [...] this encounter Medical Devices Implanted Type [employer] Principal Device Identifier Shelf Expiration Date Model / Serial / Lot Lens Intraoc 16.5 - [id number] - [id number] Implanted:Qty: 1 on 11/14/2019 by Elmo Apodaca MD at OR [facility] Left: Eye [employer] 03/15/2024 [id number] / [id number] / [id number] Lens Intraoc 16.5 - [id number] - [id number] Implanted:Qty: 1 on 11/28/2019 by Elmo Apodaca MD at OR [facility] Right: Eye [employer] 04/12/2024 [id number] / [id number] / [id number] documented as of this encounter Advance Directives Latest Code Status on File Code Status Date Activated Date Inactivated Comments Full Code 07/15/2015 2:43 PM 07/16/2015 12:56 PM This o rder reflects the patients wishes and were consensually agreed upon. Care Teams Director Meetings Relationship Specialty Start Date End Date Eliud Eisenberg MD [address] [place] [id number] PCP - General Family Medicine 10/20/21 documented as of this encounter
[2023-05-10] MEDS ORDERED: HYDROCORTISONE SOD SUCCINATE 100 MG/2 ML VIAL IV SCH (19:00)
[2023-05-10] MEDS: DULoxetine HCL 60 MG CAP PO SCH (20:10)
[2023-05-10] MEDS: APIXABAN 5 MG TABLET PO SCH (20:10)
[2023-05-10] MEDS: OMEGA-3 (PURIFIED FISH OIL) 1 GM CAP PO SCH (20:11)
[2023-05-10] MEDS: ATORVASTATIN 40 MG TAB PO SCH (20:11)
[2023-05-10] MEDS: LORazepam 0.5 MG TAB PO STA (22:40)
--- NOTE | 2023-05-11 01:00 | Magnetic Resonance Report ---
Exam(s): MRI HEAD Without Contrast EXAM: MR Head Without Intravenous Contrast CLINICAL HISTORY: Reason for exam: Syncopal episode, garbled speech, gait, r/o cva. TECHNIQUE: Magnetic resonance images of the head/brain without intravenous contrast in multiple planes. COMPARISON: Comparison made to prior head CT from November 10, 2023. FINDINGS: Brain: There is a remote ischemic injury of the right frontal, parietal and occipital lobes with encephalomalacia and gliosis. Mild nonspecific white matter changes. The flow voids at the base of the brain are intact No mass. No hemorrhage. No acute infarct. Ventricles: Mild ventricular megaly. Bones/joints: Unremarkable. No acute fracture. Sinuses: Chronic maxillary, ethmoid and sphenoid sinusitis. Status post endoscopic sinus surgery. No acute sinusitis. Mastoid air cells: There is a small amount of fluid in the mastoid air cells. No mastoid effusion. Orbits: Bilateral lens replacements. IMPRESSION: No evidence of acute intracranial pathology. Electronically signed by: Joselin Patrick MD 05/11/23 00:58 AM
--- NOTE | 2023-05-11 01:16 | Ultrasound Report ---
Exam(s): US LIVER EXAM: US Abdomen Limited CLINICAL HISTORY: Reason for exam: elevated liver enzymes. TECHNIQUE: Real-time ultrasound of the abdomen with image documentation. COMPARISON: No relevant prior studies available. FINDINGS: Enlarged echogenic/fatty liver 21.6 cm length. Probable focal fatty sparing adjacent to the gallbladder. Well-distended gallbladder. No gallbladder wall thickening. Gallbladder sludge. No calcified gallstones. Negative sonographic Galvin sign. Common bile duct is 3.1 mm diameter Pancreas poorly visualized due to bowel gas. Right kidney unremarkable. No hydronephrosis. No free fluid. IMPRESSION: Enlarged fatty liver. Gallbladder sludge. No evidence for acute cholecystitis or biliary obstruction. Electronically signed by: Rodney Dumont M.D. 05/11/23 01:15 AM
--- NOTE | 2023-05-11 07:23 | Hospitalist Progress Note ---
Date of Service May 11, 2023 Assessment & Plan (1) Syncope: (2) Hypoxia: (3) Paroxysmal a-fib: (4) Dyslipidemia: (5) CAD (coronary artery disease): (6) T2DM (type 2 diabetes mellitus): (7) Sepsis: Plan: Mr. Rubio is a 72-year-old male who has a significant past medical history of T2DM, diabetic peripheral neuropathy, COPD, JORGE A on CPAP, PAF, CAD, HTN, CKD stage III, BPH, gouty arthropathy, history of tobacco abuse who Patient recently hospitalized for SOB on 04/02 for COPD exacerbation and reports continued decline from that hospitalization. CT angiography of the head and neck completed in August 2018 revealed extensive plaque within the proximal left internal carotid artery with approximately 60% stenosis. Right carotid endarterectomy changes noted. Right ICA patent. Patient reports feeling much improved and denies any new symptoms this morning. Continue abx until cultures return. Close monitoring in PCU while slowly introducing home medications. #Syncopal Episode #Obstructive CAD hx of MAR #Carotid stenosis s/p right CEA and with left ICA stenosis 60% in 2019 -MRI with prior #Sepsis with MISTI, hypotension, concern for UTI -Admit to tele - Troponin bumped at 52.9, EKG reviewed showing NSR, previous inferior infarct. Will obtain a complete echo today - Chronic, stable, continue aspirin, statin - Holding BP meds for now including carvedilol, hydralazine, Imdur, lisinopril, torsemide - S/p 3 L NSS with bp 60/40 113/65, will monitor and possibly need ICU for pressor support if not able to maintain MAP of 65 - CXR is negative, will check CT chest w/o contrast - Bar catheter with MISTI and no urine sample obtained yet --patient reports that he straight caths 4 times per day and has for many years with history of enlarged prostate, denies history of neurogenic bladder, states that he thinks he may have a urinary tract infection due to seeing cloudy urine recently - Follow blood cultures x 2, started on Zosyn IV empirically, continue for now - MRSA negative -Random cortisol 18, treated x1 with solumedrol, pressures borderline hypertensive now--hold on further steroids -Repeat carotid duplex #Gait disturbance *resolved #Garbled speech*resolved -CT of the head reveals a small chronic infarct which may be contributing to his garbled speech and gait. There is no acute bleed noted (on eliquis) -Check MRI brain -Reveals area of chronic encephalomalacia, but no acute infarct -Potentially 2/2 hypotension - PT/OT eval pe #Paroxysmal atrial fibrillation, status post successful pulmonary vein isolation 07/15/2015 Rate and rhythm controlled on Coreg. On Eliquis for anticoagulation #ASCVD #Peripheral arterial disease, right greater than left lower extremity claudication. -Follows with vascular surgery -PCI of the OM with MAR on 10/27/2008; PCI 04/03/2020, findings of a 99% culprit ostial/proximal circumflex lesion, treated with 2.5 x 20 mm MAR, previously placed OM stent patent at that time. -Continue statin #COPD with emphysema, exacerbation ruled out #COVID [address] 05/09 with scarring, atelectasis and emphysema - O2 sats was noted to be 89% on admission and required oxygen 2 L which is new, does not need at baseline -- he is 94% on RA during my eval -CXR did not show any acute abnormalities -CT chest as above -Continue home advair/atrovent #DM II, Insulin-dependent -HbA1c 9.9 this admission -ISS with accuchecks achs -Glycemic consult #MISTI on CKD-3 *improving -Baseline Cr trends 1.3 to 1.6, today elevated at 2.37 Likley prerenal iso hypotension, Cr improved to 1.56 -IVF s/p 3 L -Hold nephrotoxins and renally reduce medications -Resume coreg, and plan to resume imdur/hydra prior to lisinopril #JORGE A -Cpap at HS #BPH/Hx of uti -Hold methenamine while on Zosyn - As above #Morbid obesity BMI 40.8 Counseled on lifestyle modifications DVT ppx: teds, scds Lines: 2 PIV FEN/GI: HH/DM diet CODE: Full code Admission and Anticipated Discharge Date Admission Date: May 10, 2023 Subjective No acute events overnight, feels much improved. reports that since last discharge, he has been slowly declining until the last week when his dizziness and presyncopal episodes became more frequent. He denies fevers or chills, his urine color was the only noticeable discrepancy that made him suspect UTI Physical Exam Constitutional: WD/WN, vitals as above Respiratory: normal respiratory effort, lungs clear to auscultation Cardiovascular: RRR, no murmur, no edema Results & Data Results & Data Vital Signs (Past 12 Hours) Vital Signs Temp Pulse Pulse Resp BP Pulse Ox O2 Del Method 05/11/23 03:31 68 17 05/11/23 03:00 36.3 C L 65 18 142/73 H 94 CPAP 05/11/23 00:28 71 13 89 L 05/10/23 23:59 36.3 C L 65 18 153/73 H 91 Room Air 05/10/23 22:37 63 05/10/23 20:00 Room Air 05/10/23 19:26 36.6 C 65 17 129/68 93 Nasal Cannula O2 Flow Rate 05/11/23 03:31 2 05/11/23 03:00 05/11/23 00:28 2 05/10/23 23:59 05/10/23 22:37 05/10/23 20:00 05/10/23 19:26 2 Laboratory Results Short CBC 05/11/23 Range/Units 07:12 WBC 9.78 (4.8-10.8) K/ul Hgb 13.6 L (14.0-18.0) g/dl Hct 40.8 L (42.0-52.0) % Plt Count 167 (130-400) K/uL BMP 05/11/23 07:12 Sodium 140 Potassium 3.8 Chloride 105 Carbon Dioxide 31 BUN 36 H D Creatinine 1.56 H D Glucose 257 H Calcium 8.0 L Diagnostic Findings MR Head Without Intravenous Contrast CLINICAL HISTORY: Reason for exam: Syncopal episode, garbled speech, gait, r/o cva. TECHNIQUE: Magnetic resonance images of the head/brain without intravenous contrast in multiple planes. COMPARISON: Comparison made to prior head CT from November 10, 2023. FINDINGS: Brain: There is a remote ischemic injury of the right frontal, parietal and occipital lobes with encephalomalacia and gliosis. Mild nonspecific white matter changes. The flow voids at the base of the brain are intact No mass. No hemorrhage. No acute infarct. Ventricles: Mild ventricular megaly. Bones/joints: Unremarkable. No acute fracture. Sinuses: Chronic maxillary, ethmoid and sphenoid sinusitis. Status post endoscopic sinus surgery. No acute sinusitis. Mastoid air cells: There is a small amount of fluid in the mastoid air cells. No mastoid effusion. Orbits: Bilateral lens replacements. IMPRESSION: No evidence of acute intracranial pathology. Carotid Artery Duplex Examination 09/14/2022 Impression: Right carotid artery duplex examination indicates evidence of less than 50% stenosis of the internal carotid artery. Left carotid artery duplex examination indicates evidence of 50-69% stenosis of the internal carotid artery. Medications Administered Home Medications Medication Instructions Recorded Confirmed Last Taken atorvastatin 20 mg tablet 40 mg PO QPM 09/26/18 05/10/23 09/11/22 carvedilol 12.5 mg tablet 12.5 mg PO BID 09/26/18 05/10/23 09/12/22 cholecalciferol (vitamin D3) 25 1,000 units PO DAILY 09/26/18 05/10/23 09/12/22 mcg (1,000 unit) capsule cyanocobalamin (vitamin B-12) 1,000 mcg PO DAILY 09/26/18 05/10/23 09/12/22 1,000 mcg tablet magnesium oxide 500 mg PO BID 09/26/18 05/10/23 09/12/22 metformin 1,000 mg tablet 1,000 mg PO BID 09/26/18 05/10/23 09/12/22 nitroglycerin 0.4 mg sublingual 0.4 mg sublingual Q5M 09/26/18 05/10/23 09/11/22 tablet omega-3 acid ethyl esters 1 gram 1 cap PO BID 09/26/18 05/10/23 09/12/22 capsule torsemide 10 mg tablet 10 mg PO DAILY 09/26/18 05/10/23 09/12/22 pantoprazole 40 mg tablet,delayed 40 mg PO DAILY 10/05/18 05/10/23 09/12/22 release (Protonix) hydralazine 10 mg tablet 10 mg PO BID 12/20/18 05/10/23 09/12/22 isosorbide mononitrate 60 mg 60 mg PO DAILY 02/25/20 05/10/23 09/12/22 tablet,extended release 24 hr aspirin 81 mg tablet,delayed 81 mg PO DAILY 06/22/21 05/10/23 09/12/22 release lisinopril 20 mg tablet 20 mg PO DAILY 01/04/22 05/10/23 09/12/22 insulin aspart U-100 100 unit/mL 1 sliding scale dose subcut 03/24/22 05/10/23 Unknown subcutaneous cartridge (Novolog USEASDIRECTD PenFill U-100 Insulin aspart) insulin pump cart,cont inf,BT #5 ea 05/25/22 07/28/22 Unknown (Omnipod Dash Pods (Gen 4) subcutaneous cartridge) methenamine hippurate 1 gram tablet 1 g PO DAILY #90 tabs 08/17/22 05/10/23 09/12/22 pregabalin 225 mg capsule (Lyrica) 225 mg PO QID 90 days #360 caps 11/22/22 05/10/23 Unknown duloxetine 60 mg capsule,delayed 60 mg PO BID 90 days #180 caps 02/22/23 05/10/23 Unknown release allopurinol 100 mg tablet 100 mg PO QAM 04/02/23 05/10/23 Unknown apixaban 5 mg tablet (Eliquis) 5 mg PO BID 04/02/23 05/10/23 Unknown clarithromycin 500 mg tablet 500 mg PO BID 05/10/23 05/10/23 Unknown prednisone 20 mg tablet 20 mg PO UD 05/10/23 05/10/23 Unknown Active Medications Generic Name Dose Route Start Last Admin Trade Name Freq PRN Reason Stop Dose Admin Allopurinol 100 mg 05/11/23 09:00 05/11/23 10:08 Allopurinol 100 Mg Tab PO 06/10/23 08:59 100 mg QAM OSCAR Administration Apixaban 5 mg 05/10/23 21:00 05/11/23 10:06 Apixaban 5 Mg Tablet PO 06/09/23 20:59 5 mg BID OSCAR Administration Aspirin 81 mg 05/11/23 09:00 05/11/23 10:08 Aspirin 81 Mg Ectab PO 06/10/23 08:59 81 mg DAILY OSCAR Administration Atorvastatin Calcium 40 mg 05/10/23 21:00 05/10/23 20:11 Atorvastatin 40 Mg Tab PO 06/09/23 20:59 40 mg QPM OSCAR Administration Carvedilol 12.5 mg 05/11/23 13:00 05/11/23 14:22 Carvedilol 12.5 Mg Tab PO 06/10/23 12:59 12.5 mg BID OSCAR Administration Duloxetine HCl 60 mg 05/10/23 21:00 05/11/23 10:06 Duloxetine Hcl 60 Mg Cap PO 06/09/23 20:59 60 mg BID OSCAR Administration Fish Oil 1 gm 05/10/23 21:00 05/11/23 10:07 Dunreith-3 (Purified Fish Oil) 1 Gm Cap PO 06/09/23 20:59 1 gm BID OSCAR Administration Piperacillin Sod/Tazobactam 100 mls @ 25 mls/hr 05/10/23 17:00 05/11/23 14:06 Sod 4.5 gm/ Dextrose IV 05/15/23 16:59 Infused Q8H OSCAR Infusion Protocol Pantoprazole Sodium 40 mg 05/11/23 09:00 05/11/23 10:08 Pantoprazole 40 Mg Tab PO 06/10/23 08:59 40 mg DAILY OSCAR Administration Pregabalin 100 mg 05/10/23 16:45 05/11/23 14:22 Pregabalin 100 Mg Cap PO 06/09/23 16:44 100 mg TID OSCAR Administration Vitamin D 25 mcg 05/11/23 09:00 05/11/23 10:08 Cholecalciferol 25 Mcg (1000 Units) Tab PO 06/10/23 08:59 25 mcg DAILY OSCAR Administration
[2023-05-11 07:34] LABS: Hematocrit (blood only) 40.8 % (42.0-52.0); Hemoglobin 13.6 g/dl (14.0-18.0); Mean Corpuscular Hemoglobin 28.9 pg (25.0-34.0); Mean Corpuscular Hgb Conc 33.3 g/dL (32.0-36.0); Mean Corpuscular Volume 86.8 fL (80.0-100.0); Mean Platelet Volume 11.2 fL (9.4-12.4); Platelet Count 167 K/uL (130-400); RDW Coefficient of Variation 14.7 % (11.5-14.5); RDW Standard Deviation 46.7 fL (36.4-46.3); White Blood Count 9.78 K/ul (4.8-10.8)
[2023-05-11 07:54] LABS: Magnesium 1.9 mg/dl (1.7-2.4); Phosphorus 2.8 mg/dl (2.5-4.9)
[2023-05-11 07:57] LABS: Estimated Average Glucose 237 mg/dl; Hemoglobin A1C 9.9 % (4.5-5.6)
[2023-05-11 08:02] LABS: BUN Creatinine Ratio 23.1 (10-20); Creatinine Clr Calc Pharmacy 55.2 ml/min; Est GFR (African American) 50.3 ml/min; Est GFR (Non-African American) 43.4 ml/min; Potassium 3.8 mmol/L (3.5-5.1)
[2023-05-11] MEDS ORDERED: METHENAMINE HIPPURATE 1 GM TAB PO SCH (09:00)
[2023-05-11] MEDS: PANTOprazole 40 MG TAB PO SCH (10:08)
[2023-05-11] MEDS: ASPIRIN 81 MG ECTAB PO SCH (10:08)
[2023-05-11] MEDS: allopurinoL 100 MG TAB PO SCH (10:08)
[2023-05-11] MEDS: CHOLECALCIFEROL 25 MCG (1000 UNITS) TAB PO SCH (10:08)
--- NOTE | 2023-05-11 10:49 | Ultrasound Report ---
CAROTID ARTERY ULTRASOUND CLINICAL HISTORY: Syncope. COMPARISON STUDY: Carotid ultrasound December 27, [address] of the neck August 30, 2018. TECHNIQUE: Real-time, grayscale, and color Doppler sonography of the carotid and vertebral arteries w as performed. Images were viewed in the transverse and longitudinal planes. FINDINGS: There is extensive atherosclerotic plaque within the proximal left internal carotid artery. Velocity measurements are listed below. COMMON CAROTID PEAK SYSTOLIC VELOCITY (CM/S): RIGHT 78 LEFT 75 ICA PEAK SYSTOLIC VELOCITY (CM/S): RIGHT 67 LEFT 324 The systolic ratios between the right internal to common carotid arteries significantly elevated at 4 .3. Antegrade flow is seen in the vertebral arteries. Elevated peak systolic velocity of 271 cm/s within the left external carotid artery is noted. IMPRESSION: 1. Extensive atherosclerotic plaque with findings suggestive of greater than 70% stenosis of the prox imal left internal carotid artery. 2. No evidence for a stenosis within the cervical right internal carotid artery. 3. Findings suggestive of a stenosis of the proximal left external carotid artery. ACT 112: Negative or not required by law. Electronically signed by: Jas Jernigan M.D. 05/11/2023 10:47 AM
[2023-05-11] MEDS ORDERED: PHARMACY GLYCEMIC MGMT CONSULT PRN (12:47)
[2023-05-11] MEDS ORDERED: CARBOHYDRATES FOR HYPOGLYCEMIA PO PRN (12:49)
[2023-05-11] MEDS ORDERED: GLUCOSE 40% GEL 15 GM TUBE PO PRN (12:49)
[2023-05-11] MEDS ORDERED: DEXTROSE 50% 50 ML SYRINGE IV PRN (12:49)
[2023-05-11] MEDS ORDERED: GLUCAGON FOR INJ 1 MG VIAL SQ PRN (12:49)
[2023-05-11] MEDS ORDERED: GLUCOSE 10 TAB/TUBE PO PRN (12:49)
--- NOTE | 2023-05-11 13:41 | Pharmacy Report ---
Pharmacy Glycemic Short Note 2 - Date of Service May 11, 2023 - Glycemic Short BSG Results (Last 24 hours): 05/10/23 05/10/23 05/11/23 16:45 20:27 07:12 Glucose 257 H POC Glucose 147 H 181 H 05/11/23 05/11/23 05/11/23 07:40 11:33 11:34 Glucose POC Glucose 241 H 118 H 264 H 05/11/23 12:05 Glucose POC Glucose 316 H* OUTPATIENT ANTIDIABETIC REGIMEN: * Omnipod novolog pump * Basal: 3.4 units/hr * SF: 15, CR: 4 ASSESSMENT: * Po is a 72 yo T2DM who presented due to syncopal episode. He was recently hospitalized for SOB/COPD exacerbation on 04/02. * Per discussion with nursing, patient removed his Omnipod pump prior to MRI. He has been without basal insulin for ~24 hours. * He received a single dose of hydrocortisone 100 mg IV yesterday in the ED. No ongoing steroids ordered. * Home basal dose delivered by his pump equals ~82 units of insulin per day. Will give a stat dose of Lantus 50 units plus an evening scale which will total 70-80 units of Lantus today. * Will utilize a correction factor and carb ratio similar to home needs. * Overnight checks at 00 and 04 until better glycemic control has been achieved. PLAN FOR INPATIENT GLYCEMIC CONTROL: * Hold Omnipod pump * Basal insulin * Lantus 50 units SQ x 1 , then 20-30 units SQ tonight (30 units for BSG 180 or more) * Further dosing to be determined in AM * Bolus insulin * NovoLog per scale ACHS or Q6hrs while NPO * Goal Range: Low 110 mg/dL - High 140 mg/dL * Correction Factor: 15 mg/dL/unit * Nutritional / Prandial insulin per carb ratio of 1 unit per 5 grams CHO consumed
[2023-05-11] MEDS: carvediloL 12.5 MG TAB PO SCH (14:22)
[2023-05-11] MEDS: LANTUS PER UNIT CHARGE SQ ONE (14:28)
[2023-05-11] MEDS: INSULIN ASPART PER UNIT CHARGE SC SCH (17:16)
[2023-05-11] MEDS: LANTUS PER UNIT CHARGE SQ SCH (20:55)
[2023-05-12] MEDS: INSULIN ASPART PER UNIT CHARGE SC SCH (01:10)
[2023-05-12 07:13] LABS: Hematocrit (blood only) 43.7 % (42.0-52.0); Hemoglobin 14.2 g/dl (14.0-18.0); Mean Corpuscular Hgb Conc 32.5 g/dL (32.0-36.0); Mean Corpuscular Volume 89.2 fL (80.0-100.0); Mean Platelet Volume 11.2 fL (9.4-12.4); Platelet Count 191 K/uL (130-400); RDW Coefficient of Variation 15.1 % (11.5-14.5); RDW Standard Deviation 48.9 fL (36.4-46.3); White Blood Count 6.04 K/ul (4.8-10.8)
[2023-05-12 07:27] LABS: BUN Creatinine Ratio 17.4 (10-20); Calcium 8.6 mg/dl (8.6-10.3); Est GFR (African American) 48.4 ml/min; Est GFR (Non-African American) 41.8 ml/min; Magnesium 1.7 mg/dl (1.7-2.4); Phosphorus 2.5 mg/dl (2.5-4.9)
[2023-05-12 07:47] LABS: Ferritin 186.2 ng/ml (8-388)
[2023-05-12 07:56] LABS: Folate (Folic Acid),Ser orPlas 18.52 ng/ml (>5.38)
[2023-05-12] MEDS: LANTUS PER UNIT CHARGE SC SCH (08:42)
--- NOTE | 2023-05-12 10:02 | Pharmacy Report ---
Pharmacy Glycemic Short Note 2 - Date of Service May 12, 2023 - Glycemic Short BSG Results (Last 24 hours): 05/11/23 05/11/23 05/11/23 11:33 11:34 12:05 Glucose POC Glucose 118 H 264 H 316 H* 05/11/23 05/11/23 05/12/23 16:32 20:47 00:28 Glucose POC Glucose 268 H 102 H 146 H 05/12/23 05/12/23 05/12/23 04:01 06:36 08:19 Glucose 205 H POC Glucose 164 H 317 H* 05/12/23 05/12/23 08:20 08:22 Glucose POC Glucose 269 H 278 H OUTPATIENT ANTIDIABETIC REGIMEN: * Omnipod Novolog pump * Basal: 3.4 units/hr * SF: 15, CR: 4 * HbA1c: 9.9% (05/11/23) ASSESSMENT: 05/11: * Po received 109 units of insulin yesterday, 70 units basal + 39 units bolus. BSGs were: [phone] mg/dL. Overnight checks were: 146-164 mg/dL. Remains on Zosyn. Tolerating diet. * Fasting BSG elevated at 278 mg/dL this morning. Patient and RN confirm that he did start eating breakfast prior to AM check which explains elevation. True fasting likely closer to the 164 mg/dL value taken around 0400. Will not adjust basal regimen today. * Will tighten carb ratio slightly which will match home pump regimen. Explained to patient that we will continue basal-bolus injections until day of discharge and then can resume pump. 05/10: * Po is a 72 yo T2DM who presented due to syncopal episode. He was recently hospitalized for SOB/COPD exacerbation on 04/02. * Per discussion with nursing, patient removed his Omnipod pump prior to MRI. He has been without basal insulin for ~24 hours. * He received a single dose of hydrocortisone 100 mg IV yesterday in the ED. No ongoing steroids ordered. * Home basal dose delivered by his pump equals ~82 units of insulin per day. Will give a stat dose of Lantus 50 units plus an evening scale which will total 70-80 units of Lantus today. * Will utilize a correction factor and carb ratio similar to home needs. * Overnight checks at 00 and 04 until better glycemic control has been achieved. PLAN FOR INPATIENT GLYCEMIC CONTROL: * Hold Omnipod pump - resume upon discharge * Basal insulin * Lantus 50 units SC AM * Lantus 20 units SC PM * Bolus insulin * NovoLog per scale ACHS or Q6hrs while NPO * Goal Range: Low 110 mg/dL - High 140 mg/dL * Correction Factor: 15 mg/dL/unit * Nutritional / Prandial insulin per carb ratio of 1 unit per 4 grams CHO consumed
--- NOTE | 2023-05-12 10:37 | Hospitalist Progress Note ---
Date of Service May 12, 2023 Assessment & Plan (1) Syncope: (2) Hypoxia: (3) Paroxysmal a-fib: (4) Dyslipidemia: (5) CAD (coronary artery disease): (6) T2DM (type 2 diabetes mellitus): (7) Sepsis: Plan: Mr. Rubio is a 72-year-old male who has a significant past medical history of T2DM, diabetic peripheral neuropathy, COPD, JORGE A on CPAP, PAF, CAD, HTN, CKD stage III, BPH, gouty arthropathy, history of tobacco abuse who Patient recently hospitalized for SOB on 04/02 for COPD exacerbation and reports continued decline from that hospitalization. CT angiography of the head and neck completed in August 2018 revealed extensive plaque within the proximal left internal carotid artery with approximately 60% stenosis. Right carotid endarterectomy changes noted. Right ICA patent. Patient reports feeling much improved and denies any new symptoms this morning. Continue abx until cultures return. Close monitoring in PCU while slowly introducing home medications. Coreg was resumed briefly on 05/10 given hypertension--however, patient robustly responsive to additional medication and hypotensive this morning; however, asymptomatic #Syncopal Episode #Persistent Hypotension #Obstructive CAD hx of MAR #Severe left carotid stenosis >70% #Carotid stenosis s/p right CEA 2018 #Sepsis with MISTI, hypotension, concern for UTI--r/o no infectious source -Admit to tele - Troponin bumped at 52.9, EKG reviewed showing NSR, previous inferior infarct. Will obtain a complete echo today - Chronic, stable, continue aspirin, statin - Holding BP meds for now including carvedilol, hydralazine, Imdur, lisinopril, torsemide - S/p 3 L NSS with bp 60/40 113/65, will monitor and possibly need ICU for pressor support if not able to maintain MAP of 65 - CXR is negative, will check CT chest w/o contrast - Bar catheter with MISTI and no urine sample obtained yet --patient reports that he straight caths 4 times per day and has for many years with history of enlarged prostate, denies history of neurogenic bladder, states that he thinks he may have a urinary tract infection due to seeing cloudy urine recently - Follow blood cultures x 2, started on Zosyn IV empirically -Transition to Cefdinir - MRSA negative -Random cortisol 05/09, treated x1 with solumedrol, pressures borderline hypertensive now--hold on further steroids -Repeat random cortisol, if low/equivocal, stim test -Spoke on phone with Neurology, [place]: suspects possible component of diabetic autonomic neuropathy could be likely -Given clinical improvement and no clear source of infection, curious if uncontrolled diabetes contributing to symptoms v AI -Cardiology consult: historically on multiple antihypertensives, discussion of any alternatives/recommendations given ongoing hypotension -Vascular consult ordered for left carotid stenosis #Gait disturbance *resolved #Garbled speech*resolved -CT of the head reveals a small chronic infarct which may be contributing to his garbled speech and gait. There is no acute bleed noted on eliquis) -Check MRI brain -Reveals area of chronic encephalomalacia, but no acute infarct -Potentially 2/2 hypotension - PT/OT eval :no further needs #Paroxysmal atrial fibrillation, status post successful pulmonary vein isolation 07/15/2015 Hold coreg 2/2 hypotension On Eliquis for anticoagulation #ASCVD #Peripheral arterial disease, right greater than left lower extremity claudication. -Follows with vascular surgery -PCI of the OM with MAR on 10/27/2008; PCI 04/03/2020, findings of a 99% culprit ostial/proximal circumflex lesion, treated with 2.5 x 20 mm MAR, previously placed OM stent patent at that time. -Continue statin #COPD with emphysema, exacerbation ruled out #COVID [address] 05/09 with scarring, atelectasis and emphysema - O2 sats was noted to be 89% on admission and required oxygen 2 L which is new, does not need at baseline -- he is 94% on RA during my eval -CXR did not show any acute abnormalities -CT chest as above -Continue home advair/atrovent #DM II, Insulin-dependent #DM neuropathy -HbA1c 9.9 this admission -ISS with accuchecks achs -Glycemic consult #MISTI on CKD-3 *improving -Baseline Cr trends 1.3 to 1.6, Ron prerenal iso hypotension, Cr improved to 1.56 -IVF s/p 3 L -Hold nephrotoxins and renally reduce medications -hold coreg, imdur/hydra and lisinopril given continued hypotension #JORGE A -Cpap at HS #BPH/Hx of uti -Hold methenamine while on cefdinir - As above #Morbid obesity BMI 40.8 Counseled on lifestyle modifications DVT ppx: teds, scds Lines: 2 PIV FEN/GI: HH/DM diet CODE: Full code Admission and Anticipated Discharge Date Admission Date: May 10, 2023 Subjective NAEO States he is feeling better but anxious Understands continued duration for staying in hospital--including discussion regarding L carotid stenosis Denies any further syncopal/presyncopal events, chest pain, dizziness, or other acute concerns Reports urinary symptoms resolved Notably coreg held given pressure once more in 90s Physical Exam Constitutional: WD/WN, vitals as above Neck: trachea midline, no thyromegaly Respiratory: normal respiratory effort, lungs clear to auscultation Gastrointestinal (Abdomen): normal bowel sounds, soft, nontender, no hepatosplenomegaly Results & Data Results & Data Vital Signs (Past 12 Hours) Vital Signs Temp Pulse Pulse Resp BP Pulse Ox O2 Del Method 05/12/23 08:00 36.8 C 63 16 91/59 L 94 BiPAP 05/12/23 07:30 56 L 05/12/23 03:44 53 L 22 98 05/12/23 03:20 36.5 C 55 L 18 125/58 L 93 BiPAP 05/12/23 00:46 55 L 22 95 Laboratory Results Short CBC 05/12/23 Range/Units 06:36 WBC 6.04 (4.8-10.8) K/ul Hgb 14.2 (14.0-18.0) g/dl Hct 43.7 (42.0-52.0) % Plt Count 191 (130-400) K/uL BMP 05/12/23 06:36 Sodium 139 Potassium 4.0 Chloride 104 Carbon Dioxide 31 BUN 28 H Creatinine 1.61 H Glucose 205 H Calcium 8.6 Medications Administered Home Medications Medication Instructions Recorded Confirmed Last Taken atorvastatin 20 mg tablet 40 mg PO QPM 09/26/18 05/10/23 09/11/22 carvedilol 12.5 mg tablet 12.5 mg PO BID 09/26/18 05/10/23 09/12/22 cholecalciferol (vitamin D3) 25 1,000 units PO DAILY 09/26/18 05/10/23 09/12/22 mcg (1,000 unit) capsule cyanocobalamin (vitamin B-12) 1,000 mcg PO DAILY 09/26/18 05/10/23 09/12/22 1,000 mcg tablet magnesium oxide 500 mg PO BID 09/26/18 05/10/23 09/12/22 metformin 1,000 mg tablet 1,000 mg PO BID 09/26/18 05/10/23 09/12/22 nitroglycerin 0.4 mg sublingual 0.4 mg sublingual Q5M 09/26/18 05/10/23 09/11/22 tablet omega-3 acid ethyl esters 1 gram 1 cap PO BID 09/26/18 05/10/23 09/12/22 capsule torsemide 10 mg tablet 10 mg PO DAILY 09/26/18 05/10/23 09/12/22 pantoprazole 40 mg tablet,delayed 40 mg PO DAILY 10/05/18 05/10/23 09/12/22 release (Protonix) hydralazine 10 mg tablet 10 mg PO BID 12/20/18 05/10/23 09/12/22 isosorbide mononitrate 60 mg 60 mg PO DAILY 02/25/20 05/10/23 09/12/22 tablet,extended release 24 hr aspirin 81 mg tablet,delayed 81 mg PO DAILY 06/22/21 05/10/23 09/12/22 release lisinopril 20 mg tablet 20 mg PO DAILY 01/04/22 05/10/23 09/12/22 insulin aspart U-100 100 unit/mL 1 sliding scale dose subcut 03/24/22 05/10/23 Unknown subcutaneous cartridge (Novolog USEASDIRECTD PenFill U-100 Insulin aspart) insulin pump cart,cont inf,BT #5 ea 05/25/22 07/28/22 Unknown (Omnipod Dash Pods (Gen 4) subcutaneous cartridge) methenamine hippurate 1 gram tablet 1 g PO DAILY #90 tabs 08/17/22 05/10/23 09/12/22 pregabalin 225 mg capsule (Lyrica) 225 mg PO QID 90 days #360 caps 11/22/22 05/10/23 Unknown duloxetine 60 mg capsule,delayed 60 mg PO BID 90 days #180 caps 02/22/23 4 Unknown release allopurinol 100 mg tablet 100 mg PO QAM 04/02/23 05/10/23 Unknown apixaban 5 mg tablet (Eliquis) 5 mg PO BID 04/02/23 05/10/23 Unknown clarithromycin 500 mg tablet 500 mg PO BID 05/10/23 05/10/23 Unknown prednisone 20 mg tablet 20 mg PO UD 05/10/23 05/10/23 Unknown Active Medications Generic Name Dose Route Start Last Admin Trade Name Juan R LEIJA Reason Stop Dose Admin Allopurinol 100 mg 05/11/23 09:00 05/12/23 08:49 Allopurinol 100 Mg Tab PO 06/10/23 08:59 100 mg QAM OSCAR Administration Apixaban 5 mg 05/10/23 21:00 05/12/23 08:47 Apixaban 5 Mg Tablet PO 06/09/23 20:59 5 mg BID OSCAR Administration Aspirin 81 mg 05/11/23 09:00 05/12/23 08:48 Aspirin 81 Mg Ectab PO 06/10/23 08:59 81 mg DAILY OSCAR Administration Atorvastatin Calcium 40 mg 05/10/23 21:00 05/11/23 20:42 Atorvastatin 40 Mg Tab PO 06/09/23 20:59 40 mg QPM OSCAR Administration Carvedilol 12.5 mg 05/11/23 13:00 05/12/23 08:52 Carvedilol 12.5 Mg Tab PO 06/10/23 12:59 Not Given BID OSCAR Duloxetine HCl 60 mg 05/10/23 21:00 05/12/23 08:48 Duloxetine Hcl 60 Mg Cap PO 06/09/23 20:59 60 mg BID OSCAR Administration Fish Oil 1 gm 05/10/23 21:00 05/12/23 08:48 Lawler-3 (Purified Fish Oil) 1 Gm Cap PO 06/09/23 20:59 1 gm BID OSCAR Administration Insulin Aspart 0 units 05/11/23 16:30 05/12/23 08:42 Insulin Aspart Per Unit Charge SC 06/10/23 16:29 21 units ACHS OSCAR Administration Protocol Insulin Glargine 50 units 05/12/23 09:00 05/12/23 08:42 Lantus Per Unit Charge SC 06/11/23 08:59 50 units DAILY OSCAR Administration Protocol Pantoprazole Sodium 40 mg 05/11/23 09:00 05/12/23 08:49 Pantoprazole 40 Mg Tab PO 06/10/23 08:59 40 mg DAILY OSCAR Administration Pregabalin 100 mg 05/10/23 16:45 05/12/23 08:57 Pregabalin 100 Mg Cap PO 06/09/23 16:44 100 mg TID OSCAR Administration Vitamin D 25 mcg 05/11/23 09:00 05/12/23 08:48 Cholecalciferol 25 Mcg (1000 Units) Tab PO 06/10/23 08:59 25 mcg DAILY OSCAR Administration
[2023-05-12] MEDS: ALPRAZolam 0.25 MG TABLET PO PRN (11:09)
[2023-05-12] MEDS: CEFDINIR 300 MG CAP PO SCH (11:52)
--- NOTE | 2023-05-12 13:22 | Cardiology Consultation ---
Date of Consultation May 12, 2023 Assessment & Plan (1) Near syncope: (2) Stenosis of left internal carotid artery: (3) Hypotension: (4) ARF (acute renal failure): (5) Paroxysmal a-fib: (6) Carotid stenosis, left: Plan 72-year-old male with complex history presents with a presyncopal event. Denies complete loss of consciousness. Blood pressure is low on presentation treated with fluid resuscitation. Treatment possible underlying infectious process ongoing Currently asymptomatic but blood pressure still notably low but suspect artifactually with blood pressures normal on obtaining with manual cuff Component diffuse vascular disease present Suspect multifactorial contributions to patient's complaints CTA carotid disease pending. Will also received information regarding subclavian's from imaging study Recommendations: Agree with carotid imaging and intervention if necessary Optimize medical therapy. Check all blood pressures with manual cuff Will discontinue carvedilol. Resume beta-jennifer with metoprolol succinate 12.5 mg twice per day Discontinue Cymbalta given overlap of Cymbalta and Lyrica. Patient notes limited improvement with initial drug Resume HUONG inhibitor once stable at lower dose. No further hydralazine, continue to hold nitrates, torsemide Laboratory studies reviewed dyslipidemia with elevated triglycerides. Will discontinue atorvastatin changed to rosuvastatin 20 mg p.o. daily for additional triglyceride coverage Continue to treat obstructive sleep apnea History of Present Illness Reason for Consultation: Hypotension, near syncope Requesting Physician: Dr. Charlton Attending Physician: Josie Charlton MD History of Present Illness Patient referred for evaluation of persistent hypotension, adjustment in cardiac medications. Ongoing concerns by outpatient records include 1. Paroxysmal atrial fibrillation, status post successful pulmonary vein isolation 07/15/2015, remains on Eliquis 2. ASCVD a. Status post PCI of the OM with MAR on 10/27/2008 b. 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 Status post PCI at [facility] 04/03/2020, findings of a 99% culprit ostial/proximal circumflex lesion, treated with 2.5 x 20 mm MAR, previously placed OM stent patent at that time. 3. Hypertension 4. Diastolic dysfunction 5. Dyslipidemia, LDL goal below 70 6. Peripheral arterial disease, right greater than left lower extremity claudication. a. Status post invasive lower extremity angiogram performed by vascular surgery at [facility] on 09/21/2020, There were 2 high grade s tenoses/near occlusions of the distal superficial femoral artery/popliteal artery and a high grade stenosis of the tibeoperonal trunk. After angioplasty, there was good flow through these areas with preserved runoff to the foot. 7. Carotid artery stenosis, status post right carotid enterectomy 8. JORGE A, on CPAP 9. CKD stage 3 10. Diabetes type 2 11. Morbid obesity Extremely complex male who presented for admission on 05/10/2023 with symptoms of lightheadedness times several days to weeks culminating in an episode of near syncope. witnessed him become dizzy after standing up and walking from a chair to his kitchen falling backwards. He denies complete loss of consciousness with episode lasting only seconds. No sense of tachypalpitations or arrhythmias. No fevers or chills. Underlying history of vascular disease and coronary artery disease with preserved LV systolic function. No anginal symptoms. Notes several adjustments in his medications Blood pressures now persistently noted to be low despite holding medications. Acute renal insufficiency noted on admission and treated with fluid resuscitation. Sepsis evaluation performed No symptoms since hospitalization despite documented low blood pressures. No arrhythmias on telemetry Echocardiogram with hyperdynamic LV function without wall motion abnormality EKG essentially normal without change. Elevated troponin flat Allergies Allergy/AdvReac Type Severity Reaction Status Date / Time Bactrim AdvReac Severe acute Unverified 08/09/17 12:18 renal failure sulfamethoxazole [Bactrim] AdvReac Severe acute Verified 04/02/23 13:21 renal failure trimethoprim [Bactrim] AdvReac Severe acute Verified 04/02/23 13:21 renal failure Home Medications Medication Instructions Recorded Confirmed Type atorvastatin 20 mg tablet 40 mg PO QPM 09/26/18 05/10/23 History carvedilol 12.5 mg tablet 12.5 mg PO BID 09/26/18 05/10/23 History cholecalciferol (vitamin D3) 25 1,000 units PO DAILY 09/26/18 05/10/23 History mcg (1,000 unit) capsule cyanocobalamin (vitamin B-12) 1,000 mcg PO DAILY 09/26/18 05/10/23 History 1,000 mcg tablet magnesium oxide 500 mg PO BID 09/26/18 05/10/23 History metformin 1,000 mg tablet 1,000 mg PO BID 09/26/18 05/10/23 History nitroglycerin 0.4 mg sublingual 0.4 mg sublingual Q5M 09/26/18 05/10/23 History tablet omega-3 acid ethyl esters 1 gram 1 cap PO BID 09/26/18 05/10/23 History capsule torsemide 10 mg tablet 10 mg PO DAILY 09/26/18 05/10/23 History pantoprazole 40 mg tablet,delayed 40 mg PO DAILY 10/05/18 05/10/23 History release (Protonix) hydralazine 10 mg tablet 10 mg PO BID 12/20/18 05/10/23 History isosorbide mononitrate 60 mg 60 mg PO DAILY 02/25/20 05/10/23 History tablet,extended release 24 hr aspirin 81 mg tablet,delayed 81 mg PO DAILY 06/22/21 05/10/23 History release lisinopril 20 mg tablet 20 mg PO DAILY 01/04/22 05/10/23 History insulin aspart U-100 100 unit/mL 1 sliding scale dose subcut 03/24/22 05/10/23 History subcutaneous cartridge (Novolog USEASDIRECTD PenFill U-100 Insulin aspart) insulin pump cart,cont inf,BT #5 ea 05/25/22 07/28/22 History (Omnipod Dash Pods (Gen 4) subcutaneous cartridge) methenamine hippurate 1 gram tablet 1 g PO DAILY #90 tabs 08/17/22 05/10/23 Rx pregabalin 225 mg capsule (Lyrica) 225 mg PO QID 90 days #360 caps 11/22/22 05/10/23 Rx duloxetine 60 mg capsule,delayed 60 mg PO BID 90 days #180 caps 02/22/23 05/10/23 Rx release allopurinol 100 mg tablet 100 mg PO QAM 04/02/23 05/10/23 History apixaban 5 mg tablet (Eliquis) 5 mg PO BID 04/02/23 05/10/23 History clarithromycin 500 mg tablet 500 mg PO BID 05/10/23 05/10/23 History prednisone 20 mg tablet 20 mg PO UD 05/10/23 05/10/23 History Patient History Medical History T2DM (type 2 diabetes mellitus) HTN (hypertension) CAD (coronary artery disease) "2009 - MAR to obtuse marginal " Benign localized hyperplasia of prostate with urinary obstruction Dyslipidemia Paroxysmal a-fib Chronic anticoagulation therapy with Eliquis Spinal stenosis of lumbar region Lumbar facet joint syndrome Surgical History S/P sinus surgery S/P colonoscopy S/P cardiac catheterization S/P coronary artery stent placement Family History Mother Hypertension Diabetes Cancer Father Hypertension Cancer Social History Smoking Status: Never smoker Hx Alcohol Use: No Hx Substance Use: No Preferred Language: [place] Communication Ability: Effective Visual Impairment: No Limitations Hearing Ability: Normal Seat Mender Required: No Beliefs That Will Affect Care: None marital status: Current Living Situation: Spouse current occupational status: retired Feels Safe at Home: Yes Assistive Devices: Cane and Glasses Review of Systems Review of Systems: All systems reviewed & are unremarkable except as noted in HPI & below Physical Exam Physical Exam: Blood pressures checked in both arms with manual cuff. Systolic blood pressure left arm 138, systolic blood pressure right arm 144 Constitutional: + morbidly obese Eyes: PERRL, conjunctivae normal, anicteric sclerae ENMT: external ear and nose normal, oropharynx normal Neck: trachea midline, no thyromegaly + thick neck Respiratory: normal respiratory effort, lungs clear to auscultation Auscultation: + diminished lung sounds Cardiovascular: RRR, no murmur, no edema Heart Sounds: no murmur Vessels: no JVD Gastrointestinal (Abdomen): normal bowel sounds, soft, nontender, no hepatosplenomegaly Musculoskeletal: no cyanosis or clubbing, extremities motor strength 5/5 Results & Data Vital Signs (Past 12 Hours) Vital Signs Temp Pulse Pulse Resp BP Pulse Ox O2 Del Method 05/12/23 12:01 36.8 C 78 18 95 Room Air 05/12/23 08:00 36.8 C 63 16 91/59 L 94 BiPAP 05/12/23 07:30 56 L 05/12/23 03:44 53 L 22 98 05/12/23 03:20 36.5 C 55 L 18 125/58 L 93 BiPAP Laboratory Results Laboratory Results - last 24 hr 05/11/23 05/11/23 05/12/23 16:32 20:47 00:28 WBC RBC Hgb Hct MCV MCH MCHC RDW Std Deviation RDW Coeff of Angelita Plt Count MPV Sodium Potassium Chloride Carbon Dioxide Anion Gap BUN Creatinine Est Cr Clr Drug Dosing Est GFR ( Amer) Est GFR (Non-Af Amer) BUN/Creatinine Ratio Glucose POC Glucose 268 H 102 H 146 H Calcium Phosphorus Magnesium Iron TIBC Unsaturated IBC Transferrin % Sat Ferritin Vitamin B12 Folate Random Cortisol 05/12/23 05/12/23 05/12/23 04:01 06:36 08:19 WBC 6.04 RBC 4.90 Hgb 14.2 Hct 43.7 MCV 89.2 MCH 29.0 MCHC 32.5 RDW Std Deviation 48.9 H RDW Coeff of Angelita 15.1 H Plt Count 191 MPV 11.2 Sodium 139 Potassium 4.0 Chloride 104 Carbon Dioxide 31 Anion Gap 4 BUN 28 H Creatinine 1.61 H Est Cr Clr Drug Dosing 52.0 Est GFR ( Amer) 48.4 Est GFR (Non-Af Amer) 41.8 BUN/Creatinine Ratio 17.4 Glucose 205 H POC Glucose 164 H 317 H* Calcium 8.6 Phosphorus 2.5 Magnesium 1.7 Iron 114 TIBC 276 Unsaturated IBC 162 Transferrin % Sat 41 Ferritin 186.2 Vitamin B12 424 Folate 18.52 Random Cortisol 13.00 05/12/23 05/12/23 05/12/23 08:20 08:22 11:31 WBC RBC Hgb Hct MCV MCH MCHC RDW Std Deviation RDW Coeff of Angelita Plt Count MPV Sodium Potassium Chloride Carbon Dioxide Anion Gap BUN Creatinine Est Cr Clr Drug Dosing Est GFR ( Amer) Est GFR (Non-Af Amer) BUN/Creatinine Ratio Glucose POC Glucose 269 H 278 H 179 H Calcium Phosphorus Magnesium Iron TIBC Unsaturated IBC Transferrin % Sat Ferritin Vitamin B12 Folate Random Cortisol
--- NOTE | 2023-05-12 14:09 | History & Physical Report ---
Date of Service May 12, 2023 Assessment & Plan (1) Stenosis of left internal carotid artery: Plan: This patient has an asymptomatic left internal carotid artery stenosis. The velocity of the left internal carotid artery was 324. This places it as greater than 70%. Will order a CTA to better define this lesion. If there is a significant narrowing, he may be a candidate for a TCAR after he is discharged. Admission and Anticipated Discharge Date Admission Date: May 10, 2023 History of Present Illness Chief Complaint: Left carotid stenosis Primary Care Provider: Eliud Eisenberg MD This is a 72yo male who had a right CEA done years ago. He has been followed for a left internal carotid artery stenosis. He was admitted at this time with a syncopal episode and hypotension. He did not claim to have any focal deficits. He is a diabetic with COPD on CPAP, CAD, HTN, CKD stage III, BPH, goutyarthritis. He does have a history of tobacco use. He takes an ASA 81mg and is on a statin. He did take plavix in the past. Allergies Allergy/AdvReac Type Severity Reaction Status Date / Time Bactrim AdvReac Severe acute Unverified 08/09/17 12:18 renal failure sulfamethoxazole [Bactrim] AdvReac Severe acute Verified 04/02/23 13:21 renal failure trimethoprim [Bactrim] AdvReac Severe acute Verified 04/02/23 13:21 renal failure Home Medications Medication Instructions Recorded Confirmed Type atorvastatin 20 mg tablet 40 mg PO QPM 09/26/18 05/10/23 History carvedilol 12.5 mg tablet 12.5 mg PO BID 09/26/18 05/10/23 History cholecalciferol (vitamin D3) 25 1,000 units PO DAILY 09/26/18 05/10/23 History mcg (1,000 unit) capsule cyanocobalamin (vitamin B-12) 1,000 mcg PO DAILY 09/26/18 05/10/23 History 1,000 mcg tablet magnesium oxide 500 mg PO BID 09/26/18 05/10/23 History metformin 1,000 mg tablet 1,000 mg PO BID 09/26/18 05/10/23 History nitroglycerin 0.4 mg sublingual 0.4 mg sublingual Q5M 09/26/18 05/10/23 History tablet omega-3 acid ethyl esters 1 gram 1 cap PO BID 09/26/18 05/10/23 History capsule torsemide 10 mg tablet 10 mg PO DAILY 09/26/18 05/10/23 History pantoprazole 40 mg tablet,delayed 40 mg PO DAILY 10/05/18 05/10/23 History release (Protonix) hydralazine 10 mg tablet 10 mg PO BID 12/20/18 05/10/23 History isosorbide mononitrate 60 mg 60 mg PO DAILY 02/25/20 05/10/23 History tablet,extended release 24 hr aspirin 81 mg tablet,delayed 81 mg PO DAILY 06/22/21 05/10/23 History release lisinopril 20 mg tablet 20 mg PO DAILY 01/04/22 05/10/23 History insulin aspart U-100 100 unit/mL 1 sliding scale dose subcut 03/24/22 05/10/23 History subcutaneous cartridge (Novolog USEASDIRECTD PenFill U-100 Insulin aspart) insulin pump cart,cont inf,BT #5 ea 05/25/22 07/28/22 History (Omnipod Dash Pods (Gen 4) subcutaneous cartridge) methenamine hippurate 1 gram tablet 1 g PO DAILY #90 tabs 08/17/22 05/10/23 Rx pregabalin 225 mg capsule (Lyrica) 225 mg PO QID 90 days #360 caps 11/22/22 05/10/23 Rx duloxetine 60 mg capsule,delayed 60 mg PO BID 90 days #180 caps 02/22/23 05/10/23 Rx release allopurinol 100 mg tablet 100 mg PO QAM 04/02/23 05/10/23 History apixaban 5 mg tablet (Eliquis) 5 mg PO BID 04/02/23 05/10/23 History clarithromycin 500 mg tablet 500 mg PO BID 05/10/23 05/10/23 History prednisone 20 mg tablet 20 mg PO UD 05/10/23 05/10/23 History Past Med/Surg History Medical History T2DM (type 2 diabetes mellitus) HTN (hypertension) CAD (coronary artery disease) "2008 - MAR to obtuse marginal " Benign localized hyperplasia of prostate with urinary obstruction Dyslipidemia Paroxysmal a-fib Chronic anticoagulation therapy with Eliquis Spinal stenosis of lumbar region Lumbar facet joint syndrome Surgical History S/P sinus surgery S/P colonoscopy S/P cardiac catheterization S/P coronary artery stent placement Family History Mother Hypertension Diabetes Cancer Father Hypertension Cancer Social History Smoking Status: Never smoker Hx Alcohol Use: No Hx Substance Use: No Preferred Language: Czech Communication Ability: Effective Visual Impairment: No Limitations Hearing Ability: Normal Mixing Technician Required: No Beliefs That Will Affect Care: None marital status: Current Living Situation: Spouse current occupational status: retired Feels Safe at Home: Yes Assistive Devices: Cane and Glasses Review of Systems All systems reviewed & are unremarkable except as noted in HPI & below Physical Exam Constitutional: WD/WN, vitals as above Respiratory: normal respiratory effort; no respiratory distress Cardiovascular: Rate/Rhythm: regular rate and regular rhythm Extremities: normal capillary refill Neurologic: CN's II-XI intact bilaterally and moves all extremities Psychiatric: Orientation: alert and oriented x 3 Results & Data Vital Signs (Past 12 Hours) Vital Signs Temp Pulse Pulse Resp BP Pulse Ox O2 Del Method 05/12/23 12:01 36.8 C 78 18 95 Room Air 05/12/23 08:00 36.8 C 63 16 91/59 L 94 BiPAP 05/12/23 07:30 56 L 05/12/23 03:44 53 L 22 98 05/12/23 03:20 36.5 C 55 L 18 125/58 L 93 BiPAP Code Status & VTE Plan VTE Prophylaxis Plan VTE Prophylaxis will be ordered: Yes
[2023-05-12] MEDS: OPTIRAY 320 125ml IV ONE (15:23)
--- NOTE | 2023-05-12 15:43 | CT Scan Report ---
CT angio neck wo/w con CLINICAL HISTORY: left internal carotid artery stenosis COMPARISON STUDY: CTA of the neck August 30, 2018. Carotid ultrasound May 11, 2023. TECHNIQUE: Unenhanced and arterial phase imaging of the neck was performed. Intravenous injection of 118 cc of Optiray 320 IV was uneventful. Sagittal and coronal reconstructions were viewed as well as maximal intensity projections on an independent 3-D workstation. Automated exposure control was utili zed for the study. A dose lowering technique was utilized adhering to the principles of ALARA. FINDINGS: Emphysema within the visualized lung apices is noted. Subpleural biapical opacities are unc hanged. These represent scarring. There is no cervical lymphadenopathy. No cervical spine fractures a re present. There is no evidence for recurrent stenosis following right carotid endarterectomy. There is extensive plaque within the left carotid bifurcation and proximal left internal carotid artery. T his results in severe stenosis with 80-90% narrowing of the proximal left internal carotid artery. Th e vessel measures approximately 1 mm in caliber at the site of stenosis and 4 mm distally. Degree of stenosis has increased since CT of August 30, 2018. There is moderate stenosis at the origin of the lef t external carotid artery. Mild stenosis at the origin of the left vertebral artery. The left vertebr al artery is dominant. Right vertebral artery is somewhat diminutive, and a congenital basis. This is unchanged. IMPRESSION: 1. Severe (80-90%) stenosis of the proximal left internal carotid artery due to extensive calcified a nd noncalcified plaque. Moderate stenosis at the origin of the left external carotid artery. 2. Mild stenosis at the origin of the left vertebral artery. 3. No evidence for recurrent stenosis status post right carotid endarterectomy. ACT 112: Negative or not required by law. Electronically signed by: Jas Jernigan M.D. 05/12/2023 3:41 PM
--- NOTE | 2023-05-12 17:03 | Discharge Summary ---
Discharge Summary Date of Service May 12, 2023 Notes For Next Care Provider Will need BMP in 1 week Medication Changes From Visit -Cefdinir 300mg two times a day, -STOP hydralazine 10 mg two times a day -STOP Imdur 60mg daily -STOP Coreg 12.5mg BID -STOP Lisinopril 20mg daily -STOP Torsemide 20mg daily -START Metoprolol 12.5mg two times a day, your next dose is this evening -STOP Atorvastatin -STOP Fish Oils -START Rosuvastatin 20mg daily Admission HPI Per Admitting Provider This is a 72yo male who had a right CEA done years ago. He has been followed for a left internal carotid artery stenosis. He was admitted at this time with a syncopal episode and hypotension. He did not claim to have any focal deficits. He is a diabetic with COPD on CPAP, CAD, HTN, CKD stage III, BPH, goutyarthritis. He does have a history of tobacco use. He takes an ASA 81mg and is on a statin. He did take plavix in the past. Admission Exam Per Admitting Provider General: awake, alert, no apparent distress, obese white male with BMI of 41.2 Head: Normocephalic, atraumatic ENT: PERRL, EOMI, no pharyngeal exudate, mucous membranes moist Chest: Clear to auscultation, on room air with O2 sats at 94% during my eval, no adventitious breath sounds Cardiac: Regular rate and rhythm, no murmur, no JVD, normal peripheral pulses, good capillary refill Abdominal: NABS x 4 quadrants, soft, + protuberant, nondistended, nontender to palpation, no rebound or guarding Extremities: Normal inspection, no peripheral edema or erythema, calfs nontender to palpation Psych: Normal mood and affect Neuro: AAO x 3, strength intact bilaterally and rated 5/5, no motor deficits, speech is somewhat garbled, no slurring, gait is not assessed due to lightheadedness, low blood pressure, he has difficulty completed rapid alternating movements very quickly, patient strength testing is equal bilatera lly without any discrepancies, he is able to follow all commands, can perform [id number] testing, no peripheral sensory deficits Principal Dx & Hospital Course #1 = Principal Diagnosis (1) Syncope: (2) Hypoxia: (3) Paroxysmal a-fib: (4) Dyslipidemia: (5) CAD (coronary artery disease): (6) T2DM (type 2 diabetes mellitus): (7) Sepsis: Mr. Rubio is a 72-year-old male who has a significant past medical history of T2DM, diabetic peripheral neuropathy, COPD, JORGE A on CPAP, PAF, CAD, HTN, CKD stage III, BPH, gouty arthropathy, history of tobacco abuse who Patient recently hospitalized for SOB on 04/02 for COPD exacerbation and reports continued decline from that hospitalization. CT angiography of the head and neck completed in August 2018 revealed extensive plaque within the proximal left internal carotid artery with approximately 60% stenosis. Right carotid endarterectomy changes noted. Right ICA patent. Patient reports feeling much improved and denies any new symptoms this morning. Continue abx until cultures return. Close monitoring in PCU while slowly introducing home medications. Coreg was resumed briefly on 05/10 given hypertension--however, patient robustly responsive to additional medication and hypotensive this morning; however, asymptomatic. Cardiology was consulted to discuss the blood pressure and his extensive home regimen. Manual blood pressures revealed much more stable values, and low pressures possibly noted on automatic machine given severe vascular disease. Vascular evaluated patient and obtained CTA--noted severe proximal ICA disease. Plan for OP follow up to discuss intervention. #MISTI on CKD-3 *improving -Baseline Cr trends 1.3 to 1.6, Ron prerenal iso hypotension, Cr improved to 1.56 -IVF s/p 3 L -Hold nephrotoxins and renally reduce medications -hold coreg, imdur/hydra and lisinopril given continued hypotension CTA Neck obtained 05/11, plan for follow up with BMP in 1 week to monitor renal function and discuss resumption of possible ACEi #Syncopal Episode #Persistent Hypotension #Obstructive CAD hx of MAR #Severe left carotid stenosis >70% #Carotid stenosis s/p right CEA 2018 #Sepsis with MISTI, hypotension, concern for UTI--r/o no infectious source -Admit to tele - Troponin bumped at 52.9, EKG reviewed showing NSR, previous inferior infarct. Will obtain a complete echo today - Chronic, stable, continue aspirin, statin - Holding BP meds for now including carvedilol, hydralazine, Imdur, lisinopril, torsemide - S/p 3 L NSS with bp 60/40 113/65, will monitor and possibly need ICU for pressor support if not able to maintain MAP of 65 - CXR is negative, will check CT chest w/o contrast - Bar catheter with MISTI and no urine sample obtained yet --patient reports that he straight caths 4 times per day and has for many years with history of enlarged prostate, denies history of neurogenic bladder, states that he thinks he may have a urinary tract infection due to seeing cloudy urine recently - Follow blood cultures x 2, started on Zosyn IV empirically -Transition to Cefdinir 300mg BID, zosyn started prior to UA - MRSA negative -Random cortisol 18 05/09, treated x1 with solumedrol, pressures borderline hypertensive now--hold on further steroids -Repeat random cortisol, if low/equivocal, stim test -Spoke on phone with Neurology, [place]: suspects possible component of diabetic autonomic neuropathy could be likely -Given clinical improvement and no clear source of infection, curious if uncontrolled diabetes contributing to symptoms v AI -Cardiology consult: historically on multiple antihypertensives, discussion of any alternatives/recommendations given ongoing hypotension -Discontinue coreg, imdur, hydral, lisnopril, torsemide -Start metoprolol 12.5mg BID -Stop atorvastatin, fishoil -Start rosuvastatin 20mg -Vascular consult ordered for left carotid stenosis -OP follow up #Gait disturbance *resolved #Garbled speech*resolved -CT of the head reveals a small chronic infarct which may be contributing to his garbled speech and gait. There is no acute bleed noted on eliquis) -Check MRI brain -Reveals area of chronic encephalomalacia, but no acute infarct -Potentially 2/2 hypotension - PT/OT eval :no further needs -OP vascular follow up given ICA stenosis #Paroxysmal atrial fibrillation, status post successful pulmonary vein isolation 07/15/2015 Hold coreg 2/2 hypotension On Eliquis for anticoagulation Start metoprolol 12.5 mg BID #ASCVD #Peripheral arterial disease, right greater than left lower extremity claudication. -Follows with vascular surgery -PCI of the OM with MAR on 10/27/2008; PCI 04/03/2020, findings of a 99% culprit ostial/proximal circumflex lesion, treated with 2.5 x 20 mm MAR, previously placed OM stent patent at that time. -Continue statin---change from atorvastatin to rosuvastatin, d/c fish oils 2/2 elevated triglycerides #COPD with emphysema, exacerbation ruled out #COVID [address] 05/09 with scarring, atelectasis and emphysema - O2 sats was noted to be 89% on admission and required oxygen 2 L which is new, does not need at baseline -- he is 94% on RA during my eval -CXR did not show any acute abnormalities -CT chest as above -Continue home advair/atrovent #DM II, Insulin-dependent #DM neuropathy -HbA1c 9.9 this admission Resume home insulin pump, lifestyle modifications #JORGE A -Cpap at HS #BPH/Hx of uti -Hold methenamine while on cefdinir - As above #Morbid obesity BMI 40.8 Counseled on lifestyle modifications DVT ppx: teds, scds Lines: 2 PIV FEN/GI: HH/DM diet CODE: Full code Discharge Exam Constitutional WD/WN, vitals as above Respiratory normal respiratory effort, lungs clear to auscultation Cardiovascular RRR, no murmur, no edema Gastrointestinal (Abdomen) normal bowel sounds, soft, nontender, no hepatosplenomegaly Updated Medication List Medication Instructions Recorded Confirmed Type cholecalciferol (vitamin D3) 25 1,000 units PO DAILY 09/26/18 05/10/23 History mcg (1,000 unit) capsule cyanocobalamin (vitamin B-12) 1,000 mcg PO DAILY 09/26/18 05/10/23 History 1,000 mcg tablet magnesium oxide 500 mg PO BID 09/26/18 05/10/23 History metformin 1,000 mg tablet 1,000 mg PO BID 09/26/18 05/10/23 History nitroglycerin 0.4 mg sublingual 0.4 mg sublingual Q5M 09/26/18 05/10/23 History tablet pantoprazole 40 mg tablet,delayed 40 mg PO DAILY 10/05/18 05/10/23 History release (Protonix) aspirin 81 mg tablet,delayed 81 mg PO DAILY 06/22/21 05/10/23 History release insulin aspart U-100 100 unit/mL 1 sliding scale dose subcut 03/24/22 05/10/23 History subcutaneous cartridge (Novolog USEASDIRECTD PenFill U-100 Insulin aspart) insulin pump cart,cont inf,BT #5 ea 05/25/22 07/28/22 History (Omnipod Dash Pods (Gen 4) subcutaneous cartridge) methenamine hippurate 1 gram tablet 1 g PO DAILY #90 tabs 08/17/22 05/10/23 Rx pregabalin 225 mg capsule (Lyrica) 225 mg PO QID 90 days #360 caps 11/22/22 05/10/23 Rx allopurinol 100 mg tablet 100 mg PO QAM 04/02/23 05/10/23 History apixaban 5 mg tablet (Eliquis) 5 mg PO BID 04/02/23 05/10/23 History cefdinir 300 mg capsule 300 mg PO BID #10 caps 05/12/23 Rx metoprolol succinate 25 mg 12.5 mg (1/2 x 25 mg) PO BID #60 05/12/23 Rx tablet,extended release 24 hr tabs rosuvastatin 20 mg tablet (Crestor) 20 mg PO QAM #30 tabs 05/12/23 Rx Hospital Stay Data Consultations 05/10/23 11:03 ED Decision to Admit Stat 05/11/23 17:53 Consult Vascular Surgery Routine 05/12/23 10:55 Consult Cardiology Routine Diagnostic Imagining Performed 05/10/23 09:10 CT cervical spine wo con Stat CT head/brain wo con Stat 05/10/23 11:16 CT chest diagnostic wo con Stat 05/10/23 11:58 MRI Brain [MR brain wo con] Stat 05/10/23 14:46 US liver Urgent 05/11/23 07:20 Carotid duplex [US carotid doppler BI] Routine 05/12/23 14:04 CTA neck wo/w con [CT angio neck wo/w con] Routine Pending Results Patient Have Any Pending Studies at Discharge: No Discharge Instructions Given to Patient (Per Discharging Provider) You were admitted after an episode of passing out. Your pressures were noted to be low and you had a kidney injury on top of your already chronic kidney disease. You were treated for UTI. You will continue the following: -Cefdinir 300mg two times a day, your next dose is this evening. Please complete the course. Given your tenuous blood pressures, the following medication adjustments were made: -STOP hydralazine 10 mg two times a day -STOP Imdur 60mg daily -STOP Coreg 12.5mg BID -STOP Lisinopril 20mg daily -STOP Torsemide 20mg daily -START Metoprolol 12.5mg two times a day, your next dose is this evening Please follow up with Cardiology in 1 week for blood pressure check and labs to check kidney function. Given your cholesterol panel, Cardiology recommends you stop fish oils and atorvastatin and start the following: -STOP Atorvastatin -STOP Fish Oils -START Rosuvastatin 20mg daily Also, given your blood pressure. It was discussed that Cymbalta did not offer much relief for neuropathy, but can also lower blood pressure -STOP Cymbalta 60mg two times daily You were seen by Vascular surgery given severe stenosis in your left carotid artery. This is can likely contribute to passing out. Please follow up with your Hotel Director for Diabetes. Resume insulin pump 1.) Enter carbohydrates and blood glucose for breakfast meal. Create cheat sheet for commonly consumed meals. 2.) Continue to follow with [facility] for diabetes care needs. Total Time Total Time Spent Total Time Spent (In Minutes): 55
[2023-05-12] MEDS ORDERED: METOPROLOL SUCC 25MG EXT REL TAB PO SCH (21:00)
[2023-05-12] MEDS ORDERED: LANTUS PER UNIT CHARGE SC SCH (21:00)
[2023-05-13] MEDS ORDERED: ROSUVASTATIN CALCIUM 20 MG TAB PO SCH (09:00)
== END 2023-05-12 17:35 | disposition home or self-care (01) | DRG 872 ==
LOC: ED 08:50 → SUATTDRO 14:18 → 2S 14:18

== ENCOUNTER 2023-06-21 09:25 | Inpatient (IN) ==
--- NOTE | 2023-06-08 09:57 | Anesthesiology Consultation ---
Date of Service June 08, 2023 Assessment & Plan (1) Encounter for pre-operative examination: - Check BSG AM DOS - Infectious disease screening: Per assessment on 06/08/23: No known infectious disease contacts or current infectious disease symptoms. No noted recent Covid positive test result. - Cardiology visit (05/24/23): "Seen post hospitalization after admission on 2 separate occasions. Initially in association with acute COVID infection/pneumonitis, 2nd with a near syncopal spell associated multifactorial complaints including hypotension, orthostasis. High-grade left carotid artery stenosis identified during that admission. No evidence of arrhythmias.. Medications reduced with improvement in functional capacity.. PLAN: Complete Vascular Surgery evaluation for carotid disease. No contraindications to surgery.. Continue current medications with reduction in medications.. Blood pressures appear controlled will likely restart isosorbide mononitrate once carotid artery disease stabilized.. Continue to treat sleep apnea, hyperlipidemia" Chart Review Chart Review: Acceptable Risk for Surgery and Patient NOT seen in Pre Admission Testing History Surgery Operation Date: 06/21/23 13:50 Proposed Procedures p Left Transcarotid Artery Revascularization - Gomez Montoya MD Height/Weight Height: 5 ft 9 in Weight: 117.934 kg Allergies Allergy/AdvReac Type Severity Reaction Status Date / Time Bactrim AdvReac Severe acute Unverified 08/09/17 12:18 renal failure sulfamethoxazole [Bactrim] AdvReac Severe acute Verified 06/08/23 08:07 renal failure trimethoprim [Bactrim] AdvReac Severe acute Verified 06/08/23 08:07 renal failure Medications Home Medications Medication Instructions Recorded Confirmed Last Taken cholecalciferol (vitamin D3) 25 1,000 units PO QAM 09/26/18 06/08/23 09/12/22 mcg (1,000 unit) capsule cyanocobalamin (vitamin B-12) 1,000 mcg PO QAM 09/26/18 06/08/23 09/12/22 1,000 mcg tablet magnesium oxide 500 mg PO BID 09/26/18 06/08/23 09/12/22 metformin 1,000 mg tablet 1,000 mg PO BID 09/26/18 06/08/23 09/12/22 nitroglycerin 0.4 mg sublingual 0.4 mg sublingual Q5M 09/26/18 06/08/23 09/11/22 tablet pantoprazole 40 mg tablet,delayed 40 mg PO QAM 10/05/18 06/08/23 09/12/22 release (Protonix) aspirin 81 mg tablet,delayed 81 mg PO QAM 06/22/21 06/08/23 09/12/22 release insulin aspart U-100 100 unit/mL 1 sliding scale dose subcut 03/24/22 06/08/23 Unknown subcutaneous cartridge (Novolog USEASDIRECTD PenFill U-100 Insulin aspart) insulin pump cart,cont inf,BT #5 ea 05/25/22 07/28/22 Unknown (Omnipod Dash Pods (Gen 4) subcutaneous cartridge) methenamine hippurate 1 gram tablet 1 g PO DAILY #90 tabs 08/17/22 06/08/23 09/12/22 allopurinol 100 mg tablet 100 mg PO QAM 04/02/23 06/08/23 Unknown apixaban 5 mg tablet (Eliquis) 5 mg PO BID 04/02/23 06/08/23 Unknown metoprolol succinate 25 mg 12.5 mg (1/2 x 25 mg) PO BID #60 05/12/23 06/08/23 Unknown tablet,extended release 24 hr tabs rosuvastatin 20 mg tablet (Crestor) 20 mg PO QAM #30 tabs 05/12/23 06/08/23 Unknown pregabalin 225 mg capsule (Lyrica) 225 mg PO QID 90 days #360 caps 06/05/23 06/08/23 Unknown Super Complex B 1 tab PO QAM 06/08/23 06/08/23 Unknown Past Medical History Medical History Benign localized hyperplasia of prostate with urinary obstruction Self cath CAD (coronary artery disease) 2008- stent x1 2020- stent x1 Follows with Dr. Tonie Otero Carotid artery stenosis s/p Right CEA (~2011) Neck CTA 05/10/23: Severe (80-90%) stenosis pLICA due to extensive calcified and noncalcified plaque. No evidence for recurrent stenosis status post right carotid endarterectomy. CKD (chronic kidney disease), stage III COPD (chronic obstructive pulmonary disease) Diabetic peripheral neuropathy Dyslipidemia GERD (gastroesophageal reflux disease) History of [place]19 [place]/23 ([place] symptoms resolved, subsequent negative Cov[place] testing [place]/23 [place]) HTN (hypertension) Hx of non-ST elevation myocardial infarction (NSTEMI) ~2008 Hx of recurrent urinary tract infection Lumbar facet joint syndrome Paroxysmal a-fib Taking Eliquis Sleep apnea CPAP Spinal stenosis of lumbar region T2DM (type 2 diabetes mellitus) Insulin Pump Past Family History Family History Mother Hypertension Diabetes Cancer Father Hypertension Cancer Past Surgical History Surgical History History of cardiac radiofrequency ablation (RFA) History of CEA (carotid endarterectomy) (~2011) Right Hx of esophagogastroduodenoscopy S/P cardiac catheterization 2008- stent x1 2017- patent stent 2020- stent x1 S/P colonoscopy S/P coronary artery stent placement 2008- stent x1 2020- stent x1 S/P sinus surgery Social History Smoking Status: Former smoker Smoking cigarettes per day: 2 PPD Do You Dip or Chew Tobacco: No Smoking End Date: Quit 22 years ago Hx Alcohol Use: Yes alcohol intake frequency: holidays/special occasions only Hx Substance Use: No substance use type: does not use Lab Results Anesthesia Preop Results Results Anesthesia Widget: WBC 6.04 K/ul (4.8-10.8) 05/12/23 Hgb 14.2 g/dl (14.0-18.0) 05/12/23 Hct 43.7 % (42.0-52.0) 05/12/23 Plt 191 K/uL (130-400) 05/12/23 Na 139 mmol/L (136-145) 05/12/23 K 4.0 mmol/L (3.5-5.1) 05/12/23 Cl 104 mmol/L (98-107) 05/12/23 CO2 31 mmol/L (21-32) 05/12/23 BUN 28 mg/dl (6-23) H 05/12/23 Creat 1.61 mg/dl (0.6-1.4) H 05/12/23 Glucose Level 205 mg/dl (70-99(Fasting)) H 05/12/23 PT 11.7 Seconds (9.0-12.0) 05/10/23 INR 1.1 (0.9-1.1) 05/10/23 TSH 2.903 uIu/ml (0.300-4.500) 05/10/23 HA1c 9.9 % (4.5-5.6) H 05/11/23 Urine Color Dark Yellow 05/10/23 Urine Appearance Cloudy (Clear) A 05/10/23 Urine pH 5.0 (4.5-7.5) 05/10/23 Urine Specific [place] 1.013 (1.000-1.030) 05/10/23 Urine Protein Negative (Negative) 05/10/23 Urine Glucose (UA) Negative (Negative) 05/10/23 Urine Ketones Negative (Negative) 05/10/23 Urine Blood 1+ (Negative) H 05/10/23 Urine Nitrite Negative (Negative) 05/10/23 Urine Bilirubin Negative (Negative) 05/10/23 Urine Urobilinogen Negative (Negative) 05/10/23 Urine Leukocyte Esterase 2+ (Negative) H 05/10/23 Urine WBC (Auto) >30 /hpf (0-5) H 05/10/23 Urine RBC (Auto) 10-30 /hpf (0-4) H 05/10/23 Urine Hyaline Casts (Auto) 1-5 /lpf (0-5) 05/10/23 Urine Epithelial Cells (Auto) 20-30 /lpf (0-5) H 05/10/23 Urine Bacteria (Auto) Negative (Negative) 05/10/23 COVID-19 PCR NEGATIVE (Negative) 05/10/23 Testing Electrocardiogram Date: 05/24/23 SB with first degree AVB at 59bpm. High QRS voltage may be normal variant or due to lve. Inferior infarct (cited on or before 09/15/2022 per rn lpn lvn comparison). Echocardiogram Date: 05/10/23 EF 65-70%. LV wall motion is normal. No significant valvular disease. SB, rate 55-60bpm. Stress Test Date: 03/23/20 Moderate sized mostly reversible inferolateral perfusion defect consistent with circumflex territory ischemia. Gated SPECT imaging reveals mild inferolateral HK. LVEF 68%. > *Subsequent cardiac cath + stent placement* Cardiac Catheterization Date: 04/01/20 Mildly disease left main. 50% 1st diagonal lesion. Cx severely diseased- 995 10mm long culprit lesion. 40% mid RCA lesion. Successful PCI of pCx with synergy stent. Other Testing Cervical spine CT Date: 05/10/23 FINDINGS: Alignment of the cervical spine is anatomic. Vertebral body heights are maintained. No acute cervical spine fracture or subluxation is present. There is no prevertebral edema. Facet joints are intact. There is mild multilevel disc space narrowing and osteophytosis. There is moderate multilevel facet arthrosis. Trace fluid within the bilateral mastoid air cells. Sphenoid sinus mucosal thickening is incidentally noted. IMPRESSION: No acute cervical spine fracture or subluxation. Head CT Date: 05/10/23 IMPRESSION: There is no hemorrhage, mass effect, or evidence of acute territorial ischemia by CT criteria. Chest CT Date: 05/10/23 No evidence of pneumonia or aspiration. Atelectasis and emphysema are seen with possible scarring. Brain MRI Date: 05/10/23 IMPRESSION: No evidence of acute intracranial pathology. Carotid doppler Date: 05/11/23 Extensive atherosclerotic plaque with findings suggestive of greater than 70% stenosis of the proximal left internal carotid artery. No evidence for a stenosis within the cervical right internal carotid artery. Findings suggestive of a stenosis of the proximal left external carotid artery. Neck CTA Date: 05/12/23 Severe (80-90%) stenosis of the proximal left internal carotid artery due to extensive calcified and noncalcified plaque. Moderate stenosis at the origin of the left external carotid artery. Mild stenosis at the origin of the left vertebral artery. No evidence for recurrent stenosis status post right carotid endarterectomy.
--- NOTE | 2023-06-21 09:30 | History & Physical Report ---
Date of Service June 21, 2023 History of Present Illness Primary Care Provider: Eliud Eisenberg MD Name: TIFFANIE OROZCO Patient Number: [id number] : 1950 Date of Service: 05/25/2023 Chief Complaint: _Follow-up appointment to discuss carotid intervention HPI: _Mr. Orozco is an elderly male who presents to Dr. Montoya's vascular surgery clinic today for follow-up appointment to discuss carotid stenosis intervention procedures. Mr. Orozco was recently at [facility] for an episode of syncope, and thoroughly evaluated there. During his workup, a 90% stenosis of his left ICA was noted on CTA. He was seen by Dr. Montoya during that hospital stay, who then ordered the neck CTA and advised him to follow-up in our office for further recommendations. Patient denies any symptoms of cerebrovascular insufficiency including amaurosis, unilateral extremity weakness numbness or tingling, difficulty speaking or swallowing, facial droop, sudden onset confusion. Additionally he denies any symptoms of headache, fever, chest pain, shortness of breath, palpitations, abdominal pain, nausea, vomiting, rest pain, claudication, nonhealing wounds or ulcers. Patient underwent a right carotid endarterectomy performed about 20 years ago at an outside facility. Patient does state that he had previously seen vascular surgery at [facility] for peripheral arterial disease, having undergone a right leg angiography procedure with intervention. 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 He is unsure and we do not have those records for our review today. He denies any complaints or concerns related to his right leg. Imaging: Review of the CTA neck done at [facility] does demonstrate a severe left ICA stenosis of about 90%, and a widely patent right carotid endarterectomy site. Current Home Meds: (Last Updated 05/24 10:27) DULoxetine (DULoxetine 60 mg oral delayed release capsule) 60 mg PO Daily allopurinol (allopurinol 100 mg oral tablet) TAKE ONE TABLET BY MOUTH EVERY MORNING apixaban (Eliquis 5 mg oral tablet) 5 mg PO bid aspirin (Aspir 81 oral delayed release tablet) 81 mg PO Daily cholecalciferol (cholecalciferol 25 mcg (1000 intl units) oral capsule) 25 mcg PO Daily clopidogrel (Plavix 75 mg oral tablet) 75 mg PO Daily clopidogrel (Plavix 75 mg oral tablet) 75 mg PO Daily cyanocobalamin (Vitamin B12 1000 mcg oral tablet) 1,000 mcg PO Daily insulin aspart (insulin pump (NovoLOG)) subQ As indicated magnesium gluconate (magnesium gluconate 500 mg oral tablet) 500 mg PO bid metFORMIN (metFORMIN 1000 mg oral tablet) 1,000 mg PO bid methenamine (methenamine hippurate 1 g oral tablet) 1 g PO Daily metoprolol (Metoprolol Succinate ER 25 mg oral tablet, extended release) TAKE 1/2 TABLET BY MOUTH TWICE DAILY multivitamin with minerals (PreserVision AREDS 2 oral capsule) 1 tab po daily multivitamin (Super B Complex oral tablet) 1 tab PO Daily nitroglycerin (nitroglycerin 0.4 mg sublingual tablet) 0.4 mg SL q5min PRN: as needed for chest pain pantoprazole (pantoprazole 40 mg oral delayed release tablet) 40 mg PO Daily pregabalin (pregabalin 225 mg oral capsule) 225 mg PO qid rosuvastatin (rosuvastatin 20 mg oral tablet) TAKE ONE TABLET BY MOUTH IN THE MORNING Allergies and Sensitivities: Bactrim(MISTI - acute kidney injury) Past Medical History: Problems: Bilateral carotid artery stenosis OBJECTIVE Vitals: Last Updated 05/25/23 09:58 Date Temp BP Location Pulse RR SpO2 Pain 05/25/23 0 05/25/23 114/56 Right Arm 66 92 Vital Signs are the last 3 documented. No Orthostatic Data Available Height and Weight: Last Updated 05/25/23 09:51 Date BMI Wt(kg) Wt(lb) Method Ht(cm) (ft-in) Method 05/25/23 126.6 279 Standing Scale Heights and Weights are the last 3 documented. Physical Exam Constitutional: In general patient is an obese but healthy-appearing well- nourished well-developed elderly male no distress. He does walk with a cane. His right carotid surgical site is well-healed. His left carotid demonstrates a faint bruit. He is alert and oriented without any focal deficits. His heart is regular, his lungs are decreased throughout but clear. His lower extremities a pulses are nonpalpable, however, his toes have brisk capillary refill and are warm and pink. He does have edema of the lower extremities. ASSESSMENT: _ PLAN: _ 1 ) _right carotid artery stenosis Patient does appear to have a severe left ICA stenosis, as well as a history of a right carotid endarterectomy in the remote past. He is asymptomatic from the left ICA stenosis, however, due to the severity, we recommended surgical intervention to prevent CVA. The options of carotid endarterectomy versus transcarotid artery revascularization were discussed at length with the patient and his present. Patient elects to proceed with TCAR. The procedure risks benefits and alternatives were discussed at length with the patient by myself at Dr. Montoya's request. Patient expressed understanding and agreement to proceed. This will occur in the next few weeks at the patient's convenience. During his recent hospital stay, he was evaluated by his nursery attendant Dr. Barr, who indicated that the patient should go ahead with carotid surgery if felt to be necessary by the vascular surgical team. Patient was advised to call any other questions or concerns. He is agreeable to this plan. Thank you for letting us participate in the care of this patient. I have personally spent_36__ minutes performing [id number] and [id number] activities on this date of service.Time does not include separately reported services. Activities Include: x__ review of the medical record _x_ obtaining a history x__ physical exam/evaluation x__ review labs _x_ review radiology reports x__ counseling/educating patient/family/caregiver __ discussion/referral to other healthcare professional x__ documenting care in the medical record __ independent interpretation of results _x_ communication of results to patient/family/caregiver x__ coordination of care Signature Line Electronic Signature on File CC: Dayday Montalvo MD [address] [place] [address] [address] [facility] [address] * CC: Ridge Barr MD [address] [place] [id number] * Electronically Reviewed/Signed by: Tata Driscoll PA-C Author Signature Dt/Tm:05/25/2023 03:13 PM [facility] [place], [address] [place] [address] Result Type: HVI Outpt Note Date of Service: May 25, 2023 15:05 EDT Authorization Status: Final Author or Import Date: DIYA Driscoll, Tata on May 25, 2023 15:13 EDT Verified By: DIYA Driscoll Lynn on May 25, 2023 15:13 EDT Encounter info: [id number], [place] [address], Clinic, 05/25/2023 - 05/25/2023 Allergies Allergy/AdvReac Type Severity Reaction Status Date / Time Bactrim AdvReac Severe acute Unverified 08/09/17 12:18 renal failure sulfamethoxazole [Bactrim] AdvReac Severe acute Verified 06/08/23 08:07 renal failure trimethoprim [Bactrim] AdvReac Severe acute Verified 06/08/23 08:07 renal failure Home Medications Medication Instructions Recorded Confirmed Type cholecalciferol (vitamin D3) 25 1,000 units PO QAM 09/26/18 06/08/23 History mcg (1,000 unit) capsule cyanocobalamin (vitamin B-12) 1,000 mcg PO QAM 09/26/18 06/08/23 History 1,000 mcg tablet magnesium oxide 500 mg PO BID 09/26/18 06/08/23 History metformin 1,000 mg tablet 1,000 mg PO BID 09/26/18 06/08/23 History nitroglycerin 0.4 mg sublingual 0.4 mg sublingual Q5M 09/26/18 06/08/23 History tablet pantoprazole 40 mg tablet,delayed 40 mg PO QAM 10/05/18 06/08/23 History release (Protonix) aspirin 81 mg tablet,delayed 81 mg PO QAM 06/22/21 06/08/23 History release insulin aspart U-100 100 unit/mL 1 sliding scale dose subcut 03/24/22 06/08/23 History subcutaneous cartridge (Novolog USEASDIRECTD PenFill U-100 Insulin aspart) insulin pump cart,cont inf,BT #5 ea 05/25/22 07/28/22 History (Omnipod Dash Pods (Gen 4) subcutaneous cartridge) methenamine hippurate 1 gram tablet 1 g PO DAILY #90 tabs 08/17/22 06/08/23 Rx allopurinol 100 mg tablet 100 mg PO QAM 04/02/23 06/08/23 History apixaban 5 mg tablet (Eliquis) 5 mg PO BID 04/02/23 06/08/23 History metoprolol succinate 25 mg 12.5 mg (1/2 x 25 mg) PO BID #60 05/12/23 06/08/23 Rx tablet,extended release 24 hr tabs rosuvastatin 20 mg tablet (Crestor) 20 mg PO QAM #30 tabs 05/12/23 06/08/23 Rx pregabalin 225 mg capsule (Lyrica) 225 mg PO QID 90 days #360 caps 06/05/23 06/08/23 Rx Super Complex B 1 tab PO QAM 06/08/23 06/08/23 History Past Med/Surg History Medical History Benign localized hyperplasia of prostate with urinary obstruction Self cath CAD (coronary artery disease) 2008- stent x1 2020- stent x1 Follows with Dr. Tonie Otero Carotid artery stenosis s/p Right CEA (~2011) Neck CTA 05/10/23: Severe (80-90%) stenosis pLICA due to extensive calcified and noncalcified plaque. No evidence for recurrent stenosis status post right carotid endarterectomy. CKD (chronic kidney disease), stage III COPD (chronic obstructive pulmonary disease) Diabetic peripheral neuropathy Dyslipidemia GERD (gastroesophageal reflux disease) History of [place]-19 [place]/23 ([place] symptoms resolved, subsequent negative Cov[place] testing 05/10/23 [place] HTN (hypertension) Hx of non-ST elevation myocardial infarction (NSTEMI) ~2008 Hx of recurrent urinary tract infection Lumbar facet joint syndrome Paroxysmal a-fib Taking Eliquis Sleep apnea CPAP Spinal stenosis of lumbar region T2DM (type 2 diabetes mellitus) Insulin Pump Surgical History History of cardiac radiofrequency ablation (RFA) History of CEA (carotid endarterectomy) (~2011) Right Hx of esophagogastroduodenoscopy S/P cardiac catheterization 2008- stent x1 2017- patent stent 2020- stent x1 S/P colonoscopy S/P coronary artery stent placement 2008- stent x1 2020- stent x1 S/P sinus surgery Family History Mother Hypertension Diabetes Cancer Father Hypertension Cancer Social History Smoking Status: Former smoker Tobacco Type: Cigarettes Cigarettes Per Day: 2 PPD; Smoking End Date: Quit 22 years ago; Second Hand Exposure: No; Do You Dip or Chew Tobacco: No; Tobacco Cessation Education Requested by Patient: No Hx Alcohol Use: Yes Hx Substance Use: No Preferred Language: German Communication Ability: Effective Visual Impairment: No Limitations Hearing Ability: Normal Core Winding Operator Required: No Beliefs That Will Affect Care: None marital status: Current Living Situation: Spouse current occupational status: retired Other Information That Helps Us Care for You: No Feels Safe at Home: Yes Safety Concerns: Feels Safe At This Time Assistive Devices: Cane, CPAP, Denture - Upper, Denture - Lower and Other Assistive Devices Comment: Self-cath Review of Systems All systems reviewed & are unremarkable except as noted in HPI & below
[2023-06-21] MEDS: ASPIRIN 81 MG ECTAB PO STA (10:08)
[2023-06-21] MEDS ORDERED: LIDOCAINE 2% 2 ML VIAL/AMP(20MG/ML) INFIL ONE (10:15)
[2023-06-21] MEDS ORDERED: ROCURONIUM BROMIDE 10 MG/ML 5 ML VIAL IV ONE ×2 (10:15→12:36)
[2023-06-21] MEDS ORDERED: fentaNYL citrate PF 100 MCG/2 ML VIAL ONE (10:15)
[2023-06-21] MEDS ORDERED: ONDANSETRON INJ 2 MG/ML 2 ML VIAL ONE (10:15)
[2023-06-21] MEDS ORDERED: PROPOFOL IV EMULSION 10 MG/ML 20 ML VIAL IV ONE ×2 (10:15→13:08)
[2023-06-21] MEDS ORDERED: MIDAZOLAM HCL 1 MG/ML 2ML VIAL ONE (10:15)
[2023-06-21] MEDS: SODIUM CHLORIDE 0.9% 1,000 ML IV SCH (10:17)
[2023-06-21 10:48] LABS: BUN Creatinine Ratio 13.3 (10-20); Calcium 8.9 mg/dl (8.6-10.3); Creatinine Clr Calc Pharmacy 57.7 ml/min; Est GFR (African American) 55.9 ml/min; Est GFR (Non-African American) 48.2 ml/min; Potassium 4.3 mmol/L (3.5-5.1)
--- NOTE | 2023-06-21 11:59 | History & Physical Bridge Note ---
Date of Service June 21, 2023 History & Physical Bridge Note I have examined the patient, reviewed the History & Physical and in the interval since the performance of the History & Physical I have noted the following changes of clinical significance: no changes noted
[2023-06-21] MEDS: CEFAZOLIN 2,000 MG/15 ML SYR IV SCH (12:20)
[2023-06-21] MEDS ORDERED: PHENYLEPHRINE 100MCG/ML 10ML SYR IV ONE (13:08)
[2023-06-21] MEDS ORDERED: PHENYLEPHRINE HCL 10 MG/ML VIAL ONE (13:08)
[2023-06-21] MEDS ORDERED: ePHEDrine sulfate 50 MG/5 ML SYR ONE (13:27)
[2023-06-21] MEDS: GELATIN SPONGE SZ 100 ONE (14:02)
[2023-06-21] MEDS: THROMBIN FOR SOLN 20000 UNIT KIT ONE (14:03)
[2023-06-21] MEDS ORDERED: PROTAMINE SULFATE 10 MG/ML 5 ML VIAL IV ONE (14:03)
[2023-06-21] MEDS ORDERED: HEPARIN SOD (PORCINE) 1000 UNIT/ML ONE (14:03)
[2023-06-21] MEDS: VISIPAQUE IV PRN (14:03)
[2023-06-21] MEDS ORDERED: SUGAMMADEX SODIUM 200 MG/2 ML VIAL IV ONE (14:03)
[2023-06-21] MEDS: ceFAZolin 330 MG/ML 1 GM VIAL ONE (14:07)
[2023-06-21] MEDS: SURGICEL ABSORB HEMOSTAT 2IN X 14IN TOP ONE (14:08)
[2023-06-21] MEDS: BUPIVACAINE/EPINEPHRINE 0.5% MPF 1:200,000 30 ML VIAL ONE (14:08)
--- NOTE | 2023-06-21 14:22 | Post Operative Brief Note ---
Immediate Post Op Note v1 Date of Surgery June 21, 2023 Pre & Post Diagnosis Operation Date: 06/21/23 12:00 Pre-Op Diagnosis: Left carotid artery stenosis. Post-Op Diagnosis: Left carotid artery stenosis. I identified the patient and participated in the time-out.: Yes Procedure Operation Date: 06/21/23 12:00 Actual Procedures p Left transcarotid artery revascularization, ultrasound localization right common femoral vein.(Left) - Gomez Montoya MD Surgeon Gomez Montoya MD Air Defence Officer MD Macey Estimated Blood Loss 20 Findings Consistent with Post-Op Diagnosis
--- NOTE | 2023-06-21 14:37 | Procedure Note ---
Angiogram Post Procedure Fluoroscopy Time (minutes): 4.8 Radiation (mGy): 79 Contrast: 12 Post Operative Report Pre & Post Diagnosis Operation Date: 06/21/23 12:00 Left TCAR I identified the patient and participated in the time-out.: Yes Procedure Operation Date: 06/21/23 12:00 Left TCAR Surgeon Gomez Montoya MD Telephone Operator Receptionist Celeste Meade MD Estimated Blood Loss 20 Findings See Below Patent left carotid stent without dissection and flow intracranial Fluids see anesthesia record Specimens none Drains none Anesthesia Type General Complications none Disposition Accompanied Patient To Recovery: Yes Disposition: Recovery Room Indications severe carotid stenosis Description of Procedure Patient was brought to the operating room and placed on the operating table in supine position. General anesthesia was induced and a ET tube placed. An a- line had previously been placed in the preoperative area. A surgical timeout was performed to identify patient, procedure site, indications, and allergies. The patient's head was the turned to the right and the ET tube was secured to the right. The patient's left neck ahd chest as well as and bilateral groins were prepped and draped in a sterile manner. The patient had a 6cm transverse incision just above the left clavicle using a 10 blade. Using sharp and blunt dissection as well as Bovie electrocautery the subcutaneous tissue and the platysma muscle was incised transversely. The two heads of the SCM were vertically and the common carotid artery was identified. The internal jugular was anterior to the common carotid. The vagus nerve was also identified. An umbilical tape was placed under the common carotid. A 5-0 Prolene stitch in a u fashion was placed in the common carotid artery. This was secured in place on a shod. At this time 9000U of heparin was given to the patient. After 2-3 minutes an ACT was obtained which was 250 and 2000U of heparin was given in addition. Under ultrasound guidance the right common femoral vein was accessed with an 18 gauge needle and a Chávez wire was inserted. Then the needle was exchanged for an 8 hungarian sheath and the sheath was secured to the skin with a silk suture. A TCAR time out was performed and the patient had been previously treated with glycopyrrolate. The micropuncture system was used to access the common carotid, the dilator and wire were removed and a cerebral angiogram was performed. The micropuncture wire was reinserted using the dilator and the external carotid artery was attempted to be accessed. There was resistance therefore the access was withdrawn and the suture was tied. The left common carotid was re-accessed with the micropuncture system was used to access the common carotid, the dilator and wire were removed and a cerebral angiogram was performed. The micropuncture wire was reinserted using the dilator and the external carotid artery was accessed. The microwire and dilator were removed and exchanged for the stiff J wire. The TCAR sheath was exchanged for the micropuncture sheath. The TCAR sheath was secured to the skin using multiple silk sutures. After the J wire and dilator were removed. The flow reversal system was connected between the arterial sheath in left common carotid and the right common femoral vein. The left common carotid artery was clamped using an umbilical tape and a Rumel. Reversal of flow was confirmed using saline flushes following clamping of the common carotid. Using the monorail system a 5x35 balloon was placed across the common into internal bifurcation and was used to predilate the lesion. The balloon was taken to nominal pressure. Then the balloon was exchanged for a 9-7 tapered 40 stent which was deployed across the left internal carotid into the left common carotid. There was residual stenosis of the stent therefore a 5.5x25 balloon was used to postdilate the distal portion of the stent which improved the stenosis. After waiting 2 minutes of reversal of blood flow following stent manipulation cerebral angiogram was performedwhich demonstrated patent stent and no signs of dissection or thrombosis. The wire access was removed. The common carotid artery was unclamped for a total of 13 minutes clamp time. The flow reversal system was disconnected and the blood was returned to the patient. The U stitch was tied as the sheath was removed from the common carotid artery. Hemo stasis of the access site was obtained using Surgicel. The patient was given 25mg of protamine at this time. After 2-3 minutes an ACT was obtained which was 142. The venous sheath was removed and pressure was held to obtain hemostasis. In the neck various muscle and subcutaneous oozing was controlled using Bovie electrocautery. The subcutaneous tissue was closed using a 3-0 Vicryl and the skin was closed using a 4-0 Vicryl. The patient was awoken from general anesthesia was was able to move all limbs. The patient was taken to the PACU for recovery. All needle and sponge counts were correct at the end of the procedure. I, Dr. Montoya was present and scrubbed for the entire procedure. I attest to the content of the Intraoperative Record and any orders documented therein. Any exceptions are noted below.
[2023-06-21] MEDS ORDERED: ATROPINE SULFATE 0.1 MG/ML 10ML SYR IV PRN (14:46)
[2023-06-21] MEDS ORDERED: fentaNYL citrate PF 100 MCG/2 ML VIAL IV PRN (14:46)
[2023-06-21] MEDS ORDERED: ePHEDrine sulfate 50 MG/ML AMP IV PRN (14:46)
[2023-06-21] MEDS ORDERED: ONDANSETRON INJ 2 MG/ML 2 ML VIAL IV PRN (14:46)
[2023-06-21] MEDS: PHENYLEPHRINE/NSS 25 MG/250 ML BAG IV PRN ×2 (14:52→21:47)
[2023-06-21] MEDS ORDERED: PHENYLEPHRINE HCL 25 MG/250 ML NSS IV ONE (14:53)
--- NOTE | 2023-06-21 15:26 | Anesthesiology Progress Note ---
Date of Service June 21, 2023 Anesthesia Post Procedure Vital Signs Vital Signs: Temp Pulse Resp BP BP Pulse Ox O2 Del Method 06/21/23 15:20 60 16 124/48 L 120/47 L 96 Nasal Cannula 06/21/23 15:10 59 L 18 100/41 L 101/45 L 99 Oxymask 06/21/23 15:00 64 16 119/46 L 118/54 L 99 Oxymask 06/21/23 14:50 63 16 111/48 L 112/56 L 100 Oxymask 06/21/23 14:40 63 16 129/48 L 125/51 L 100 Oxymask 06/21/23 14:32 36.0 C L 63 18 118/44 L 62/40 L 100 Oxymask 06/21/23 09:54 37.0 C 74 20 148/62 H 159/83 H 96 Room Air O2 Flow Rate 06/21/23 15:20 2 06/21/23 15:10 4 06/21/23 15:00 4 06/21/23 14:50 4 06/21/23 14:40 6 06/21/23 14:32 6 06/21/23 09:54 Transfer of Care Handoff Completed per policy Notes Mental Status: alert / awake / arousable Patient Amnestic to Procedure: Yes Nausea / Vomiting: adequately controlled Pain: adequately controlled Airway Patency, RR, SpO2: stable & adequate BP & HR: stable & adequate Hydration State: stable & adequate Anesthetic Complications: no major complications apparent
--- NOTE | 2023-06-21 16:05 | Critical Care Consultation ---
Date of Consultation June 21, 2023 Assessment & Plan (1) Stenosis of left internal carotid artery: (2) Hypotension: Plan Impression: 72-year-old male with history of peripheral vascular disease diabetes hypertension status post TCAR. Mildly hypotensive postoperatively requiring low-dose of phenylephrine. Recommendation: 1. Status post TCAR: Management per vascular surgery. Anticoagulation per vascular surgery. 2. Hypotension: Continue Harry-Synephrine. Should be able to wean off in the next 24 hours. Will hold antihypertensives for now. 3. Diabetes: Continue glycemic control. Withhold metformin for now and restart in the next 24 hours. 4. Renal insufficiency: Baseline creatinine appears to be close to normal. Continue to follow clinically for now. 5. Sleep disordered breathing: The patient will have his bring in his CPAP and he can continue to use it at night. 6. Await postoperative labs. Will observe the patient in the ICU overnight. His remaining critical care issues have been well addressed by the vascular surgery service. Thanks for the opportunity of participating in the care of this patient. Feel free to contact us with questions or concerns History of Present Illness Attending Physician: Gomez Montoya MD History of Present Illness Asked by vascular surgery to assist in evaluation management this patient status post transcarotid artery revascularization. History is obtained from review electronic medical record and discussion with the patient. The patient is a 72-year-old male. He had an admission to the hospital for syncopal episode and was found to have a 90% stenosis of his left internal carotid artery. He followed up in the outpatient setting. He was felt to be an appropriate candidate for TCAR. He had a prior history of a right carotid endarterectomy. He is currently on a low-dose of Harry-Synephrine to maintain blood pressure The patient is seen postoperatively. He is awake alert and conversant. He has a little bit of a scratchy throat from the endotracheal tube but is not having any neurological complaints. He states his voice feels good. No numbness and tingling. He denies chest pain palpitations. No nausea or vomiting. Patient does have a history of sleep apnea. His apparently brought his CPAP machine in from home. Allergies Allergy/AdvReac Type Severity Reaction Status Date / Time sulfamethoxazole [Bactrim] AdvReac Severe acute Verified 06/21/23 09:52 renal failure trimethoprim [Bactrim] AdvReac Severe acute Verified 06/21/23 09:52 renal failure Home Medications Medication Instructions Recorded Confirmed Type cholecalciferol (vitamin D3) 25 1,000 units PO QAM 09/26/18 06/21/23 History mcg (1,000 unit) capsule cyanocobalamin (vitamin B-12) 1,000 mcg PO QAM 09/26/18 06/21/23 History 1,000 mcg tablet magnesium oxide 500 mg PO BID 09/26/18 06/21/23 History metformin 1,000 mg tablet 1,000 mg PO BID 09/26/18 06/21/23 History nitroglycerin 0.4 mg sublingual 0.4 mg sublingual Q5M 09/26/18 06/21/23 History tablet pantoprazole 40 mg tablet,delayed 40 mg PO QAM 10/05/18 06/21/23 History release (Protonix) aspirin 81 mg tablet,delayed 81 mg PO QAM 06/22/21 06/21/23 History release insulin aspart U-100 100 unit/mL 1 sliding scale dose subcut 03/24/22 06/21/23 History subcutaneous cartridge (Novolog USEASDIRECTD PenFill U-100 Insulin aspart) insulin pump cart,cont inf,BT #5 ea 05/25/22 07/28/22 History (Omnipod Dash Pods (Gen 4) subcutaneous cartridge) methenamine hippurate 1 gram tablet 1 g PO DAILY #90 tabs 08/17/22 06/08/23 Rx allopurinol 100 mg tablet 100 mg PO QAM 04/02/23 06/21/23 History apixaban 5 mg tablet (Eliquis) 5 mg PO BID 04/02/23 06/21/23 History metoprolol succinate 25 mg 12.5 mg (1/2 x 25 mg) PO BID #60 05/12/23 06/21/23 Rx tablet,extended release 24 hr tabs rosuvastatin 20 mg tablet (Crestor) 20 mg PO QAM #30 tabs 05/12/23 06/21/23 Rx pregabalin 225 mg capsule (Lyrica) 225 mg PO QID 90 days #360 caps 06/05/23 06/21/23 Rx Super Complex B 1 tab PO QAM 06/08/23 06/21/23 History clopidogrel 75 mg tablet (Plavix) 75 mg PO DAILY 06/21/23 06/21/23 History Patient History Medical History Benign localized hyperplasia of prostate with urinary obstruction Self cath CAD (coronary artery disease) 2008- stent x1 2020- stent x1 Follows with Dr. Tonie Otero Carotid artery stenosis s/p Right CEA (~2011) Neck CTA 05/10/23: Severe (80-90%) stenosis pLICA due to extensive calcified and noncalcified plaque. No evidence for recurrent stenosis status post right carotid endarterectomy. CKD (chronic kidney disease), stage III COPD (chronic obstructive pulmonary disease) Diabetic peripheral neuropathy Dyslipidemia GERD (gastroesophageal reflux disease) History of COVID-19 [place]/02/23 ([place])- symptoms resolved, subsequent negative Cov[place] testing 05/10/23 [place]) HTN (hypertension) Hx of non-ST elevation myocardial infarction (NSTEMI) ~2008 Hx of recurrent urinary tract infection Lumbar facet joint syndrome Paroxysmal a-fib Taking Eliquis Sleep apnea CPAP Spinal stenosis of lumbar region T2DM (type 2 diabetes mellitus) Insulin Pump Surgical History History of cardiac radiofrequency ablation (RFA) History of CEA (carotid endarterectomy) (~2011) Right Hx of esophagogastroduodenoscopy S/P cardiac catheterization 2008- stent x1 2017- patent stent 2020- stent x1 S/P colonoscopy S/P coronary artery stent placement 2008- stent x1 2020- stent x1 S/P sinus surgery Family History Mother Hypertension Diabetes Cancer Father Hypertension Cancer Social History Smoking Status: Former smoker Tobacco Type: Cigarettes Cigarettes Per Day: 2 PPD; Smoking End Date: Quit 22 years ago; Second Hand Exposure: No; Do You Dip or Chew Tobacco: No; Tobacco Cessation Education Requested by Patient: No Hx Alcohol Use: Yes Hx Substance Use: No Preferred Language: Irish Communication Ability: Effective Visual Impairment: No Limitations Hearing Ability: Normal Inventory Taker Required: No Beliefs That Will Affect Care: None marital status: Current Living Situation: Spouse current occupational status: retired Other Information That Helps Us Care for You: No Feels Safe at Home: Yes Safety Concerns: Feels Safe At This Time Assistive Devices: Cane, CPAP, Denture - Upper, Denture - Lower and Other Assistive Devices Comment: Self-cath Review of Systems Review of Systems: All systems reviewed & are unremarkable except as noted in Subjective Physical Exam Constitutional: WD/WN, vitals as above Neck: trachea midline, no thyromegaly Respiratory: normal respiratory effort, lungs clear to auscultation Cardiovascular: RRR, no murmur, no edema Gastrointestinal (Abdomen): normal bowel sounds, soft, nontender, no hepatosplenomegaly Musculoskeletal: Extremities: extremities normal to inspection Skin: no rashes, warm and dry Neurologic: Nonfocal exam Lymphatic: no cervical lymphadenopathy Results & Data Results & Data Vital Signs (Past 12 Hours) Vital Signs Temp Pulse Resp BP BP Pulse Ox O2 Del Method 06/21/23 15:50 60 16 119/48 L 119/50 L 97 Nasal Cannula 06/21/23 15:40 59 L 16 120/46 L 120/44 L 96 Nasal Cannula 06/21/23 15:30 36.5 C 61 16 115/45 L 117/56 L 95 Nasal Cannula 06/21/23 15:20 60 16 124/48 L 120/47 L 96 Nasal Cannula 06/21/23 15:10 59 L 18 100/41 L 101/45 L 99 Oxymask 06/21/23 15:00 64 16 119/46 L 118/54 L 99 Oxymask 06/21/23 14:50 63 16 111/48 L 112/56 L 100 Oxymask 06/21/23 14:40 63 16 129/48 L 125/51 L 100 Oxymask 06/21/23 14:32 36.0 C L 63 18 118/44 L 62/40 L 100 Oxymask 06/21/23 09:54 37.0 C 74 20 148/62 H 159/83 H 96 Room Air O2 Flow Rate 06/21/23 15:50 2 06/21/23 15:40 2 06/21/23 15:30 2 06/21/23 15:20 2 06/21/23 15:10 4 06/21/23 15:00 4 06/21/23 14:50 4 06/21/23 14:40 6 06/21/23 14:32 6 06/21/23 09:54 Critical Care Results & Data Vital Signs (Past 12 Hours) Vital Signs Temp Pulse Resp BP BP Pulse Ox O2 Del Method 06/21/23 15:50 60 16 119/48 L 119/50 L 97 Nasal Cannula 06/21/23 15:40 59 L 16 120/46 L 120/44 L 96 Nasal Cannula 06/21/23 15:30 36.5 C 61 16 115/45 L 117/56 L 95 Nasal Cannula 06/21/23 15:20 60 16 124/48 L 120/47 L 96 Nasal Cannula 06/21/23 15:10 59 L 18 100/41 L 101/45 L 99 Oxymask 06/21/23 15:00 64 16 119/46 L 118/54 L 99 Oxymask 06/21/23 14:50 63 16 111/48 L 112/56 L 100 Oxymask 06/21/23 14:40 63 16 129/48 L 125/51 L 100 Oxymask 06/21/23 14:32 36.0 C L 63 18 118/44 L 62/40 L 100 Oxymask 06/21/23 09:54 37.0 C 74 20 148/62 H 159/83 H 96 Room Air O2 Flow Rate 06/21/23 15:50 2 06/21/23 15:40 2 06/21/23 15:30 2 06/21/23 15:20 2 06/21/23 15:10 4 06/21/23 15:00 4 06/21/23 14:50 4 06/21/23 14:40 6 06/21/23 14:32 6 06/21/23 09:54 Lab & Micro Results (Past 24 Hours) No Data to Display Na 141 mmol/L (136-145) 06/21/23 K 4.3 mmol/L (3.5-5.1) 06/21/23 Cl 106 mmol/L (98-107) 06/21/23 CO2 28 mmol/L (21-32) 06/21/23 Anion Gap 7 (3-11) 06/21/23 BUN 19 mg/dl (6-23) 06/21/23 Creatinine 1.43 mg/dl (0.6-1.4) H 06/21/23 Estimated GFR ( Amer) 55.9 ml/min 06/21/23 Estimated GFR (Non-Af Amer) 48.2 ml/min 06/21/23 BUN/Creatinine Ratio 13.3 (10-20) 06/21/23 Glu 159 mg/dl (70-99(Fasting)) H 06/21/23 Ca 8.9 mg/dl (8.6-10.3) 06/21/23 Calcium Level 8.9 mg/dl (8.6-10.3) 06/21/23 09:37 I & O Totals 24 Hours 06/20/23 06/21/23 06/22/23 06:59 06:59 06:59 Intake Total 1202.77 / 1202.77 Output Total 20 Balance 1182.77 / 1182.77 Cumulative 05/25/23 11:35 thru 06/21/23 15:26 Intake Total 1202.77 Output Total 20 Balance 1182.77 RT Ventilator Mngmt (Last Documented) Ventilator Ordered Settings Respiratory Rate 16 06/21/23 15:50 Ventilator - PT Measurements Respiratory Rate 16 Coding Level of Care Code 06282 IN/OBS CONSULT LVL 4,60M Diagnoses Stenosis of left internal carotid artery I65.22 Hypotension I95.9
[2023-06-21] MEDS ORDERED: NITROGLYCERIN SL 0.4 MG/TAB TAB SL PRN (16:14)
[2023-06-21] MEDS ORDERED: PHARMACY GLYCEMIC MGMT CONSULT PRN (16:14)
[2023-06-21] MEDS ORDERED: oxyCODONE/ACETAMINOPHEN 5mg/325mg TAB PO PRN (16:14)
[2023-06-21] MEDS ORDERED: STAT IV Infusion **Titration per Protocol STA (16:14)
[2023-06-21] MEDS: LACTATED RINGER'S 1,000 ML IV SCH (16:29)
--- NOTE | 2023-06-21 16:46 | Pharmacy Report ---
Pharmacy Glycemic Short Note 2 - Date of Service June 21, 2023 - Glycemic Short BSG Results (Last 24 hours): 06/21/23 06/21/23 06/21/23 09:37 09:42 14:40 Glucose 159 H POC Glucose 151 H 192 H 06/21/23 16:18 Glucose POC Glucose 212 H OUTPATIENT ANTIDIABETIC REGIMEN: * Metformin 1000mg PO BID * Omnipod Novolog pump * Basal: 3.4 units/hr * SF: 15, CR: 4 * HbA1c: 9.9% (05/11/23) ASSESSMENT: * 72 YO M, s/p TCAR surgery, hypotensive post-op. Will begin eating once resolved. * Patient managed on Omnipod + metformin as outpatient, will use basal bolus while inpatient per pharmacy consult. PLAN FOR INPATIENT GLYCEMIC CONTROL: * Hold outpatient Omnipod + metformin * Basal insulin * Lantus 30 units SQ x 1 dose now, then 20 units at HS for BSG > 180mg/dl, then further dosing in AM * Bolus insulin * NovoLog per scale ACHS or Q6hrs while NPO + overnight checks tonight at 0000 and 0400 * Goal Range: Low 110 mg/dL - High 140 mg/dL * Correction Factor: 15 mg/dL/unit * Nutritional / Prandial insulin per carb ratio of 1 unit per 4 grams CHO consumed
[2023-06-21] MEDS ORDERED: DEXTROSE 50% 50 ML SYRINGE IV PRN (17:00)
[2023-06-21] MEDS ORDERED: GLUCOSE 10 TAB/TUBE PO PRN (17:00)
[2023-06-21] MEDS ORDERED: GLUCOSE 40% GEL 15 GM TUBE PO PRN (17:00)
[2023-06-21] MEDS ORDERED: CARBOHYDRATES FOR HYPOGLYCEMIA PO PRN (17:00)
[2023-06-21] MEDS ORDERED: GLUCAGON FOR INJ 1 MG VIAL IM PRN (17:00)
[2023-06-21] MEDS: ceFAZolin 2000MG 2,000 MG/15 ML SYR IV SCH (17:04)
[2023-06-21] MEDS: INSULIN ASPART PER UNIT CHARGE SC SCH (17:15)
[2023-06-21] MEDS: LANTUS PER UNIT CHARGE SC ONE (17:16)
[2023-06-21] MEDS: MAGNESIUM OXIDE 400 MG TAB PO SCH (21:07)
[2023-06-21] MEDS: APIXABAN 5 MG TABLET PO SCH (21:08)
[2023-06-21] MEDS: LANTUS PER UNIT CHARGE SC SCH (21:08)
[2023-06-21] MEDS: PREGABALIN 75 MG CAP PO SCH (21:08)
[2023-06-21] MEDS: PSEUDOEPHEDRINE HCL 30 MG TAB PO PRN (21:09)
[2023-06-21] MEDS: METOPROLOL SUCC 25MG EXT REL TAB PO SCH (21:09)
[2023-06-21] MEDS ORDERED: Nursing to Pharmacy Communication SCH (21:30)
--- OUTSIDE RECORDS SUMMARY | 2023-06-21 22:47 | External Medical Summary | Continuity of Care Document ---
Author Name Unknown Organization [facility] [address] [place], [place] [id number] Care Team Providers Care Gas Roller Operator Name Role Phone Eliud Eisenberg Primary Care Physician [phone] [id number] Date(s): 06/06/23 - 06/06/23 [facility] [address] [facility] [address] [place], [facility] [address] [place], [place] [phone] Encounter Diagnosis Occlusion and stenosis of bilateral carotid arteries(Final) - Discharge Disposition: Home or Self Care Attending Physician: DIYA Driscoll Lynn Referring Physician: DIYA Driscoll Lynn Allergies, Adverse Reactions, Alerts Substance Reaction Severity Status Bactrim MISTI - acute kidney injury Severe Ac tive Medications allopurinol 100 mg oral tablet TAKE ONE TABLET BY MOUTH EVERY MORNING Start Date: 05/25/23 Status: Ordered Aspir 81 oral delayed release tablet Start: 05/25/23 9:45:00 EDT, 1 tab, PO, Daily Start Date: 05/25/23 Status: Ordered cholecalciferol 25 mcg (1000 intl units) oral capsule Start: 05/25/23 9:45:00 EDT, 1 cap, PO, Daily Start Date: 05/25/23 Status: Ordered DULoxetine 60 mg oral delayed release capsule Start: 05/25/23 9:44:00 EDT, 1 cap, PO, Daily Start Date: 05/25/23 Status: Ordered Eliquis 5 mg oral tablet Start: 05/25/23 9:44:00 EDT, 1 tab, PO, bid Start Date: 05/25/23 Status: Ordered insulin pump (NovoLOG) Start: 05/25/23 9:47:00 EDT, subQ Start Date: 05/25/23 Stop Date: 06/24/23 Status: Ordered magnesium gluconate 500 mg oral tablet Start: 05/25/23 9:46:00 EDT, 1 tab, PO, bid Start Date: 05/25/23 Status: Ordered metFORMIN 1000 mg oral tablet Start: 05/25/23 9:44:00 EDT, 1 tab, PO, bid Start Date: 05/25/23 Status: Ordered methenamine hippurate 1 g oral tablet Start: 05/25/23 9:46:00 EDT, 1 tab, PO, Daily Start Date: 05/25/23 Status: Ordered Metoprolol Succinate ER 25 mg oral tablet, extended release TAKE 1/2 TABLET BY MOUTH TWICE DAILY Start Date: 05/25/23 Status: Ordered nitroglycerin 0.4 mg sublingual tablet Start: 05/25/23 9:47:00 EDT, 1 tab, SL, q5min, Disp# 25 tab, PRN: as needed for chest pain Start Date: 05/25/23 Status: Ordered pantoprazole 40 mg oral delayed release tablet Start: 05/25/23 9:44:00 EDT, 1 tab, PO, Daily Start Date: 05/25/23 Status: Ordered Plavix 75 mg oral tablet Start: 05/25/23 10:24:00 EDT, 1 tab, PO, Daily, Disp# 30 tab, Refills: 0, [facility] Start Date: 05/25/23 Status: Ordered Plavix 75 mg oral tablet Start: 05/25/23 10:25:00 EDT, 1 tab, PO, Daily, Disp# 90 tab, Refills: 3, Pharmacy: [facility], Earliest Fill Date: 06/22/23 Start Date: 05/25/23 Status: Ordered pregabalin 225 mg oral capsule Start: 05/25/23 9:49:00 EDT, 1 cap, PO, qid Start Date: 05/25/23 Status: Ordered PreserVision AREDS 2 oral capsule Start: 05/25/23 9:46:00 EDT, See Instructions, 1 tab po daily Start Date: 05/25/23 Status: Ordered rosuvastatin 20 mg oral tablet TAKE ONE TABLET BY MOUTH IN THE MORNING Start Date: 05/25/23 Status: Ordered Super B Complex oral tablet Start: 05/25/23 9:49:00 EDT, 1 tab, PO, Daily Start Date: 05/25/23 Status: Ordered Vitamin B12 1000 mcg oral tablet Start: 05/25/23 9:45:00 EDT, 1 tab, PO, Daily Start Date: 05/25/23 Status: Ordered Problem List Condition Confirmation Course Effective Dates Status Health St atus Informant Bilateral carotid artery stenosis Confirmed Active Results Laboratory List Name Date Platelet Function (P2Y12 Receptor) (PLT FUNCTION P2Y12) 06/06/23 Most recent to oldest [Reference Range]: 1 P2Y12 Platelet Function [194-418 PRU] 97 PRU 1 *LOW* (06/06/23 10:30 AM) 1Result Comment: PRU reference range is 194-418 (healthy adults, no drug treatment). Post Drug Results: Lower PRU levels are expected following treatment with antiplatelet drugs. Post-treatment values are usually below the stated reference range above. The post-drug PRU values reported in the VerifyNOW P2Y12 package insert are 18-435. This broader range reflects the variability in drug response and is consistent with significant numbers of patients with decreased sensitivity to P2Y12 receptor antagonists (prasugrel or clopidogrel). Clinical studies suggest an on-treatment PRU>230 indicates less than optimal response to therapy, and PRU<208 at 12-24 hours after percutaneous intervention or during follow-up is associated with a lower risk of cardiovascular events (1). (1).Standard-vs high-dose clopidogrel based on platelet function testing after percutaneouscoronary intervention: the GRAVITAS randomized trial. Geoffrey et al. NICHOLE. 2010April 28; 305(11): 1016-4618. doi: 10.1001/nichole.2011.290 Social History Social History Type Response Smoking Status Never smoked cigaret rasheed Sex Male Patient Care team information Care Team Personnel Name: MD Eisenberg Anthony J Position: Referring DIRECT Member Role: Primary Care Provider Address: Address: [facility] [address] [place] [address] [place] Name: DIYA Driscoll Lynn Position: Physician Concrete Worker Exempt - Vasc Surg Member Role: Lifetime Relationship Address: Address: [address] [place] [id number] [place] Care Team Related Persons Name: RENATE OROZCOU Address: home [address] [place], [place] [id number]
--- OUTSIDE RECORDS SUMMARY | 2023-06-21 22:48 | External Medical Summary | Summary of Care ---
Author Name Unknown Organization [facility] Address [address] [facility] [place] [address] Phone [phone] Care Team Providers Care Pain Management Specialist Name Role Phone Eliud Eisenberg MD Primary Care Provider [phone] Reason for Visit * Reason Onset Date Comments Med Request 06/05/2023 Encounter Details Date Type Department Care Team (Late st Contact Info) Description 06/05/2023 Telephone Family Practice [facility] [address] [place] [address] Eliud Eisenberg MD [address] [place] [address] Med Request Allergies Active Allergy Reactions Criticality Noted Date Comments Sulfamethoxazole-Trimet hoprim Other (Please comment) 09/20/2017 hyperkalmeia Lisinopril 09/15/2022 ?cough Trimethoprim High 11/23/2021 Other reaction(s): acute renal failure documented as of this encounter (statuses as of 06/05/2023) Medications Medication Sig Dispensed Refills Start Date End Date Status NOVOFINE 32G X 6 MM MISC 0 12/19/2014 Active Magnesium 500 MG Capsule Take 1 Tablet by mouth in the morning and 1 Tablet before bedtime. 0 Active Cyanocobalamin (VITAMIN B-12) 1000 MCG Tablet Take 1 Tablet by mouth in the morning. 0 Active Cholecalciferol (VITAMIN D3) 1000 units CAPS Take 1 Capsule by mouth in the morning. 0 Active Aspirin EC 81 MG Oral Tablet Delayed Release Take by mouth 1 Tablet in the morning. 90 Tablet 3 05/31/2021 Active CPAP every night at bedtime . 0 Active Nitroglycerin 0.4 MG Sublingual Tablet Sublingual (Nitrostat)Indicat ions:Coronary artery disease involving diomede coronary artery of diomede heart without angina pectoris Place under the [...] 14 days 6 Each 3 01/21/2022 Active Apixaban 5 MG Oral Tablet (Eliquis)Indicatio [...] or Wheezing. 1 Each 5 07/18/2022 Active B Complex Plus Oral Tablet Take 1 Tablet by mouth in the morning. 0 Active Eye Health Oral Capsule Take 1 Capsule by mouth in the morning. 0 Active Biotene Dry Mouth Mouth/Throat Lozenge Apply 1 Lozenge to the mouth or throat every evening. 90 Lozenge 3 10/25/2022 Active Omnipod DASH Pods (Gen 4) USE 1 POD EVERY 2 DAYS DIRECTED 5 Each 0 11/25/2022 Active Allopurinol 100 MG Oral Tablet (Zyloprim) Take 1 Tablet by mouth in the morning. 30 Tablet 11 12/12/2022 Active Insulin Aspart 100 UNIT/ML Injection Solution (NovoLOG) Inject up to 100 units daily via insulin pump 90 mL 1 01/10/2023 Active Omnipod DASH Pods (Gen 4) Use as directed. Use 1 pod every 2 days 30 Each 1 04/24/2023 Active Pantoprazole Sodium 40 MG Oral Tablet Delayed Release (Protonix) Take 1 Tablet by mouth in the morning. 90 Tablet 3 05/16/2023 Active Metoprolol Succinate ER 25 MG Oral Tablet Extended Release 24 Hour (toPROL XL)Indications:Par oxysmal atrial fibrillation (HCC),Coronary artery disease involving [place]om[place] coronary artery of [place] heart without angina pectoris,S/P primary angioplasty with coronary stent,HTN, goal below 140/90 Take 0.5 Tablets by mouth in the morning and 0.5 Tablets before bedtime. 90 Tablet 3 05/24/2023 Active Rosuvastatin Calcium 20 MG Oral Tablet (Crestor)Indicatio ns:Coronary artery disease involving [place] coronary artery of [place] heart without angina pectoris,S/P primary angioplasty with coronary stent,Dyslipidemia , goal LDL below 70 Take 1 Tablet by mouth at bedtime. 90 Tablet 3 05/24/2023 Active Methenamine Hippurate 1 GM Oral Tablet (Hiprex) 1 tablet by mouth every other evening 45 Tablet 3 05/30/2023 Active Clopidogrel Bisulfate 75 MG Oral Tablet (pLAVix) Take one tablet DAILY 30 Tablet 4 06/05/2023 Active Clopidogrel Bisulfate 75 MG Oral Tablet (pLAVix) 0 05/25/2023 Discontinue d(Refill) documented as of this encounter (statuses as of 06/05/2023) Active Problems Problem Noted Date Diagnosed Date [...] fibrillation 02/18/2015 Coronary artery disease invo lving diomede coronary artery of [place] heart without angina pectoris 02/18/2015 HTN, goal below 130/80 02/18/2015 S/P carotid endarterectomy 02/18/2015 documented as of this encounter (statuses as of 06/05/2023) Resolved Problems Problem Noted Date Diagnosed Date [...] as of this encounter (statuses as of 06/05/2023) Immunizations Name Administration Dates Next Due COVID-19 mRNA, LNP-s, No Pre serve, 2-Dose Series (CollegeBrain) 11/19/2020,04/24/2020,03/29/2020 Hepatitis B, 20+ yrs 12/07/2016,06/15/2016,03/16 Pneumococcal [...] encounter Miscellaneous Notes * Telephone Encounter - Shania Alva LPN - 06/05/2023 11:03 AM EDT Did you pend patient's preferred pharmacy and medication before forwarding?yes Pharmacy: [facility]- [place] Pending Prescriptions: Disp Refills Clopidogrel Bisulfate 75 MG Oral Tablet (*30 Tab*4 Sig: Take one tablet DAILY Last Visit: 05/19/2023 (in office), Visit date not found (telemedicine) Next Visit: 08/18/2023 If no future appointments scheduled, and last appointment is greater than a year ago, please schedule patient for a follow-up appointment Last date the medication was ordered: Is this request for a controlled substance?No Urine Drug Screen:No results found for this or any previous visit. Patient Phone Numbers Labs: Lab Results Component Value Date/Time CREAT 1.5 (H) 04/26/2023 06:50 AM CREAT 1.33 (A) 06/07/2022 12:00 AM CREAT 1.5 (H) 02/17/2020 07:31 AM POTASSIUM 4.8 04/26/2023 06:50 AM POTASSIUM 4.8 06/07/2022 12:00 AM POTASSIUM 4.3 02/17/2020 07:31 AM LDLCALC 45 04/01/2020 08:29 AM LDLCALC 52 09/27/2019 12:00 AM LDLDIRECT 47 04/26/2023 06:50 AM LDLDIRECT 5.0 04/05/2017 12:00 AM ALT 20 10/20/2021 12:12 PM ALT 16 02/28/2017 09:24 AM HGBA1C 8.6 (H) 11/18/2022 07:52 AM HGBA1C 6.9 (A) 09/27/2019 12:00 AM * Telephone Encounter - Narcisa Jean CPhT - 06/05/2023 8:09 AM EDT Pt calling requesting the following medication below that is listed as "Historical". The following information was provided: Medication Name: Clopidogrel Strength: 75 mg Directions: daily Preferred Quantity: 30 Previous Prescriber: unknown Preferred Pharmacy: [facility] Please review and approve if appropriate. Thank you, Narcisa Jean CPhT Global Position System Technician Centralized Clinical Pharmacy Services (CCPS)(formerly telepharmacy) 06/05/2023,8:09 AM documented in this encounter Plan of Treatment Upcoming Encounters Date Type Department Care Team (Late st Contact Info) Description 06/28/2023 8:30 AM EDT Office Visit Pharmacy, [facility] [address] [place] [address] [facility] [address] [place] [address] 08/16/2023 8:30 AM EDT Office Visit Cardiology, [facility] [address] [place] [address] Ridge Barr MD [address] [place] [address] 08/18/2023 9:00 AM EDT Office Visit Family Practice [facility] [address] [place] [address] Eliud Eisenberg MD [address] [place] [address] 08/23/2023 8:45 AM EDT Office Visit Orthopaedics [facility] [address] [place] [address] Jamil Hills PA-C [address] [place] [address] 11/02/2023 10:00 AM EDT Office Visit Sleep Disorders Ctr [facility] [address] [place] [phone] Nichol Caballero DO [address] [place] [address] 01/22/2024 8:00 AM EST Nurse Only Ancillary [facility] [address] [facility] [place] [address] [facility], Nurse Annual Wellness [facility] 132 [facility] [place] [address] 05/17/2024 8:30 AM EDT Appointment Radiology, [place] [address] [place] [address] 05/17/2024 9:30 AM EDT Office Visit Urology, [place] [address] [place], [place] [phone] Chivo Solis PA-C [address], [place] [phone] Scheduled Procedures Name Priority Associated Diagnoses Date/Ti me ESOPHAGOGASTRODUODENOSCOPY ( EGD), FLEXIBLE, TRANSORAL, DIAGNOSTIC Recall Jimenez's esophagus Health Maintenance Due Date Last Done Comments Alpha-1 Antitrypsin 09/24/1967 Hepatitis C Screening 09/24/1967 DTaP,Tdap,and Td Vaccines (1 - Tdap) 1968 Colonoscopy 1994 Fecal Occult Blood Test 1994 Sigmoidoscopy 1994 Jimenez's Esophagus Surveilance 04/04/2019 04/04/2016, 04/04/2016 COVID-19 Vaccine ( season) 2022 11/19/2020, 04/24/2020, 03/29/2020 HbA1c 05/20/2023 11/18/2022, 03/0 08/2022, 10/20/2021, Additional history exists Diabetic Eye Exam 08/11/2023 08/10/2022, 12/22/2021 Albumin/Creatinine Ratio 09/17/2023 0804/ 023, 11/19/2018, 04/05/2017 CKD HGB USE SMARTSET 20416 10/20/202310/19, 10/19/2022, 09/16/2022, Additional history exists GFR 10/27/2023 04/26/2023, 09/14, 09/16/2022, Additional history exists CKD PHOS USE SMARTSET 11725 11/19/202307/2022, 11/12/2021, 04/01/2020 Diabetic Foot Exam 12/30/2023 12/29/2022 Depression Screening 01/19/2024 01/18/2023 O2 ASSESSMENT COMPLETED IN PAST YEAR FOR COPD 05/18/2024 05/19/2023 Cologuard 05/11/2026 05/12/2023, 04/14, 05/08/2023 Colorectal Cancer Screening 05/11/2026 Pneumococcal Vaccine: 65+ Years Completed 01/13/2016, 11/24/2014, [...] this encounter Medical Devices Implanted Type Area Woodworking Machinist Device Identifier Shelf Expiration Date Model / Serial / Lot Lens Intraoc 16.5 - [id number] - [id number] Implanted:Qty: 1 on 11/14/2019 by Elmo Apodaca MD at OR [facility] Left: Eye [employer]CH [employer] LOMB 03/15/2024 [id number] / [id number] / [id number] Lens Intraoc 16.5 - [id number] - [id number] Implanted:Qty: 1 on 11/28/2019 by Elmo Apodaca MD at OR [facility] Right: Eye BAUSCH & LOMB 04/12/2024 [id number] / [id number] / [id number] documented as of this encounter Advance Directives Latest Code Status on File Code Status Date Activated Date Inactivated Comments Full Code 07/15/2015 2:43 PM 07/16/2015 12:56 PM This o rder reflects the patients wishes and were consensually agreed upon. Care Teams Pain Management Specialist Relationship Specialty Start Date End Date Eliud Eisenberg MD [address] [place] [address] PCP - General Family Medicine 10/20/21 documented as of this encounter
--- OUTSIDE RECORDS SUMMARY | 2023-06-21 22:48 | External Medical Summary | Summary of Care ---
Author Name Unknown Organization [facility] Address [address] [facility] [place] [address] Phone [phone] Care Team Providers Care Dry Boss Name Role Phone Eliud Eisenberg MD Primary Care Provider [phone] Reason for Visit * Reason Onset Date Comments Medication Problem 06/07/2023 Encounter Details Date Type Department Care Team (Late st Contact Info) Description 06/07/2023 Telephone Cardiology, [facility] [address] [employer] [address] [place] [phone] Ridge Barr MD [address] [employer] [place] [phone] Medication Problem Allergies Active Allergy Reactions Criticality Noted Date Comments Sulfamethoxazole-Trimet hoprim Other (Please comment) 09/20/2017 hyperkalmeia Lisinopril 09/15/2022 ?cough Trimethoprim High 11/23/2021 Other reaction(s): acute renal failure documented as of this encounter (statuses as of 06/07/2023) Medications Medication Sig Dispensed Refills Start Date [...] Tablet Sublingual (Nitrostat)Indicatio ns:Coronary artery disease involving [place] coronary artery of wales heart without angina pectoris Place under the [...] 01/21/2022 Active Apixaban 5 MG Oral Tablet (Eliquis)Indications [...] Oral Tablet Extended Release 24 Hour (toPROL XL)Indications:Parox ysmal atrial fibrillation (HCC),Coronary artery disease involving [place] coronary artery of [place] heart without angina pectoris,S/P primary angioplasty with coronary stent,HTN, goal below 140/90 Take 0.5 Tablets by mouth in the morning and 0.5 Tablets before bedtime. 90 Tablet 3 05/24/2023 Active Rosuvastatin Calcium 20 MG Oral Tablet (Crestor)Indications :Coronary artery disease involving [place] coronary artery of [place] heart without angina pectoris,S/P primary angioplasty with coronary stent,Dyslipidemia, goal LDL below 70 Take 1 Tablet by mouth at bedtime. 90 Tablet 3 05/24/2023 Active Methenamine Hippurate 1 GM Oral Tablet (Hiprex) 1 tablet by mouth every other evening 45 Tablet 3 05/30/2023 Active Torsemide 10 MG Oral Tablet (Demadex)Indications :HTN, goal below 130/80 Take 1 Tablet by mouth in the morning and 1 Tablet before bedtime. 180 Tablet 3 06/05/2023 Active Clopidogrel Bisulfate 75 MG Oral Tablet (pLAVix) Take one tablet DAILY 30 Tablet 4 06/05/2023 Active documented as of this encounter (statuses as of 06/07/2023) Active Problems Problem Noted Date Diagnosed Date [...] fibrillation 02/18/2015 Coronary artery disease invo lving w[place] coronary artery of [place] heart without angina pectoris 02/18/2015 HTN, goal below 130/80 02/18/2015 S/P carotid endarterectomy 02/18/2015 documented as of this encounter (statuses as of 06/07/2023) Resolved Problems Problem Noted Date Diagnosed Date [...] as of this encounter (statuses as of 06/07/2023) Immunizations Name Administration Dates Next Due COVID-19 mRNA, LNP-s, No Pre serve, 2-Dose Series (Fliggo) 11/19/2020,04/24/2020,03/29/2020 Hepatitis B, 20+ yrs 12/07/2016,06/15/2016,03/16 Pneumococcal [...] encounter Miscellaneous Notes * Telephone Encounter - Gunner Long RN - 06/07/2023 1:35 PM EDT Called the patient back and he gave a sincere apology. He has not been taking two Plavix per day. He has found the other full bottle of Plavix in which he had picked up at his pharmacy a few weeks ago. Again he apologized. * Telephone Encounter - Ridge Barr MD - 06/07/2023 12:29 PM EDT Please refill clopidogrel Emphasize daily useonly * Telephone Encounter - Gunner Long RN - 06/07/2023 12:15 PM EDT Called the patient and he stated he is running out of the Plavix. I explained I Called his pharmacyand they just filled 30 day supply on 05/24/2022. I explained to him they are not going to refill itdue to it being to early. He thinks he may have been taking one pill BID. I explained is only to betaking it once per day. I told him I will let Dr. Barr now and get back to him. He stated he is aniceto on the Plavix up until the day before his carotid surgery which is 06/22/2023 in [place]. * Telephone Encounter - Brittany Hernandez business support administrator - 06/07/2023 9:27 AM EDT Patient has surgery on June 20. Says he cannot fill his Plavix until 06/21. Is to be on this prior tosurgery but cannot get script. Please advise on what he should do. Will be out of Plavix this Thursday 06/08. E [facility] [place] [phone] Requesting a return call as he is nervous this will not happen. Thank you, Brittany Hernandez Assistant Professor Of Marine Biology 06/07/2023,9:28 AM * Telephone Encounter - Cony Toscano CPhT - 06/07/2023 9:25 AM EDT Call transferred to [facility] speciality line Thank you, Cony Toscano Medical Receptionist Biller II Centralized Clinical Pharmacy Services (CCPS) (formerly Telepharmacy) 06/07/2023 9:26 AM documented in this encounter Plan of Treatment Upcoming Encounters Date Type Department Care Team (Late st Contact Info) Description 06/28/2023 8:30 AM EDT Office Visit Pharmacy, [facility] [address] [place] [address] [facility] [address] [place] [address] 08/16/2023 8:30 AM EDT Office Visit Cardiology, [facility] [address] [place] [address] Ridge Barr MD [address] [place] [address] 08/18/2023 9:00 AM EDT Office Visit Family Practice [facility] [address] [place] [address] Eliud Eisenberg MD [address] [place] [address] 08/23/2023 8:45 AM EDT Office Visit Orthopaedics [facility] [address] [place] [address] Jamil Hills PA-C [address] [place] [address] 11/02/2023 10:00 AM EDT Office Visit Sleep Disorders Ctr [facility] [place] [phone] Nichol Caballero DO [address] [place] [address] 01/22/2024 8:00 AM EST Nurse Only Ancillary [facility] 132 [facility] [place] [address] [facility], Nurse Annual Wellness [facility] [address] [facility] [place] [address] 05/17/2024 8:30 AM EDT Appointment Radiology, [place] [address] [place] [address] 05/17/2024 9:30 AM EDT Office Visit Urology, [place] [address] [place] [address] Chivo Solis PA-C [address] [place] [address] Scheduled Procedures Name Priority Associated Diagnoses Date/Ti me ESOPHAGOGASTRODUODENOSCOPY ( EGD), FLEXIBLE, TRANSORAL, DIAGNOSTIC Recall Jimenze's esophagus Health Maintenance Due Date Last Done [...] 023, 11/19/2018, 04/05/2017 CKD HGB USE SMARTSET 66472 10/20/202310/19, 10/19/2022, 09/16/2022, Additional history exists GFR 10/27/2023 04/26/2023, 09/14, 09/16/2022, Additional history exists CKD PHOS USE SMARTSET 15890 11/19/202307/2022, 11/12/2021, 04/01/2020 Diabetic Foot Exam 12/30/2023 [...] this encounter Medical Devices Implanted Type Area Potato Chip Sacking Machine Operator Device Identifier Shelf Expiration Date Model / Serial / Lot Lens Intraoc 16.5 - [id number] - [id number] Implanted:Qty: 1 on 11/14/2019 by Elmo Apodaca MD at [facility] Left: Eye [employer]CH [employer] LOMB 03/15/2024 [id number] / [id number] / [id number] Lens Intraoc 16.5 - [id number] - [id number] Implanted:Qty: 1 on 11/28/2019 by Elmo Apodaca MD at OR [facility] Right: Eye BAUSCH [employer] LOMB 04/12/2024 [id number] / [id number] / [id number] documented as of this encounter Advance Directives Latest Code Status on File Code Status Date Activated Date Inactivated Comments Full Code 07/15/2015 2:43 PM 07/16/2015 12:56 PM This o rder reflects the patients wishes and were consensually agreed upon. Care Teams Dry Boss Relationship Specialty Start Date End Date Eliud Eisenberg MD [address] [place] [address] PCP - General Family Medicine 10/20/21 documented as of this encounter
--- OUTSIDE RECORDS SUMMARY | 2023-06-21 22:48 | External Medical Summary | Summary of Care ---
Author Name Unknown Organization [facility] Address [address] [facility] [place] [address] Phone [phone] Care Team Providers Care Hand Painter Name Role Phone Eliud Eisenberg MD Primary Care Provider [phone] Reason for Visit * Reason Onset Date Comments Medication Problem 06/07/2023 Encounter Details Date Type Department Care Team (Late st Contact Info) Description 06/07/2023 Telephone Cardiology, [facility] [address] [place] [phone] Ridge Barr MD [address] [place] [phone] Medication Problem Allergies Active Allergy Reactions Criticality [...] Tablet Sublingual (Nitrostat)Indicatio ns:Coronary artery disease involving [place] coronary artery of [place] heart without angina pectoris Place under the [...] ysmal atrial fibrillation (HCC),Coronary artery disease involving [place] coronary artery of [place] heart without angina pectoris,S/P primary angioplasty with coronary stent,HTN, goal below 140/90 Take 0.5 Tablets by mouth in the morning and 0.5 Tablets before bedtime. 90 Tablet 3 05/24/2023 Active Rosuvastatin Calcium 20 MG Oral Tablet (Crestor)Indications :Coronary artery disease involving [place] coronary artery of [place] heart without angina pectoris,S/P primary angioplasty with [...] fibrillation 02/18/2015 Coronary artery disease invo lving [place] coronary artery of [place] heart without angina pectoris 02/18/2015 HTN, goal [...] mRNA, LNP-s, No Pre serve, 2-Dose Series (EverTune) 11/19/2020,04/24/2020,03/29/2020 Hepatitis B, 20+ yrs 12/07/2016,06/15/2016,03/16 Pneumococcal [...] encounter Miscellaneous Notes * Telephone Encounter - Ridge Barr MD [...] his carotid surgery which is 06/22/2023 in [place]. * Telephone Encounter - Brittany Hernandez medical management specialist - 06/07/2023 9:27 AM EDT Patient has surgery on June 20. Says he cannot fill his Plavix until 06/21. Is to be on this prior tosurgery but cannot get script. Please advise on what he should do. Will be out of Plavix this Thursday 06/08. E [facility]-[address] [phone] Requesting a return call as he is nervous this will not happen. Thank you, Brittany Hernandez Balancing Machine Operator 06/07/2023,9:28 AM * Telephone Encounter - Cony Toscano CPhT - 06/07/2023 9:25 AM EDT Call transferred to [facility] speciality line Thank you, Cony Toscano Pipeline Superintendent Division II Centralized Clinical Pharmacy Services (CCPS) (formerly Telepharmacy) 06/07/2023 9:26 AM documented in this encounter Plan of Treatment Upcoming Encounters Date Type Department Care Team (Late st Contact Info) Description 06/28/2023 8:30 AM EDT Office Visit Pharmacy, [facility] [address] [place] [address] [facility] [address] [place] [address] 08/16/2023 8:30 AM EDT Office Visit Cardiology, [facility] [address] [place] [address] Ridge Barr MD [address] [place] [address] 08/18/2023 9:00 AM EDT Office Visit Family Practice [facility] [address] [place] [address] Eliud Eisenberg MD [address] [place] [address] 08/23/2023 8:45 AM EDT Office Visit Orthopaedics [facility] 132 [facility] [place] [address] Jamil Hills PA-C [address] [place] [address] 11/02/2023 10:00 AM EDT Office Visit Sleep Disorders Ctr [facility] [address] [place] [phone] Nichol Caballero DO [address] [place] [address] 01/22/2024 8:00 AM EST Nurse Only Ancillary [facility] [address] [facility] [place] [address] [facility], Nurse Annual Wellness [facility] [address] [place] [address] 05/17/2024 8:30 AM EDT Appointment Radiology, [place] [address] [place] [address] 05/17/2024 9:30 AM EDT Office Visit Urology, [place] [address] [place] [address] Chivo Solis PA-C [address] [place] [address] Scheduled Procedures Name Priority Associated Diagnoses Date/Ti [...] 023, 11/19/2018, 04/05/2017 CKD HGB USE SMARTSET 34233 10/20/202310/19, 10/19/2022, 09/16/2022, Additional history exists GFR 10/27/2023 04/26/2023, 0804/2022, 09/16/2022, Additional history exists CKD PHOS USE SMARTSET 18369 11/19/2023 100 07/2022, 11/12/2021, 04/01/2020 Diabetic Foot [...] this encounter Medical Devices Implanted Type Area Bridge Contractor Device Identifier Shelf Expiration Date Model / Serial / Lot Lens Intraoc 16.5 - [id number] - [id number] Implanted:Qty: 1 on 11/14/2019 by Elmo Apodaca MD at OR [facility] Left: Eye BAUSCH [employer] LOMB 03/15/2024 [id number] / [id number] / [id number] Lens Intraoc 16.5 - [id number] - [id number] Implanted:Qty: 1 on 11/28/2019 by Elmo Apodaca MD at OR [facility] Right: Eye BAUSCH [employer] LOMB 04/12/2024 [id number] / [id number] / [id number] documented as of this encounter Advance Directives Latest Code Status on File Code Status Date Activated Date Inactivated Comments Full Code 07/15/2015 2:43 PM 07/16/2015 12:56 PM This o rder reflects the patients wishes and were consensually agreed upon. Care Teams Hand Painter Relationship Specialty Start Date End Date Eliud Eisenberg MD [address] [place] [address] PCP - General Family Medicine 10/20/21 documented as of this encounter
--- OUTSIDE RECORDS SUMMARY | 2023-06-21 22:48 | External Medical Summary | Summary of Care ---
Author Name Unknown Organization [facility] Address [address] [facility] [place] [address] Phone [phone] Care Team Providers Care Radar Signal Processing Engineer Name Role Phone Eliud Eisenberg MD Primary Care Provider [phone] Reason for Visit * Reason Onset Date Comments Medication Problem 06/07/2023 Encounter Details Date Type Department Care Team (Late st Contact Info) Description 06/07/2023 Telephone Cardiology, [facility] [address] [place] [phone] Ridge Barr MD [address] [place] [phone] Medication Problem Allergies Active Allergy Reactions Criticality [...] ysmal atrial fibrillation (HCC),Coronary artery disease involving [place] coronary artery of [place] heart without angina pectoris,S/P primary angioplasty with coronary stent,HTN, goal below 140/90 Take 0.5 Tablets by mouth in the morning and 0.5 Tablets before bedtime. 90 Tablet 3 05/24/2023 Active Rosuvastatin Calcium 20 MG Oral Tablet (Crestor)Indications :Coronary artery disease involving [place] coronary artery of [...] mRNA, LNP-s, No Pre serve, 2-Dose Series (Smash[employer]) 11/19/2020,04/24/2020,03/29/2020 Hepatitis B, 20+ yrs 12/07/2016,06/15/2016,03/16 Pneumococcal [...] his carotid surgery which is 06/22/2023 in [place] * Telephone Encounter - Brittany Hernandez flasher adjuster - 06/07/2023 9:27 AM EDT Patient has surgery on June 20. Says he cannot fill his Plavix until 06/21. Is to be on this prior tosurgery but cannot get script. Please advise on what he should do. Will be out of Plavix this Thursday 06/08. E [facility] [facility] [phone] Requesting a return call as he is nervous this will not happen. Thank you, Brittany Hernandez Wire Machine Operator 06/07/2023,9:28 AM * Telephone Encounter - Cony Toscano CPhT - 06/07/2023 9:25 AM EDT Call transferred to [facility] speciality line Thank you, Cony Toscano Surgery Specialist II Centralized Clinical Pharmacy Services ([facility]) (formerly Telepharmacy) 06/07/2023 9:26 AM documented in this encounter Plan of Treatment Upcoming Encounters Date Type Department Care Team (Late st Contact Info) Description 06/28/2023 8:30 AM EDT Office Visit Pharmacy, [address] [place] [address] [facility] [place] [address] 08/16/2023 8:30 AM EDT Office Visit Cardiology, [facility] 132 [facility] [place] [address] Ridge Barr MD [address] [place] [address] 08/18/2023 9:00 AM EDT Office Visit Family Practice [facility] [address] [place] [address] Eliud Eisenberg MD [address] [place] [address] 08/23/2023 8:45 AM EDT Office Visit Orthopaedics [facility] 132 [facility] [place] [address] Jamil Hills PA-C [facility] [place] [address] 11/02/2023 10:00 AM EDT Office Visit Sleep Disorders Ctr [facility] 132 [facility] [place] [phone] Nichol Caballero, [address] [place] [address] 01/22/2024 8:00 AM EST Nurse Only Ancillary [facility] [address] [facility] [place] [address] Branden, Nurse Annual Wellness [facility] 132 [facility] [place] [address] 05/17/2024 8:30 AM EDT Appointment Radiology, [address] [place] [address] 05/17/2024 9:30 AM EDT Office Visit Urology, [place] [facility] [address] [place] [address] Chivo Solis PA-C [address] [place] [address] Scheduled Procedures Name Priority Associated Diagnoses Date/Ti [...] 2022 11/19/2020, 04/24/2020, 03/29/2020 HbA1c 05/20/2023 11/18/2022, 0308/2022, 10/20/2021, Additional history exists Diabetic Eye Exam 08/11/2023 08/10/2022, 12/22/2021 Albumin/Creatinine Ratio 09/17/2023 0804 023, 11/19/2018, 04/05/2017 CKD HGB USE SMARTSET 70027 10/20/202310/19, 10/19/2022, 09/16/2022, Additional history exists GFR 10/27/2023 04/26/2023, 09/14, 09/16/2022, Additional history exists CKD PHOS USE SMARTSET 61504 11/19/2023 100 07/2022, 11/12/2021, 04/01/2020 Diabetic Foot [...] this encounter Medical Devices Implanted Type Area Supervisor Train Operations Device Identifier Shelf Expiration Date Model / Serial / Lot Lens Intraoc 16.5 - [id number] - [id number] Implanted:Qty: 1 on 11/14/2019 by Elmo Apodaca MD at OR [facility] Left: Eye BAUSCH & LOMB 03/15/2024 [id number] / [id number] / [id number] Lens Intraoc 16.5 - [id number] - [id number] Implanted:Qty: 1 on 11/28/2019 by Elmo Apodaca MD at OR [facility] Right: Eye BAUSCH [employer] LOMB 04/12/2024 [id number] / [id number] / [id number] documented as of this encounter Advance Directives Latest Code Status on File Code Status Date Activated Date Inactivated Comments Full Code 07/15/2015 2:43 PM 07/16/2015 12:56 PM This o rder reflects the patients wishes and were consensually agreed upon. Care Teams Radar Signal Processing Engineer Relationship Specialty Start Date End Date Eliud Eisenberg MD [address] [place] [address] PCP - General Family Medicine 10/20/21 documented as of this encounter
--- OUTSIDE RECORDS SUMMARY | 2023-06-21 22:48 | External Medical Summary | Summary of Care ---
Author Name Unknown Organization [facility] Address [address] [facility] [place] [address] Phone [phone] Care Team Providers Care Screen Printing Equipment Setter Name Role Phone Eliud Eisenberg MD Primary Care Provider [phone] Reason for Visit * Reason Onset Date Comments Medication Problem 06/07/2023 Encounter Details Date Type Department Care Team (Late st Contact Info) Description 06/07/2023 Telephone Cardiology, [facility] [address] [email or web address] [address] [place] [phone] Ridge Barr MD [address] [email or web address] [place] [phone] Medication Problem Allergies Active Allergy Reactions Criticality [...] Tablet Sublingual (Nitrostat)Indicatio ns:Coronary artery disease involving [place] coronary artery of yurok heart without angina pectoris Place under the [...] ysmal atrial fibrillation (HCC),Coronary artery disease involving [place] coronary artery of [place] heart without angina pectoris,S/P primary angioplasty with coronary stent,HTN, goal below 140/90 Take 0.5 Tablets by mouth in the morning and 0.5 Tablets before bedtime. 90 Tablet 3 05/24/2023 Active Rosuvastatin Calcium 20 MG Oral Tablet (Crestor)Indications :Coronary artery disease involving [place] coronary artery of [place] heart without angina pectoris,S/P primary angioplasty with [...] fibrillation 02/18/2015 Coronary artery disease invo lving [place] coronary artery of yurok heart without angina pectoris 02/18/2015 HTN, goal [...] mRNA, LNP-s, No Pre serve, 2-Dose Series ([employer]) 11/19/2020,04/24/2020,03/29/2020 Hepatitis B, 20+ yrs 12/07/2016,06/15/2016,03/16 [...] his carotid surgery which is 06/22/2023 in [place]. * Telephone Encounter - Brittany Hernandez windows phone developer - 06/07/2023 9:27 AM EDT Patient has surgery on June 20. Says he cannot fill his Plavix until 06/21. Is to be on this prior tosurgery but cannot get script. Please advise on what he should do. Will be out of Plavix this Thursday 06/08. E [facility]-[address] [place]AN[place] [phone] Requesting a return call as he is nervous this will not happen. Thank you, Brittany Hernandez Lead Nurse 06/07/2023,9:28 AM * Telephone Encounter - Cony Toscano CPhT - 06/07/2023 9:25 AM EDT Call transferred to [facility] speciality line Thank you, Cony Toscano Truck Driver Helper II Centralized Clinical Pharmacy Services ([facility]PS) (formerly Telepharmacy) 06/07/2023 9:26 AM documented in this encounter Plan of Treatment Upcoming Encounters Date Type Department Care Team (Late st Contact Info) Description 06/28/2023 8:30 AM EDT Office Visit Pharmacy, [facility] [address] [place] [address] [facility] [address] [place] [address] 08/16/2023 8:30 AM EDT Office Visit Cardiology, [facility] [address] [place] [address] Ridge Barr MD [address] [place] [address] 08/18/2023 9:00 AM EDT Office Visit Family Practice [facility] [address] [place] [address] Eliud Eisenberg MD [address] [place] [address] 08/23/2023 8:45 AM EDT Office Visit Orthopaedics [facility] [address] [place] [address] Jamil Hills PA-C [address] [place] [address] 11/02/2023 10:00 AM EDT Office Visit [facility] Disorders Ctr [facility] [place] [phone] Nichol Caballero DO [address] [place] [address] 01/22/2024 8:00 AM EST Nurse Only Ancillary [facility] 132 [facility] [place] [address] [facility], Nurse Annual Wellness [facility] 132 [facility] [place] [address] 05/17/2024 8:30 AM EDT Appointment Radiology, [place] [address] [place] [address] 05/17/2024 9:30 AM EDT Office Visit Urology, [place] [address] [place] [address] Chivo Solis PA-C [address] [place] [address] Scheduled Procedures Name Priority Associated Diagnoses Date/Ti [...] 023, 11/19/2018, 04/05/2017 CKD HGB USE SMARTSET 19112 10/20/202310/19, 10/19/2022, 09/16/2022, Additional history exists GFR 10/27/2023 04/26/2023, 09/14, 09/16/2022, Additional history exists CKD PHOS USE SMARTSET 88077 11/19/202307/2022, 11/12/2021, 04/01/2020 Diabetic Foot Exam 12/30/2023 [...] this encounter Medical Devices Implanted Type Area Manager Search Device Identifier Shelf Expiration Date Model / Serial / Lot Lens Intraoc 16.5 - [id number] - [id number] Implanted:Qty: 1 on 11/14/2019 by Elmo Apodaca MD at [facility] Left: Eye BAUSCH [employer] LOMB 03/15/2024 [id number] / [id number] / [id number] Lens Intraoc 16.5 - [id number] - [id number] Implanted:Qty: 1 on 11/28/2019 by Elmo Apodaca MD at OR [facility] Right: Eye BAUSCH & LOMB 04/12/2024 [id number] / [id number] / [id number] documented as of this encounter Advance Directives Latest Code Status on File Code Status Date Activated Date Inactivated Comments Full Code 07/15/2015 2:43 PM 07/16/2015 12:56 PM This o rder reflects the patients wishes and were consensually agreed upon. Care Teams Screen Printing Equipment Setter Relationship Specialty Start Date End Date Eliud Eisenberg MD [address] [place] [address] PCP - General Family Medicine 10/20/21 documented as of this encounter
--- OUTSIDE RECORDS SUMMARY | 2023-06-21 22:48 | External Medical Summary | Summary of Care ---
Author Name Unknown Organization [facility] Address [address] [facility] [place] [address] Phone [phone] Care Team Providers Care Media Production Support Manager Name Role Phone Eliud Eisenberg MD Primary Care Provider [phone] Reason for Visit * Reason Onset Date Comments Medication Problem 06/07/2023 Encounter Details Date Type Department Care Team (Late st Contact Info) Description 06/07/2023 Telephone Cardiology, [facility] [address] [place] [phone] Ridge Barr MD [address] [place] [phone] Medication Problem Allergies Active Allergy Reactions Criticality [...] Tablet Sublingual (Nitrostat)Indicatio ns:Coronary artery disease involving nome coronary artery of nome heart without angina pectoris Place under the [...] ysmal atrial fibrillation (HCC),Coronary artery disease involving nome coronary artery of nome heart without angina pectoris,S/P primary angioplasty with coronary stent,HTN, goal below 140/90 Take 0.5 Tablets by mouth in the morning and 0.5 Tablets before bedtime. 90 Tablet 3 05/24/2023 Active Rosuvastatin Calcium 20 MG Oral Tablet (Crestor)Indications :Coronary artery disease involving nome coronary artery of nome heart without angina pectoris,S/P primary angioplasty with [...] fibrillation 02/18/2015 Coronary artery disease invo lving nome coronary artery of nome heart without angina pectoris 02/18/2015 HTN, goal [...] mRNA, LNP-s, No Pre serve, 2-Dose Series (Atterocor) 11/19/2020,04/24/2020,03/29/2020 Hepatitis B, 20+ yrs 12/07/2016,06/15/2016,03/16 Pneumococcal [...] his carotid surgery which is 06/22/2023 in [place]. * Telephone Encounter - Brittany Hernandez ovens supervisor - 06/07/2023 9:27 AM EDT Patient has surgery on June 20. Says he cannot fill his Plavix until 06/21. Is to be on this prior tosurgery but cannot get script. Please advise on what he should do. Will be out of Plavix this Thursday 06/08. E [facility]-[address] [phone] Requesting a return call as he is nervous this will not happen. Thank you, Brittany Hernandez Sanitary Engineer 06/07/2023,9:28 AM * Telephone Encounter - Cony Toscano CPhT - 06/07/2023 9:25 AM EDT Call transferred to [facility] speciality line Thank you, Cony Toscano Antique Refinisher II Centralized Clinical Pharmacy Services ([facility]PS) (formerly Telepharmacy) 06/07/2023 9:26 AM documented in this encounter Plan of Treatment Upcoming Encounters Date Type Department Care Team (Late st Contact Info) Description 06/28/2023 8:30 AM EDT Office Visit Pharmacy, [facility] [address] [place] [address] [facility] [address] [place] [address] 08/16/2023 8:30 AM EDT Office Visit Cardiology, [facility] [address] [place] [address] Ridge Barr MD [address] [place] [address] 08/18/2023 9:00 AM EDT Office Visit Family Practice [facility] [address] [place] [address] Eliud Eisenberg MD [address] [place] [address] 08/23/2023 8:45 AM EDT Office Visit Orthopaedics [facility] 132 [facility] [place] [address] Jamil Hills PA-C [address] [place] [address] 11/02/2023 10:00 AM EDT Office Visit Sleep Disorders Ctr [facility] [address] [place] [phone] Nichol Caballero DO [address] [place] [address] 01/22/2024 8:00 AM EST Nurse Only Ancillary [facility] 132 [facility] [place] [address] [facility], Nurse Annual Wellness Angel [address] [place] [address] 05/17/2024 8:30 AM EDT Appointment Radiology, [place] [address] [place] [address] 05/17/2024 9:30 AM EDT Office Visit Urology, [place] [address] [place] [address] Chivo Solis PA-C [address] [place] [address] Scheduled Procedures Name Priority Associated Diagnoses Date/Ti [...] 023, 11/19/2018, 04/05/2017 CKD HGB USE SMARTSET 85306 10/20/202310/19, 10/19/2022, 09/16/2022, Additional history exists GFR 10/27/2023 04/26/2023, 0804/2022, 09/16/2022, Additional history exists CKD PHOS USE SMARTSET 02467 11/19/2023 100 07/2022, 11/12/2021, 04/01/2020 Diabetic Foot [...] this encounter Medical Devices Implanted Type Area Senior Sourcing Manager Device Identifier Shelf Expiration Date Model / Serial / Lot Lens Intraoc 16.5 - [id number] - [id number] Implanted:Qty: 1 on 11/14/2019 by Elmo Apodaca MD at OR [facility] Left: Eye BAUSCH [employer] LOMB 03/15/2024 [id number] / [id number] / [id number] Lens Intraoc 16.5 - [id number] - [id number] Implanted:Qty: 1 on 11/28/2019 by Elmo Apodaca MD at OR [facility] Right: Eye BAUSCH & LOMB 04/12/2024 [id number] / [id number] / [id number] documented as of this encounter Advance Directives Latest Code Status on File Code Status Date Activated Date Inactivated Comments Full Code 07/15/2015 2:43 PM 07/16/2015 12:56 PM This o rder reflects the patients wishes and were consensually agreed upon. Care Teams Media Production Support Manager Relationship Specialty Start Date End Date Eliud Eisenberg MD [address] [place] [address] PCP - General Family Medicine 10/20/21 documented as of this encounter
--- OUTSIDE RECORDS SUMMARY | 2023-06-21 22:48 | External Medical Summary | Summary of Care ---
Author Name Unknown Organization [facility] Address [address] [facility] [place] [address] Phone [phone] Care Team Providers Care Mechanical Spreader Operator Name Role Phone Eliud Eisenberg MD Primary Care Provider [phone] Reason for Visit * Reason Onset Date Comments Medication Problem 06/07/2023 Encounter Details Date Type Department Care Team (Late st Contact Info) Description 06/07/2023 Telephone Cardiology, [facility] [address] [employer] [address] [place] [phone] Ridge Barr MD [address] [employer] [place] [phone] Medication Problem Allergies Active Allergy Reactions Criticality [...] Tablet Sublingual (Nitrostat)Indicatio ns:Coronary artery disease involving inaja coronary artery of inaja heart without angina pectoris Place under the [...] ysmal atrial fibrillation (HCC),Coronary artery disease involving inaja coronary artery of inaja heart without angina pectoris,S/P primary angioplasty with coronary stent,HTN, goal below 140/90 Take 0.5 Tablets by mouth in the morning and 0.5 Tablets before bedtime. 90 Tablet 3 05/24/2023 Active Rosuvastatin Calcium 20 MG Oral Tablet (Crestor)Indications :Coronary artery disease involving inaja coronary artery of inaja heart without angina pectoris,S/P primary angioplasty with [...] fibrillation 02/18/2015 Coronary artery disease invo lving inaja coronary artery of inaja heart without angina pectoris 02/18/2015 HTN, goal [...] mRNA, LNP-s, No Pre serve, 2-Dose Series ([place]) 11/19/2020,04/24/2020,03/29/2020 Hepatitis B, 20+ yrs 12/07/2016,06/15/2016,03/16 Pneumococcal [...] his carotid surgery which is 06/22/2023 in [place]. * Telephone Encounter - Brittany Hernandez nurse assessor - 06/07/2023 9:27 AM EDT Patient has surgery on June 20. Says he cannot fill his Plavix until 06/21. Is to be on this prior tosurgery but cannot get script. Please advise on what he should do. Will be out of Plavix this Thursday 06/08. E [facility] [phone] Requesting a return call as he is nervous this will not happen. Thank you, Brittany Hernandez Manager Data 06/07/2023,9:28 AM * Telephone Encounter - Cony Toscano CPhT - 06/07/2023 9:25 AM EDT Call transferred to [facility] speciality line Thank you, Cony Toscano Porcelain Enamel Installer II Centralized Clinical Pharmacy Services ([facility]PS) (formerly Telepharmacy) 06/07/2023 9:26 AM documented in this encounter Plan of Treatment Upcoming Encounters Date Type Department Care Team (Late st Contact Info) Description 06/28/2023 8:30 AM EDT Office Visit Pharmacy, [address] [place] [address] [facility] [place] [address] 08/16/2023 8:30 AM EDT Office Visit Cardiology, [facility] 132 [facility] [place] [address] Ridge Barr MD [address] [place] [address] 08/18/2023 9:00 AM EDT Office Visit Family Practice [facility] [address] [place] [address] Eliud Eisenberg MD [address] [place] [address] 08/23/2023 8:45 AM EDT Office Visit Orthopaedics [facility] [address] [facility] [place] [address] Jamil Hills PA-C [facility] [place] [address] 11/02/2023 10:00 AM EDT Office Visit Sleep Disorders Ctr [facility] 132 [facility] [place] [phone] Nichol Caballero, [address] [place] [address] 01/22/2024 8:00 AM EST Nurse Only Ancillary [facility] [address] [facility] [place] [address] Branden, Nurse Annual Wellness [facility] [address] [facility] [place] [address] 05/17/2024 8:30 AM EDT Appointment Radiology, [address] [place] [address] 05/17/2024 9:30 AM EDT Office Visit Urology, [place] [address] [place] [address] Chivo Solis PA-C [address] [place] [address] Scheduled Procedures Name Priority Associated Diagnoses Date/Ti [...] 023, 11/19/2018, 04/05/2017 CKD HGB USE SMARTSET 22027 10/20/202310/19, 10/19/2022, 09/16/2022, Additional history exists GFR 10/27/2023 04/26/2023, 09/14, 09/16/2022, Additional history exists CKD PHOS USE SMARTSET 42663 11/19/2023 100 07/2022, 11/12/2021, 04/01/2020 Diabetic Foot [...] this encounter Medical Devices Implanted Type Area Toggle Press Folder And Feeder Device Identifier Shelf Expiration Date Model / Serial / Lot Lens Intraoc 16.5 - [id number] - [id number] Implanted:Qty: 1 on 11/14/2019 by Elmo Apodaca MD at OR [facility] Left: Eye BAUSCH [employer] LOMB 03/15/2024 [id number] / [id number] / [id number] Lens Intraoc 16.5 - [id number] - [id number] Implanted:Qty: 1 on 11/28/2019 by Elmo Apodaca MD at OR [facility] Right: Eye BAUSCH & LOMB 04/12/2024 [id number] / [id number] / [id number] documented as of this encounter Advance Directives Latest Code Status on File Code Status Date Activated Date Inactivated Comments Full Code 07/15/2015 2:43 PM 07/16/2015 12:56 PM This o rder reflects the patients wishes and were consensually agreed upon. Care Teams Mechanical Spreader Operator Relationship Specialty Start Date End Date Eliud Eisenberg MD [address] [place] [address] PCP - General Family Medicine 10/20/21 documented as of this encounter
--- OUTSIDE RECORDS SUMMARY | 2023-06-21 22:49 | External Medical Summary | Continuity of Care Document ---
Author Name Unknown Organization [facility] [address] Address [address] [place], [place] [id number] Care Team Providers Care Metal Fabricating Supervisor Name Role Phone Eliud Eisenebrg Primary Care Physician [phone] [facility] [id number] Date(s): 06/02/23 - 06/02/23 [facility] [address] [place] [facility] [address] [place], [facility] 1 [place], [phone] Encounter Diagnosis Occlusion and stenosis of bilateral [...] Daily, Disp# 90 tab, Refills: 3, Pharmacy: [facility], Earliest Fill Date: 06/22/23 Start Date: [...] Informant Bilateral carotid artery stenosis Confirmed Active Social History Social History Type Response Smoking Status Never smoked cigaret rasheed Sex Male Patient Care team information Care Team Personnel Name: MD Faina, Eliud Garcia Position: Referring DIRECT Member Role: Primary Care Provider Address: Address: [facility] [address] [place] [address] Name: DIYA Driscoll Lynn Position: Physician Health Unit Supervisor Exempt - Vasc Surg Member Role: Lifetime Relationship Address: Address: [address] [place] [address] Care Team Related Persons Name: ERNESTOCECILE Address: home [address] [place], [place] [id number]
--- OUTSIDE RECORDS SUMMARY | 2023-06-21 22:49 | External Medical Summary | Summary of Care ---
Author Name Unknown Organization [facility] Address [address] [place] [address] Phone [phone] Care Team Providers Care Nurse Recruiter Name Role Phone Eliud Eisenberg MD Primary Care Provider [phone] Reason for Visit * Reason Onset Date Comments Med Request 05/16/2023 Encounter Details Date Type Department Care Team (Late st Contact Info) Description 05/16/2023 Telephone Family Practice [facility] [address] [place] [address] Eliud Eisenberg MD [address] [place] [address] Med Request Allergies Active Allergy Reactions Criticality Noted Date Comments Sulfamethoxazole-Trimet hoprim Other (Please comment) 09/20/2017 hyperkalmeia Lisinopril 09/15/2022 ?cough Trimethoprim High 11/23/2021 Other reaction(s): acute renal failure documented as of this encounter (statuses as of 05/16/2023) Medications Medication Sig Dispensed Refills Start Date [...] Active Nitroglycerin 0.4 MG Sublingual Tablet Sublingual (Nitrostat)Indica tions:Coronary artery disease involving [place] coronary artery of [place] heart without angina pectoris Place under the [...] 14 days 6 Each 3 01/21/2022 Active Njjzd-8-[id number] Ethyl Esters 1 GM Oral Capsule (Lovaza)Indicatio ns:Dyslipidemia Take 1 Capsule by mouth in the morning and 1 Capsule in the evening. 180 Capsule 3 04/19/2022 Active Additional Information Patient not taking.Reported on 05/15/2023 Apixaban 5 MG Oral Tablet (Eliquis)Indicati ons:Paroxysmal atrial fibrillation (HCC) Take 1 Tablet by [...] or Wheezing. 1 Each 5 07/18/2022 Active Losartan Potassium 50 MG Oral Tablet (Cozaar) Take 0.5 Tablets by mouth in the morning. 45 Tablet 3 09/27/2022 Active B Complex Plus Oral Tablet Take by mouth. 0 Active Eye Health Oral Capsule Take by mouth. 0 Active Ipratropium [place] HFA 17 MCG/ACT Inhalation Aerosol Solution (Atrovent Hfa) Inhale 2 Puffs by mouth every 6 hours. 12.9 g 5 10/19/2022 Active Torsemide 10 MG Oral Tablet (Demadex)Indicati ons:HTN, goal below 130/80 Take 1 Tablet by mouth in the morning and 1 Tablet before bedtime. 180 Tablet 3 10/25/2022 Active Additional Information Patient not taking.Reported on 05/15/2023 Biotene Dry Mouth Mouth/Throat Lozenge Apply 1 [...] the morning. 90 Tablet 3 12/28/2022 Active Additional Information Patient not taking.Reported on 05/15/2023 Insulin Aspart 100 UNIT/ML Injection Solution (NovoLOG) Inject up to 100 units daily via insulin pump 90 mL 1 01/10/2023 Active Isosorbide Mononitrate ER 60 MG Oral Tablet Extended Release 24 Hour (Imdur)Indication s:HTN, goal below 130/80,Coronary artery disease involving [place] coronary artery of [place] heart without angina pectoris,S/P primary angioplasty with coronary stent Take 1 Tablet by mouth in the morning. 90 Tablet 3 03/15/2023 Active Additional Information Patient not taking.Reported on 05/15/2023 Fluticasone-Salme terol 500-50 MCG/ACT Inhalation Aerosol Powder Breath Activated (Advair Diskus) Inhale 1 Puff by mouth in the morning and 1 Puff before bedtime. 180 Each 3 04/11/2023 Active Carvedilol 12.5 MG Oral Tablet (Coreg)Indication s:Coronary artery disease involving [place] coronary artery of [place] heart without angina pectoris,Paroxysm al atrial fibrillation (HCC) Take 1 Tablet by mouth in the morning and 1 Tablet before bedtime. 180 Tablet 3 04/13/2023 Active Additional Information Patient not taking.Reported on 05/15/2023 Omnipod DASH Pods (Gen 4) Use as directed. Use 1 pod every 2 days 30 Each 1 04/24/2023 Active Atorvastatin Calcium 40 MG Oral Tablet (Lipitor)Indicati ons:evening Take 1 Tablet by mouth in the morning. 90 Tablet 3 04/24/2023 Active Additional Information Patient not taking.Reported on 05/15/2023 predniSONE 20 MG Oral Tablet (Deltasone) Take 4 tabs daily for 2 days, 3 tabs daily for 2 days, 2 tabs daily for 2 days, 1 tab daily for 2 days 20 Tablet 0 05/03/2023 Active Additional Information Patient not taking.Reported on 05/15/2023 Pantoprazole Sodium 40 MG Oral Tablet Delayed Release (Protonix) Take 1 Tablet by mouth in the morning. 90 Tablet 3 05/16/2023 Active Pantoprazole Sodium 40 MG Oral Tablet Delayed Release (Protonix) 0 08/02/2022 Discontinue d(Refill) Hospital, Clinic, or Other Facility Administered Medication Ordered Dose Route Frequency Start Date End Date Status Albuterol Sulfate (Proventil) (2.5 MG/3ML) 0.083% inhalation solution 2.5 mgIndications:KOVACS (dyspnea on exertion),Centrilobular emphysema (HCC),History of tobacco use,Morbid obesity (HCC) 2.5 mg NEBULIZER PRN 07/06/2022 Active documented as of this encounter (statuses as of 05/16/2023) Active Problems Problem Noted Date Diagnosed Date [...] Coronary artery disease invo lving [place] coronary artery of [place] heart without angina pectoris 02/18/2015 HTN, goal below 130/80 02/18/2015 S/P carotid endarterectomy 02/18/2015 documented as of this encounter (statuses as of 05/16/2023) Resolved Problems Problem Noted Date Diagnosed Date [...] as of this encounter (statuses as of 05/16/2023) Immunizations Name Administration Dates Next Due COVID-19 mRNA, LNP-s, No Pre serve, 2-Dose Series ([employer]) 11/19/2020,04/24/2020,03/29/2020 Hepatitis B, 20+ yrs 12/07/2016,06/15/2016,03/16 Pneumococcal [...] encounter Miscellaneous Notes * Telephone Encounter - Irving Mobley RN - 05/16/2023 10:41 AM EDT Please see previous message. Did you pend patient's preferred pharmacy and medication before forwarding?yes Pharmacy: [facility] [place] Pending Prescriptions: Disp Refills Pantoprazole Sodium 40 MG Oral Tablet Del*90 Tab*3 Sig: Take 1 Tablet by mouth in the morning. Last Visit: 05/03/2023 (in office), Visit date not found (telemedicine) Next Visit: 05/19/2023 If no future appointments scheduled, and last appointment is greater than a year ago, please schedule patient for a follow-up appointment Last date the medication was ordered: 04/19/2022 Is this request for a controlled substance?No [...] 09/27/2019 12:00 AM * Telephone Encounter - Ca Ortiz CPhT - 05/16/2023 8:56 AM EDT Patient calling requesting the following medication below that is listed as "Historical". The following information was provided: Medication Name: Pantoprazole Strength: 40mg Directions: take 1 tablet daily Preferred Quantity: 90 Previous Prescriber: Dr Eisenberg Preferred Pharmacy: [facility] [place] Please review and approve if appropriate. Thank you, Ca Ortiz Laboratory Equipment Installer [facility] ([facility] (Formerly [facility]) 05/16/2023,8:57 AM documented in this encounter Plan of Treatment Upcoming Encounters Date Type Department Care Team (Late st Contact Info) Description 05/19/2023 12:20 PM EDT Office Visit Family Practice [facility] [address] [place] [address] Eliud Eisenberg MD [address] [place] [address] 05/24/2023 3:00 PM EDT Office Visit Cardiology, [facility] [address] [place] [address] Ridge Barr MD [address] [place] [address] 05/30/2023 10:00 AM EDT Office Visit Urology, [place] [address] [place] [address] Chivo Solis PA-C [address] [place] [address] 06/28/2023 8:30 AM EDT Office Visit Pharmacy, [facility] [address] [address] [facility] [address] [place] [address] 08/23/2023 8:45 AM EDT Office Visit Orthopaedics [facility] [address] [place] [address] Jamil Hills PA-C [address] [place] [address] 11/02/2023 10:00 AM EDT Office Visit Sleep Disorders Ctr [facility] [address] [place] [id number] Nichol Caballero DO [address] [place] [address] 01/22/2024 8:00 AM EST Nurse Only Ancillary [facility] [address] [facility] [place] [address] [facility], Nurse Annual Wellness [facility] [address] [place] [address] Scheduled Procedures Name Priority Associated Diagnoses Date/Ti [...] 023, 11/19/2018, 04/05/2017 CKD HGB USE SMARTSET 65393 10/20/202310/19, 10/19/2022, 09/16/2022, Additional history exists GFR 10/27/2023 04/26/2023, 09/14, 09/16/2022, Additional history exists CKD PHOS USE SMARTSET 96949 11/19/20230 07/2022, 11/12/2021, 04/01/2020 Diabetic Foot Exam 12/30/2023 12/29/2022 Depression Screening 01/19/2024 01/18/2023 O2 ASSESSMENT COMPLETED IN PAST YEAR FOR COPD 05/02/2024 05/03/2023 Cologuard 05/07/2026 05/08/2023 Colorectal Cancer Screening 05/07/2026 Pneumococcal Vaccine: 65+ Years Completed 01/13/2016, 11/24/2014, 02/13/2007, Additional history exists Hepatitis B Completed 12/07/2016, 0504/2016, 03/16/2016 Zoster Vaccines Completed 08/06/2018, 05/14, 05/30/2018, [...] encounter Medical Devices Implanted Type Area Rn Pediatric Device Identifier Shelf Expiration Date Model / Serial / Lot Lens Intraoc 16.5 - [id number] - [id number] Implanted:Qty: 1 on 11/14/2019 by Elmo Apodaca MD at OR [facility] Left: Eye [employer] 03/15/2024 [id number] / [id number] / [id number] Lens Intraoc 16.5 - [id number] - [id number] Implanted:Qty: 1 on 11/28/2019 by Elmo Apodaca MD at OR [facility] Right: Eye [employer] 04/12/2024 [id number] / [id number] / [id number] documented as of this encounter Advance Directives Latest Code Status on File Code Status Date Activated Date Inactivated Comments Full Code 07/15/2015 2:43 PM 07/16/2015 12:56 PM This o rder reflects the patients wishes and were consensually agreed upon. Care Teams Nurse Recruiter Relationship Specialty Start Date End Date Eliud Eisenberg MD [address] [place] [address] PCP - General Family Medicine 10/20/21 documented as of this encounter
--- OUTSIDE RECORDS SUMMARY | 2023-06-21 22:49 | External Medical Summary | Summary of Care ---
Author Name Unknown Organization [facility] Address [address] [place] [address] Phone [phone] Care Team Providers Care Tire Tester Name Role Phone Eliud Eisenberg MD Primary Care Provider [phone] Reason for Visit * Reason Comments Follow Up Encounter Details Date Type Department Care Team (Late st Contact Info) Description 05/30/2023 10:00 AM EDT Office Visit Urology, [place] [address], [place] [phone] Chivo Solis PA-C [address], [place] [phone] Neurogenic bladder*; BPH with obstruction/lower urinary tract symptoms Allergies Active Allergy Reactions Criticality Noted Date Comments Sulfamethoxazole-Trimet hoprim Other (Please comment) 09/20/2017 hyperkalmeia Lisinopril 09/15/2022 ?cough Trimethoprim High 11/23/2021 Other reaction(s): acute renal failure documented as of this encounter (statuses as of 05/30/2023) Medications Medication Sig Dispensed Refills Start Date End Date Status NOVOFINE 32G X 6 MM MISC 0 5 Active Magnesium 500 MG Capsule Take 1 [...] Tablet in the morning. 90 Tablet 3 2 Active CPAP every night at bedtime . 0 Active Nitroglycerin 0.4 MG Sublingual Tablet Sublingual (Nitrostat)Indica tions:Coronary artery disease involving [place] coronary artery of [place] heart without angina pectoris Place under the tongue 1 Tablet every 5 minutes as needed for Pain, Chest. up to 3 doses in 15 minutes 25 Tablet 1 2 Active Omnipod DASH PDM (Gen 4) Kit Use as directed . Use to control insulin pod 1 Kit 0 2 Active FreeStyle Indra 2 Sensor Use as directed . Use 1 sensor every 14 days 6 Each 3 2 Active Apixaban 5 MG Oral Tablet (Eliquis)Indicati ons:Paroxysmal atrial fibrillation (HCC) Take 1 Tablet by mouth in the morning and 1 Tablet before bedtime. 180 Tablet 3 3 Active metFORMIN HCl 1000 MG Oral Tablet (Glucophage) Take 1 Tablet by mouth 2 times a day with morning and evening meals. 180 Tablet 3 3 Active Albuterol Sulfate 108 (90 Base) MCG/ACT Inhalation Aerosol Powder Breath Activated Inhale 2 Puffs by mouth every 4 hours as needed for Cough, Shortness of Breath or Wheezing. 1 Each 5 3 Active B Complex Plus Oral Tablet Take 1 Tablet by mouth in the morning. 0 Active Eye Health Oral Capsule Take 1 Capsule by mouth in the morning. 0 Active Biotene Dry Mouth Mouth/Throat Lozenge Apply 1 Lozenge to the mouth or throat every evening. 90 Lozenge 3 3 Active Omnipod DASH Pods (Gen 4) USE 1 POD EVERY 2 DAYS DIRECTED 5 Each 0 3 Active Allopurinol 100 MG Oral Tablet (Zyloprim) Take 1 Tablet by mouth in the morning. 30 Tablet 11 3 Active Insulin Aspart 100 UNIT/ML Injection Solution (NovoLOG) Inject up to 100 units daily via insulin pump 90 mL 1 3 Active Omnipod DASH Pods (Gen 4) Use as directed. Use 1 pod every 2 days 30 Each 1 4 Active Pantoprazole Sodium 40 MG Oral Tablet Delayed Release (Protonix) Take 1 Tablet by mouth in the morning. 90 Tablet 3 4 Active Metoprolol Succinate ER 25 MG Oral Tablet Extended Release 24 Hour (toPROL XL)Indications:Pa roxysmal atrial fibrillation (HCC),Coronary artery disease involving [place] coronary artery of [place] heart without angina pectoris,S/P primary angioplasty with coronary stent,HTN, goal below 140/90 Take 0.5 Tablets by mouth in the morning and 0.5 Tablets before bedtime. 90 Tablet 3 4 Active Rosuvastatin Calcium 20 MG Oral Tablet (Crestor)Indicati ons:Coronary artery disease involving [place] coronary artery of [place] heart without angina pectoris,S/P primary angioplasty with coronary stent,Dyslipidemi a, goal LDL below 70 Take 1 Tablet by mouth at bedtime. 90 Tablet 3 4 Active Clopidogrel Bisulfate 75 MG Oral Tablet (pLAVix) 0 4 Active Methenamine Hippurate 1 GM Oral Tablet (Hiprex) 1 tablet by mouth every other evening 45 Tablet 3 4 Active Methenamine Hippurate 1 G TABS Take 1 Tablet by mouth every evening. 6 7 05/30/19 24 Discontinued(Ref ill) LYRICA 225 MG Capsule Take 1 Capsule by mouth in the morning and 1 Capsule at noon and 1 Capsule in the evening and 1 Capsule before bedtime. 0 8 05/30/19 24 Discontinued Ipratropium Fletcher HFA 17 MCG/ACT Inhalation Aerosol Solution (Atrovent Hfa) Inhale 2 Puffs by mouth every 6 hours. 12.9 g 5 3 05/30/19 24 Discontinued Fluticasone-Salme terol 500-50 MCG/ACT Inhalation Aerosol Powder Breath Activated (Advair Diskus) Inhale 1 Puff by mouth in the morning and 1 Puff before bedtime. 180 Each 3 4 05/30/19 24 Discontinued DULoxetine HCl 60 MG Oral Capsule Delayed Release Particles (Cymbalta) Take 1 Capsule by mouth in the morning and 1 Capsule before bedtime. 90 Capsule 3 4 05/30/19 24 Discontinued Hospital, Clinic, or Other Facility Administered Medication Ordered Dose Route Frequency Start Date End Date Status Albuterol Sulfate (Proventil) (2.5 MG/3ML) 0.083% inhalation solution 2.5 mgIndications:KOVACS (dyspnea on exertion),Centrilo bular emphysema (HCC),History of tobacco use,Morbid obesity (HCC) 2.5 mg NEBULIZER PRN 07/06/2022 05/30/2023 Discontinue d documented as of this encounter (statuses as of 05/30/2023) Active Problems Problem Noted Date Diagnosed Date [...] fibrillation 02/18/2015 Coronary artery disease invo lving [place] coronary artery of [place] heart without angina pectoris 02/18/2015 HTN, goal below 130/80 02/18/2015 S/P carotid endarterectomy 02/18/2015 documented as of this encounter (statuses as of 05/30/2023) Resolved Problems Problem Noted Date Diagnosed Date [...] as of this encounter (statuses as of 05/30/2023) Immunizations Name Administration Dates Next Due COVID-19 mRNA, LNP-s, No Pre serve, 2-Dose Series ([employer]) 11/19/2020,04/24/2020,03/29/2020 Hepatitis B, 20+ yrs 12/07/2016,06/15/2016,03/16 Pneumococcal Conjugate Vacc, 13 Valent (Prevnar) 11/24/2014 Pneumococcal Polysaccharide PPV23 (Pneumovax) 01/13/2016,02/13/2007,12/23/2005 RSV Vac., Bivalent, Perfusio n F, Pf,0.5 Ml (Abrysvo) 04/26/2023 Seasonal Influenza, Quadriva lent Hd (Fluzone Hd) 10/25/2022,10/20/2021 Seasonal Influenza, Split, I IV3, With Preserve, Inj 11/24/2014,11/07/2013 Varicella Zoster Vaccine (Adult) 05/30/2018,0902/2013 Zoster Vaccine Recombinant (Shingrix) 08/06/2018 ,05/30/2018 documented [...] Sign Reading Time Taken Comments Blood Pressure 150/75 05/30/2023 9:47 AM EDT Pulse 68 05/30/2023 9:47 AM EDT Temperature 36.7 C (98 F) 05/30/2023 9:47 AM EDT Respiratory Rate - - Oxygen Saturation - - Inhaled Oxygen Concentration - - Weight - - Height - - Body Mass Index - - documented in this encounter Progress Notes * Chivo Solis PA-C - 05/30/2023 10:41 AM EDT UROLOGY CLINIC NOTE 05/30/2023 10:41 AM HPI: Po Rubio is a 72 year old male who was last seen in Urology clinic 02/08/2023 he was previously followed by Dr. Hahn( Urology in [facility]) secondary to 10+ year history ofneurogenic bladder performing self- intermittent catheterization 3 times daily yielding high residual urine volumes with each catheterization approximately 1 L per patient) and frequent UTIs, therefore, he was advised to increase his CIC frequency to 4 times daily. He was also advised to reduce methenamine 1 g daily dosing( had taking for several years to every other day. Patient reports less urine volume yielded with each current catheterization 4 times daily and no UTI infections since last Urology visit. Patient reports generally having issues with cloudy urine and has been treated with several antibiotics in the past for cloudy urine which generally clears while on antibiotic than cloudy urine returns after he was off antibiotics. BMs are generally once daily and regular. He generally does not void on his own between catheterizations. Patient currently denies any fever, chills, change in weight or appetite, gross hematuria, suprapubic pain or pressure, flank pain or pressure, urinary incontinence. Review of patient's allergies indicates: Allergen Reactions Trimethoprim Other reaction(s): acute renal failure Bactrim [Sulfamethoxazole-Trimethoprim] Other (Please comment) hyperkalmeia Lisinopril ?cough Past Medical History: Diagnosis Date BPH with obstruction/lower urinary tract symptoms 09/07/2022 CAD in [place] artery Cypher 2.5 x 28 mm drug eluting stent to the obstuse marginal , Brandon Carotid stenosis Centrilobular emphysema ([facility]) 09/06/2022 DM2 (diabetes mellitus, type 2) ([facility]) Dyslipidemia, goal LDL below 100 HTN (hypertension) Impaired functional mobility and activity tolerance 04/19/2022 Morbid obesity due to excess calories ([facility]) 10/20/2021 Neurogenic bladder 09/07/2022 Obesity, Class II, BMI 35-39.9, isolated (see actual BMI) 10/17/2021 JORGE A (obstructive sleep apnea) 10/17/2021 Paroxysmal atrial fibrillation ([facility]) 02/18/2015 S/P ablation of atrial fibrillation 04/19/2022 Sleep apnea, obstructive Stage 3a chronic kidney disease ([facility]) 10/17/2021 Type 2 diabetes mellitus with hemoglobin A1c goal of less than 8.0% ([facility]) 10/17/2021 Patient Active Problem List Diagnosis Code Paroxysmal atrial fibrillation ([facility]) I48.0 Coronary artery disease involving [place] coronary artery of [place] heart without angina pectoris I25.10 HTN, goal below 130/80 I10 S/P carotid endarterectomy Z98.890 S/P primary angioplasty with coronary stent Z95.5 PAD (peripheral artery disease) ([facility]) I73.9 Dyslipidemia E78.5 Type 2 diabetes mellitus with hemoglobin A1c goal of less than 8.0% ([facility]) E11.9 JORGE A (obstructive sleep apnea) G47.33 Stage 3a chronic kidney disease ([facility]) N18.31 Morbid obesity ([facility]) E66.01 Type 2 diabetes mellitus with diabetic peripheral angiopathy without gangrene ([facility]) E11.51 Impaired functional mobility and activity tolerance Z74.09 S/P ablation of atrial fibrillation Z98.890, Z86.79 Centrilobular emphysema ([facility]) J43.2 BPH with obstruction/lower urinary tract symptoms N40.1, N13.8 Neurogenic bladder N31.9 Carotid stenosis, non-symptomatic, bilateral I65.23 Claudication in peripheral vascular disease ([facility]) I73.9 Gouty arthropathy M10.9 Jimenez's esophagus K22.70 Diabetic peripheral neuropathy ([facility]) E11.42 Spinal stenosis of lumbar region M48.061 TR (tricuspid regurgitation) I07.1 Past Surgical History: Procedure Laterality Date CARDIAC CATH-CARDIOLOGY ONLY 10/27/2008 drug eluting stent to the OM, Brandon CARPAL TUNNEL SURGERY Left 06/18/2021 NEUROPLASTY MEDIAN NERVE AT CARPAL TUNNEL performed by Rodney Heaton DO at OR [facility] CARPAL TUNNEL SURGERY Right 07/16/2021 NEUROPLASTY MEDIAN NERVE AT CARPAL TUNNEL performed by Rodney Heaton DO at OR [facility] CORONARY ANGIOGRAPHY W/LEFT HEART CATH Right 04/01/2020 CORONARY ANGIOGRAPHY W/LEFT HEART CATH performed by Momo Gomez MD at CARDIAC LABS [facility] EGD, FLEXIBLE, DIAGNOSTIC 04/04/2016 inflammation on bx, repeat 5 yrs/ESOPHAGOGASTRODUODENOSCOPY (EGD), FLEXIBLE, TRANSORAL, DIAGNOSTIC performed by Bibi Hale MD at ENDOSCOPY [facility] ELECTROPHYSIOLOGY EVAL, ATRIAL FIB, PULMONARY VEIN [...] [facility] REMOVE CATARACT, INSERT LENS PROSTH Left 11/14/2019 LEFT EXTRACAPSULAR CATARACT REMOVAL WITH INTRAOCULAR LENS performed by Elmo Apodaca MD at OR [facility] REMOVE CATARACT, INSERT LENS PROSTH Right 11/28/2019 RIGHT EXTRACAPSULAR CATARACT REMOVAL WITH INTRAOCULAR LENS performed by Elmo Apodaca MD at OR [facility] SINUS SURGERY PROCEDURE NEC 09/2014 THROMBOENDARECTOMY W/PATCH,NECK INCISION Right 04/2014 Dr Vincenzo Latham TIBIAL/PERONEAL ART. REVASC W/ANGIO, FIRST 09/21/2020 TIBIAL/PERONEAL ART. REVASC W/ANGIO, FIRST performed by Gunner Serrano MD at OR [facility] Current Outpatient Medications Medication Sig Dispense Refill Magnesium 500 MG Capsule Take 1 Tablet by mouth in the morning and 1 Tablet before bedtime. Cyanocobalamin (VITAMIN B-12) 1000 MCG Tablet Take 1 Tablet by mouth in the morning. Methenamine Hippurate 1 G TABS Take 1 Tablet by mouth every evening. 6 Cholecalciferol (VITAMIN D3) 1000 units CAPS Take 1 Capsule by mouth in the morning. Aspirin EC 81 MG Oral Tablet Delayed [...] to control insulin pod 1 Kit 0 Apixaban 5 MG Oral Tablet (Eliquis) Take 1 Tablet by mouth in the morning and 1 Tablet before bedtime. 180 Tablet 3 metFORMIN HCl 1000 MG Oral Tablet (Glucophage) Take 1 Tablet by mouth 2 times a day with morning and evening meals. 180 Tablet 3 B Complex Plus Oral Tablet Take 1 Tablet by mouth in the morning. Eye Health Oral Capsule Take 1 Capsule by mouth in the morning. Omnipod DASH Pods (Gen 4) USE 1 POD EVERY 2 DAYS DIRECTED 5 Each 0 Allopurinol 100 MG Oral Tablet (Zyloprim) Take 1 Tablet by mouth in the morning. 30 Tablet 11 Insulin Aspart 100 UNIT/ML Injection Solution (NovoLOG) Inject up to 100 units daily via insulin pump 90 mL 1 Omnipod DASH Pods (Gen 4) Use as directed. Use 1 pod every 2 days 30 Each 1 Pantoprazole Sodium 40 MG Oral Tablet Delayed Release (Protonix) Take 1 Tablet by mouth in the morning. 90 Tablet 3 Metoprolol Succinate ER 25 MG Oral Tablet Extended Release 24 Hour (toPROL XL) Take 0.5 Tablets by mouth in the morning and 0.5 Tablets before bedtime. 90 Tablet 3 Rosuvastatin Calcium 20 MG Oral Tablet (Crestor) Take 1 Tablet by mouth at bedtime. 90 Tablet 3 Clopidogrel Bisulfate 75 MG Oral Tablet (pLAVix) NOVOFINE 32G X 6 MM MISC LYRICA 225 MG Capsule Take 1 Capsule by mouth in the morning and 1 Capsule at noon and 1 Capsule inthe evening and 1 Capsule before bedtime. FreeStyle Indra 2 Sensor Use as directed . Use 1 sensor every 14 days 6 Each 3 Albuterol Sulfate 108 (90 Base) MCG/ACT Inhalation Aerosol Powder Breath Activated Inhale 2 Puffs by mouth every 4 hours as needed for Cough, Shortness of Breath or Wheezing. 1 Each 5 Ipratropium Fletcher HFA 17 MCG/ACT Inhalation Aerosol Solution (Atrovent Hfa) Inhale 2 Puffs by mouth every 6 hours. 12.9 g 5 Biotene Dry Mouth Mouth/Throat Lozenge Apply 1 Lozenge to the mouth or throat every evening. 90 Lozenge 3 Fluticasone-Salmeterol 500-50 MCG/ACT Inhalation Aerosol Powder Breath Activated (Advair Diskus) Inhale 1 Puff by mouth in the morning and 1 Puff before bedtime. 180 Each 3 DULoxetine HCl 60 MG Oral Capsule Delayed Release Particles (Cymbalta) Take 1 Capsule by mouth in the morning and 1 Capsule before bedtime. 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 [employer] Tobacco Use Smoking status: Former Current packs/day: 0.00 Average packs/day: 2.0 packs/day for 35.0 years (70.0 ttl pk-yrs) Types: Cigarettes Start date: 02/13/1966 Quit date: 02/13/2001 Years since quittin.3 Smokeless tobacco: Never Vaping Use Vaping Use: [...] on file Housing Stability: Not on file Physical Exam: BP 150/75 (BP Site: Left Arm, BP Position: Sitting, BP Cuff Size: Regular) | Pulse 68 | Temp 36.7 C (98 F) (Tympanic) General: alert, Obese, no distress,well developed,well nourished,cooperative, accompanied with his Abdomen: soft, obese, bowel sounds present, non - tender, non - distended Extremities: no edema BACK: No Costovertebral Angle Tenderness Gait: ambulation assistance with cane as patient walks with a mild limp Impression: Chronic neurogenic bladder currently performing CIC 4 times daily with history of frequent UTIs, however, no recent UTIs in the past few months currently on methenamine 1 g every other day Plan: Continue performing CIC 4 times daily as patient does not void between catheterizations 2. Catheter supplies 1800-MEDICAL, 16 danish straight tip hydrophilic coated--reorder number [id number] --he is looking for a stiffer urinary catheter that is less flexible than current catheter. He was advised to contact [employer] to inquire on a recommendations regarding a stiffer urinary catheter and will contact our office with recommendations 3. Continue methenamine 1 g every other day-- script sent to pharmacy 4. Will obtain renal us in 1 year to assess upper urinary tract given long standing h/o neurogenic bladder 5. RTC 1 year renal US Chivo Solis PA-C 05/30/2023 10:41 AM documented in this encounter Plan of Treatment Upcoming Encounters Date Type Department Care Team (Late st Contact Info) Description 06/28/2023 8:30 AM EDT Office Visit Pharmacy, [facility] [address] [place] [address] [facility] [address] [place] [address] 08/16/2023 8:30 AM EDT Office Visit Cardiology, [facility] [address] [place] [address] Ridge Barr MD [address] [place] [address] 08/18/2023 9:00 AM EDT Office Visit Family Practice [facility] [address] [place] [address] Eliud Eisenberg MD [address] [place] [address] 08/23/2023 8:45 AM EDT Office Visit Orthopaedics [facility] [address] [place] [address] Jamil Hills PA-C [address] [place] [address] 11/02/2023 10:00 AM EDT Office Visit Sleep Disorders Ctr [facility] [address] [place] [id number] Nichol Caballero DO [address] [place] [address] 01/22/2024 8:00 AM EST Nurse Only Ancillary Ramseyc[facility] [address] [facility] [place], [place] [address] Branden, Nurse Annual Wellness [facility] [address] [place] [address] 05/17/2024 8:30 AM EDT Appointment Radiology, [place] [address] [place] [address] 05/17/2024 9:30 AM EDT Office Visit Urology, [place] [address] [place] [address] Chivo Solis PA-C [address], [place] [phone] Scheduled Orders Name Type Priority Associated Diagnoses Orde r Schedule US RENAL Medical Imaging Routine Neurogenic bladder BPH with obstruction/lower urinary tract symptoms Expected: 05/14/2024, Expires: 06/28/2024 Scheduled Procedures Name Priority Associated Diagnoses Date/Ti [...] 023, 11/19/2018, 04/05/2017 CKD HGB USE SMARTSET 19320 10/20/202310/19, 10/19/2022, 09/16/2022, Additional history exists GFR 10/27/2023 04/26/2023, 09/14, 09/16/2022, Additional history exists CKD PHOS USE SMARTSET 01945 11/19/2023 100 07/2022, 11/12/2021, 04/01/2020 Diabetic Foot [...] this encounter Medical Devices Implanted Type Area Dispensing Lead Device Identifier Shelf Expiration Date Model / Serial / Lot Lens Intraoc 16.5 - [id number] - [id number] Implanted:Qty: 1 on 11/14/2019 by Elmo Apodaca MD at OR [facility] Left: Eye [employer] 03/15/2024 [id number] / [id number] / [id number] Lens Intraoc 16.5 - [id number] - [id number] Implanted:Qty: 1 on 11/28/2019 by Elmo Apodaca MD at OR [facility] Right: Eye [employer]OM[employer] 04/12/2024 [id number] / [id number] / [id number] documented as of this encounter Visit Diagnoses [...] and were consensually agreed upon. Care Teams Tire Tester Relationship Specialty Start Date End Date Eliud Eisenberg MD [address] [place] [address] PCP - General Family Medicine 10/20/21 documented as of this encounter"
--- OUTSIDE RECORDS SUMMARY | 2023-06-21 22:49 | External Medical Summary | Summary of Care ---
Author Name Unknown Organization [facility] Address [address] [facility] [place] [address] Phone [phone] Care Team Providers Care Summer Child Caregiver Name Role Phone Eliud Eisenberg MD Primary Care Provider [phone] Reason for Visit * Reason Onset Date Comments Hospital Follow-Up Hospital Follow-Up 05/21/2023 Encounter Details Date Type Department Care Team (Late st Contact Info) Description 05/19/2023 12:20 PM EDT Office Visit [facility] [address] [place] [address] Eliud Eisenberg MD [address] [place] [address] Hospital discharge follow-up*; Symptomatic hypotension; Morbid obesity (HCC); Paroxysmal atrial fibrillation (HCC); PAD (peripheral artery disease) (HCC); Stage 3a chronic kidney disease (HCC) Allergies Active Allergy Reactions Criticality Noted Date Comments Sulfamethoxazole-Trimet hoprim Other (Please comment) 09/20/2017 hyperkalmeia Lisinopril 09/15/2022 ?cough Trimethoprim High 11/23/2021 Other reaction(s): acute renal failure documented as of this encounter (statuses as of 05/21/2023) Medications Medication Sig Dispensed Refills Start Date [...] Tablet Sublingual (Nitrostat)Indica tions:Coronary artery disease involving tonto apache coronary artery of tonto apache heart without angina pectoris Place under the [...] 01/21/2022 Active Apixaban 5 MG Oral Tablet (Eliquis)Indicati [...] Capsule Take by mouth. 0 Active Ipratropium Everett HFA 17 MCG/ACT Inhalation Aerosol Solution (Atrovent Hfa) Inhale 2 Puffs by mouth every 6 hours. 12.9 g 5 10/19/2022 Active Biotene Dry Mouth Mouth/Throat Lozenge Apply [...] insulin pump 90 mL 1 01/10/2023 Active Fluticasone-Salme terol 500-50 MCG/ACT Inhalation Aerosol Powder Breath Activated (Advair Diskus) Inhale 1 Puff by mouth in the morning and 1 Puff before bedtime. 180 Each 3 04/11/2023 Active Omnipod DASH Pods (Gen 4) Use as directed. Use 1 pod every 2 days 30 Each 1 04/24/2023 Active Pantoprazole Sodium 40 MG Oral Tablet Delayed Release (Protonix) Take 1 Tablet by mouth in the morning. 90 Tablet 3 05/16/2023 Active Cefdinir 300 MG Oral Capsule (Omnicef) 1 Capsule. 0 05/12/2023 Active Metoprolol Succinate ER 25 MG Oral Tablet Extended Release 24 Hour (toPROL XL) 0.5 Tablets. 0 05/12/2023 Active Rosuvastatin Calcium 20 MG Oral Tablet (Crestor) 1 Tablet. 0 05/12/2023 Active DULoxetine HCl 60 MG Oral Capsule Delayed Release Particles (Cymbalta) Take 1 Capsule by mouth in the morning and 1 Capsule before bedtime. 90 Capsule 3 05/19/2023 Active DULoxetine HCl 60 MG Oral Capsule Delayed Release Particles (CYMBALTA) Take 1 Capsule by mouth in the morning and 1 Capsule before bedtime. 0 12/17/2019 4 Discontinued [id number] Ethyl Esters 1 GM Oral Capsule (Lovaza)Indicatio ns:Dyslipidemia Take 1 Capsule by mouth in the morning and 1 Capsule in the evening. 180 Capsule 3 04/19/2022 4 Discontinued Losartan Potassium 50 MG Oral Tablet (Cozaar) Take 0.5 Tablets by mouth in the morning. 45 Tablet 3 09/27/2022 4 Discontinued Torsemide 10 MG Oral Tablet (Demadex)Indicati ons:HTN, goal below 130/80 Take 1 Tablet by mouth in the morning and 1 Tablet before bedtime. 180 Tablet 3 10/25/2022 4 Discontinued hydrALAZINE HCl 10 MG Oral Tablet (Apresoline) Take 1 Tablet by mouth in the morning. 90 Tablet 3 12/28/2022 4 Discontinued Isosorbide Mononitrate ER 60 MG Oral Tablet Extended Release 24 Hour (Imdur)Indication s:HTN, goal below 130/80,Coronary artery disease involving tonto apache coronary artery of tonto apache heart without angina pectoris,S/P primary angioplasty with coronary stent Take 1 Tablet by mouth in the morning. 90 Tablet 3 03/15/2023 4 Discontinued Carvedilol 12.5 MG Oral Tablet (Coreg)Indication s:Coronary artery disease involving t[place] apache coronary artery of tonto apache heart without angina pectoris,Paroxysm al atrial fibrillation (HCC) Take 1 Tablet by mouth in the morning and 1 Tablet before bedtime. 180 Tablet 3 04/13/2023 4 Discontinued Atorvastatin Calcium 40 MG Oral Tablet (Lipitor)Indicati ons:evening Take 1 Tablet by mouth in the morning. 90 Tablet 3 04/24/2023 4 Discontinued predniSONE 20 MG Oral Tablet (Deltasone) Take 4 tabs daily for 2 days, 3 tabs daily for 2 days, 2 tabs daily for 2 days, 1 tab daily for 2 days 20 Tablet 0 05/03/2023 4 Discontinued Hospital, Clinic, or Other Facility Administered Medication Ordered Dose Route Frequency Start Date End Date Status Albuterol Sulfate (Proventil) (2.5 MG/3ML) 0.083% inhalation solution 2.5 mgIndications:KOVACS (dyspnea on exertion),Centrilobular emphysema (HCC),History of tobacco use,Morbid obesity (HCC) 2.5 mg NEBULIZER PRN 07/06/2022 Active documented as of this encounter (statuses as of 05/21/2023) Active Problems Problem Noted Date Diagnosed Date [...] fibrillation 02/18/2015 Coronary artery disease invo lving tonto apache coronary artery of tonto apache heart without angina pectoris 02/18/2015 HTN, goal below 130/80 02/18/2015 S/P carotid endarterectomy 02/18/2015 documented as of this encounter (statuses as of 05/21/2023) Resolved Problems Problem Noted Date Diagnosed Date [...] as of this encounter (statuses as of 05/21/2023) Immunizations Name Administration Dates Next Due COVID-19 mRNA, LNP-s, No Pre serve, 2-Dose Series ([employer]) 11/19/2020,04/24/2020,03/29/2020 Hepatitis B, 20+ yrs 12/07/2016,06/15/2016,03/16 Pneumococcal [...] Sign Reading Time Taken Comments Blood Pressure 140/62 05/19/2023 12:10 PM EDT Pulse 59 05/19/2023 12:10 PM EDT Temperature 36.8 C (98.2 F) 05/19/2023 12:10 PM E DT Respiratory Rate 18 05/19/2023 12:10 PM EDT Oxygen Saturation 94% 05/19/2023 12:10 PM EDT Inhaled Oxygen Concentration - - Weight 122.5 kg (270 lb) 05/19/2023 12:10 PM EDT Height 174 cm (5' 8.5") 05/19/2023 12:10 PM EDT Body Mass Index 40.46 05/19/2023 12:10 PM EDT documented in this encounter Progress Notes * Eliud Eisenberg MD - 05/21/2023 1:00 PM EDT SUBJECTIVE: Po Rubio is a 72 year old male. Chief Complaint Patient presents with Hospital Follow-Up Hospital Follow-Up Recent Admission: Patient was recently admitted to [facility]. Discharge report received and reviewed. HPI: Po is a medically complex 72 year old male with male with significant cardiopulmonary disease who was hospitalized for symptomatic hypertension. Almost all of his antihypertensives, including his diuretic were discontinued. His Cymbalta was also discontinued abruptly without a taper, and so now Po is feeling some withdrawal from that. I'm going to start him back on that today, re-introduce his diuretic, and get him back in with cardiology. Unfortunately he doesn't see them until next week so hopefully he doesn't decompensate before them and wind back up in the hospital. He has hadseveral recent hospitalizations. Due to his multiple comorbidities his overall prognosis is guardedat best. Patient Active Problem List Diagnosis Code Paroxysmal atrial fibrillation ([facility]) I48.0 Coronary artery disease involving tonto apache coronary artery of tonto apache heart without angina pectoris I25.10 HTN, goal below 130/80 I10 S/P carotid endarterectomy Z98.890 S/P primary angioplasty with coronary stent Z95.5 PAD (peripheral artery disease) ([facility]) I73.9 Dyslipidemia E78.5 Type 2 diabetes mellitus with hemoglobin A1c goal of less than 8.0% ([facility]) E11.9 JORGE A (obstructive sleep apnea) G47.33 Stage 3a chronic kidney disease ([facility]) N18.31 Morbid obesity ([facility]) E66.01 Type 2 diabetes mellitus with diabetic peripheral angiopathy without gangrene ([facility]) E11.51 Impaired functional mobility and activity tolerance Z74.09 S/P ablation of atrial fibrillation Z98.890, Z86.79 Centrilobular emphysema ([facility]) J43.2 BPH with obstruction/lower urinary tract symptoms N40.1, N13.8 Neurogenic bladder N31.9 Carotid stenosis, non-symptomatic, bilateral I65.23 Claudication in peripheral vascular disease ([facility]) I73.9 Gouty arthropathy M10.9 Jimenez's esophagus K22.70 Diabetic peripheral neuropathy ([facility]) E11.42 Spinal stenosis of lumbar region M48.061 [...] inthe evening and 1 Capsule before bedtime. Aspirin EC 81 MG Oral Tablet Delayed Release Take by mouth 1 Tablet in the morning. 90 Tablet 3 CPAP every night at bedtime . Nitroglycerin 0.4 MG Sublingual Tablet Sublingual (Nitrostat) Place under the tongue 1 Tablet every5 minutes as needed for Pain, Chest. up to 3 doses in 15 minutes 25 Tablet 1 Apixaban 5 MG Oral Tablet (Eliquis) Take [...] of Breath or Wheezing. 1 Each 5 Eye Health Oral Capsule Take by mouth. Biotene Dry Mouth Mouth/Throat Lozenge Apply 1 Lozenge to the mouth or throat every evening. 90 Lozenge 3 Allopurinol 100 MG Oral Tablet (Zyloprim) Take 1 Tablet by mouth in the morning. 30 Tablet 11 Fluticasone-Salmeterol 500-50 MCG/ACT Inhalation Aerosol Powder Breath Activated (Advair Diskus) Inhale 1 Puff by mouth in the morning and 1 Puff before bedtime. 180 Each 3 Pantoprazole Sodium 40 MG Oral Tablet Delayed Release (Protonix) Take 1 Tablet by mouth in the morning. 90 Tablet 3 Cefdinir 300 MG Oral Capsule (Omnicef) 1 Capsule. Metoprolol Succinate ER 25 MG Oral Tablet Extended Release 24 Hour (toPROL XL) 0.5 Tablets. Rosuvastatin Calcium 20 MG Oral Tablet (Crestor) 1 Tablet. DULoxetine HCl 60 MG Oral Capsule Delayed Release Particles (Cymbalta) Take 1 Capsule by mouth in the morning and 1 Capsule before bedtime. 90 Capsule 3 NOVOFINE 32G X 6 MM MISC Cholecalciferol (VITAMIN D3) 1000 units CAPS Take 1 Capsule by mouth in the morning. Omnipod DASH PDM (Gen 4) Kit Use as directed . Use to control insulin pod 1 Kit 0 FreeStyle Indra 2 Sensor Use as directed . Use 1 sensor every 14 days 6 Each 3 B Complex Plus Oral Tablet Take by mouth. Ipratropium Everett HFA 17 MCG/ACT Inhalation Aerosol Solution (Atrovent Hfa) Inhale 2 Puffs by mouth every 6 hours. 12.9 g 5 Omnipod DASH Pods (Gen 4) USE 1 POD EVERY 2 DAYS DIRECTED 5 Each 0 Insulin Aspart 100 UNIT/ML Injection Solution (NovoLOG) Inject up to 100 units daily via insulin pump 90 mL 1 Omnipod DASH Pods (Gen 4) Use as directed. Use 1 pod every 2 days 30 Each 1 Current Facility-Administered Medications Medication Dose Route Frequency Provider Last Rate Last Admin Albuterol Sulfate (Proventil) (2.5 MG/3ML) 0.083% inhalation solution 2.5 mg 2.5 mg Nebulizer PRN Tata Walter CRNP 2.5 mg at 07/15/22 0811 Current and discharge medications have been reconciled. Review of patient's allergies indicates: Allergen Reactions Trimethoprim Other reaction(s): acute renal failure Bactrim [Sulfamethoxazole-Trimethoprim] Other (Please comment) hyperkalmeia Lisinopril ?cough OBJECTIVE: BP 140/62 | Pulse 59 | Temp 36.8 C (98.2 F) (Tympanic) | Resp 18 | Ht 1.74 m (5' 8.5") | Wt 122.5 kg (270 lb) | SpO2 94% | BMI 40.46 kg/m | BSA 2.43 m PHYSICAL EXAM: General: alert, no distress, and obese Head: Normocephalic, No masses, lesions, tenderness or abnormalities Heart: regular rate & rhythm, no murmur, and no gallops Lungs: chest symmetric with normal AP diameter, no chest deformities noted, no chest wall tenderness, lungs clear to auscultation Extremities: 2 + pitting edema over a base of venous statis Neuro Exam: alert & oriented x 3 with fluent speech, no focal motor/sensory deficits, gait normal, reflexes normal and symmetric ASSESSMENT: Hospital discharge follow-up (Primary) - DISCH MED RECON CUR MED LIS Symptomatic hypotension -remain off all antihypertensives except restart torsemide -disagree with decision to d/c cymbalta as although it can cause some hypotension, that is not the culprit here and he should have been tapered, not told to just stop it Morbid obesity (HCC) Paroxysmal atrial fibrillation (HCC) PAD (peripheral artery disease) (HCC) Stage 3a chronic kidney disease (HCC) Other orders - DULoxetine HCl 60 MG Oral Capsule Delayed Release Particles (Cymbalta); Take 1 Capsule by mouth in the morning and 1 Capsule before bedtime. PLAN: Continue present medication(s): Follow up as needed. I spent a total of 40-54 minutes (exact time 41 mins) minutes on the date of service in preparation, delivery, and documentation of the care provided to Po A Joanne excluding any time spent in performance of separately billed services. Eliud Eisenberg MD documented in this encounter Nursing Notes * Sushila Briscoe LPN - 05/19/2023 12:10 PM EDT The patient has been properly identified by confirmation of name and date of . Chief Complaint Patient presents with Hospital Follow-Up documented in this encounter Plan of Treatment Upcoming Encounters Date Type Department Care Team (Late st Contact Info) Description 05/24/2023 3:00 PM EDT Office Visit Cardiology, [facility] [address] [place] [address] Ridge Barr MD [address] [place] [address] 05/30/2023 10:00 AM EDT Office Visit Urology, [place] [address] [place] [address] Chivo Solis PA-Reid [address] [place] [address] 06/28/2023 8:30 AM EDT Office Visit Pharmacy, [facility] [address] [place] [address] [facility] [address] [place] [address] 08/18/2023 9:00 AM EDT Office Visit Family Practice [facility] [address] [place] [address] Eliud Eisenberg MD [address] [place] [address] 08/23/2023 8:45 AM EDT Office Visit Orthopaedics [facility] [address] [facility] [place] [address] Jamil Hills PA-C [address] [place] [address] 11/02/2023 10:00 AM EDT [facility] [address] [facility] [place] [phone] Nichol Caballero, [address] [place] [address] 01/22/2024 8:00 AM EST Nurse Only Ancillary [facility] [address] [facility] [place] [address] Branden, Nurse Annual Wellness [facility] [address] [facility] [place] [address] Scheduled Procedures Name Priority Associated Diagnoses Date/Ti [...] Exam 08/11/2023 08/10/2022, 12/22/2021 Albumin/Creatinine Ratio 09/17/2023 08/ 023, 11/19/2018, 04/05/2017 CKD HGB USE SMARTSET 83440 10/20/202310/19, 10/19/2022, 09/16/2022, Additional history exists GFR 10/27/2023 04/26/2023, 09/14, 09/16/2022, Additional history exists CKD PHOS USE SMARTSET 86421 11/19/202307/2022, 11/12/2021, 04/01/2020 Diabetic Foot Exam 12/30/2023 [...] this encounter Medical Devices Implanted Type Area Cattery Operator Device Identifier Shelf Expiration Date Model / Serial / Lot Lens Intraoc 16.5 - [id number] - [id number] Implanted:Qty: 1 on 11/14/2019 by Elmo Apodaca MD at OR [facility] Left: Eye [employer] 03/15/2024 [id number] / [id number] / [id number] Lens Intraoc 16.5 - [id number] - [id number] Implanted:Qty: 1 on 11/28/2019 by Elmo Apodaca MD at OR [facility] Right: Eye BAUSCH [employer] LOMB 04/12/2024 [id number] / [id number] / [id number] documented as of this encounter Visit Diagnoses Diagnosis Hospital discharge follow-up- Primary Other follow-up examination Symptomatic hypotension Morbid obesity (HCC) Morbid obesity Paroxysmal atrial fibrillation (HCC) Atrial fibrillation PAD (peripheral artery disease) (HCC) Peripheral vascular disease, unspecified Stage 3a chronic kidney disease (HCC) documented in this encounter Advance Directives Latest Code Status on File Code Status Date Activated Date Inactivated Comments Full Code 07/15/2015 2:43 PM 07/16/2015 12:56 PM This o rder reflects the patients wishes and were consensually agreed upon. Care Teams Summer Child Caregiver Relationship Specialty Start Date End Date Eliud Eisenberg MD [address] [place] [address] PCP - General Family Medicine 10/20/21 documented as of this encounter
--- OUTSIDE RECORDS SUMMARY | 2023-06-21 22:49 | External Medical Summary | Summary of Care ---
Author Name Unknown Organization [facility] Address [address] [facility] [place] [address] Phone [phone] Care Team Providers Care Leadership Program Intern Name Role Phone Eliud Eisenberg MD Primary Care Provider [phone] Reason for Visit * Reason Onset Date Comments Med Request 06/05/2023 Encounter Details Date Type Department Care Team (Late st Contact Info) Description 06/05/2023 Telephone Family Practice [facility] [address] [place] [address] Eliud Eisenberg MD [address] [place] [address] Med Request (/) Allergies Active Allergy Reactions Criticality Noted Date [...] Tablet Sublingual (Nitrostat)Indicat ions:Coronary artery disease involving pai[place]-shoshone coronary artery of pai[place]shoshone heart without angina pectoris Place under the [...] oxysmal atrial fibrillation (HCC),Coronary artery disease involving pa[place]-shoshone coronary artery of [place]shoshone heart without angina pectoris,S/P primary angioplasty with coronary stent,HTN, goal below 140/90 Take 0.5 Tablets by mouth in the morning and 0.5 Tablets before bedtime. 90 Tablet 3 05/24/2023 Active Rosuvastatin Calcium 20 MG Oral Tablet (Crestor)Indicatio ns:Coronary artery disease involving pai[place]-shoshone coronary artery of pai[place]shoshone heart without angina pectoris,S/P primary angioplasty with coronary stent,Dyslipidemia , goal LDL below 70 Take 1 Tablet by mouth at bedtime. 90 Tablet 3 05/24/2023 Active Methenamine Hippurate 1 GM Oral Tablet (Hiprex) 1 tablet by mouth every other evening 45 Tablet 3 05/30/2023 Active Torsemide 10 MG Oral Tablet (Demadex)Indicatio [...] fibrillation 02/18/2015 Coronary artery disease invo lving paiute-shoshone coronary artery of paiute[place]shoshone heart without angina pectoris 02/18/2015 HTN, goal [...] mRNA, LNP-s, No Pre serve, 2-Dose Series ([employer]) 11/19/2020,04/24/2020,03/29/2020 Hepatitis B, 20+ yrs 12/07/2016,06/15/2016,03/16 Pneumococcal [...] Encounter - Shania Alva LPN - 06/05/2023 11:00 AM EDT Did you pend patient's preferred pharmacy and medication before forwarding?yes Pharmacy: [facility] [facility] [place] Pending Prescriptions: Disp Refills Torsemide 10 MG Oral Tablet (Demadex) 180 Ta*3 Sig: Take 1 Tablet by mouth in the morning and 1 Tablet before bedtime. Last Visit: 05/19/2023 (in office), Visit date not found (telemedicine) Next Visit: 08/18/2023 If no future appointments scheduled, and last appointment is greater than a year ago, please schedule patient for a follow-up appointment Last date the medication was ordered: 10/25/22 Is this request for a controlled substance?No [...] Encounter - Narcisa Jean CPhT - 06/05/2023 8:11 AM EDT Patient requesting refills for Torsemide. Upon chart review, medication is listed as discontinued, with discontinuation reason as "none". Please advise if you wish to continue this therapy for the patient. Thank you, Narcisa Jean CPhT [employer] [facility] ([facility]formerly telepharmacy) 06/05/2023,8:12 AM documented in this encounter Plan of Treatment Upcoming Encounters Date Type Department Care Team (Late st Contact Info) Description 06/28/2023 8:30 AM EDT Office Visit Pharmacy, [facility] [address] [place] [address] [facility] [address] [place] [address] 08/16/2023 8:30 AM EDT Office Visit Cardiology, [facility] [address] [place] [address] Ridge Barr MD [address] [place] [address] 08/18/2023 9:00 AM EDT Office Visit Family Practice [facility] [address] [place] [address] Eliud Eisenberg MD [address] [place] [address] 08/23/2023 8:45 AM EDT Office Visit Orthopaedics [facility] [address] [place] [address] Jamil Hills PA-C [address] [place] [address] 11/02/2023 10:00 AM EDT Office Visit Sleep Disorders Ctr [facility] [address] [place] [phone] Nichol Caballero, DO [address] [place] [address] 01/22/2024 8:00 AM EST Nurse Only Ancillary [facility] [address] [facility] [place] [address] [facility], Nurse Annual Wellness [facility] [address] [place] [address] 05/17/2024 8:30 AM EDT Appointment Radiology, [place] [address] [place], [place] [phone] 05/17/2024 9:30 AM EDT Office Visit Urology, [place] [address] [place], [place] [phone] Chivo Solis PA-C [address] [place], [place] [phone] Scheduled Procedures Name Priority Associated Diagnoses Date/Ti [...] 023, 11/19/2018, 04/05/2017 CKD HGB USE SMARTSET 52074 10/20/202310/193, 10/19/2022, 09/16/2022, Additional history exists GFR 10/27/2023 04/26/2023, 09/14, 09/16/2022, Additional history exists CKD PHOS USE SMARTSET 91929 11/19/202307/2022, 11/12/2021, 04/01/2020 Diabetic Foot Exam 12/30/2023 [...] this encounter Medical Devices Implanted Type Area Waste And Batting Waste Chopper Device Identifier Shelf Expiration Date Model / Serial / Lot Lens Intraoc 16.5 - [id number] - [id number] Implanted:Qty: 1 on 11/14/2019 by Elmo Apodaca MD at OR [facility] Left: Eye [employer]OM[employer] 03/15/2024 [id number] / [id number] / [id number] Lens Intraoc 16.5 - [id number] - [id number] Implanted:Qty: 1 on 11/28/2019 by Elmo Apodaca MD at OR [facility] Right: Eye BAUSCH [employer] LOMB 04/12/2024 [id number] / [id number] / [id number] documented as of this encounter Visit Diagnoses Diagnosis HTN, goal below 130/80 Unspecified essential hypertension documented in this encounter Advance Directives Latest Code Status on File Code Status Date Activated Date Inactivated Comments Full Code 07/15/2015 2:43 PM 07/16/2015 12:56 PM This o rder reflects the patients wishes and were consensually agreed upon. Care Teams Leadership Program Intern Relationship Specialty Start Date End Date Eliud Eisenberg MD [address] [place] [address] PCP - General Family Medicine 10/20/21 documented as of this encounter
--- OUTSIDE RECORDS SUMMARY | 2023-06-21 22:49 | External Medical Summary | Summary of Care ---
Author Name Unknown Organization [facility] Address [address] [facility] [place] [address] Phone [phone] Care Team Providers Care Law Tutor Name Role Phone Eliud Eisenberg MD Primary Care Provider [phone] Encounter Details Date Type Department Care Team (Late st Contact Info) Description 05/15/2023 Documentation Ancillary [facility] [address] [place] [address] Sara Flores RN Allergies Active Allergy Reactions Criticality Noted Date Comments Sulfamethoxazole-Trimet hoprim Other (Please comment) 09/20/2017 hyperkalmeia Lisinopril 09/15/2022 ?cough Trimethoprim High 11/23/2021 Other reaction(s): acute renal failure documented as of this encounter (statuses as of 05/15/2023) Medications Medication Sig Dispensed Refills Start Date [...] Tablet Sublingual (Nitrostat)Indicati ons:Coronary artery disease involving white earth coronary artery of white earth heart without angina pectoris Place under the [...] 14 days 6 Each 3 01/21/2022 Active Phsgg-7-lirh Ethyl Esters 1 GM Oral Capsule (Lovaza)Indications :Dyslipidemia Take 1 Capsule by mouth in the morning and 1 Capsule in the evening. 180 Capsule 3 04/19/2022 Active Additional Information Patient not taking.Reported on 05/15/2023 Apixaban 5 MG Oral Tablet (Eliquis)Indication s:Paroxysmal [...] Capsule Take by mouth. 0 Active Ipratropium [place] HFA 17 MCG/ACT Inhalation Aerosol Solution (Atrovent [...] HTN, goal below 130/80,Coronary artery disease involving [place] coronary artery of white earth heart without angina pectoris,S/P primary angioplasty with coronary stent Take 1 Tablet by mouth in the morning. 90 Tablet 3 03/15/2023 Active Additional Information Patient not taking.Reported on 05/15/2023 Fluticasone-Salmete rol 500-50 MCG/ACT Inhalation Aerosol Powder Breath Activated (Advair Diskus) Inhale 1 Puff by mouth in the morning and 1 Puff before bedtime. 180 Each 3 04/11/2023 Active Carvedilol 12.5 MG Oral Tablet (Coreg)Indications: Coronary artery disease involving [place] coronary artery of white earth heart without angina pectoris,Paroxysmal atrial fibrillation (HCC) [...] Additional Information Patient not taking.Reported on 05/15/2023 Hospital, Clinic, or Other Facility Administered Medication Ordered Dose Route Frequency Start Date End Date Status Albuterol Sulfate (Proventil) (2.5 MG/3ML) 0.083% inhalation solution 2.5 mgIndications:KOVACS (dyspnea on exertion),Centrilobular emphysema (HCC),History of tobacco use,Morbid obesity (HCC) 2.5 mg NEBULIZER PRN 07/06/2022 Active documented as of this encounter (statuses as of 05/15/2023) Active Problems Problem Noted Date Diagnosed Date [...] fibrillation 02/18/2015 Coronary artery disease invo lving white earth coronary artery of white earth heart without angina pectoris 02/18/2015 HTN, goal below 130/80 02/18/2015 S/P carotid endarterectomy 02/18/2015 documented as of this encounter (statuses as of 05/15/2023) Resolved Problems Problem Noted Date Diagnosed Date [...] as of this encounter (statuses as of 05/15/2023) Immunizations Name Administration Dates Next Due COVID-19 mRNA, LNP-s, No Pre serve, 2-Dose Series (Textingly) 11/19/2020,04/24/2020,03/29/2020 Hepatitis B, 20+ yrs 12/07/2016,06/15/2016,03/16 Pneumococcal [...] on file documented as of this encounter Plan of Treatment Upcoming Encounters Date Type Department Care Team (Late st Contact Info) Description 05/19/2023 12:20 PM EDT Office Visit Family [facility] [address] [place] [address] Eliud Eisenberg MD [address] [place] [address] 05/24/2023 3:00 PM EDT Office Visit Cardiology, [facility] [address] [place] [address] Ridge Barr MD [address] [place] [address] 05/30/2023 10:00 AM EDT Office Visit Urology, [place] [address] [place] [address] Chivo Solis PA-C [address] [place], [place] [id number] 06/28/2023 8:30 AM EDT Office Visit Pharmacy, [facility] [address] [place] [address] [facility] [address] [facility] [place] [address] 08/23/2023 8:45 AM EDT Office Visit Orthopaedics [facility] [address] [facility] [place] [address] Jamil Hills PA-C [address] [place] [address] 11/02/2023 10:00 AM EDT Office Visit Sleep Disorders Ctr [facility] [address] [facility] [place] [address] Nichol Caballero DO [address] [place] [address] 01/22/2024 8:00 AM EST Nurse Only Ancillary [facility] [address] [facility] [place] [address] [facility], Nurse Annual Wellness [facility] [address] [facility] [place] [address] Scheduled Procedures Name Priority Associated Diagnoses Date/Ti [...] 023, 11/19/2018, 04/05/2017 CKD HGB USE SMARTSET 89907 10/20/202310/19, 10/19/2022, 09/16/2022, Additional history exists GFR 10/27/2023 04/26/2023, 09/14, 09/16/2022, Additional history exists CKD PHOS USE SMARTSET 44300 11/19/20230 07/2022, 11/12/2021, 04/01/2020 Diabetic Foot Exam [...] this encounter Medical Devices Implanted Type Area Customer Sales Specialist Device Identifier Shelf Expiration Date Model / Serial / Lot Lens Intraoc 16.5 - [id number] - [id number] Implanted:Qty: 1 on 11/14/2019 by Elmo Apodaca MD at OR [facility] Left: Eye BAUSCH & LOMB 03/15/2024 [id number] / [id number] Lens Intraoc 16.5 - [id number] - [id number] Implanted:Qty: 1 on 11/28/2019 by Elmo Apodaca MD at OR [facility] Right: Eye BAUSCH & LOMB 04/12/2024 [id number] / [id number] / [id number] documented as of this encounter Advance Directives Latest Code Status on File Code Status Date Activated Date Inactivated Comments Full Code 07/15/2015 2:43 PM 07/16/2015 12:56 PM This o rder reflects the patients wishes and were consensually agreed upon. Care Teams Law Tutor Relationship Specialty Start Date End Date Eliud Eisenberg MD [address] [facility] [place] [address] PCP - General Family Medicine 10/20/21 documented as of this encounter
--- OUTSIDE RECORDS SUMMARY | 2023-06-21 22:49 | External Medical Summary | Summary of Care ---
Author Name Unknown Organization [facility] Address [address] [place] [address] Phone [phone] Care Team Providers Care Nursery Helper Name Role Phone Eliud Eisenberg MD Primary Care Provider [phone] Reason for Visit * Reason Comments Follow Up Encounter Details Date Type Department Care Team (Late st Contact Info) Description 05/30/2023 10:00 AM EDT Office Visit Urology, [place] [address] [place], [place] [phone] Chivo Solis PA-C [address] [place], [place] [phone] Neurogenic bladder*; BPH with obstruction/lower urinary tract [...] Tablet Sublingual (Nitrostat)Indica tions:Coronary artery disease involving [place] coronary artery of [place]oka[place] heart without angina pectoris Place under the [...] roxysmal atrial fibrillation (HCC),Coronary artery disease involving [place] coronary artery of [place] heart without angina pectoris,S/P primary angioplasty with coronary stent,HTN, goal below 140/90 Take 0.5 Tablets by mouth in the morning and 0.5 Tablets before bedtime. 90 Tablet 3 4 Active Rosuvastatin Calcium 20 MG Oral Tablet (Crestor)Indicati ons:Coronary artery disease involving [place] coronary artery of [place] heart without angina pectoris,S/P primary angioplasty with [...] bedtime. 0 8 05/30/19 24 Discontinued Ipratropium Seco HFA 17 MCG/ACT Inhalation Aerosol Solution (Atrovent [...] fibrillation 02/18/2015 Coronary artery disease invo lving [place] coronary artery of [place] heart without angina pectoris 02/18/2015 HTN, goal [...] mRNA, LNP-s, No Pre serve, 2-Dose Series (Thumbs Up) 11/19/2020,04/24/2020,03/29/2020 Hepatitis B, 20+ yrs 12/07/2016,06/15/2016,03/16 Pneumococcal [...] previously followed by Dr. Hahn( Urology in [facility]) secondary to 10+ year history ofneurogenic bladder [...] obstruction/lower urinary tract symptoms 09/07/2022 CAD in soka[place] artery Cypher 2.5 x 28 mm drug eluting stent to the obstuse marginal , Reardan Carotid stenosis Centrilobular emphysema ([facility]) 09/06/2022 DM2 (diabetes mellitus, type 2) ([facility]) Dyslipidemia, goal LDL below 100 HTN (hypertension) Impaired functional mobility and activity tolerance 04/19/2022 Morbid obesity due to excess calories ([facility]) 10/20/2021 Neurogenic bladder 09/07/2022 Obesity, Class II, BMI 35-39.9, isolated (see actual BMI) 10/17/2021 JORGE A (obstructive sleep apnea) 10/17/2021 Paroxysmal atrial fibrillation ([facility]) 02/18/2015 S/P ablation of atrial fibrillation 04/19/2022 Sleep apnea, obstructive Stage 3a chronic kidney disease ([facility]) 10/17/2021 Type 2 diabetes mellitus with hemoglobin A1c goal of less than 8.0% ([facility]) 10/17/2021 Patient Active Problem List Diagnosis Code Paroxysmal atrial fibrillation ([facility]) I48.0 Coronary artery disease involving [place] coronary artery of [place] heart without angina pectoris I25.10 HTN, goal below 130/80 I10 S/P carotid endarterectomy Z98.890 S/P primary angioplasty with coronary stent Z95.5 PAD (peripheral artery disease) ([facility]) I73.9 Dyslipidemia E78.5 Type 2 diabetes mellitus with hemoglobin A1c goal of less than 8.0% ([facility]) E11.9 JORGE A (obstructive sleep apnea) G47.33 Stage 3a chronic kidney disease ([facility]) N18.31 Morbid obesity ([facility]) E66.01 Type 2 diabetes mellitus with diabetic peripheral angiopathy without gangrene ([facility]) E11.51 Impaired functional mobility and activity tolerance Z74.09 S/P ablation of atrial fibrillation Z98.890, Z86.79 Centrilobular emphysema ([facility]) J43.2 BPH with obstruction/lower urinary tract symptoms N40.1, N13.8 Neurogenic bladder N31.9 Carotid stenosis, non-symptomatic, bilateral I65.23 Claudication in peripheral vascular disease ([facility]) I73.9 Gouty arthropathy M10.9 Jimenez's esophagus K22.70 Diabetic peripheral neuropathy ([facility]) E11.42 Spinal stenosis of lumbar region M48.061 TR (tricuspid regurgitation) I07.1 Past Surgical History: Procedure Laterality Date CARDIAC CATH-CARDIOLOGY ONLY 10/27/2008 drug eluting stent to the OM, Reardan CARPAL TUNNEL SURGERY Left 06/18/2021 NEUROPLASTY MEDIAN NERVE AT CARPAL TUNNEL performed by Rodney Heaton DO at OR [facility] CARPAL TUNNEL SURGERY Right 07/16/2021 NEUROPLASTY MEDIAN NERVE AT CARPAL TUNNEL performed by Rodney Heaton DO at OR [facility] CORONARY ANGIOGRAPHY W/LEFT HEART CATH Right 04/01/2020 CORONARY ANGIOGRAPHY W/LEFT HEART CATH performed by Momo Gomez MD at [facility] EGD, FLEXIBLE, DIAGNOSTIC 04/04/2016 inflammation on bx, repeat 5 yrs/ESOPHAGOGASTRODUODENOSCOPY (EGD), FLEXIBLE, TRANSORAL, DIAGNOSTIC performed by Bibi Hale MD at ENDOSCOPY [facility] ELECTROPHYSIOLOGY EVAL, ATRIAL FIB, PULMONARY VEIN ISOL 07/15/2015 ELECTROPHYSIOLOGY EVAL, ATRIAL FIB, PULMONARY VEIN ISOL performed by Dc Fleming MD at [facility] FEM/POP ARTERY REVASC W/ANGIOPLASTY Right 09/21/2020 FEM/POP ARTERY REVASC W/ANGIOPLASTY performed by Gunner Serrano MD at OR [facility] IR ARTERIOGRAM EXTREMITY UNILATERAL Right 09/21/2020 IMAGING SUPERVISION & INTERPRETATION EXTREMITY UNILATERAL performed by Gunner Serrano MD at OR [facility] REMOVE CATARACT, INSERT LENS PROSTH Left 11/14/2019 LEFT EXTRACAPSULAR CATARACT REMOVAL WITH INTRAOCULAR LENS performed by Elmo Apodaca MD at OR [facility] REMOVE CATARACT, INSERT LENS PROSTH Right 11/28/2019 RIGHT EXTRACAPSULAR CATARACT REMOVAL WITH INTRAOCULAR LENS performed by Elmo Apodaca MD at OR [facility] SINUS SURGERY PROCEDURE NEC 09/2014 THROMBOENDARECTOMY W/PATCH,NECK INCISION Right 04/2014 Dr Vincenzo Latham TIBIAL/PERONEAL ART. REVASC W/ANGIO, FIRST 09/21/2020 TIBIAL/PERONEAL ART. REVASC W/ANGIO, FIRST performed by Gunner Serrano MD at OR [facility] Current Outpatient Medications Medication Sig Dispense Refill [...] Breath or Wheezing. 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 Catheter supplies 1800-MEDICAL, 16 greenlandic straight tip hydrophilic coated--reorder number HM16 --he is looking for a stiffer urinary catheter that is less flexible than current catheter. He was advised to contact [employer] to inquire on a recommendations regarding a [...] 06/28/2023 8:30 AM EDT Office Visit Pharmacy, [facility] [address] [place] [address] [facility] [address] [place] [address] 08/16/2023 8:30 AM EDT Office Visit Cardiology, [facility] [address] [place] [address] Ridge Barr MD [address] [place] [address] 08/18/2023 9:00 AM EDT Office Visit Family Practice [facility] [address] [place] [address] Eliud Eisenberg MD [address] [place] [address] 08/23/2023 8:45 AM EDT Office Visit Orthopaedics [facility] [address] [place] [address] Jamil Hills PA-C [address] [place] [address] 11/02/2023 10:00 AM EDT Office Visit Sleep Disorders Ctr [facility] [address] [place] [phone] Nichol Caballero DO [address] [place] [address] 01/22/2024 8:00 AM EST Nurse Only Ancillary [facility] [address] [facility] [place], [place] [address] Brand[place], Nurse Annual Wellness [facility] [address] [place] [address] 05/17/2024 8:30 AM EDT Appointment Radiology, [place] [address] [place] [address] 05/17/2024 9:30 AM EDT Office Visit Urology, [place] [address] [place] [address] Chivo Solis PA-C [address] [place], [place] [phone] Scheduled Orders Name Type Priority Associated Diagnoses [...] 023, 11/19/2018, 04/05/2017 CKD HGB USE SMARTSET 04695 10/20/202310/19, 10/19/2022, 09/16/2022, Additional history exists GFR 10/27/2023 04/26/2023, 09/14, 09/16/2022, Additional history exists CKD PHOS USE SMARTSET 05178 11/19/2023 100 07/2022, 11/12/2021, 04/01/2020 Diabetic Foot [...] this encounter Medical Devices Implanted Type Area Remotely Piloted Vehicle Controller Device Identifier Shelf Expiration Date Model / Serial / Lot Lens Intraoc 16.5 - [id number] - [id number] Implanted:Qty: 1 on 11/14/2019 by Elmo Apodaca MD at OR [facility] Left: Eye BAUSCH [employer] LOMB 03/15/2024 [id number] / [id number] / [id number] Lens Intraoc 16.5 - [id number] - [id number] Implanted:Qty: 1 on 11/28/2019 by Elmo Apodaca MD at OR [facility] Right: Eye BAUSCH & LOMB 04/12/2024 [id number] / [id number] / [id number] documented as of this encounter Visit Diagnoses [...] and were consensually agreed upon. Care Teams Nursery Helper Relationship Specialty Start Date End Date Eliud Eisenberg MD [address] [place] [address] PCP - General Family Medicine 10/20/21 documented as of this encounter"
--- OUTSIDE RECORDS SUMMARY | 2023-06-21 22:49 | External Medical Summary | Summary of Care ---
Author Name Unknown Organization [facility] Address [address] [place] [address] Phone [phone] Care Team Providers Care Junior Electrical Engineer Name Role Phone Eliud Eisenberg MD Primary Care Provider [phone] Reason for Visit * Reason Onset Date Comments Medication Refill 12/28/2022 Encounter Details Date Type Department Care Team (Late st Contact Info) Description 12/28/2022 Refill Cardiology, [facility] [address] [place] [address] Aaron Schilling, [address] [place] [address] Allergies Active Allergy Reactions Criticality Noted Date [...] Tablet Sublingual (Nitrostat)Indicati ons:Coronary artery disease involving [place] coronary artery of [place] heart without angina pectoris Place under the [...] 14 days 6 Each 3 01/21/2022 Active Sqyyf-4-bczy Ethyl Esters 1 GM Oral Capsule (Lovaza)Indications [...] Capsule Take by mouth. 0 Active Ipratropium [place] HFA 17 MCG/ACT Inhalation Aerosol Solution (Atrovent [...] the morning. 30 Tablet 11 12/12/2022 Active Hospital, Clinic, or Other Facility Administered [...] fibrillation 02/18/2015 Coronary artery disease invo lving [place] coronary artery of [place] heart without angina pectoris 02/18/2015 HTN, goal [...] mRNA, LNP-s, No Pre serve, 2-Dose Series (Pfizer) 11/19/2020,04/24/2020,03/29/2020 Hepatitis B, 20+ yrs 12/07/2016,06/15/2016,03/16 Pneumococcal [...] encounter Miscellaneous Notes * Telephone Encounter - Gin Dsouza CPhT - 12/28/2022 8:36 AM EST Pt calling for refill on medication managed by Cardiology. Transferred pt to [facility] Specialty line. Thank you, Gin Dsouza, Tech 1 Semiconductor Engineer [facility] ([facility]) (formerly Telepharmacy) 12/28/2022, 8:37 AM documented in this encounter Plan of Treatment Upcoming Encounters Date Type Department Care Team (Late st Contact Info) Description 05/19/2023 12:20 PM EDT Office Visit Family Practice [facility] [address] [place] [address] Eliud Eisenberg MD [address] [place] [address] 05/24/2023 3:00 PM EDT Office Visit Cardiology, [facility] [address] [place] [address] Ridge Barr MD [address] [place] [address] 05/30/2023 10:00 AM EDT Office Visit Urology, [facility] [address] [place] [address] Chivo Solis PA-C [address] [place] [address] 06/28/2023 8:30 AM EDT Office Visit Pharmacy, [facility] [address] [place] [address] Branden [facility] [address] [place] [address] 08/23/2023 8:45 AM EDT Office Visit Orthopaedics [facility] [address] [place] [address] Jamil Hills PA-C [address] [facility] [place] [address] 11/02/2023 10:00 AM EDT Office Visit Sleep Disorders Ctr [facility] [address] [place] [phone] Nichol Caballero DO [address] [place] [address] 01/22/2024 8:00 AM EST Nurse Only Ancillary [facility] [address] [facility] [place] [address] [facility], Nurse Annual Wellness [facility] [address] [facility] [place] [address] Scheduled Procedures Name Priority Associated Diagnoses Date/Ti [...] 023, 11/19/2018, 04/05/2017 CKD HGB USE SMARTSET 03870 10/20/202310/19, 10/19/2022, 09/16/2022, Additional history exists GFR 10/27/2023 04/26/2023, 08/2 04/2022, 09/16/2022, Additional history exists CKD PHOS USE SMARTSET 34477 11/19/202307/2022, 11/12/2021, 04/01/2020 Diabetic Foot Exam 12/30/2023 [...] this encounter Medical Devices Implanted Type Area Assistant Reading Teacher Device Identifier Shelf Expiration Date Model / Serial / Lot Lens Intraoc 16.5 - [id number] - [id number] Implanted:Qty: 1 on 11/14/2019 by Elmo Apodaca MD at OR [facility] Left: Eye BAUSCH & LOMB 03/15/2024 [id number] / [id number] / [id number] Lens Intraoc 16.5 - [id number] - [id number] Implanted:Qty: 1 on 11/28/2019 by Elmo Apodaca MD at OR [facility] Right: Eye BAUSCH & LOMB 04/12/2024 [id number] / [id number] / [id number] documented as of this encounter Advance Directives Latest Code Status on File Code Status Date Activated Date Inactivated Comments Full Code 07/15/2015 2:43 PM 07/16/2015 12:56 PM This o rder reflects the patients wishes and were consensually agreed upon. Care Teams Junior Electrical Engineer Relationship Specialty Start Date End Date Eliud Eisenberg MD [address] [place] [address] PCP - General Family Medicine 10/20/21 documented as of this encounter
--- OUTSIDE RECORDS SUMMARY | 2023-06-21 22:49 | External Medical Summary | Summary of Care ---
Author Name Unknown Organization [facility] Address [address] [facility] [place] [address] Phone [phone] Care Team Providers Care Behavioral Analyst Name Role Phone Eliud Eisenberg MD Primary Care Provider [phone] Reason for Visit * Reason Onset Date Comments Advice 05/30/2023 Encounter Details Date Type Department Care Team (Late st Contact Info) Description 05/30/2023 Telephone Family Practice [facility] [address] [place] [address] Eliud Eisenberg MD [address] [place] [address] Advice Allergies Active Allergy Reactions Criticality Noted Date [...] Tablet Sublingual (Nitrostat)Indicatio ns:Coronary artery disease involving menominee coronary artery of menominee heart without angina pectoris Place under the [...] ysmal atrial fibrillation (HCC),Coronary artery disease involving menominee coronary artery of menominee heart without angina pectoris,S/P primary angioplasty with coronary stent,HTN, goal below 140/90 Take 0.5 Tablets by mouth in the morning and 0.5 Tablets before bedtime. 90 Tablet 3 05/24/2023 Active Rosuvastatin Calcium 20 MG Oral Tablet (Crestor)Indications :Coronary artery disease involving menominee coronary artery of menominee heart without angina pectoris,S/P primary angioplasty with coronary stent,Dyslipidemia, goal LDL below 70 Take 1 Tablet by mouth at bedtime. 90 Tablet 3 05/24/2023 Active Clopidogrel Bisulfate 75 MG Oral Tablet (pLAVix) 0 05/25/2023 Active Methenamine Hippurate 1 GM Oral Tablet (Hiprex) 1 tablet by mouth every other evening 45 Tablet 3 05/30/2023 Active documented as of this encounter (statuses [...] fibrillation 02/18/2015 Coronary artery disease invo lving menominee coronary artery of menominee heart without angina pectoris 02/18/2015 HTN, goal [...] mRNA, LNP-s, No Pre serve, 2-Dose Series (EarthLink) 11/19/2020,04/24/2020,03/29/2020 Hepatitis B, 20+ yrs 12/07/2016,06/15/2016,03/16 Pneumococcal [...] encounter Miscellaneous Notes * Telephone Encounter - Patricia Bolaños LPN - 05/30/2023 11:30 AM EDT Seen Urology in [place] today. Nothing further needed at this time. * Telephone Encounter - Eliud Eisenberg MD - 05/30/2023 11:15 AM EDT He saw urology today. * Telephone Encounter - Carissa Malhotra LPN - 05/30/2023 11:00 AM EDT There is no ref to urology. Please advise if you meant to ref pt to that department and for what. * Telephone Encounter - Cony Toscano CPhT - 05/30/2023 9:10 AM EDT Patient calling to ask if Dr Eisenberg has looked into getting patient a appt in urology at [facility], patient stated this was discussed at Hospital follow up appt on 05/15/2023 Thank you, Cony Toscano Chemist II [facility] (formerly Telepharmacy) 05/30/2023 9:11 AM documented in this encounter Plan of Treatment Upcoming Encounters Date Type Department Care Team (Late st Contact Info) Description 06/28/2023 8:30 AM EDT Office Visit Pharmacy, [facility] [address] [place] [address] [facility] [address] [place] [address] 08/16/2023 8:30 AM EDT Office Visit Cardiology, [facility] [address] [place] [address] Ridge Barr MD [address] [place] [address] 08/18/2023 9:00 AM EDT Office Visit Family Practice [facility] [address] [place] [address] Eliud Eisenberg MD [address] [place] [address] 08/23/2023 8:45 AM EDT Office Visit Orthopaedics [facility] [address] [facility] [place] [address] Jamil Hills PA-C [address] [place] [address] 11/02/2023 10:00 AM EDT Office Visit Sleep Disorders Ctr [facility] [address] [facility] [place] [phone] Nichol Caballero DO [address] [place] [address] 01/22/2024 8:00 AM EST Nurse Only Ancillary [facility] [address] [facility] [place] [address] [facility], Nurse Annual Wellness [facility] [address] [facility] [place] [address] 05/17/2024 8:30 AM EDT Appointment Radiology, [place] [address], [place] [id number] 05/17/2024 9:30 AM EDT Office Visit Urology, [place] [address] [place] [address] Chivo Solis PA-C [address] [facility] [place] [id number] Scheduled Procedures Name Priority Associated Diagnoses Date/Ti [...] 023, 11/19/2018, 04/05/2017 CKD HGB USE SMARTSET 46500 10/20/202310/19, 10/19/2022, 09/16/2022, Additional history exists GFR 10/27/2023 04/26/2023, 09/14, 09/16/2022, Additional history exists CKD PHOS USE SMARTSET 17004 11/19/20230 07/2022, 11/12/2021, 04/01/2020 Diabetic Foot Exam [...] this encounter Medical Devices Implanted Type Area Yarn Preparation Supervisor Device Identifier Shelf Expiration Date Model / Serial / Lot Lens Intraoc 16.5 - [id number] - [id number] Implanted:Qty: 1 on 11/14/2019 by Elmo Apodaca MD at OR [facility] Left: Eye BA[employer]CH [employer] LOMB 03/15/2024 [id number] / [id number] / [id number] Lens Intraoc 16.5 - [id number] - [id number] Implanted:Qty: 1 on 11/28/2019 by Elmo Apodaca MD at OR [facility] Right: Eye BAUSCH & LOMB 04/12/2024 [id number] / [id number] / [id number] documented as of this encounter Advance Directives Latest Code Status on File Code Status Date Activated Date Inactivated Comments Full Code 07/15/2015 2:43 PM 07/16/2015 12:56 PM This o rder reflects the patients wishes and were consensually agreed upon. Care Teams Behavioral Analyst Relationship Specialty Start Date End Date Eliud Eisenberg MD [address] [place] [address] PCP - General Family Medicine 10/20/21 documented as of this encounter
--- OUTSIDE RECORDS SUMMARY | 2023-06-21 22:49 | External Medical Summary | Summary of Care ---
Author Name Unknown Organization [facility] Address [address] [facility] [place] [address] Phone [phone] Care Team Providers Care Mixed Signal Design Engineer Name Role Phone Eliud Eisenberg MD Primary Care Provider [phone] Reason for Visit * Reason Onset Date Comments Hospital Follow-Up 05/15/2023 [facility] Encounter Details Date Type Department Care Team (Late st Contact Info) Description 05/15/2023 Telephone Ancillary Stephanie Dubois [place] [address] [place] [address] Sara Flores RN Hospital Follow-Up ([facility]) Allergies Active Allergy Reactions Criticality Noted Date [...] Tablet Sublingual (Nitrostat)Indicatio ns:Coronary artery disease involving solomon coronary artery of solomon heart without angina pectoris Place under the [...] 14 days 6 Each 3 01/21/2022 Active Kuyvf-0-fnle Ethyl Esters 1 GM Oral Capsule (Lovaza)Indications: [...] Capsule Take by mouth. 0 Active Ipratropium [place] HFA 17 MCG/ACT Inhalation Aerosol Solution (Atrovent [...] TN, goal below 130/80,Coronary artery disease involving solomon coronary artery of solomon heart without angina pectoris,S/P primary angioplasty with coronary stent Take 1 Tablet by mouth in the morning. 90 Tablet 3 03/15/2023 Active Fluticasone-Salmeter ol 500-50 MCG/ACT Inhalation Aerosol Powder Breath Activated (Advair Diskus) Inhale 1 Puff by mouth in the morning and 1 Puff before bedtime. 180 Each 3 04/11/2023 Active Carvedilol 12.5 MG Oral Tablet (Coreg)Indications:C oronary artery disease involving solomon coronary artery of solomon heart without angina pectoris,Paroxysmal atrial fibrillation (HCC) [...] the morning. 90 Tablet 3 04/24/2023 Active predniSONE 20 MG Oral Tablet (Deltasone) [...] fibrillation 02/18/2015 Coronary artery disease invo lving solomon coronary artery of solomon heart without angina pectoris 02/18/2015 HTN, goal [...] mRNA, LNP-s, No Pre serve, 2-Dose Series (Zondle) 11/19/2020,04/24/2020,03/29/2020 Hepatitis B, 20+ yrs 12/07/2016,06/15/2016,03/16 Pneumococcal [...] encounter Miscellaneous Notes * Telephone Encounter - Sara Flores RN - 05/15/2023 1:11 PM EDT Images from the original note were not included. Transitions of Care Note Reason for Referral:Recent Admission Phone visit for follow up: [facility] Admitted to: [facility], Date: 05/09 Discharged to: Home Self Care, Date: 05/11 Diagnosis driving hospitalization: Severe Vascular Diseas Low Blood Pressure UTI Source/Contact: Patient SUBJECTIVE Consent: Verbal consent for review of hospital discharge: Yes REVIEW OF SYSTEMS Patient/Other Reports: Current patient/caregiver problems or concerns: Feeling good. Was concerned about his BP readings that are elevated, which is understandable as many of his previous BP medications have been discontinued. Encouraged pt to continue to take BP BID and report to Dr. Eisenberg at his appointment on the . CV: Denies problems Pulmonary: Denies problems Chills/Sweats/Fever:Denies chills/sweats Denies fever Appetite:Denies problems such as nausea, vomiting, burning, decreased appetite Current diet: Diabetic Bowel: denies problems Bladder: denies problems Wound (If applicable): N/A Pain:Denies Sleep:Denies problems FUNCTIONAL STATUS: ADL'S: Needs Assistance With:N/A as pt is independent IADL'S: Needs Assistance With:N/A as pt is independent Cognitive and Mental Health: denies problems, alert and oriented x 3, and able to communicate, understand instructions, process information. MEDICATION RECONCILIATION Medications: Discharge med list reviewed with patient or caregiver New medication(s) filled since hospitalization- see below Discontinued medication(s) since hospitalization- see below Reports all medications taken as prescribed. Denies side effects ASSESSMENT Medication Risk Assessment: No risks identified Did patient fail outpatient treatment? Yes Discharge instructions available for review? Yes PLAN Symptom Monitoring Interventions:Member/caregiver education - signs and symptoms to contact PrimaryCare (DO NOT DELETE-Three brown symptoms patient is to report to PCP) 1. Cough 2. Fever 3. Increased swelling of legs Career Services CoordinatorGlass Silverer of Care interventions/Action Plan: 5 - 7 day follow-up with PCP in place - Date: Dr. Eisenberg 05/19/1219, Cardiology 05/23, Dr. Montoya 05/25 Educated on role of [facility] completed with patient/caregiver. Educated patient/caregiver on patient right to have input on [facility] plan of care. Verification of Home Health/DME if indicated: NO n/a Identified Care Gaps: Yes Care Gaps closed this call: Appointment made or confirmed and Transition of Care follow-up communication Re-evaluation of Plan of Care and progress towards goals achievement: Patient education this visit: Verbal, Encouraged fluids, encouraged use of probiotic while on antibiotics. Plan to discharge needs met, verbalizes understanding and agrees with plan. Sara Borrero, LYNN documented in this encounter Plan of Treatment Upcoming Encounters Date Type Department Care Team (Late st Contact Info) Description 05/19/2023 12:20 PM EDT Office Visit Family Practice [facility] [address] [place] [address] Eliud Eisenberg MD [address] [place] [address] 05/24/2023 3:00 PM EDT Office Visit Cardiology, [facility] [address] [place] [address] Ridge Barr MD [address] [place] [address] 05/30/2023 10:00 AM EDT Office Visit Urology, [place] [address] [place] [address] Chivo Solis PA-C [address] [place], [place] [id number] 06/28/2023 8:30 AM EDT Office Visit Pharmacy, [facility] [address] [place] [address] [facility] [address] [place] [address] 08/23/2023 8:45 AM EDT Office Visit Orthopaedics [facility] [address] [place] [address] Jamil Hills PA-C [address] [place] [address] 11/02/2023 10:00 AM EDT Office Visit Sleep Disorders Ctr [facility] [address] [place] [address] [phone] Nichol Caballero DO [address] [place] [address] 01/22/2024 8:00 AM EST [facility] [address] [facility] [place] [address] Branden, Nurse Annual Wellness [facility] [address] [place] [address] Scheduled Procedures Name Priority Associated Diagnoses Date/Ti [...] 023, 11/19/2018, 04/05/2017 CKD HGB USE SMARTSET 68974 10/20/202310/19, 10/19/2022, 09/16/2022, Additional history exists GFR 10/27/2023 04/26/2023, 0804/2022, 09/16/2022, Additional history exists CKD PHOS USE SMARTSET 43983 11/19/2023 100 07/2022, 11/12/2021, 04/01/2020 Diabetic Foot [...] this encounter Medical Devices Implanted Type Area Stamp Collector Device Identifier Shelf Expiration Date Model / Serial / Lot Lens Intraoc 16.5 - [id number] - [id number] Implanted:Qty: 1 on 11/14/2019 by Elmo Apodaca MD at OR [facility] Left: Eye BA[employer]CH [employer] LOMB 03/15/2024 [id number] / [id number] / [id number] Lens Intraoc 16.5 - [id number] - [id number] Implanted:Qty: 1 on 11/28/2019 by Elmo Apodaca MD at OR [facility] Right: Eye BAUSCH & LOMB 04/12/2024 [id number] / [id number] / [id number] documented as of this encounter Advance Directives Latest Code Status on File Code Status Date Activated Date Inactivated Comments Full Code 07/15/2015 2:43 PM 07/16/2015 12:56 PM This o rder reflects the patients wishes and were consensually agreed upon. Care Teams Mixed Signal Design Engineer Relationship Specialty Start Date End Date Eliud Eisenberg MD [address] [place] [address] PCP - General Family Medicine 10/20/21 documented as of this encounter
--- OUTSIDE RECORDS SUMMARY | 2023-06-21 22:49 | External Medical Summary | Summary of Care ---
Author Name Unknown Organization [facility] Address [address] [facility] [place] [address] Phone [phone] Care Team Providers Care Grievance And Appeals Specialist Name Role Phone Leonard Eisenberg MD Primary Care Provider [phone] Reason for Visit * Reason Comments Hospital Follow-Up Encounter Details Date Type Department Care Team (Late st Contact Info) Description 05/24/2023 3:00 PM EDT Office Visit Cardiology, [facility] [address] [place] [address] Ridge Barr MD [address] [place] [address] Paroxysmal atrial fibrillation (HCC)*; Coronary artery disease involving gambell coronary artery of gambell heart without angina pectoris; S/P primary angioplasty with coronary stent; HTN, goal below 140/90; Dyslipidemia, goal LDL below 70 Allergies Active Allergy Reactions Criticality Noted Date Comments Sulfamethoxazole-Trimet hoprim Other (Please comment) 09/20/2017 hyperkalmeia Lisinopril 09/15/2022 ?cough Trimethoprim High 11/23/2021 Other reaction(s): acute renal failure documented as of this encounter (statuses as of 05/24/2023) Medications Medication Sig Dispensed Refills Start Date [...] 1 Tablet by mouth every evening. 6 02/26/2016 Active LYRICA 225 MG Capsule [...] Tablet Sublingual (Nitrostat)Indicat ions:Coronary artery disease involving gambell coronary artery of gambell heart without angina pectoris Place under the [...] by mouth in the morning. 0 Active Ipratropium Dalton HFA 17 MCG/ACT Inhalation Aerosol Solution (Atrovent Hfa) Inhale 2 Puffs by mouth every 6 hours. 12.9 g 5 10/19/2022 Active Additional Information Patient not taking.Reported on 05/24/2023 Biotene Dry Mouth Mouth/Throat Lozenge Apply 1 [...] insulin pump 90 mL 1 01/10/2023 Active Fluticasone-Salmet isabelle 500-50 MCG/ACT Inhalation Aerosol Powder Breath Activated (Advair Diskus) Inhale 1 Puff by mouth in the morning and 1 Puff before bedtime. 180 Each 3 04/11/2023 Active Additional Information Patient not taking.Reported on 05/24/2023 MobiPixieipod DASH Pods (Gen 4) Use as directed. Use 1 pod every 2 days 30 Each 1 04/24/2023 Active Pantoprazole Sodium 40 MG Oral Tablet Delayed Release (Protonix) Take 1 Tablet by mouth in the morning. 90 Tablet 3 05/16/2023 Active DULoxetine HCl 60 MG Oral Capsule Delayed Release Particles (Cymbalta) Take 1 Capsule by mouth in the morning and 1 Capsule before bedtime. 90 Capsule 3 05/19/2023 Active Metoprolol Succinate ER 25 MG Oral Tablet Extended Release 24 Hour (toPROL XL)Indications:Par oxysmal atrial fibrillation (HCC),Coronary artery disease involving gambell coronary artery of gambell heart without angina pectoris,S/P primary angioplasty with coronary stent,HTN, goal below 140/90 Take 0.5 Tablets by mouth in the morning and 0.5 Tablets before bedtime. 90 Tablet 3 05/24/2023 Active Rosuvastatin Calcium 20 MG Oral Tablet (Crestor)Indicatio ns:Coronary artery disease involving gambell coronary artery of gambell heart without angina pectoris,S/P primary angioplasty with coronary stent,Dyslipidemia , goal LDL below 70 Take 1 Tablet by mouth at bedtime. 90 Tablet 3 05/24/2023 Active Cefdinir 300 MG Oral Capsule (Omnicef) 1 Capsule. 0 05/12/2023 Discontinue d(End of Procedure) Metoprolol Succinate ER 25 MG Oral Tablet Extended Release 24 Hour (toPROL XL) Take 0.5 Tablets by mouth in the morning and 0.5 Tablets before bedtime. 0 05/12/2023 4 Discontinue d(Refill) Rosuvastatin Calcium 20 MG Oral Tablet (Crestor) Take 1 Tablet by mouth in the morning. 0 05/12/2023 4 Discontinue d(Refill) Hospital, Clinic, or Other Facility Administered Medication Ordered Dose Route Frequency Start Date End Date Status Albuterol Sulfate (Proventil) (2.5 MG/3ML) 0.083% inhalation solution 2.5 mgIndications:KOVACS (dyspnea on exertion),Centrilobular emphysema (HCC),History of tobacco use,Morbid obesity (HCC) 2.5 mg NEBULIZER PRN 07/06/2022 Active documented as of this encounter (statuses as of 05/24/2023) Active Problems Problem Noted Date Diagnosed Date [...] fibrillation 02/18/2015 Coronary artery disease invo lving gambell coronary artery of gambell heart without angina pectoris 02/18/2015 HTN, goal below 130/80 02/18/2015 S/P carotid endarterectomy 02/18/2015 documented as of this encounter (statuses as of 05/24/2023) Resolved Problems Problem Noted Date Diagnosed Date [...] as of this encounter (statuses as of 05/24/2023) Immunizations Name Administration Dates Next Due COVID-19 mRNA, LNP-s, No Pre serve, 2-Dose Series (Quietly) 11/19/2020,04/24/2020,03/29/2020 Hepatitis B, 20+ yrs 12/07/2016,06/15/2016,03/16 Pneumococcal Conjugate Vacc, 13 Valent (Prevnar) 11/24/2014 Pneumococcal Polysaccharide PPV23 (Pneumovax) 01/13/2016,02/13/2007,12/23/2005 RSV Vac., Bivalent, Perfusio n F, Pf,0.5 Ml (Abrysvo) 04/26/2023 Seasonal Influenza, Quadriva lent Hd (Fluzone Hd) 10/25/2022,10/20/2021 Seasonal Influenza, Split, I IV3, With Preserve, Inj 11/24/2014,11/07/2013 Varicella Zoster Vaccine (Adult) 05/30/2018,0 02/2013 Zoster Vaccine Recombinant (Shingrix) 08/06/2018 ,05/30/2018 documented as of this encounter Social History Tobacco Use Types Packs/Day Years Used Date Smoking Tobacco: Former Cigarettes 2 35 0 02/13/1966 - 02/13/2001 Smokeless Tobacco: Never Tobacco Cessation:Counseling Given: [...] Sign Reading Time Taken Comments Blood Pressure 134/76 05/24/2023 3:32 PM EDT Pulse 64 05/24/2023 3:32 PM EDT Temperature - - Respiratory Rate 12 05/24/2023 3:32 PM EDT Oxygen Saturation - - Inhaled Oxygen Concentration - - Weight 117.5 kg (259 lb 1.6 oz) 05/24/2023 3:32 PM EDT Height - - Body Mass Index 38.82 05/19/2023 12:10 PM EDT documented in this encounter Progress Notes * Ridge Barr MD - 05/24/2023 3:00 PM EDT 05/24/2023 Cardiology Follow Up Referring Provider: PCP: LEONARD IESENBERG [address] [place] [address] [phone] Chief Complaint: Hospital discharge follow-up SUBJECTIVE: Po Rubio is a 72 year old year old male with ongoing cardiac issues Paroxysmal atrial fibrillation, status post successful pulmonary vein isolation 07/15/2015, remainson Eliqulily ASCVD Status post PCI of the OM with MAR on 10/27/2008 Diagnostic cardiac catheterization 03/14/2017 with diffuse nonobstructive CAD and patent left circumflex OM stent 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 Hypertension Diastolic dysfunction Dyslipidemia, LDL goal below 70 Peripheral arterial disease, right greater than left lower extremity claudication. Status post invasive lower extremity angiogram performed by vascular surgery at [facility] on 09/21/2020, There were 2 high grade stenoses/near occlusions of the distal superficial femoral artery/popliteal artery and a high grade stenosis of the tibeoperonal trunk. After angioplasty, there was good flow through these areas with preserved runoff to the foot. Carotid artery stenosis, status post right carotid enterectomy JORGE A, on CPAP CKD stage 3, urinary retention Diabetes type 2 Morbid obesity Atherosclerotic carotid disease, severe left internal carotid artery stenosis, prior remote carotidendarterectomy Patient presents now after 2 recent hospitalizations at [facility]. Initially hospitalized after acute COVID infection/COPD exacerbation on April 02, 2023. Rehospitalized after anear syncopal event on May 10, 2023 with significant downward titration of medications Left internal internal carotid artery stenosis identified Feels improved after returning home. No further dizziness lightheadedness syncope or near syncope. No neurologic complaints. Blood pressure generally well controlled. No anginal symptoms. No fevers or chills. A Complete Review of Systems is as stated above or negative. Patient Active Problem List Diagnosis Code Paroxysmal atrial fibrillation ([facility]) I48.0 Coronary artery disease involving gambell coronary artery of gambell heart without angina pectoris I25.10 HTN, goal below 130/80 I10 S/P carotid endarterectomy Z98.890 S/P primary angioplasty with coronary stent Z95.5 PAD (peripheral artery disease) ([facility]) I73.9 Dyslipidemia E78.5 Type 2 diabetes mellitus with hemoglobin A1c goal of less than 8.0% ([facility]) E11.9 JORGE A (obstructive sleep apnea) G47.33 Stage 3a chronic kidney disease ([facility]) N18.31 Morbid obesity ([facility]) E66.01 Type 2 diabetes mellitus with diabetic peripheral angiopathy without gangrene ([facility]) E11.51 Impaired functional mobility and activity tolerance Z74.09 S/P ablation of atrial fibrillation Z98.890, Z86.79 Centrilobular emphysema ([facility]) J43.2 BPH with obstruction/lower urinary tract symptoms N40.1, N13.8 Neurogenic bladder N31.9 Carotid stenosis, non-symptomatic, bilateral I65.23 Claudication in peripheral vascular disease ([facility]) I73.9 Gouty arthropathy M10.9 Jimenez's esophagus K22.70 Diabetic peripheral neuropathy ([facility]) E11.42 Spinal stenosis of lumbar region M48.061 TR (tricuspid regurgitation) I07.1 Review of patient's [...] 1 Tablet by mouth every evening. 6 LYRICA 225 MG Capsule Take 1 [...] sensor every 14 days 6 Each 3 Apixaban 5 MG Oral Tablet (Eliquis) [...] of Breath or Wheezing. 1 Each 5 B Complex Plus Oral Tablet Take 1 Tablet by mouth in the morning. Eye Health Oral Capsule Take 1 Capsule by mouth in the morning. Biotene Dry Mouth Mouth/Throat Lozenge Apply 1 [...] mouth in the morning. 90 Tablet 3 DULoxetine HCl 60 MG Oral Capsule Delayed Release Particles (Cymbalta) Take 1 Capsule by mouth in the morning and 1 Capsule before bedtime. 90 Capsule 3 Metoprolol Succinate ER 25 MG Oral Tablet Extended Release 24 Hour (toPROL XL) Take 0.5 Tablets by mouth in the morning and 0.5 Tablets before bedtime. 90 Tablet 3 Rosuvastatin Calcium 20 MG Oral Tablet (Crestor) Take 1 Tablet by mouth at bedtime. 90 Tablet 3 NOVOFINE 32G X 6 MM MISC Ipratropium Dalton HFA 17 MCG/ACT Inhalation Aerosol Solution (Atrovent Hfa) Inhale 2 Puffs by mouth every 6 hours. (Patient not taking: Reported on 05/24/2023) 12.9 g 5 Fluticasone-Salmeterol 500-50 MCG/ACT Inhalation Aerosol Powder Breath Activated (Advair Diskus) Inhale 1 Puff by mouth in the morning and 1 Puff before bedtime. (Patient not taking: Reported on 05/24/2023) 180 Each 3 Current Facility-Administered Medications Medication Dose Route Frequency Provider Last Rate Last Admin Albuterol Sulfate (Proventil) (2.5 MG/3ML) 0.083% inhalation solution 2.5 mg 2.5 mg Nebulizer Tata Martinez CRNP 2.5 mg at 07/15/22 0811 OBJECTIVE/PHYSICAL EXAMINATION: BP 134/76 (BP Site: Left Arm, BP Position: Sitting, BP Cuff Size: Large) | Pulse 64 | Resp 12 | Wt 117.5 kg (259 lb 1.6 oz) | BMI 38.82 kg/m | BSA 2.38 m General: Age appropriate obese male in no acute distress Head: normocephalic, no masses, lesions, tenderness or abnormalities Eyes: conjunctiva are pink and non-injected, sclera clear Throat: clear Nares: without discharge Neck: supple, no adenopathy, normal jugular venous pulse, no hepatojugular reflux, no carotid bruits Chest: normal shape and normal respiratory effort Lungs: clear to auscultation and percussion Cardiac Exam: - regular rate & rhythm, no murmur, gallop or rub - normal S-1, normal S-2 Abdomen: abdomen soft, non-tender, no abnormal masses, no hepatosplenomegaly, no abdominal bruit, no femoral bruit Musculoskeletal: no gait disturbance, no joint inflammation, no deforming arthritis Extremities: no edema, no cyanosis, pulses intact 2+/4 Neuro: grossly normal exam Data: EKG performed today, 05/24/2023 , and reviewed personally : sinus bradycardia with first-degree AV block, minimal voltage criteria for left hypertrophy Lipid Panel Results: Results for orders placed or performed in visit on 04/26/23 LIPID PANEL WITH DIRECT LDL IF TG IS HIGH Result Value Ref Range Triglycerides 332 (H) <=174 mg/dL Cholesterol 98 <200 mg/dL HDL Cholesterol 26 (L) >39 mg/dL Non-HDL Cholesterol 72 <=159 mg/dL ASSESSMENT: 72 year old year old male Seen post hospitalization after admission on 2 separate occasions. Initially in association with acute COVID infection/pneumonitis, 2nd with a near syncopal spell associated multifactorial complaintsincluding hypotension, orthostasis. High-grade left carotid artery stenosis identified during that admission. No evidence of arrhythmias Medications reduced with improvement in functional capacity PLAN: Complete Vascular Surgery evaluation for carotid disease. No contraindications to surgery Continue current medications with reduction in medications Blood pressures appear controlled will likely restart isosorbide mononitrate once carotid artery disease stabilized Continue to treat sleep apnea, hyperlipidemia DISPOSITION: Return 3 months Ridge Barr MD Cardiology, [facility] [address] [place] [address] documented in this encounter Nursing Notes * Katrin Cheney CMA - 05/24/2023 3:42 PM EDT Examination Room: 13 Name: Po Rubio Date of : (1950). Reason for Visit: Hospital f/u Interim Hospitalization(s): [facility] Problems/Concerns: Occasional palpitations, brief. States BP has been elevated at home. Chest Pain/SOB: Occasional episodes of CP/angina. Usually brief, no identifiable triggers. Has not used NTG. Reports SOB with any exertion. [facility] Discussed: No My [facility] is a way you can talk to your provider online through e-mail. Would you like to sign up? I can activate it for you? ALREADY ACTIVE Patient was instructed to not get up on the exam table until directed and assisted by their provider; patient is to remain seated in the chair/ wheelchair/ exam table for fall prevention and safety reasons. Patient is aware to have assistance to step down off exam table with personnel. Patient voiced full comprehension of instructions. documented in this encounter Plan of Treatment Upcoming Encounters Date Type Department Care Team (Late st Contact Info) Description 05/30/2023 10:00 AM EDT Office Visit Urology, [address] [place] [address] Chivo Solis PA-C [address] [place] [address] 06/28/2023 8:30 AM EDT Office Visit Pharmacy, [facility] [address] [facility] [place] [address] [facility] [address] [place] [address] 08/16/2023 8:30 AM EDT Office Visit Cardiology, [facility] [address] [facility] [place] [address] Ridge Barr MD [address] [place] [address] 08/18/2023 9:00 AM EDT Office Visit Family Practice [facility] [address] [place] [address] Leonard Eisenberg MD [address] [place] [address] 08/23/2023 8:45 AM EDT Office Visit Orthopaedics [facility] [address] [facility] [place] [address] Jamil Hills PA-C [address] [place] [address] 11/02/2023 10:00 AM EDT Office Visit [facility] [address] [facility] [place] [phone] Nichol Caballero DO [address] [place] [address] 01/22/2024 8:00 AM EST Nurse Only Ancillary [facility] [address] [address] Branden, Nurse [facility] [address] [place] [address] Scheduled Orders Name Type Priority Associated Diagnoses Orde r Schedule EKG EKG Routine Paroxysmal atrial fibrillation (HCC) Coronary artery disease involving gambell coronary artery of gambell heart without angina pectoris S/P primary angioplasty with coronary stent HTN, goal below 140/90 Dyslipidemia, goal LDL below 70 Ordered: 05/24/2023 Scheduled Procedures Name Priority Associated Diagnoses Date/Ti [...] 023, 11/19/2018, 04/05/2017 CKD HGB USE SMARTSET 91357 10/20/202310/19, 10/19/2022, 09/16/2022, Additional history exists GFR 10/27/2023 04/26/2023, 09/14, 09/16/2022, Additional history exists CKD PHOS USE SMARTSET 74224 11/19/2023 10/0 07/2022, 11/12/2021, 04/01/2020 Diabetic Foot [...] this encounter Medical Devices Implanted Type Area Instrument And Control Service Person Device Identifier Shelf Expiration Date Model / Serial / Lot Lens Intraoc 16.5 - [id number] - [id number] Implanted:Qty: 1 on 11/14/2019 by Elmo Apodaca MD at OR [facility] Left: Eye [employer] 03/15/2024 [id number] / [id number] / [id number] Lens Intraoc 16.5 - [id number] - [id number] Implanted:Qty: 1 on 11/28/2019 by Elmo Apodaca MD at OR [facility] Right: Eye [employer] 04/12/2024 [id number] / [id number] / [id number] documented as of this encounter Visit Diagnoses Diagnosis Paroxysmal atrial fibrillation (HCC)- Primary Atrial fibrillation Coronary artery disease involving gambell coronary artery of gambell heart without angina pectoris S/P primary angioplasty with coronary stent Postsurgical percutaneous transluminal coronary angioplasty status HTN, goal below 140/90 Unspecified essential hypertension Dyslipidemia, goal LDL below 70 Other and unspecified hyperlipidemia documented in this encounter Advance Directives Latest Code Status on File Code Status Date Activated Date Inactivated Comments Full Code 07/15/2015 2:43 PM 07/16/2015 12:56 PM This o rder reflects the patients wishes and were consensually agreed upon. Care Teams Grievance And Appeals Specialist Relationship Specialty Start Date End Date Leonard Eisenberg MD [address] [place] [address] PCP - General Family Medicine 10/20/21 documented as of this encounter"
--- OUTSIDE RECORDS SUMMARY | 2023-06-21 22:49 | External Medical Summary | Continuity of Care Document ---
Author Name Unknown Organization [facility] [address] [place], [place] [id number] Care Team Providers Care Bunker Worker Name Role Phone Dayday Montalvo Primary Care Physician [phone] [id number] Date(s): 05/25/23 - 05/25/23 [facility] [address], [address] [place] [address] [phone] Encounter Diagnosis Bilateral carotid artery stenosis(Discharge Diagnosis) - 05/25/23 Discharge Disposition: Home or Self Care Attending Physician: MD Lindsay, Gomez Garcia Allergies, Adverse Reactions, Alerts Substance Reaction Severity Status Bactrim MISTI - acute kidney injury Severe Ac tive Assessment and Plan Extracted from: Title:Clinical Document Author:DIYA Driscoll Lynn Date:05/25/23 [facility] OUTPATIENT NOTE Name: TIFFANIE OROZCO Patient Number: [id number] : 1950 Date of Service: 05/25/2023 Chief Complaint: _Follow-up appointment to discuss carotid intervention HPI: _Mr. Orozco is an elderly male who presents to Dr. Montoya's vascular surgery clinic today for follow-up appointment to discuss carotid stenosis intervention procedures. Mr. Orozco was recently at [facility] for an episode of syncope, and thoroughly evaluated there. During his workup, a 90% stenosis of his left ICA was noted on CTA. He was seen by Dr. Montoya during that hospital stay, who then ordered the neck CTA and advised him to follow-up in our office for further recommendations. Patient denies any symptoms of cerebrovascular insufficiency including amaurosis, unilateral extremity weakness numbness or tingling, difficulty speaking or swallowing, facial droop, sudden onset confusion. Additionally he denies any symptoms of headache, fever, chest pain, shortness of breath, palpitations, abdominal pain, nausea, vomiting, rest pain, claudication, nonhealing wounds or ulcers. Patient underwent a right carotid endarterectomy performed about 20 years ago at an outside facility. Patient does state that he had previously seen vascular surgery at [facility] [address] for peripheral arterial disease, having undergone a right leg angiography procedure with intervention. He believes that there was REPAIRER HELPER but no stent placement. He is unsure and we do not have those records for our review today. He denies any complaints or concerns related to his right leg. Imaging: Review of the CTA neck done at [facility] does demonstrate a severe left ICA stenosis of about 90%, and a widely patent right carotid endarterectomy site. Current Home Meds: (Last Updated 05/24 10:27) DULoxetine (DULoxetine 60 mg oral delayed release capsule) 60 mg PO Daily allopurinol (allopurinol 100 mg oral tablet) TAKE ONE TABLET BY MOUTH EVERY MORNING apixaban (Eliquis 5 mg oral tablet) 5 mg PO bid aspirin (Aspir 81 oral delayed release tablet) 81 mg PO Daily cholecalciferol (cholecalciferol 25 mcg (1000 intl units) oral capsule) 25 mcg PO Daily clopidogrel (Plavix 75 mg oral tablet) 75 mg PO Daily clopidogrel (Plavix 75 mg oral tablet) 75 mg PO Daily cyanocobalamin (Vitamin B12 1000 mcg oral tablet) 1,000 mcg PO Daily insulin aspart (insulin pump (NovoLOG)) subQ As indicated magnesium gluconate (magnesium gluconate 500 mg oral tablet) 500 mg PO bid metFORMIN (metFORMIN 1000 mg oral tablet) 1,000 mg PO bid methenamine (methenamine hippurate 1 g oral tablet) 1 g PO Daily metoprolol (Metoprolol Succinate ER 25 mg oral tablet, extended release) TAKE 1/2 TABLET BY MOUTH TWICE DAILY multivitamin with minerals (PreserVision AREDS 2 oral capsule) 1 tab po daily multivitamin (Super B Complex oral tablet) 1 tab PO Daily nitroglycerin (nitroglycerin 0.4 mg sublingual tablet) 0.4 mg SL q5min PRN: as needed for chest pain pantoprazole (pantoprazole 40 mg oral delayed release tablet) 40 mg PO Daily pregabalin (pregabalin 225 mg oral capsule) 225 mg PO qid rosuvastatin (rosuvastatin 20 mg oral tablet) TAKE ONE TABLET BY MOUTH IN THE MORNING Allergies and Sensitivities: Bactrim(MISTI - acute kidney injury) Past Medical History: Problems: Bilateral carotid artery stenosis OBJECTIVE Vitals: Last Updated 05/25/23 09:58 Date Temp BP Location Pulse RR SpO2 Pain 05/25/23 0 05/25/23 114/56 Right Arm 66 92 Vital Signs are the last 3 documented. No Orthostatic Data Available Height and Weight: Last Updated 05/25/23 09:51 Date BMI Wt(kg) Wt(lb) Method Ht(cm) (ft-in) Method 05/25/23 126.6 279 Standing Scale Heights and Weights are the last 3 documented. Physical Exam Constitutional: In general patient is an obese but healthy-appearing well- nourished well-developed elderly male no distress. He does walk with a cane. His right carotid surgical site is well-healed. His left carotid demonstrates a faint bruit. He is alert and oriented without any focal deficits. His heart is regular, his lungs are decreased throughout but clear. His lower extremities a pulses are nonpalpable, however, his toes have brisk capillary refill and are warm and pink. He does have edema of the lower extremities. ASSESSMENT: _ PLAN: _ 1 ) _right carotid artery stenosis Patient does appear to have a severe left ICA stenosis, as well as a history of a right carotid endarterectomy in the remote past. He is asymptomatic from the left ICA stenosis, however, due to the severity, we recommended surgical intervention to prevent CVA. The options of carotid endarterectomy versus transcarotid artery revascularization were discussed at length with the patient and his present. Patient elects to proceed with TCAR. The procedure risks benefits and alternatives were discussed at length with the patient by myself at Dr. Montoya's request. Patient expressed understanding and agreement to proceed. This will occur in the next few weeks at the patient's convenience. During his recent hospital stay, he was evaluated by his medical sales representative Dr. Barr, who indicated that the patient should go ahead with carotid surgery if felt to be necessary by the vascular surgical team. Patient was advised to call any other questions or concerns. He is agreeable to this plan. Thank you for letting us participate in the care of this patient. I have personally spent_36__ minutes performing wsth-py-aekl and vsg-fcix-kf-face activities on this date of service.Time does not include separately reported services. Activities Include: x__ review of the medical record _x_ obtaining a history x__ physical exam/evaluation x__ review labs _x_ review radiology reports x__ counseling/educating patient/family/caregiver __ discussion/referral to other healthcare professional x__ documenting care in the medical record __ independent interpretation of results _x_ communication of results to patient/family/caregiver x__ coordination of care Medications allopurinol 100 mg oral tablet TAKE [...] Daily, Disp# 90 tab, Refills: 3, Pharmacy: [facility], Earliest Fill Date: 06/22/23 Start [...] PO, Daily Start Date: 05/25/23 Status: Ordered Mental Status 05/25/23 Barriers to Learning one year None evide nt Mandatory Health Literacy Documentation Yes Health Literacy Communication Barriers N ever Primary Language Yoruba Problem List Condition Confirmation Course Effective Dates Status Health St atus Informant Bilateral carotid artery stenosis Confirmed Active Diagnosis Diagnosis Type Effective Dates Health Status inical Service Informant Bilateral carotid artery stenosis Discharge Diagnosis 05/25/23 Vital Signs Most recent to oldest [Reference Range]: 1 Patient Weight 126.6 kg (05/25/23 9:51 AM) Heart Rate 66 bpm (05/25/23 9:51 AM) Blood Pressure 114/56mmHg (4/11/24 9:51 AM) Cuff Pulse Pressure 58 mmHg (05/25/23 9:51 AM) BP Location # 1 Right Arm (05/25/23 9:51 AM) Social History Social History Type Response Smoking Status Never smoked cigaret rasheed Sex Male HVI Outpt Note * DIYA Driscoll Lynn: PERFORM Event Display: [facility]VI Outpt Note Authored Date: [id number] [facility] OUTPATIENT NOTE Name: TIFFANIE OROZCO Patient Number: [id number] : 1950 Date of Service: 05/25/2023 Chief Complaint: _Follow-up appointment to discuss carotid intervention HPI: _Mr. Orozco is an elderly male who presents to Dr. Montoya's vascular surgery clinic today for follow-up appointment to discuss carotid stenosis intervention procedures. Mr. Orozco was recently at [facility] for an episode of syncope, and thoroughly evaluated there. During his workup, a 90% stenosis of his left ICA was noted on CTA. He was seen by Dr. Montoya during that hospital stay, who then ordered the neck CTA and advised him to follow-up in our office for further recommendations. Patient denies any symptoms of cerebrovascular insufficiency including amaurosis, unilateral extremity weakness numbness or tingling, difficulty speaking or swallowing, facial droop, sudden onset confusion. Additionally he denies any symptoms of headache, fever, chest pain, shortness of breath, palpitations, abdominal pain, nausea, vomiting, rest pain, claudication, nonhealing wounds orulcers. Patient underwent a right carotid endarterectomy performed about 20 years ago at an outsidecility. Patient does state that he had previously seen vascular surgery at [facility] for peripheral arterial disease, having undergone a right leg angiography procedure with intervention. He believes that there was REPAIRER HELPER but no stent placement. He is unsure and we do not have those records for our review today. He denies any complaints or concerns related to his right leg. Imaging: Review of the CTA neck done at [facility] does demonstrate a severe leftICA stenosis of about 90%, and a widely patent right carotid endarterectomy site. Current Home Meds: (Last Updated 05/24 10:27) DULoxetine (DULoxetine 60 mg oral delayed release capsule) 60 mg PO Daily allopurinol (allopurinol 100 mg oral tablet) TAKE ONE TABLET BY MOUTH EVERY MORNING apixaban (Eliquis 5 mg oral tablet) 5 mg PO bid aspirin (Aspir 81 oral delayed release tablet) 81 mg PO Daily cholecalciferol (cholecalciferol 25 mcg (1000 intl units) oral capsule) 25 mcg PO Daily clopidogrel (Plavix 75 mg oral tablet) 75 mg PO Daily clopidogrel (Plavix 75 mg oral tablet) 75 mg PO Daily cyanocobalamin (Vitamin B12 1000 mcg oral tablet) 1,000 mcg PO Daily insulin aspart (insulin pump (NovoLOG)) subQ As indicated magnesium gluconate (magnesium gluconate 500 mg oral tablet) 500 mg PO bid metFORMIN (metFORMIN 1000 mg oral tablet) 1,000 mg PO bid methenamine (methenamine hippurate 1 g oral tablet) 1 g PO Daily metoprolol (Metoprolol Succinate ER 25 mg oral tablet, extended release) TAKE 1/2 TABLET BY MOUTH TWICE DAILY multivitamin with minerals (PreserVision AREDS 2 oral capsule) 1 tab po daily multivitamin (Super B Complex oral tablet) 1 tab PO Daily nitroglycerin (nitroglycerin 0.4 mg sublingual tablet) 0.4 mg SL q5min PRN: as needed for chest pain pantoprazole (pantoprazole 40 mg oral delayed release tablet) 40 mg PO Daily pregabalin (pregabalin 225 mg oral capsule) 225 mg PO qid rosuvastatin (rosuvastatin 20 mg oral tablet) TAKE ONE TABLET BY MOUTH IN THE MORNING Allergies and Sensitivities: Bactrim(MISTI - acute kidney injury) Past Medical History: Problems: Bilateral carotid artery stenosis OBJECTIVE Vitals: Last Updated 05/25/23 09:58 Date Temp BP Location Pulse RR SpO2 Pain 05/25/23 0 05/25/23 114/56 Right Arm 66 92 Vital Signs are the last 3 documented. No Orthostatic Data Available Height and Weight: Last Updated 05/25/23 09:51 Date BMI Wt(kg) Wt(lb) Method Ht(cm) (ft-in) Method 05/25/23 126.6 279 Standing Scale Heights and Weights are the last 3 documented. Physical Exam Constitutional: In general patient is an obese but healthy-appearing well- nourished well-developed elderly male no distress. He does walk with a cane. His right carotid surgical site is well-healed. His left carotid demonstrates a faint bruit. He is alert and oriented without any focal deficits. His heart is regular, his lungs are decreased throughout but clear. His lower extremities a pulses arenonpalpable, however, his toes have brisk capillary refill and are warm and pink. He does have edema of the lower extremities. ASSESSMENT: _ PLAN: _ 1 ) _right carotid artery stenosis Patient does appear to have a severe left ICA stenosis, as well as a history of a right carotid endarterectomy in the remote past. He is asymptomatic from the left ICA stenosis, however, due to the severity, we recommended surgical intervention to prevent CVA. The options of carotid endarterectomy versus transcarotid artery revascularization were discussed at length with the patient and his present. Patient elects to proceed with TCAR. The procedure risks benefits and alternatives were discussed at length with the patient by myself at Dr. Montoya's request. Patient expressed understandingand agreement to proceed. This will occur in the next few weeks at the patient's convenience. During his recent hospital stay, he was evaluated by his medical sales representative Dr. Barr, who indicated that the patient should go ahead with carotid surgery if felt to be necessary by the vascular surgical team. Patient was advised to call any other questions or concerns. He is agreeable to this plan. Thank you for letting us participate in the care of this patient. I have personally spent_36__ minutes performing vvjw-yx-fvwi and fpv-etmf-gn-face activities on this date of service.Time does not include separately reported services. Activities Include: x__ review of the medical record _x_ obtaining a history x__ physical exam/evaluation x__ review labs _x_ review radiology reports x__ counseling/educating patient/family/caregiver __ discussion/referral to other healthcare professional x__ documenting care in the medical record __ independent interpretation of results _x_ communication of results to patient/family/caregiver x__ coordination of care Electronic Signature on File CC: Dayday Montalvo MD [address] [place] [id number] * CC: Ridge Barr MD [address] [facility] [id number] * Electronically Reviewed/Signed by: Tata Driscoll PA-C Author Signature Dt/Tm:05/25/2023 03:13 PM [facility] [place] [address] [facility], [address] [place] [address] LM Patient Care team information Care Team Personnel Name: MD Selvin, Dayday Viramontes Position: Referring Member Role: Primary Care Provider Address: Address: [address] [place] [address] [address] [place] [address] [place] Name: DIYA Driscoll Lynn Position: Physician Chain Sales Representative Exempt - Vasc Surg Member Role: Lifetime Relationship Address: Address: [address] [place] [address] [address] [place] [address] [place] Care Team Related Persons Name: CECILE OROZCO Address: home [address] [place], [place] [id number]
[2023-06-22 00:22] VITALS: TEMP 98.4
[2023-06-22] MEDS: INSULIN ASPART PER UNIT CHARGE SC SCH (00:28)
[2023-06-22] MEDS: PHENYLEPHRINE HCL 25 MG/250 ML NSS IV ONE (02:15)
[2023-06-22 05:09] LABS: Basophils # (auto) 0.04 K/uL (0.00-0.20); Basophils % (auto) 0.5 %; Eosinophils # (auto) 0.09 K/uL (0.00-0.50); Eosinophils % (auto) 1.2 %; Hematocrit (blood only) 38.7 % (42.0-52.0); Hemoglobin 12.5 g/dl (14.0-18.0); Immature Granulocytes # (auto) 0.03 K/uL (0.01-0.20); Immature Granulocytes % (auto) 0.4 %; Lymphocytes # (auto) 2.18 K/uL (1.20-3.40); Mean Corpuscular Hemoglobin 28.6 pg (25.0-34.0); Mean Corpuscular Hgb Conc 32.3 g/dL (32.0-36.0); Mean Corpuscular Volume 88.6 fL (80.0-100.0); Mean Platelet Volume 10.9 fL (9.4-12.4); Monocytes # (auto) 0.86 K/uL (0.11-0.59); Monocytes % (auto) 11.4 %; Neutrophils # (auto) 4.33 K/uL (1.40-6.50); Neutrophils % (auto) 57.5 %; Platelet Count 199 K/uL (130-400); RDW Coefficient of Variation 15.3 % (11.5-14.5); RDW Standard Deviation 49.5 fL (36.4-46.3); Red Blood Count 4.37 M/uL (4.70-6.10); White Blood Count 7.53 K/ul (4.8-10.8)
--- NOTE | 2023-06-22 07:58 | Critical Care Progress Note ---
Date of Service June 22, 2023 Assessment & Plan (1) Stenosis of left internal carotid artery: (2) Hypotension: Plan Impression: 72-year-old male with history of peripheral vascular disease, diabetes, hypertension -postop day 1 status post left TCAR. He continues to require low-dose of Harry-Synephrine. Sudafed has not been effective and weaning him off Recommendation: 1. Status post TCAR: Management per vascular surgery. Anticoagulation per vascular surgery. 2. Hypotension: Start midodrine 10 mg 3 times a day. Discontinue Sudafed. Wean Harry-Synephrine as tolerated. Suspect related to anesthesia 3. Diabetes: Continue glycemic control. Can likely restart metformin in the next 1 to 2 days 4. Renal insufficiency: Baseline creatinine appears to be close to normal. Continue to follow clinically for now. 5. Sleep disordered breathing: The patient will have his bring in his CPAP and he can continue to use it at night. Patient appears to be improving clinically. If we can wean him off of Harry- Synephrine, disposition can be dictated by vascular surgery. Admission and Anticipated Discharge Date Admission Date: June 21, 2023 Subjective Patient seen and examined. EMR reviewed. This morning the patient is awake alert and eating breakfast. He continues to require low-dose of Harry-Synephrine. Attempts to wean him off of been unsuccessful. He is not having any neck pain. No voice changes. No hoarseness. No difficulty swallowing. No neurological complaints. No chest pain palpitations or shortness of breath. Review of Systems Review of Systems: All systems reviewed & are unremarkable except as noted in Subjective Physical Exam Constitutional: WD/WN, vitals as above Neck: trachea midline, no thyromegaly Respiratory: normal respiratory effort, lungs clear to auscultation Cardiovascular: RRR, no murmur, no edema Gastrointestinal (Abdomen): normal bowel sounds, soft, nontender, no hepatosplenomegaly Musculoskeletal: Extremities: extremities normal to inspection Skin: no rashes, warm and dry Lymphatic: no cervical lymphadenopathy Results & Data Results & Data Vital Signs (Past 12 Hours) Vital Signs Temp Pulse Resp BP BP Pulse Ox 06/22/23 07:28 86/41 L 06/22/23 06:33 44 L 18 96 06/22/23 06:30 126/63 06/22/23 06:29 42 L 18 96 06/22/23 06:00 108/59 L 06/22/23 06:00 46 L 18 96 06/22/23 05:34 105/43 L 06/22/23 05:34 56 L 97 06/22/23 05:30 48 L 96 06/22/23 05:01 115/46 L 06/22/23 05:01 47 L 95 06/22/23 04:32 70 98 06/22/23 04:32 141/58 H 06/22/23 04:30 62 98 06/22/23 04:01 108/51 L 06/22/23 04:01 79 98 06/22/23 04:00 74 96 06/22/23 04:00 36.9 C 06/22/23 03:30 128/60 06/22/23 03:30 47 L 15 95 06/22/23 03:00 110/54 L 06/22/23 03:00 49 L 15 89 L 06/22/23 02:31 48 L 16 95 06/22/23 02:31 132/61 06/22/23 02:30 50 L 14 97 06/22/23 02:00 47 L 19 94 06/22/23 01:30 46 L 16 96 06/22/23 01:00 49 L 18 95 06/22/23 00:31 50 L 18 95 06/22/23 00:31 112/63 06/22/23 00:30 49 L 20 95 06/22/23 00:01 127/55 L 06/22/23 00:01 49 L 15 98 06/22/23 00:00 36.9 C 06/22/23 00:00 54 L 06/21/23 23:30 49 L 18 97 06/21/23 23:30 152/65 H 06/21/23 23:00 51 L 14 92 06/21/23 23:00 140/61 06/21/23 22:30 130/59 L 06/21/23 22:30 55 L 15 90 06/21/23 22:07 100/46 L 06/21/23 22:07 53 L 15 94 06/21/23 22:01 56 L 25 H 97 06/21/23 22:00 58 L 15 97 06/21/23 21:30 57 L 15 91 06/21/23 21:00 58 L 21 97 06/21/23 20:42 91/46 L 06/21/23 20:42 59 L 13 95 06/21/23 20:30 105/48 L 06/21/23 20:30 50 L 17 97 06/21/23 20:00 116/43 L 06/21/23 20:00 51 L 17 96 06/21/23 20:00 36.8 C Critical Care Results & Data Vital Signs (Past 12 Hours) Vital Signs Temp Pulse Resp BP BP Pulse Ox 06/22/23 07:28 86/41 L 06/22/23 06:33 44 L 18 96 06/22/23 06:30 126/63 06/22/23 06:29 42 L 18 96 06/22/23 06:00 108/59 L 06/22/23 06:00 46 L 18 96 06/22/23 05:34 105/43 L 06/22/23 05:34 56 L 97 06/22/23 05:30 48 L 96 06/22/23 05:01 115/46 L 06/22/23 05:01 47 L 95 06/22/23 04:32 70 98 06/22/23 04:32 141/58 H 06/22/23 04:30 62 98 06/22/23 04:01 108/51 L 06/22/23 04:01 79 98 06/22/23 04:00 74 96 06/22/23 04:00 36.9 C 06/22/23 03:30 128/60 06/22/23 03:30 47 L 15 95 06/22/23 03:00 110/54 L 06/22/23 03:00 49 L 15 89 L 06/22/23 02:31 48 L 16 95 06/22/23 02:31 132/61 06/22/23 02:30 50 L 14 97 06/22/23 02:00 47 L 19 94 06/22/23 01:30 46 L 16 96 06/22/23 01:00 49 L 18 95 06/22/23 00:31 50 L 18 95 06/22/23 00:31 112/63 06/22/23 00:30 49 L 20 95 06/22/23 00:01 127/55 L 06/22/23 00:01 49 L 15 98 06/22/23 00:00 36.9 C 06/22/23 00:00 54 L 06/21/23 23:30 49 L 18 97 06/21/23 23:30 152/65 H 06/21/23 23:00 51 L 14 92 06/21/23 23:00 140/61 06/21/23 22:30 130/59 L 06/21/23 22:30 55 L 15 90 06/21/23 22:07 100/46 L 06/21/23 22:07 53 L 15 94 06/21/23 22:01 56 L 25 H 97 06/21/23 22:00 58 L 15 97 06/21/23 21:30 57 L 15 91 06/21/23 21:00 58 L 21 97 06/21/23 20:42 91/46 L 06/21/23 20:42 59 L 13 95 06/21/23 20:30 105/48 L 06/21/23 20:30 50 L 17 97 06/21/23 20:00 116/43 L 06/21/23 20:00 51 L 17 96 06/21/23 20:00 36.8 C Lab & Micro Results (Past 24 Hours) RBC 4.37 M/uL (4.70-6.10) L 06/22/23 WBC 7.53 K/ul (4.8-10.8) 06/22/23 Hgb 12.5 g/dl (14.0-18.0) L 06/22/23 Hct 38.7 % (42.0-52.0) L 06/22/23 MCV 88.6 fL (80.0-100.0) 06/22/23 MCH 28.6 pg (25.0-34.0) 06/22/23 MCHC 32.3 g/dL (32.0-36.0) 06/22/23 RDW Standard Deviation 49.5 fL (36.4-46.3) H 06/22/23 RDW Coefficient of Variation 15.3 % (11.5-14.5) H 06/22/23 Plt Count 199 K/uL (130-400) 06/22/23 MPV 10.9 fL (9.4-12.4) 06/22/23 Neutrophils (%) (Auto) 57.5 % 06/22/23 Lymphocytes (%) (Auto) 29.0 % 06/22/23 Monocytes # (Auto) 0.86 K/uL (0.11-0.59) H 06/22/23 Eosinophils # (Auto) 0.09 K/uL (0.00-0.50) 06/22/23 Immature Granulocyte % (Auto) 0.4 % 06/22/23 Neutrophils # (Auto) 4.33 K/uL (1.40-6.50) 06/22/23 Lymphocytes # (Auto) 2.18 K/uL (1.20-3.40) 06/22/23 Monocytes # (Auto) 0.86 K/uL (0.11-0.59) H 06/22/23 Eosinophils # (Auto) 0.09 K/uL (0.00-0.50) 06/22/23 Basophils # (Auto) 0.04 K/uL (0.00-0.20) 06/22/23 Immature Granulocyte # (Auto) 0.03 K/uL (0.01-0.20) 4 Na 141 mmol/L (136-145) 06/21/23 K 4.3 mmol/L (3.5-5.1) 06/21/23 Cl 106 mmol/L (98-107) 06/21/23 CO2 28 mmol/L (21-32) 06/21/23 Anion Gap 7 (3-11) 06/21/23 BUN 19 mg/dl (6-23) 06/21/23 Creatinine 1.43 mg/dl (0.6-1.4) H 06/21/23 Estimated GFR ( Amer) 55.9 ml/min 06/21/23 Estimated GFR (Non-Af Amer) 48.2 ml/min 06/21/23 BUN/Creatinine Ratio 13.3 (10-20) 06/21/23 Glu 159 mg/dl (70-99(Fasting)) H 06/21/23 Ca 8.9 mg/dl (8.6-10.3) 06/21/23 Calcium Level 8.9 mg/dl (8.6-10.3) 06/21/23 09:37 I & O Totals 24 Hours 06/21/23 06/22/23 06/23/23 06:59 06:59 06:59 Intake Total 3065.150 / 3065.150 24.613 / 24.613 Output Total 1020 / 1020 Balance 2045.150 / 2045.150 24.613 / 24.613 Cumulative 05/25/23 11:35 thru 06/22/23 07:28 Intake Total 3089.763 Output Total 1020 Balance 2069.763 RT Ventilator Mngmt (Last Documented) Ventilator Ordered Settings Respiratory Rate 18 06/22/23 06:33 Ventilator - PT Measurements Respiratory Rate 18 Coding Level of Care Code 71159 SUB INP/OBS CARE 2/35MIN Diagnoses Stenosis of left internal carotid artery I65.22 Hypotension I95.9
[2023-06-22] MEDS: LANTUS PER UNIT CHARGE SC ONE ×2 (08:15→16:46)
[2023-06-22] MEDS: MIDODRINE HCL 10 MG TAB PO SCH (08:43)
[2023-06-22] MEDS: METHENAMINE HIPPURATE 1 GM TAB PO SCH (08:44)
[2023-06-22] MEDS: ASPIRIN 81 MG ECTAB PO SCH (08:44)
[2023-06-22] MEDS: PANTOprazole 40 MG TAB PO SCH (08:44)
[2023-06-22] MEDS: VITAMIN B COMPLEX TAB PO SCH (08:44)
[2023-06-22] MEDS: CLOPIDOGREL BISULFATE 75 MG TAB PO SCH (08:44)
[2023-06-22] MEDS: CHOLECALCIFEROL 25 MCG (1000 UNITS) TAB PO SCH (08:44)
[2023-06-22] MEDS: ROSUVASTATIN CALCIUM 20 MG TAB PO SCH (08:45)
[2023-06-22] MEDS: CYANOCOBALAMIN (B-12) 500 MCG TABLET PO SCH (08:45)
[2023-06-22] MEDS: allopurinoL 100 MG TAB PO SCH (08:45)
[2023-06-22] MEDS: Continuous Glucose Monitor SCH (11:33)
--- NOTE | 2023-06-22 12:25 | Pharmacy Report ---
Pharmacy Glycemic Short Note 2 - Date of Service June 22, 2023 - Glycemic Short BSG Results (Last 24 hours): 06/21/23 06/21/23 06/21/23 14:40 16:18 20:56 POC Glucose 192 H 212 H 153 H 06/22/23 06/22/23 06/22/23 00:24 04:13 07:17 POC Glucose 188 H 204 H 220 H 06/22/23 10:56 POC Glucose 242 H OUTPATIENT ANTIDIABETIC REGIMEN: * Metformin 1000mg PO BID * Omnipod Novolog pump * Basal: 3.4 units/hr * SF: 15, CR: 4 * HbA1c: 9.9% (05/11/23) ASSESSMENT: 06/21 * BSGs somewhat elevated above goal despite current SQ insulin regimen. Likely due to basal insulin deficiency plus stress of surgery/pressor requirements. * Will adjust basal insulin dose to provide a dose closer to outpt basal dose provided by Omnipod * Will continue current Novolog CF and CR as I believe the primary deficit is basal 06/20 * 72 YO M, s/p TCAR surgery, hypotensive post-op. Will begin eating once resolved. * Patient managed on Omnipod + metformin as outpatient, will use basal bolus while inpatient per pharmacy consult. PLAN FOR INPATIENT GLYCEMIC CONTROL: * Hold outpatient Omnipod + metformin * Basal insulin * Lantus 20 units SQ x 1 dose now, then per scaled dosing BID: 0 units if BSG less than 110, 25 units if BSG 110-160, 35 units if BSG above 160 * Bolus insulin * NovoLog per scale ACHS or Q6hrs while NPO * Goal Range: Low 110 mg/dL - High 140 mg/dL * Correction Factor: 15 mg/dL/unit * Nutritional / Prandial insulin per carb ratio of 1 unit per 4 grams CHO consumed
[2023-06-22] MEDS ORDERED: Nursing to Pharmacy Communication SCH ×2 (12:45→13:00)
--- NOTE | 2023-06-22 13:08 | Surgery Progress Note ---
Date of Service June 22, 2023 Assessment & Plan (1) Stenosis of left internal carotid artery: Plan: Patient pod #1 from a left tcar. Doing well except requiring a small amount of oksana to maintain adequate BP. Most likely from post stenting [employer] effecting the baroreceptors of the carotid. Admission and Anticipated Discharge Date Admission Date: June 21, 2023 Subjective Patient with no complaints. Sitting in chair. Still on oksana drip for BP. Physical Exam Constitutional: WD/WN, vitals as above Neck: trachea midline Respiratory: normal respiratory effort; no respiratory distress Cardiovascular: Rate/Rhythm: regular rate and regular rhythm Skin: + incision (dry and clean) Neurologic: CN's II-XI intact bilaterally and moves all extremities Psychiatric: Orientation: alert and oriented x 3 Results & Data Vital Signs (Past 12 Hours) Vital Signs Temp Pulse Resp BP BP Pulse Ox O2 Del Method 06/22/23 12:37 144/52 H 06/22/23 12:00 44 L 21 92 06/22/23 11:31 52 L 30 H 77 L 06/22/23 10:01 118/53 L 06/22/23 10:01 41 L 24 92 Room Air 06/22/23 09:16 134/47 L 06/22/23 09:01 46 L 16 97 06/22/23 09:01 137/59 L 06/22/23 08:00 53 L 06/22/23 08:00 134/60 06/22/23 08:00 47 L 18 96 06/22/23 07:28 86/41 L 06/22/23 07:00 120/68 06/22/23 07:00 45 L 12 96 Nasal Cannula 06/22/23 06:33 44 L 18 96 06/22/23 06:30 126/63 06/22/23 06:29 42 L 18 96 06/22/23 06:00 108/59 L 06/22/23 06:00 46 L 18 96 06/22/23 05:34 105/43 L 06/22/23 05:34 56 L 97 06/22/23 05:30 48 L 96 06/22/23 05:01 115/46 L 06/22/23 05:01 47 L 95 06/22/23 04:32 70 98 06/22/23 04:32 141/58 H 06/22/23 04:30 62 98 06/22/23 04:01 108/51 L 06/22/23 04:01 79 98 06/22/23 04:00 74 96 06/22/23 04:00 36.9 C 06/22/23 03:30 128/60 06/22/23 03:30 47 L 15 95 06/22/23 03:00 110/54 L 06/22/23 03:00 49 L 15 89 L 06/22/23 02:31 48 L 16 95 06/22/23 02:31 132/61 06/22/23 02:30 50 L 14 97 06/22/23 02:00 47 L 19 94 06/22/23 01:30 46 L 16 96 O2 Flow Rate 06/22/23 12:37 06/22/23 12:00 06/22/23 11:31 06/22/23 10:01 06/22/23 10:01 06/22/23 09:16 06/22/23 09:01 06/22/23 09:01 06/22/23 08:00 06/22/23 08:00 06/22/23 08:00 06/22/23 07:28 06/22/23 07:00 06/22/23 07:00 4 06/22/23 06:33 06/22/23 06:30 06/22/23 06:29 06/22/23 06:00 06/22/23 06:00 06/22/23 05:34 06/22/23 05:34 06/22/23 05:30 06/22/23 05:01 06/22/23 05:01 06/22/23 04:32 06/22/23 04:32 06/22/23 04:30 06/22/23 04:01 06/22/23 04:01 06/22/23 04:00 06/22/23 04:00 06/22/23 03:30 06/22/23 03:30 06/22/23 03:00 06/22/23 03:00 06/22/23 02:31 06/22/23 02:31 06/22/23 02:30 06/22/23 02:00 06/22/23 01:30
[2023-06-22] MEDS: DULoxetine HCL 60 MG CAP PO ONE (13:31)
[2023-06-22] MEDS: PHENYLEPHRINE/NSS 25 MG/250 ML BAG IV PRN (13:32)
[2023-06-22] MEDS: DULoxetine HCL 60 MG CAP PO SCH (20:38)
[2023-06-22] MEDS ORDERED: LANTUS PER UNIT CHARGE SC SCH (21:00)
--- NOTE | 2023-06-23 07:40 | Critical Care Progress Note ---
Date of Service June 23, 2023 Assessment & Plan (1) Stenosis of left internal carotid artery: (2) Hypotension: Plan Impression: 72-year-old male with history of peripheral vascular disease, diabetes, hypertension - status post left TCAR. He is now off vasopressor agents and doing well clinically. Recommendation: 1. Status post TCAR: Management per vascular surgery. Anticoagulation per vascular surgery. 2. Hypotension: Resolved. Discontinue midodrine. 3. Diabetes: Continue glycemic control. Okay to restart metformin at 500 twice daily 4. Renal insufficiency: Baseline creatinine appears to be close to normal. Continue to follow clinically for now. 5. Sleep disordered breathing: Continue nightly sleep Patient's critical care issues have resolved. Critical care will sign off. Disposition per vascular surgery Admission and Anticipated Discharge Date Admission Date: June 21, 2023 Subjective Patient seen and examined. EMR reviewed. Discussed on multidisciplinary rounds and with bedside critical care nurse. Patient is awake alert conversant sitting up eating breakfast. He is transferred to the bed. His hypotension is resolved and has been off Harry- Synephrine. He denies any chest pain or palpitations. No shortness of breath. No nausea or vomiting. No neurological complaints. He slept well. He offers no complaints this morning Review of Systems Review of Systems: All systems reviewed & are unremarkable except as noted in Subjective Physical Exam Constitutional: WD/WN, vitals as above Neck: trachea midline, no thyromegaly Respiratory: normal respiratory effort, lungs clear to auscultation Cardiovascular: RRR, no murmur, no edema Gastrointestinal (Abdomen): normal bowel sounds, soft, nontender, no hepatosplenomegaly Musculoskeletal: Extremities: extremities normal to inspection Skin: no rashes, warm and dry Lymphatic: no cervical lymphadenopathy Results & Data Results & Data Vital Signs (Past 12 Hours) Vital Signs Temp Pulse Resp BP Pulse Ox 06/23/23 06:30 156/68 H 06/23/23 06:30 44 L 19 95 06/23/23 06:01 151/82 H 06/23/23 06:01 51 L 15 97 06/23/23 06:00 50 L 19 97 06/23/23 05:31 135/46 L 06/23/23 05:31 43 L 17 97 06/23/23 05:01 42 L 18 98 06/23/23 05:01 135/56 L 06/23/23 05:00 41 L 18 98 06/23/23 04:31 171/69 H 06/23/23 04:31 44 L 16 96 06/23/23 04:01 49 L 18 97 06/23/23 04:01 133/62 06/23/23 04:00 57 L 19 96 06/23/23 04:00 36.9 C 06/23/23 03:31 161/66 H 06/23/23 03:31 42 L 18 96 06/23/23 03:01 60 16 92 06/23/23 03:01 145/62 H 06/23/23 03:00 69 17 100 06/23/23 02:30 153/54 H 06/23/23 02:30 46 L 20 99 06/23/23 02:00 123/52 L 06/23/23 02:00 47 L 16 96 06/23/23 01:30 54 L 18 93 06/23/23 01:30 135/57 L 06/23/23 01:01 132/51 L 06/23/23 01:01 45 L 16 92 06/23/23 01:00 46 L 17 90 06/23/23 00:31 101/38 L 06/23/23 00:31 47 L 19 89 L 06/23/23 00:01 114/54 L 06/23/23 00:01 46 L 17 89 L 06/23/23 00:00 48 L 18 91 06/23/23 00:00 36.9 C 06/23/23 00:00 47 L 06/22/23 23:31 123/46 L 06/22/23 23:31 44 L 18 91 06/22/23 23:09 88/46 L 06/22/23 23:09 52 L 15 88 L 06/22/23 23:00 53 L 14 90 06/22/23 22:30 48 L 16 89 L 06/22/23 22:30 99/53 L 06/22/23 22:01 48 L 18 86 L 06/22/23 22:01 122/53 L 06/22/23 22:00 45 L 14 87 L 06/22/23 21:30 43 L 13 92 06/22/23 21:30 136/64 06/22/23 21:00 44 L 19 92 06/22/23 21:00 121/56 L 06/22/23 20:31 119/54 L 06/22/23 20:31 42 L 19 93 06/22/23 20:00 36.9 C 06/22/23 20:00 132/53 L 06/22/23 20:00 42 L 17 96 Critical Care Results & Data Vital Signs (Past 12 Hours) Vital Signs Temp Pulse Resp BP Pulse Ox 06/23/23 06:30 156/68 H 06/23/23 06:30 44 L 19 95 06/23/23 06:01 151/82 H 06/23/23 06:01 51 L 15 97 06/23/23 06:00 50 L 19 97 06/23/23 05:31 135/46 L 06/23/23 05:31 43 L 17 97 06/23/23 05:01 42 L 18 98 06/23/23 05:01 135/56 L 06/23/23 05:00 41 L 18 98 06/23/23 04:31 171/69 H 06/23/23 04:31 44 L 16 96 06/23/23 04:01 49 L 18 97 06/23/23 04:01 133/62 06/23/23 04:00 57 L 19 96 06/23/23 04:00 36.9 C 06/23/23 03:31 161/66 H 06/23/23 03:31 42 L 18 96 06/23/23 03:01 60 16 92 06/23/23 03:01 145/62 H 06/23/23 03:00 69 17 100 06/23/23 02:30 153/54 H 06/23/23 02:30 46 L 20 99 06/23/23 02:00 123/52 L 06/23/23 02:00 47 L 16 96 06/23/23 01:30 54 L 18 93 06/23/23 01:30 135/57 L 06/23/23 01:01 132/51 L 06/23/23 01:01 45 L 16 92 06/23/23 01:00 46 L 17 90 06/23/23 00:31 101/38 L 06/23/23 00:31 47 L 19 89 L 06/23/23 00:01 114/54 L 06/23/23 00:01 46 L 17 89 L 06/23/23 00:00 48 L 18 91 06/23/23 00:00 36.9 C 06/23/23 00:00 47 L 06/22/23 23:31 123/46 L 06/22/23 23:31 44 L 18 91 06/22/23 23:09 88/46 L 06/22/23 23:09 52 L 15 88 L 06/22/23 23:00 53 L 14 90 06/22/23 22:30 48 L 16 89 L 06/22/23 22:30 99/53 L 06/22/23 22:01 48 L 18 86 L 06/22/23 22:01 122/53 L 06/22/23 22:00 45 L 14 87 L 06/22/23 21:30 43 L 13 92 06/22/23 21:30 136/64 06/22/23 21:00 44 L 19 92 06/22/23 21:00 121/56 L 06/22/23 20:31 119/54 L 06/22/23 20:31 42 L 19 93 06/22/23 20:00 36.9 C 06/22/23 20:00 132/53 L 06/22/23 20:00 42 L 17 96 Lab & Micro Results (Past 24 Hours) No Data to Display No Data to Display No Data to Display I & O Totals 24 Hours 06/22/23 06/23/23 06/24/23 06:59 06:59 06:59 Intake Total 3065.150 / 3065.150 1294.542 / 1294.542 Output Total 1020 / 1020 1000 / 1000 Balance 2045.150 / 2045.150 294.542 / 294.542 Cumulative 05/25/23 11:35 thru 06/23/23 06:30 Intake Total 4359.692 Output Total 2019 Balance 2339.692 RT Ventilator Mngmt (Last Documented) Ventilator Ordered Settings Respiratory Rate 19 06/23/23 06:30 Ventilator - PT Measurements Respiratory Rate 19 Coding Level of Care Code 41965 SUB INP/OBS CARE 2/35MIN Diagnoses Stenosis of left internal carotid artery I65.22 Hypotension I95.9
[2023-06-23] MEDS: LANTUS PER UNIT CHARGE SC SCH (08:12)
[2023-06-23 10:34] VITALS: RESP 19; O2SAT 91
[2023-06-23 10:37] VITALS: BP 119/48; PULSE 63
--- NOTE | 2023-06-23 11:31 | Surgery Progress Note ---
Date of Service June 23, 2023 Assessment & Plan (1) Stenosis of left internal carotid artery: Plan: Patient pod #2 from a left tcar. Doing well. Will d/c today. Admission and Anticipated Discharge Date Admission Date: June 21, 2023 Subjective Patient up in chair. BP doing well off support. Denies focal deficits. Physical Exam Constitutional: WD/WN, vitals as above Respiratory: normal respiratory effort; no respiratory distress Cardiovascular: Rate/Rhythm: regular rate and regular rhythm Skin: + incision (dry and clean) Neurologic: CN's II-XI intact bilaterally and moves all extremities Psychiatric: Orientation: alert and oriented x 3 Results & Data Vital Signs (Past 12 Hours) Vital Signs Temp Pulse Pulse Resp BP BP BP 06/23/23 10:36 36.9 C 63 19 119/48 L 138/50 L 06/23/23 10:31 48 L 19 06/23/23 10:01 120/70 06/23/23 10:01 49 L 19 06/23/23 10:00 50 L 18 06/23/23 09:30 123/72 06/23/23 09:30 43 L 15 06/23/23 09:00 119/52 L 06/23/23 09:00 48 L 15 06/23/23 08:30 102/47 L 06/23/23 08:30 51 L 19 06/23/23 08:30 63 06/23/23 08:00 128/52 L 06/23/23 08:00 62 19 06/23/23 08:00 06/23/23 08:00 44 L 06/23/23 08:00 06/23/23 07:31 60 14 06/23/23 07:31 144/61 H 06/23/23 07:01 150/65 H 06/23/23 07:01 43 L 17 06/23/23 07:00 43 L 15 06/23/23 06:30 156/68 H 06/23/23 06:30 44 L 19 06/23/23 06:01 151/82 H 06/23/23 06:01 51 L 15 06/23/23 06:00 50 L 19 06/23/23 05:31 135/46 L 06/23/23 05:31 43 L 17 06/23/23 05:01 42 L 18 06/23/23 05:01 135/56 L 06/23/23 05:00 41 L 18 06/23/23 04:31 171/69 H 06/23/23 04:31 44 L 16 06/23/23 04:01 49 L 18 06/23/23 04:01 133/62 06/23/23 04:00 57 L 19 06/23/23 04:00 36.9 C 06/23/23 03:31 161/66 H 06/23/23 03:31 42 L 18 06/23/23 03:01 60 16 06/23/23 03:01 145/62 H 06/23/23 03:00 69 17 06/23/23 02:30 153/54 H 06/23/23 02:30 46 L 20 06/23/23 02:00 123/52 L 06/23/23 02:00 47 L 16 06/23/23 01:30 54 L 18 06/23/23 01:30 135/57 L 06/23/23 01:01 132/51 L 06/23/23 01:01 45 L 16 06/23/23 01:00 46 L 17 06/23/23 00:31 101/38 L 06/23/23 00:31 47 L 19 06/23/23 00:01 114/54 L 06/23/23 00:01 46 L 17 06/23/23 00:00 48 L 18 06/23/23 00:00 36.9 C 06/23/23 00:00 47 L 06/22/23 23:31 123/46 L 06/22/23 23:31 44 L 18 BP Pulse Ox O2 Del Method 06/23/23 10:36 144/52 H 91 06/23/23 10:31 06/23/23 10:01 06/23/23 10:01 91 06/23/23 10:00 90 06/23/23 09:30 06/23/23 09:30 92 06/23/23 09:00 06/23/23 09:00 92 06/23/23 08:30 06/23/23 08:30 91 06/23/23 08:30 06/23/23 08:00 06/23/23 08:00 93 06/23/23 08:00 Room Air 06/23/23 08:00 06/23/23 08:00 Room Air 06/23/23 07:31 91 06/23/23 07:31 06/23/23 07:01 06/23/23 07:01 97 06/23/23 07:00 97 06/23/23 06:30 06/23/23 06:30 95 06/23/23 06:01 06/23/23 06:01 97 06/23/23 06:00 97 06/23/23 05:31 06/23/23 05:31 97 06/23/23 05:01 98 06/23/23 05:01 06/23/23 05:00 98 06/23/23 04:31 06/23/23 04:31 96 06/23/23 04:01 97 06/23/23 04:01 06/23/23 04:00 96 06/23/23 04:00 06/23/23 03:31 06/23/23 03:31 96 06/23/23 03:01 92 06/23/23 03:01 06/23/23 03:00 100 06/23/23 02:30 06/23/23 02:30 99 06/23/23 02:00 06/23/23 02:00 96 06/23/23 01:30 93 06/23/23 01:30 06/23/23 01:01 06/23/23 01:01 92 06/23/23 01:00 90 06/23/23 00:31 06/23/23 00:31 89 L 06/23/23 00:01 06/23/23 00:01 89 L 06/23/23 00:00 91 06/23/23 00:00 06/23/23 00:00 06/22/23 23:31 06/22/23 23:31 91
[2023-06-23] MEDS ORDERED: metFORMIN HCL 500 MG TAB PO SCH (15:30)
== END 2023-06-23 11:34 | disposition home or self-care (01) | DRG 36 ==
LOC: ASU 09:25 → 1E 11:59
PROC: EV.TCAR (2023-06-21 12:00)
DX: Z88.8 Allergy status to other drugs, medicaments and biological substances; I25.10 Atherosclerotic heart disease of native coronary artery without angina pectoris; E11.22 Type 2 diabetes mellitus with diabetic chronic kidney disease; Z87.891 Personal history of nicotine dependence; I65.22 Occlusion and stenosis of left carotid artery; J44.9 Chronic obstructive pulmonary disease, unspecified; Z79.4 Long term (current) use of insulin; I95.81 Postprocedural hypotension; Z88.2 Allergy status to sulfonamides; Z79.899 Other long term (current) drug therapy; E78.5 Hyperlipidemia, unspecified; Z79.82 Long term (current) use of aspirin; K21.9 Gastro-esophageal reflux disease without esophagitis; N18.30 Chronic kidney disease, stage 3 unspecified; I12.9 Hypertensive chronic kidney disease with stage 1 through stage 4 chronic kidney disease, or unspecified chronic kidney disease; Z79.84 Long term (current) use of oral hypoglycemic drugs; E11.42 Type 2 diabetes mellitus with diabetic polyneuropathy; I25.2 Old myocardial infarction; I48.0 Paroxysmal atrial fibrillation; Z79.01 Long term (current) use of anticoagulants; G47.30 Sleep apnea, unspecified